=== PATIENT | male | born 1980 | race Caucasian/White ===

== ENCOUNTER 2020-09-25 15:11 | Outpatient (REF) | payer OTHER, SELFPAY | END 2020-09-25 15:12 | disposition home or self-care (01) | LOC: HO.BBR 15:11 | PROVIDERS: Visit Provider Internal Medicine | DX: D75.1 Secondary polycythemia (principal) | CPT/HCPCS: 36415; 85018; 99195 ==

== ENCOUNTER 2020-11-13 13:55 | Outpatient (REF) | payer OTHER, SELFPAY | END 2020-11-13 13:56 | disposition home or self-care (01) | LOC: HO.BBR 13:55 | PROVIDERS: Visit Provider Internal Medicine | DX: D75.1 Secondary polycythemia (principal) | CPT/HCPCS: 85014; 85018; 99195 ==

== ENCOUNTER 2021-01-29 15:04 | Outpatient (REF) | payer OTHER, SELFPAY ==
[2021-01-29 15:13] VITALS: BP 138/88; PULSE 70; RESP 16; TEMP 36.4; O2SAT 96; BMI 35.4
--- NOTE | 2021-01-29 15:23 | PM.HEMONCPN ---
Medical Summary - Medical Summary Date of Service: 01/29/21 Chief complaint: Follow-up Medical Summary: Diagnosis: Erythrocytosis/secondary polycythemia Routine blood work since 2016 demonstrating polycythemia with hemoglobin ranging from 16-19.6 gram/dL. Mild leukocytosis with WBC ranging from 9-10 K a normal platelets ranging from 170-[address] abdomen/pelvis in 2017 demonstrated hepatic steatosis. Diagnosed with sleep apnea several years ago, not very compliant with using CPAP machine. Never smoker. Interval History Interval history: Patient is here in follow-up. He is doing quite well, he continues to go for therapeutic phlebotomy every 6 weeks. He says he feels better after phlebotomy. He gets headaches and fatigue without the phlebotomies. He denies any chest pain or shortness of breath. He did get COVID-19 infection in the fall and has recovered completely from it. COUNTS INCLUDE 234 BEDS AT THE [facility] Medical History: Medical History (Last Updated 01/29/21 @ 16:45 by Kath Young MD) Chronic headache COVID-19 Erythrocytosis Hypertension Mild chronic gastritis Polycythemia Sleep apnea Family History: Family History (Last Updated 01/29/21 @ 15:28 by Lesia Carty, RN) Mother Hypertension Father Elevated hemoglobin Surgical History: Surgical History (Last Updated 01/29/21 @ 15:26 by Lesia Carty, RN) H/O medial meniscus repair of right knee Social History: Social History (Last Updated 01/29/21 @ 16:03 by Lesia Carty, RN) Alcohol History: Alcohol intake: never Tobacco History: Smoking Status: Never smoker Occupation Assessmet: service: Yes service comment: retired Oncology Screenings - ECOG Performance Status ECOG Performance Status: 0 Home Medications and Allergies Allergies Allergy/AdvReac Type Severity Reaction Status Date / Time No Known Allergies Allergy Unverified 07/25/20 19:03 [No Known Allergies*] Exam Vital signs: Vital Signs Temp 97.6 F 01/29/21 15:13 Pulse 70 01/29/21 15:13 Resp 16 01/29/21 15:13 BP 138/88 01/29/21 15:13 Pulse Ox 96 01/29/21 15:13 Intake & Output 01/28/21 01/29/21 01/29/21 18:59 06:59 18:59 Other: Weight 122 kg Weight in Grams [id number] Weight 122 kg Body Mass Index 35.4 - Constitutional Present: no acute distress - Routine HEENT Exam Head: Present: normal inspection Eye: Present: EOMI - Routine Neck Exam Present: normal inspection - Routine Respiratory Exam Absent: respiratory distress - Routine Cardiovascular Exam Cardiovascular: Present: S1 Data - Labs CBC & Chem 7: 01/29/21 15:50 Progress Note: A/P (1) Polycythemia Status: Acute Assessment and plan: 1. This is a pleasant 40-year-old male with polycythemia noted since 2016. He does have a diagnosis of sleep apnea which can be associated with secondary polycythemia. Hematological workup demonstrated serum erythropoietin level upper range of normal, JAK2 mutation including Exon 12 mutation and CALR mutations were negative. He started using CPAP machine. He is receiving therapeutic phlebotomy every 6 weeks. This helps his headaches and he feels better after it. Continue with therapeutic phlebotomy every 6-8 weeks. Follow-up in 6 months. - Time Spent With Patient Total time spent is greater than 50% in coordination of care (as documented) at patient's floor/unit and/or counseling patient: 15 - 24 minutes
[2021-01-29 15:52] LABS: MANUAL DIFF FLAG NO
[2021-01-29 16:00] LABS: Basophils Absolute Auto 0.1 X10*3/uL (0.0-0.2); Eosinophils Absolute Auto 0.2 X10*3/uL (0.0-0.4); Eosinophils Percent Auto 2.6 % (0-4); Hematocrit 49.6 % (42-52); Imm Gran Abs Auto 0.02 X10*3/uL (0.00-0.03); Imm Gran Pct Auto 0.3 % (0.0-0.4); Lymphocytes Absolute Auto 1.7 X10*3/uL (1.2-4.9); Lymphocytes Percent Auto 23.1 % (20-40); Mean Corpuscular HGB Conc 34.3 g/dl (31.0-36.0); Mean Corpuscular Volume 87.5 fL (80-98); Mean Platelet Volume 11.5 fL (9.4-12.4); Monocytes Absolute Auto 0.5 X10*3/uL (0.1-1.2); Monocytes Percent Auto 7.5 % (2-11); Neutrophils Absolute Auto 4.7 X10*3/uL (2.0-8.3); Neutrophils Percent Auto 65.5 % (45-73); Platelet Count 188 X10*3/uL (160-400); Red Blood Count 5.67 X10*6/uL (4.60-5.80); Red Cell Distribution Width 12.4 % (11.0-16.0); White Blood Count 7.2 X10*3/uL (4.8-10.8)
--- NOTE | 2021-01-29 16:07 | MHC.HEMONC ---
f/u with dr helms. pt will get therapeutic phlebotomy done tomorrow for hgb of 17. new order for q2m sent. pt will bring in updated home med list,PCP name and insurance card to next visit
== END 2021-01-29 15:05 | disposition home or self-care (01) ==
LOC: HO.ONC 15:04
PROVIDERS: Visit Provider Internal Medicine
DX: D75.1 Secondary polycythemia (principal); G47.30 Sleep apnea, unspecified
CPT/HCPCS: 36415; 85025; 99213

== ENCOUNTER 2021-02-05 14:58 | Outpatient (REF) | payer OTHER, SELFPAY | END 2021-02-05 14:59 | disposition home or self-care (01) | LOC: HO.BBR 14:58 | PROVIDERS: Visit Provider Internal Medicine | DX: D75.1 Secondary polycythemia (principal) | CPT/HCPCS: 85014; 85018; 99195 ==

== ENCOUNTER 2021-09-05 12:57 | Outpatient (REF) | payer OTHER, SELFPAY | END 2021-09-05 12:58 | disposition home or self-care (01) | LOC: HO.BBR 12:57 | PROVIDERS: Visit Provider Internal Medicine | DX: D75.1 Secondary polycythemia (principal) | CPT/HCPCS: 85014; 85018; 99195 ==

== ENCOUNTER 2021-11-05 02:51 | Emergency (ER) | payer OTHER, SELFPAY ==
--- NOTE | ~2021-11-05 | XR_ITS ---
EXAMINATION: XR CHEST CLINICAL INFORMATION: Chest pain COMPARISON: None TECHNIQUE: 2 views of the chest were obtained. FINDINGS: Lung volumes are symmetric. There is streaky opacity at the left lung base. No additional consolidation is seen. No evidence of pneumothorax, pleural effusion, or pulmonary edema. The cardiomediastinal contour is unremarkable. No acute osseous findings are seen. XR/XR chest 2V IMPRESSION: Streaky left basilar opacity more suggestive of atelectasis.
[2021-11-05 02:59] VITALS: BP 176/106; PULSE 71; RESP 18; TEMP 36.6; O2SAT 97; BMI 35.6
--- NOTE | 2021-11-05 03:03 | ECG_ITS ---
Test Reason : cp Blood Pressure : / mmHG Vent. Rate : 070 BPM Atrial Rate : 070 BPM P-R Int : 142 ms QRS Dur : 088 ms QT Int : 392 ms P-R-T Axes : 040 -11 -05 degrees QTc Int : 423 ms Normal sinus rhythm Nonspecific T wave abnormality Abnormal ECG When compared with ECG of 11-JUL-2020 17:30, Nonspecific T wave changes present Referred By: Generic ED Physician Electronically Signed By:Jem Tran
[2021-11-05 03:28] LABS: Basophils Absolute Auto 0.1 X10*3/uL (0.0-0.2); Basophils Percent Auto 0.7 % (0-2); Eosinophils Absolute Auto 0.3 X10*3/uL (0.0-0.4); Hematocrit 45.2 % (42.0-52.0); Hemoglobin 15.7 g/dl (14.0-18.0); Imm Gran Abs Auto 0.02 X10*3/uL (0.00-0.03); Imm Gran Pct Auto 0.2 % (0.0-0.4); Lymphocytes Absolute Auto 2.7 X10*3/uL (1.2-4.9); Lymphocytes Percent Auto 27.9 % (20-40); MANUAL DIFF FLAG NO; Mean Corpuscular HGB Conc 34.7 g/dl (31.0-36.0); Mean Corpuscular Hemoglobin 30.7 pg (27.0-33.0); Mean Corpuscular Volume 88.5 fL (80.0-98.0); Mean Platelet Volume 11.1 fL (9.4-12.4); Monocytes Absolute Auto 0.8 X10*3/uL (0.1-1.2); Neutrophils Absolute Auto 5.8 x10*3/uL (2.0-8.3); Neutrophils Percent Auto 60.2 % (45-73); Platelet Count 185 X10*3/uL (160-400); Red Blood Count 5.11 X10*6/uL (4.60-5.80); White Blood Count 9.7 X10*3/uL (4.8-10.8)
[2021-11-05 03:45] LABS: Alanine Aminotransferase 80 U/L (0-40); Albumin Level 4.1 g/dL (3.5-5.0); Alkaline Phosphatase 69 U/L (39-117); Anion Gap 13 (12-20); Aspartate Amino Transferase 30 U/L (5-37); Bilirubin Total 0.6 mg/dL (0.0-1.0); Blood Urea Nitrogen 14 mg/dL (9-16); Calcium 9.1 mg/dL (8.4-10.2); Carbon Dioxide 23 mmol/L (22-29); Chloride 108 mmol/L (96-108); Creatinine Clr Calc Pharmacy 138.7; Estimated Glomerular Filt Rate > 60; Glucose Random 104 mg/dL (60-115); Potassium 3.8 mmol/L (3.3-5.1); Sodium 140 mmol/L (135-145); Total Protein 6.7 g/dL (6.5-8.0)
[2021-11-05 03:48] LABS: Troponin-I High Sensitivity 6.3 ng/L (<3.5-35.0)
--- NOTE | 2021-11-05 05:15 | ED.GENADULT ---
HPI - General Adult General Chief complaint: General Medical Stated complaint: high BP, chest pain Time Seen by Provider: 11/05/21 03:51 Source: patient Mode of arrival: ambulatory History of Present Illness HPI narrative: 41-year-old male with presentation for elevated blood pressure and chest pain with reports of fatigue since being started on propanolol for his blood pressure. Patient states that he has had headache as well and describes the chest pain as squeezing in nature, constant and has had associated dizziness without visual/B/auditory changes and denies any extremity weakness/numbness/tingling. Otherwise, he has negative GI complaints. Related Data Previous Rx's Medication Instructions Recorded hydrochlorothiazide 25 mg tablet 25 mg PO DAILY 30 Days #30 tab 11/05/21 Allergies Allergy/AdvReac Type Severity Reaction Status Date / Time No Known Allergies Allergy Unverified 07/25/20 19:03 [No Known Allergies*] Review of Systems Review of Systems: Pertinent positives and negatives as stated in HPI 10 point review of systems is otherwise negative. PMFSH Past Medical History Source: nursing notes reviewed Medical History Chronic headache COVID-19 Erythrocytosis Hypertension Mild chronic gastritis Polycythemia Sleep apnea Surgical History H/O medial meniscus repair of right knee Family History Family History Mother Hypertension Father Elevated hemoglobin Social History Social History Alcohol intake: never Advance Directives: No Advance Directives Information Provided: Yes service: Yes (retired) Physical Exam Vital Signs: Vital Signs: Last Vital Signs Temp 97.9 F 11/05/21 06:10 Pulse 66 11/05/21 06:10 Resp 16 11/05/21 06:10 BP 143/94 H 11/05/21 06:10 Pulse Ox 96 11/05/21 06:10 BMI result Body Mass Index 35.6 VITAL SIGNS: Reviewed. GENERAL: Well developed, well nourished, in no acute distress. HEAD: Normocephalic/atraumatic EYES: PERRLA, EOMI OROPHARYNX: no oral lesions noted, posterior pharynx clear LUNGS: Normal breath sounds. No adventitious sounds or accessory muscle use. SpO2<96> CARDIOVASCULAR: Regular rate and rhythm without noted murmurs, no JVD or lower extremity edema. ABDOMEN: Soft, non-tender, non-distended with bowel sounds. MUSCULOSKELETAL: No tenderness, deformities, or effusions noted on gross inspection. EXTREMITIES: No cyanosis, clubbing or edema. SKIN: Inspection of the skin reveals no rashes NEUROLOGIC: Alert and oriented x 4. Strength and sensation to light touch were grossly intact x 4. Course Course Course Narrative: This is a 41-year-old male with history and clinical presentation consistent with symptoms that correlate with elevated blood pressure and on review of all investigations there are no acute findings other than detectable troponin levels. In regards to chest x-ray findings this is most consistent clinically with atelectasis as patient has no new cough, has been afebrile and is oxygenating well. HEART Score: 2 Serial troponins are flat, and patient was discharged home in stable condition with instructions to follow-up with his primary care provider. Medical Decision Making Lab Data Result diagrams: 11/05/21 03:21 11/05/21 03:21 Labs: Lab Results 11/05/21 11/05/21 11/05/21 Range/Units 03:21 03:21 03:21 WBC 9.7 (4.8-10.8) X10*3/uL RBC 5.11 (4.60-5.80) X10*6/uL Hgb 15.7 (14.0-18.0) g/dl Hct 45.2 (42.0-52.0) % MCV 88.5 (80.0-98.0) fL MCH 30.7 (27.0-33.0) pg MCHC 34.7 (31.0-36.0) g/dl RDW 12.0 (11.0-16.0) % Plt Count 185 (160-400) X10*3/uL MPV 11.1 (9.4-12.4) fL Immature Gran % (Auto) 0.2 (0.0-0.4) % Neut % (Auto) 60.2 (45-73) % Lymph % (Auto) 27.9 (20-40) % [place] % (Auto) 8.0 (2-11) % Eos % (Auto) 3.0 (0-4) % Baso % (Auto) 0.7 (0-2) % Lymph # (Auto) 2.7 (1.2-4.9) X10*3/uL [place] # (Auto) 0.8 (0.1-1.2) X10*3/uL Eos # (Auto) 0.3 (0.0-0.4) X10*3/uL Baso # (Auto) 0.1 (0.0-0.2) X10*3/uL Abs Immat Gran (auto) 0.02 (0.00-0.03) X10*3/uL Absolute Neuts (auto) 5.8 (2.0-8.3) x10*3/uL Absolute Nucleated RBC 0.000 (0.0-0.012) X10*3/uL Nucleated RBC % (auto) 0.0 (0.0-0.2) /100WBC Sodium 140 (135-145) mmol/L Potassium 3.8 (3.3-5.1) mmol/L Chloride 108 (96-108) mmol/L Carbon Dioxide 23 (22-29) mmol/L Anion Gap 13 (12-20) BUN 14 (9-16) mg/dL Creatinine 0.97 (0.5-1.4) mg/dL Estim Creat Clear Calc 138.7 Estimated GFR > 60 Random Glucose 104 (60-115) mg/dL Calcium 9.1 (8.4-10.2) mg/dL Total Bilirubin 0.6 (0.0-1.0) mg/dL AST 30 (5-37) U/L ALT 80 H (0-40) U/L Alkaline Phosphatase 69 (39-117) U/L Troponin I High Sens 6.3 (<3.5-35.0) ng/L Total Protein 6.7 (6.5-8.0) g/dL Albumin 4.1 (3.5-5.0) g/dL 11/05/21 Range/Units 06:08 WBC (4.8-10.8) X10*3/uL RBC (4.60-5.80) X10*6/uL Hgb (14.0-18.0) g/dl Hct (42.0-52.0) % MCV (80.0-98.0) fL MCH (27.0-33.0) pg MCHC (31.0-36.0) g/dl RDW (11.0-16.0) % Plt Count (160-400) X10*3/uL MPV (9.4-12.4) fL Immature Gran % (Auto) (0.0-0.4) % Neut % (Auto) (45-73) % Lymph % (Auto) (20-40) % [place] % (Auto) (2-11) % Eos % (Auto) (0-4) % Baso % (Auto) (0-2) % Lymph # (Auto) (1.2-4.9) X10*3/uL [place] # (Auto) (0.1-1.2) X10*3/uL Eos # (Auto) (0.0-0.4) X10*3/uL Baso # (Auto) (0.0-0.2) X10*3/uL Abs Immat Gran (auto) (0.00-0.03) X10*3/uL Absolute Neuts (auto) (2.0-8.3) x10*3/uL Absolute Nucleated RBC (0.0-0.012) X10*3/uL Nucleated RBC % (auto) (0.0-0.2) /100WBC Sodium (135-145) mmol/L Potassium (3.3-5.1) mmol/L Chloride (96-108) mmol/L Carbon Dioxide (22-29) mmol/L Anion Gap (12-20) BUN (9-16) mg/dL Creatinine (0.5-1.4) mg/dL Estim Creat Clear Calc Estimated GFR Random Glucose (60-115) mg/dL Calcium (8.4-10.2) mg/dL Total Bilirubin (0.0-1.0) mg/dL AST (5-37) U/L ALT (0-40) U/L Alkaline Phosphatase (39-117) U/L Troponin I High Sens 5.4 (<3.5-35.0) ng/L Total Protein (6.5-8.0) g/dL Albumin (3.5-5.0) g/dL ECG Data Attestation: I personally reviewed and interpreted this ECG as follows: Prior ECG tracings: not available for review Interpretation: Normal sinus rhythm, HR-70, no STEMI, VA/QRS/QTC is within normal limits. Discharge Plan Discharge Clinical Impression: Chest pain Patient Disposition: Home, Self-Care Instructions: Chest Pain (ED) Additional Instructions: 1. You have been started on a new blood pressure medication, but should still follow-up with Dr. Mcmahon by calling the office today. At that time you should discuss the symptoms that you have been experiencing since being started on the propanolol. Return to the ER for worsening symptoms. Prescriptions: New hydrochlorothiazide 25 mg tablet 25 mg PO DAILY 30 Days Qty: 30 RF: 0 Referrals: Alexander Mcmahon DO [Primary Care Provider] - 2 days (Patient hypertensive and currently on propanolol, started hydrochlorothiazide.)
[2021-11-05 06:10] VITALS: BP 143/94; PULSE 66; RESP 16; TEMP 36.6; O2SAT 96
[2021-11-05] MEDS: hydroCHLOROthiazide 25 MG TABLET PO (06:11)
[2021-11-05 06:32] LABS: Troponin-I High Sensitivity 5.4 ng/L (<3.5-35.0)
[2021-11-05] MEDS: Lidocaine HCl Viscous 2 % 15 ML SOLUTION 10 ML MUCOUS MEM (06:33)
[2021-11-05] MEDS: Magnesium Hydrox/Alum Hydrox 30 ML ORAL.SUSP PO (06:33)
== END 2021-11-05 06:45 | disposition home or self-care (01) ==
PROVIDERS: Emergency Provider Student in an Organized Health Care Education/Training Program; PCP Family Medicine
DX: R07.9 Chest pain, unspecified (principal); I10 Essential (primary) hypertension
CPT/HCPCS: 36415; 71046; 80053; 84484; 85025; 93005; 99283; 99284

== ENCOUNTER 2021-11-05 15:19 | Outpatient (REF) | payer OTHER, SELFPAY | END 2021-11-05 15:20 | disposition home or self-care (01) | LOC: HO.BBR 15:19 | PROVIDERS: Visit Provider Internal Medicine | DX: D75.1 Secondary polycythemia (principal) | CPT/HCPCS: 85014; 85018; 99195 ==

== ENCOUNTER 2022-01-19 15:15 | Outpatient (REF) | payer OTHER, SELFPAY | END 2022-01-19 15:16 | disposition home or self-care (01) | LOC: HO.BBR 15:15 | PROVIDERS: Visit Provider Internal Medicine | DX: D75.1 Secondary polycythemia (principal) | CPT/HCPCS: 85014; 85018; 99195 ==

== ENCOUNTER → 2022-02-04 15:17 | Outpatient (BNV) | payer OTHER, SELFPAY | PROVIDERS: PCP Internal Medicine Endocrinology, Diabetes & Metabolism; Visit Provider Internal Medicine | DX: D75.1 Secondary polycythemia (principal) | CPT/HCPCS: 99213; 99214; G2211 ==

== ENCOUNTER 2022-04-22 15:27 | Outpatient (REF) | payer OTHER, SELFPAY | END 2022-04-22 15:28 | disposition home or self-care (01) | LOC: HO.BBR 15:27 | PROVIDERS: PCP Nurse Practitioner Family; Visit Provider Internal Medicine | DX: D75.1 Secondary polycythemia (principal) | CPT/HCPCS: 85014; 85018; 99195 ==

== ENCOUNTER 2022-05-18 17:00 | Emergency (ER) | payer OTHER, SELFPAY ==
--- NOTE | 2022-05-18 17:07 | ECG_ITS ---
Test Reason : cp Blood Pressure : / mmHG Vent. Rate : 082 BPM Atrial Rate : 082 BPM P-R Int : 134 ms QRS Dur : 088 ms QT Int : 324 ms P-R-T Axes : 049 -11 086 degrees QTc Int : 378 ms Normal sinus rhythm Nonspecific T wave abnormality Abnormal ECG When compared with ECG of 05-NOV-2021 03:06, No significant change was found Referred By: Generic ED Physician Electronically Signed By:RK OLIVERA MD
[2022-05-18 20:19] VITALS: BP 165/95; PULSE 81; RESP 20; TEMP 36.6; O2SAT 96; BMI 35.6
--- NOTE | 2022-05-18 21:21 | ED_ITS ---
HPI - Chest Pain General Chief Complaint: Chest Pain Stated Complaint: chest pain, headache Time Seen by Provider: 05/18/22 21:21 Source: patient Mode of arrival: ambulatory Limitations: no limitations History of Present Illness HPI narrative: Patient with history of hypertension supposed to be on losartan 100 mg but taking only 50 mg as it gives him lethargic under lot of stress at work and drink caffeinated drinks workup after some sleep at 14:00 checked his blood pressure was 175/106 also noticed slight headache and slight chest pain, no chest pain now no shortness of breath patient usual blood pressure is 150s/95 patient advised to take losartan 100 mg but taking only 50 does not want to take hydrochlorothiazide as it makes him sleepy patient denies any shortness of breath Related Data Home Medications Medication Instructions Recorded Confirmed ciprofloxacin HCl 500 mg tablet 1 tab PO BID 02/04/22 02/04/22 losartan 100 mg tablet 1 tab PO DAILY 02/04/22 02/04/22 omeprazole 20 mg tablet,delayed 20 mg PO DAILY 02/04/22 02/04/22 release propranolol 10 mg tablet 1 tab PO TID 02/04/22 02/04/22 Previous Rx's Medication Instructions Recorded amlodipine 5 mg tablet (Norvasc) 5 mg PO DAILY #30 tabs 05/19/22 Allergies Allergy/AdvReac Type Severity Reaction Status Date / Time No Known Allergies Allergy Verified 05/18/22 20:19 [No Known Allergies*] Review of Systems Review of Systems: Yes all other systems are reviewed and are negative PMFSH Past Medical History Medical History Chronic headache COVID-19 Erythrocytosis Hypertension Mild chronic gastritis Polycythemia Sleep apnea Surgical History H/O medial meniscus repair of right knee Family History Family History Mother Hypertension Father Elevated hemoglobin Social History Social History Household Members: Spouse and Children Housing: Apartment Are you a primary day care aide to a significant other at home: No Do you presently have visiting nurse or other home services: No Alcohol intake: never Patient Tobacco Use Status: Never used Tobacco Use of substances other than those prescribed or required for medical reasons: No Advance Directives: No Advance Directives Information Provided: No service: Yes (retired) Current occupational status: employed Physical Exam Vital Signs: Vital Signs: Last Vital Signs Temp 98.0 F 05/19/22 00:30 Pulse 80 05/19/22 00:30 Resp 16 05/19/22 00:30 BP 156/98 H 05/19/22 00:30 Pulse Ox 98 05/19/22 00:30 O2 Del Method 05/19/22 00:30 BMI result Body Mass Index 35.6 Appearance: Alert. Oriented X3. No acute distress. Eyes: PERRLA, No Nystagmus ENT: Pharynx normal. Oral Mucosa moist Neck: Normal inspection. Neck supple. CVS: Normal heart rate and rhythm. Pulses normal. Respiratory: No respiratory distress. Equal air entry bilateral, no wheezing/rales/rhonchi Abdomen: Soft and nontender. Bowel sounds are present, no mass palpable, no CVA tenderness Skin: Skin warm and dry. Normal skin color. Normal skin turgor. Extremities: No lower extremity edema. No calf tenderness Neuro: Oriented X 3. No motor deficit. No sensory deficit.No cerebellar signs , cranial nerves II-XII intact MDM - Chest Pain MDM Narrative Medical decision making narrative: Patient with hypertension with atypical chest pain for more than 6 hours EKG negative for hypertension will add amlodipine 5 mg daily along with losartan advised to follow-up with full stack php developer as scheduled next week Lab Data Attestation: I reviewed the patient's lab results. Result diagrams: 05/18/22 21:51 05/18/22 21:51 Labs: Lab Results 05/18/22 05/18/22 05/18/22 Range/Units 21:51 21:51 21:51 WBC 9.5 (4.8-10.8) X10*3/uL RBC 5.48 (4.60-5.80) X10*6/uL Hgb 16.3 (14.0-18.0) g/dl Hct 47.8 (42.0-52.0) % MCV 87.2 (80.0-98.0) fL MCH 29.7 (27.0-33.0) pg MCHC 34.1 (31.0-36.0) g/dl RDW 12.9 (11.0-16.0) % Plt Count 170 (160-400) X10*3/uL MPV 10.9 (9.4-12.4) fL Immature Gran % (Auto) 0.3 (0.0-0.4) % Neut % (Auto) 60.1 (45-73) % Lymph % (Auto) 27.2 (20-40) % [place] % (Auto) 9.1 (2-11) % Eos % (Auto) 2.7 (0-4) % Baso % (Auto) 0.6 (0-2) % Lymph # (Auto) 2.6 (1.2-4.9) X10*3/uL [place] # (Auto) 0.9 (0.1-1.2) X10*3/uL Eos # (Auto) 0.3 (0.0-0.4) X10*3/uL Baso # (Auto) 0.1 (0.0-0.2) X10*3/uL Abs Immat Gran (auto) 0.03 (0.00-0.03) X10*3/uL Absolute Neuts (auto) 5.7 (2.0-8.3) x10*3/uL Absolute Nucleated RBC 0.000 (0.0-0.012) X10*3/uL Nucleated RBC % (auto) 0.0 (0.0-0.2) /100WBC Sodium 141 (135-145) mmol/L Potassium 4.1 (3.3-5.1) mmol/L Chloride 108 (96-108) mmol/L Carbon Dioxide 26 (22-29) mmol/L Anion Gap 11 L (12-20) BUN 14 (9-16) mg/dL Creatinine 1.06 (0.5-1.4) mg/dL Estim Creat Clear Calc 125.7 Estimated GFR > 60 Random Glucose 90 (60-115) mg/dL Calcium 9.4 (8.4-10.2) mg/dL Total Bilirubin 0.6 (0.0-1.0) mg/dL AST 37 (5-37) U/L ALT 85 H (0-40) U/L Alkaline Phosphatase 71 (39-117) U/L Troponin I High Sens 6.0 (<3.5-35.0) ng/L Total Protein 7.3 (6.5-8.0) g/dL Albumin 4.4 (3.5-5.0) g/dL ECG Data ECG #1: Attestation: I personally reviewed and interpreted this ECG as follows: Interpretation: Normal sinus rhythm heart rate 82 beats per minute normal axis normal intervals nonspecific ST T wave changes no acute ischemic no significant change from the previous EKG Discharge Plan Discharge Clinical Impression: Hypertension Patient Disposition: Home, Self-Care Instructions: Chronic Hypertension (ED) Additional Instructions: Continue losartan 50 mg daily as you are taking Add amlodipine 5 mg daily for blood pressure control Your blood pressure should be less than 130/85 Follow with your PCP Prescriptions: New amlodipine [Norvasc] 5 mg tablet 5 mg PO DAILY Qty: 30 0RF No Action ciprofloxacin HCl 500 mg tablet 1 tab PO BID propranolol 10 mg tablet 1 tab PO TID losartan 100 mg tablet 1 tab PO DAILY omeprazole 20 mg Tablet,Delayed Release (Dr/Ec) 20 mg PO DAILY Interventions: ED Discharge Assessment Last Done: 05/19/22 00:42 Discharge Date/Time: 05/19/22 00:43
[2022-05-18 21:55] LABS: MANUAL DIFF FLAG NO
[2022-05-18 21:57] LABS: Basophils Absolute Auto 0.1 X10*3/uL (0.0-0.2); Basophils Percent Auto 0.6 % (0-2); Eosinophils Absolute Auto 0.3 X10*3/uL (0.0-0.4); Eosinophils Percent Auto 2.7 % (0-4); Hematocrit 47.8 % (42.0-52.0); Hemoglobin 16.3 g/dl (14.0-18.0); Imm Gran Abs Auto 0.03 X10*3/uL (0.00-0.03); Imm Gran Pct Auto 0.3 % (0.0-0.4); Lymphocytes Absolute Auto 2.6 X10*3/uL (1.2-4.9); Lymphocytes Percent Auto 27.2 % (20-40); Mean Corpuscular HGB Conc 34.1 g/dl (31.0-36.0); Mean Corpuscular Hemoglobin 29.7 pg (27.0-33.0); Mean Corpuscular Volume 87.2 fL (80.0-98.0); Mean Platelet Volume 10.9 fL (9.4-12.4); Monocytes Absolute Auto 0.9 X10*3/uL (0.1-1.2); Monocytes Percent Auto 9.1 % (2-11); Neutrophils Absolute Auto 5.7 x10*3/uL (2.0-8.3); Neutrophils Percent Auto 60.1 % (45-73); Platelet Count 170 X10*3/uL (160-400); Red Blood Count 5.48 X10*6/uL (4.60-5.80); Red Cell Distribution Width 12.9 % (11.0-16.0); White Blood Count 9.5 X10*3/uL (4.8-10.8)
[2022-05-18 22:00] VITALS: BP 153/94; PULSE 72; RESP 16; O2SAT 97
[2022-05-18 22:13] LABS: Alanine Aminotransferase 85 U/L (0-40); Albumin Level 4.4 g/dL (3.5-5.0); Alkaline Phosphatase 71 U/L (39-117); Anion Gap 11 (12-20); Aspartate Amino Transferase 37 U/L (5-37); Bilirubin Total 0.6 mg/dL (0.0-1.0); Blood Urea Nitrogen 14 mg/dL (9-16); Calcium 9.4 mg/dL (8.4-10.2); Carbon Dioxide 26 mmol/L (22-29); Chloride 108 mmol/L (96-108); Creatinine Clr Calc Pharmacy 125.7; Estimated Glomerular Filt Rate > 60; Glucose Random 90 mg/dL (60-115); Potassium 4.1 mmol/L (3.3-5.1); Sodium 141 mmol/L (135-145); Total Protein 7.3 g/dL (6.5-8.0)
[2022-05-18] MEDS: amLODIPine Besylate 5 MG TABLET PO (23:31)
[2022-05-18 23:36] VITALS: PULSE 80
[2022-05-19 00:30] VITALS: BP 156/98; PULSE 80; RESP 16; TEMP 36.7; O2SAT 98
== END 2022-05-19 00:43 | disposition home or self-care (01) ==
PROVIDERS: Emergency Provider Internal Medicine
DX: R07.89 Other chest pain (principal); R51.9 Headache, unspecified; I10 Essential (primary) hypertension; Z79.899 Other long term (current) drug therapy
CPT/HCPCS: 36415; 80053; 84484; 85025; 93005; 99283; 99284

== ENCOUNTER 2022-07-23 15:30 | Outpatient (REF) | payer OTHER, SELFPAY | END 2022-07-23 15:31 | disposition home or self-care (01) | LOC: HO.BBR 15:30 | PROVIDERS: Visit Provider Internal Medicine | DX: D75.1 Secondary polycythemia (principal) | CPT/HCPCS: 85018; 99195 ==

== ENCOUNTER 2022-11-04 14:43 | Outpatient (REF) | payer OTHER, SELFPAY | END 2022-11-04 14:44 | disposition home or self-care (01) | LOC: HO.BBR 14:43 | PROVIDERS: Visit Provider Internal Medicine | DX: D75.1 Secondary polycythemia (principal) | CPT/HCPCS: 85014; 85018; 99195 ==

== ENCOUNTER 2023-02-12 15:05 | Outpatient (REF) | payer OTHER, SELFPAY | END 2023-02-12 15:06 | disposition home or self-care (01) | LOC: HO.BBR 15:05 | PROVIDERS: Visit Provider Internal Medicine | DX: D75.1 Secondary polycythemia (principal) | CPT/HCPCS: 85014; 85018; 99195 ==

== ENCOUNTER 2023-04-30 15:16 | Outpatient (REF) | payer OTHER, SELFPAY | END 2023-04-30 15:17 | disposition home or self-care (01) | LOC: HO.BBR 15:16 | PROVIDERS: Visit Provider Internal Medicine | DX: D75.1 Secondary polycythemia (principal) | CPT/HCPCS: 85018; 99195 ==

== ENCOUNTER 2023-07-09 15:26 | Outpatient (REF) | payer MEDICAID, SELFPAY | END 2023-07-09 15:27 | disposition home or self-care (01) | LOC: HO.BBR 15:26 | PROVIDERS: Visit Provider Internal Medicine | DX: D75.1 Secondary polycythemia (principal) | CPT/HCPCS: 85014; 85018; 99195 ==

== ENCOUNTER 2023-09-16 15:29 | Outpatient (REF) | payer OTHER, SELFPAY | END 2023-09-16 15:30 | disposition home or self-care (01) | LOC: HO.BBR 15:29 | PROVIDERS: Visit Provider Internal Medicine | DX: D75.1 Secondary polycythemia (principal) | CPT/HCPCS: 85014; 85018; 99195 ==

== ENCOUNTER 2023-11-25 15:15 | Outpatient (REF) | payer OTHER, SELFPAY | END 2023-11-25 15:16 | disposition home or self-care (01) | LOC: HO.BBR 15:15 | PROVIDERS: Visit Provider Internal Medicine | DX: D75.1 Secondary polycythemia (principal) | CPT/HCPCS: 85018; 99195 ==

== ENCOUNTER 2024-02-18 12:57 | Outpatient (REF) | payer OTHER, SELFPAY | END 2024-02-18 12:58 | disposition home or self-care (01) | LOC: HO.BBR 12:57 | PROVIDERS: Visit Provider Internal Medicine | DX: D75.1 Secondary polycythemia (principal) | CPT/HCPCS: 85018; 99195 ==

== ENCOUNTER 2024-04-27 15:02 | Outpatient (REF) | payer OTHER, SELFPAY | END 2024-04-27 15:03 | disposition home or self-care (01) | LOC: HO.BBR 15:02 | PROVIDERS: Visit Provider Internal Medicine | DX: D75.1 Secondary polycythemia (principal) | CPT/HCPCS: 85014; 85018; 99195 ==

== ENCOUNTER 2024-07-06 15:19 | Outpatient (REF) | payer OTHER, SELFPAY | END 2024-07-06 15:20 | disposition home or self-care (01) | LOC: HO.BBR 15:19 | PROVIDERS: Visit Provider Internal Medicine | DX: D75.1 Secondary polycythemia (principal) | CPT/HCPCS: 85018; 99195 ==

== ENCOUNTER 2024-08-31 15:17 | Outpatient (REF) | payer OTHER, SELFPAY | END 2024-08-31 15:18 | disposition home or self-care (01) | LOC: HO.BBR 15:17 | PROVIDERS: Visit Provider Internal Medicine | DX: D75.1 Secondary polycythemia (principal) | CPT/HCPCS: 85018; 99195 ==

== ENCOUNTER 2024-11-09 15:19 | Outpatient (REF) | payer OTHER, SELFPAY ==
--- OUTSIDE RECORDS SUMMARY | 2024-11-09 16:49 | XMS_ITS | Encounter Summary ---
Author Name [facility] [place] [facility] [place] Address [address] [place] [address] Care Team Providers Care Investor Relations Manager Name Role Phone [employer] [facility] Insurance Providers: All historical and current Section Date Range: From patient's date of to the date document was created. This section includes the names of all active insurance providers for the patient. Insurance Provider Type of Coverage Plan Name Start of Policy Coverage End of Policy Coverage Group Number Member ID Insurance Provider's Telephone Number Policy Agustin's Name Patient's Relationship to Policy Agustin [place] [employer] D[employer] [employer] PLAN [employer] [facility] Jul 09, 2023 [id number] SAULO LIU PATIENT [employer] [facility] Nov 08, 2020 [id number] [phone] SAULO LIU PATIENT [facility] ([id number]) PRESCRIPT ION [facility] Jul 09, 2023 [id number] [phone] SAULO LIU PATIENT [facility] ([id number]) PRESCRIPT ION [facility] Jul 09, 2023 [id number] SAULO LIU PATIENT [facility] HIGH DEDUCTIBL E HEALTH PLAN W/HEALTH [employer] ACCOUNT [facility] Dec 01, 2014 [id number] [phone] SAULO LIU PATIENT Selected Encounter This section includes the information on record at [place] for the Encounter. Date/Time Encounter Type Encounter Description Reason Pro vider Source Dec 07, 2023 11:45 AM Outpatient Encounter PRIMARY CARE/MEDICINE IHE Encounter Template Text not used by [place] Plan of Treatment: Future Appointments (+ 6 months) and Future Tests (+/- 45 days) The Plan of Treatment section includes future care activities for the patient [facility] [place] [facility] This section includes future appointments and future orders which are active, pending or scheduled. Future Appointments This section includes appointments that were scheduled to occur 6 months from the date of the Encounter, up to a maximum of 20 appointments. The data comes from all [place] treatment facilities. Appointment Date/Time Appointment Type Appointme nt Facility Name March 14, 2024 02:30 PM AMB[place] - NONE [place] [facility] [place] [facility] Apr 11, 2024 08:30 AM [place]IC[place] [facility] [place] [facility] Apr 11, 2024 09:00 AM [place] [facility] [place] [facility] Apr 18, 2024 08:30 AM [place]UL[place] [facility] [place] [facility] May 15, 2024 02:30 PM AMBULATORY - NONE [facility] [place] [facility] May 23, 2024 10:00 AM AMBULATORY - NONE [facility] [place] [facility] May 23, 2024 03:00 PM [place] [facility] [place] [facility] May 23, 2024 04:15 PM [place] - [place] [facility] [place] [facility] Social History: Smoking Status (Most current) and Tobacco Use (All prior to encounter date) This section includes the most current, and the historical, smoking and tobacco- related health factors from the [place] facility where the Encounter took place. Current Smoking Status This section includes the most current smoking, or tobacco-related health factor, from the [place] facility where the Encounter took place. Date/Time Current Smoking Status [facility] Oct 06, 2023 10:00 AM [place]-TO[place] NEVER USED [place] [facility] Tobacco Use History This section includes a history of the smoking, or tobacco-related health factors, that were collected on or before the date of the Encounter. The data comes from the [place] facility where the Encounter took place. Date/Time Smoking Status/Tobac co Use Comment Facility Jul 31, 2022 09:00 AM [place]-TOBACCO NEVER USED [place] [facility] [place] [facility] Apr 24, 2021 03:00 PM VA-TOBACCO NEVER USED [facility] [place] [facility] March 26, 2020 02:34 PM VA-TOBACCO NEVER USED [facility] [place] [facility] Feb 27, 2019 09:44 AM VA-TOBACCO NEVER USED [place] [facility] [place] [facility] Dec 14, 2017 03:24 PM LIFETIME NON-TOBACCO USER [facility] [place] [facility] Dec 14, 2016 10:28 AM LIFETIME NON-TOBACCO USER Life time nonsmoker [place] [facility] [place] [facility] Jan 06, 2016 09:32 AM LIFETIME NON-TOBACCO USER [facility] [place] [facility] Jan 21, 2015 12:48 PM LIFETIME NON-TOBACCO USER never [place] [facility] Encounter Notes: All associated encounter notes This section contains the clinical notes associated to the Encounter. Date/Time Encounter Note(s) Provider Source Dec 07, 2023 11:45 AM ADMINISTRATIVE NOTE: LOCAL TITLE: FAX/MAIL RECEIVED STANDARD TITLE: ADMINISTRATIVE NOTE DATE OF NOTE: DEC 07, 2023@11:45 ENTRY DATE: DEC 07, 2023@11:45:27 AUTHOR: CAMILO BROOKS EXP COSIGNER: URGENCY: STATUS: COMPLETED Document Received On: Nov Document Type: Other: MEDICATION APPROVAL OMEPRAZOLE Date of Service: Nov Facility and or Provider: [facility] Contact Information: PCP of Record: DEX SEO Next visit with PCP: 02/28/2024 15:00 CWM/NO/PACT 7 03/14/2024 14:30 CWM/NO/SLEEP DME / WITH E Primary Care May keep copies of this document for up to 14 days and send the original for scanning. /mandi/ CAMILO BROOKS AMSA Signed: 12/07/2023 11:46 CAMILO BROOKS [facility]
--- OUTSIDE RECORDS SUMMARY | 2024-11-09 16:49 | XMS_ITS | Encounter Summary ---
Author Name [facility] [place] Organization [place] Address [address] [place] [address] Care Team Providers Care Licensed Occupational Therapy Assistant Name Role Phone DEX SEO Primary Care Provider [facility] Insurance Providers: All historical and current [...] Name Patient's Relationship to Policy Agustin [place] DEDU[place]IBL E HEALTH PLAN [place] [employer] [facility] Jul 09, 2023 [id number] [phone] SAULO LIU PATIENT [facility] PRES[facility] Nov 08, 2020 [id number] [phone] SAULO LIU PATIENT [facility] ([id number]) PRESCRIPT ION AGRIM ARK [facility] Jul 09, 2023 AGRIMRK [id number] SAULO LIU PATIENT [facility] ([id number]) PRESCRIPT ION [facility] Jul 09, 2023 AGRIMRK [id number] [phone] SAULO LIU PATIENT [facility] HIGH DEDUCTIBL E HEALTH PLAN W/HEALTH SAVINGS ACCOUNT [facility] Dec 01, 2014 [id number] [phone] SAULO LIU PATIENT Selected Encounter This section includes the information on record at [place] for the Encounter. Date/Time Encounter Type Encounter Description Reason Pro vider Source Nov 25, 2023 09:10 AM Outpatient Encounter SLEEP MEDICINE IHE Encounter Template Text not used by ND Plan of Treatment: Future Appointments (+ 6 months) and Future Tests (+/- 45 days) The Plan of Treatment section includes future care activities for the patient from all [place] treatmentfaregency hospital company. This section includes future appointments and future orders which are active, pending or scheduled. Future Appointments This section includes appointments that were scheduled to occur 6 months from the date of the Encounter, up to a maximum of 20 appointments. The data comes from all [place] treatment facilities. Appointment Date/Time Appointment Type Appointme nt Facility Name March 14, 2024 02:30 PM AMBULATORY - NONE [place] [facility] [place] [facility] Apr 11, 2024 08:30 AM AMBULATORY - MEDICINE [place] [facility] [place] [facility] Apr 11, 2024 09:00 AM AMBULATORY - MEDICINE [place] C [facility] [facility] Apr 18, 2024 08:30 AM AMBULATORY - MEDICINE ND C [facility] [place] [facility] May 15, 2024 02:30 PM AMBULATORY - NONE [place] [facility] [facility] May 23, 2024 10:00 AM AMBULATORY - NONE [place] [facility] [place] [facility] May 23, 2024 03:00 PM AMBULATORY - MEDICINE [place] [facility] [place] [facility] May 23, 2024 04:15 PM AMBULATORY - MEDICINE ND [facility] [place] [facility] Lab Results: +/- 30 days of the encounter This section includes the Chemistry and Hematology Lab Results on record with ND for the patient. Radiology Reports and Pathology Reports are provided separately, in subsequent sections. Lab Results This section contains the Chemistry/Hematology Results that were resulted 30 days before or 30 daysafter the date of the Encounter. Date/Time Source Result Type Result - Unit Interpretation Reference Range Comment Oct 28, 2023 02:33 PM [place] [facility] [place] [facility] STREP A (CEPHEID) Specimen Type: PHARYNX No comment entered. Ordering Provider: JIAN SEO AM Report Released Date/Time: Oct 28, 2023 02:16 PM Reporting Lab: [place] [facility] [place] [facility] [address] [facility] [address] Performing Lab: [facility] [place] [facility] [address] [address] STREP A (CEPHEID) [place] Not Detected Social History: Smoking Status (Most current) and Tobacco Use (All prior to encounter date) This section includes the most current, and the historical, smoking and tobacco- related health factors from the [place] facility where the Encounter took place. Current Smoking Status This section includes the most current smoking, or tobacco-related health factor, from the [place] facility where the Encounter took place. Date/Time Current Smoking Status Comment [facility] Oct 06, 2023 10:00 AM VA-TOBACCO NEVER USED [place] [facility] [place] [facility] Tobacco Use History This section includes a history of the smoking, or tobacco-related health factors, that were collected on or before the date of the Encounter. The data comes from the [place] facility where the Encounter took place. Date/Time Smoking Status/Tobac co Use Comment Facility Jul 31, 2022 09:00 AM VA-TOBACCO NEVER USED [facility] [facility] Apr 24, 2021 03:00 PM VA-TOBACCO NEVER USED [place] [facility] [facility] March 26, 2020 02:34 PM VA-TOBACCO NEVER USED [facility] [facility] Feb 27, 2019 09:44 AM VA-TOBACCO NEVER USED [facility] [facility] Dec 14, 2017 03:24 PM LIFETIME NON-TOBACCO USER [facility] [place] [facility] Dec 14, 2016 10:28 AM LIFETIME NON-TOBACCO USER Life time nonsmoker [facility] [place] [facility] Jan 06, 2016 09:32 AM LIFETIME NON-TOBACCO USER [facility] [place] [facility] Jan 21, 2015 12:48 PM LIFETIME NON-TOBACCO USER never [facility] [place] [facility] Encounter Notes: All associated encounter notes This section contains the clinical notes associated to the Encounter. Date/Time Encounter Note(s) Provider Source Nov 25, 2023 09:10 AM TELEPHONE ENCOUNTE R NOTE: LOCAL TITLE: TELEPHONE NOTE/SPECIALTY CLINIC STANDARD TITLE: TELEPHONE ENCOUNTER NOTE DATE OF NOTE: NOV 25, 2023@09:10 ENTRY DATE: NOV 25, 2023@09:10:46 AUTHOR: GENE PEÑA SA COSIGNER: URGENCY: STATUS: COMPLETED states that CPAP machine is not working. He states the air is not coming through the mask correctly. [place] would like to have it fixed or replaced. Confirmed phone number. /mandi/ GENE PEÑA Signed: 11/25/2023 09:20 Receipt Acknowledged By: 11/29/2023 07:08 /es/ JOHN HOLLAND,ADAN RESPIRATORY THERAPIST 11/30/2023 07:27 /es/ DESHAUN FLORES RESPIRATORY THERAPIST 11/26/2023 11:28 /es/ BO REZA CRT RESPIRATORY THERAPIST GENE PEÑA [facility]
--- OUTSIDE RECORDS SUMMARY | 2024-11-09 16:49 | XMS_ITS | Encounter Summary ---
Author Name [facility] [place] Address [address] [place] [address] Care Team Providers Care Collections Professional Name Role Phone DEX SEO Primary [facility] Insurance Providers: All historical and current Section [...] Name Patient's Relationship to Policy Agustin [place] HIGH DEDUCTIBL E HEALTH PLAN [facility] [employer] [facility] Jul 09, 2023 [id number] [phone] SAULO LIU PATIENT [facility] PRESCRIPT ION [facility] Nov 08, 2020 [id number] [phone] SAULO LIU PATIENT [facility] ([id number]) PRESCRIPT ION AGRIM [facility] Jul 09, 2023 AGRIMRK [id number] [phone] SAULO LIU PATIENT [facility] ([id number]) PRESCRIPT ION AGRIM [facility] Jul 09, 2023 AGRIMRK [id number] SAULO LIU PATIENT [facility] HIGH DEDUCTIBL E HEALTH PLAN W/HEALTH SAVINGS ACCOUNT [facility] Dec 01, 2014 [id number] [phone] SAULO LIU PATIENT Selected Encounter This section includes the information on record at [place] for the Encounter. Date/Time Encounter Type Encounter Description Reason Pro vider Source Nov 11, 2023 02:16 PM Outpatient Encounter COMMUNITY CARE CONSULT IHE Encounter Template Text not used by [place] Plan of Treatment: Future Appointments (+ 6 months) and Future Tests (+/- 45 days) The Plan of Treatment section includes future care activities for the patient from all [place] treatmentfacilities. This section includes future appointments and future orders which are active, pending or scheduled. Future Appointments This section includes appointments that were scheduled to occur 6 months from the date of the Encounter, up to a maximum of 20 appointments. The data comes from all [place] treatment facilities. Appointment Date/Time Appointment Type Appointme nt Facility Name March 14, 2024 02:30 PM AMBULATORY - NONE [place] [facility] [place] [facility] Apr 11, 2024 08:30 AM AMBULATORY - MEDICINE [facility] [place] [facility] Apr 11, 2024 09:00 AM AMBULATORY - MEDICINE [facility] [place] [facility] Apr 18, 2024 08:30 AM AMBULATORY - MEDICINE [facility] Lab Results: +/- 30 days of the encounter This section includes the Chemistry and Hematology Lab Results on record with [place] for the patient. Radiology Reports and Pathology Reports are provided separately, in subsequent sections. Lab Results This section contains the Chemistry/Hematology Results that were resulted 30 days before or 30 daysafter the date of the Encounter. Date/Time Source Result Type Result - Unit Interpretation Reference Range Comment Oct 28, 2023 02:33 PM [facility] STREP A (CEPHEID) Specimen Type: PHARYNX No comment entered. Ordering Provider: JIAN SEO AM Report Released Date/Time: Oct 28, 2023 02:16 PM Reporting Lab: [facility] [address] [address] Performing Lab: [facility] [address] [address] STREP A (CEPHEID) [place] Not Detected Oct 25, 2023 12:07 PM [facility] THYROID T4 FREE(FT4) Specimen Type: SERUM No comment entered. Ordering Provider: JIAN SEO AM Report Released Date/Time: Sep 29, 2023 03:47 PM Reporting Lab: [facility] [address] [address] Performing Lab: [facility] [address] [facility] [address] THYROID T4 FREE(FT4) 0.89 ng/dL 0.6-1.6 Oct 25, 2023 12:07 PM [facility] TSH Specimen Type: SERUM No comment entered. Ordering Provider: JIAN SEO AM Report Released Date/Time: Sep 29, 2023 03:47 PM Reporting Lab: [facility] [address] [address] Performing Lab: [facility] [address] [address] TSH 2.35 u[IU]/mL 0.35-5.00 Oct 25, 2023 12:07 PM [facility] HEMOGLOBIN A1C PANEL Specimen Type: BLOOD Comment: Values obtained from A1C measurements can vary. For atypical A1C assays, a reported value of 7.0 could actually be between 6.72 and 7.28 if measured by a reference method. A reported value of 9.0 could actually be between 8.73 and 9.27. Ref: http://www.ngs p.org/CAPdata. asp Ordering Provider: JIAN SEO AM Report Released Date/Time: Sep 29, 2023 03:47 PM Reporting Lab: [facility] [address] [address] Performing Lab: [facility] [address] [address] [address] HEMOGLOBIN A1C 5.4 4.0-5.6 Oct 25, 2023 12:07 PM [facility] CBC Specimen Type: BLOOD No comment entered. Ordering Provider: JIAN SEO AM Report Released Date/Time: Sep 29, 2023 03:47 PM Reporting Lab: [facility] [address] [address] Performing Lab: [facility] [address] [facility] [address] WBC 8.17 10*3/uL 4.50-11.00 RBC 5.40 10*6/uL 4.23-5.66 HGB 15.6 g/dL 12.8-17 HCT 47.2 39.2-50.4 MCV 87.4 fL 82-99 MCHC 33.1 g/dL 30.8-35.1 PLT 218 10*3/uL 140-360 RDW-CV 13.2 12.0-16.0 MCH 28.9 pg 26.2-32.6 Oct 25, 2023 12:07 PM [facility] LIPID PANEL FASTING Specimen Type: SERUM No comment entered. Ordering Provider: JIAN SEO AM Report Released Date/Time: Sep 29, 2023 03:47 PM Reporting Lab: [facility] [address] [address] Performing Lab: [address] [address] CHOLESTEROL 162 mg/dL TRIGLYCERIDE 177 mg/dL H 0-150 LDL calculated 94 mg/dL 0-129 CHOL/HDL 4.9 HDL CHOLESTEROL 33 mg/dL L 40-60 Oct 25, 2023 12:07 PM [facility] BASIC METABOLIC PANEL (fasting) Specimen Type: SERUM No comment entered. Ordering Provider: JIAN SEO AM Report Released Date/Time: Sep 29, 2023 03:47 PM Reporting Lab: [facility] [address] [address] Performing Lab: [address] [address] UREA NITROGEN 12 mg/dL 7-25 GLUCOSE 94 mg/dL 65-100 SODIUM 143 mmol/L 135-145 POTASSIUM 4.0 mmol/L 3.5-5.0 CHLORIDE 109 mmol/L 100-110 CO2 23 meq/L 20-30 CREATININE, Serum 0.99 mg/dL 0.50-1.40 eGFR(CKD-EPI 2020) >90 mL/min >60 Oct 25, 2023 12:07 PM [place] [facility] [place] [facility] LIVER FUNCTION Specimen Type: SERUM No comment entered. Ordering Provider: JIAN SEO AM Report Released Date/Time: Sep 29, 2023 03:47 PM Reporting Lab: [facility] [address] [address] Performing Lab: [place] [facility] [address] [address] PROTEIN,TOTAL 6.7 g/dL 6.0-8.3 ALBUMIN 3.7 g/dL 3.5-5.0 ALKALINE PHOSPHATASE 66 U/L 40-150 AST 39 U/L H 5-34 ALT 98 U/L H BILIRUBIN, TOTAL 0.8 mg/dL 0.2-1.2 Social History: Smoking Status (Most current) and Tobacco Use (All prior to encounter date) This section includes the most current, and the historical, smoking and tobacco- related health factors from the [place] facility where the Encounter took place. Current Smoking Status This section includes the most current smoking, or tobacco-related health factor, from the [place] facility where the Encounter took place. Date/Time Current Smoking Status Comment [facility] Oct 06, 2023 10:00 AM VA-TOBACCO NEVER USED [facility] Tobacco Use History This section includes a history of the smoking, or tobacco-related health factors, that were collected on or before the date of the Encounter. The data comes from the [place] facility where the Encounter took place. Date/Time Smoking Status/Tobac co Use Comment Facility Jul 31, 2022 09:00 AM VA-TOBACCO NEVER USED [place] [facility] [place] [facility] Apr 24, 2021 03:00 PM VA-TOBACCO NEVER USED [place] [facility] [place] [facility] March 26, 2020 02:34 PM VA-TOBACCO NEVER USED [facility] [place] [facility] Feb 27, 2019 09:44 AM VA-TOBACCO NEVER USED [place] [facility] [place] [facility] Dec 14, 2017 03:24 PM LIFETIME NON-TOBACCO USER [place] [facility] [place] [facility] Dec 14, 2016 10:28 AM LIFETIME NON-TOBACCO USER Life time nonsmoker [facility] [place] [facility] Jan 06, 2016 09:32 AM LIFETIME NON-TOBACCO USER [facility] [place] [facility] Jan 21, 2015 12:48 PM LIFETIME NON-TOBACCO USER never [facility] [place] [facility] Encounter Notes: All associated encounter notes This section contains the clinical notes associated to the Encounter. Date/Time Encounter Note(s) Provider Source Nov 11, 2023 02:16 PM NONVA NOTE: [facility] TITLE: [facility] PRESENTING CARE COORD PLAN STANDARD TITLE: NONVA NOTE DATE OF NOTE: NOV 11, 2023@14:16 ENTRY DATE: NOV 11, 2023@14:16:17 AUTHOR: DORIS CAVANAUGH EXP COSIGNER: URGENCY: STATUS: COMPLETED Emergency Notification Intake Date Presenting to the Facility: Oct Method of Contact: Notified from [facility] worklist Notification ID: [id number] [facility] Referral #: [facility] Name: Hospital: [facility] Address: City: [place] State: [place] Zip Code: Phone : [facility] Point of Contact: Name: Jeanne Phone: Chief complaint: [id number] - Strain of muscle and tendon of unspecified wall of thorax, initial encounter Primary Diagnosis: Disposition Discharged Date of discharge: Oct Discharge to Comment: ER Only /mandi/ DORIS CHAPIN Signed: 11/11/2023 14:17 Receipt Acknowledged By: 11/11/2023 14:35 /mandi/ MELVA GARZA,RN,CNL Farmworker [employer] DORIS CAVANAUGH [facility]
--- OUTSIDE RECORDS SUMMARY | 2024-11-09 16:49 | XMS_ITS | Encounter Summary ---
Author Name [facility] [facility] [place] [facility] [place] Address [address] [place] [address] Care Team Providers Care Rejoiner Name Role Phone DEX SEO Primary Care Provider [facility] Insurance Providers: All historical and current Section [...] Name Patient's Relationship to Policy Agustin BCBS [place] HIGH DEDUCTIBL E HEALTH PLAN WebymasterI Hipui [facility] Jul 09, 2023 [id number] SAULO LIU PATIENT [facility] PRESCRIPT ION [facility] Nov 08, 2020 [id number] [phone] SAULO LIU PATIENT [employer] ([id number]) PRESCRIPT ION AGRIM ARK [facility] Jul 09, 2023 [id number] SAULO LIU PATIENT [employer] ([id number]) PRESCRIPT ION AGRIM ARK [facility] Jul 09, 2023 AGRIMRK [id number] [phone] SAULO LIU PATIENT [facility] HIGH DEDUCTIBL E HEALTH PLAN W/HEALTH SAVINGS ACCOUNT [facility] Dec 01, 2014 [id number] [phone] SAULO LIU PATIENT Selected Encounter This section includes the information on record at [place] for the Encounter. Date/Time Encounter Type Encounter Description Reason Pro vider Source May 30, 2024 03:00 PM Outpatient Encounter HEPATOLOGY CLINIC IHE Encounter Template Text not used by [place] Plan of Treatment: Future Appointments (+ 6 months) and Future Tests (+/- 45 days) The Plan of Treatment section includes future care activities for the patient from all [place] treatmentfacilities. This section includes future appointments and future orders which are active, pending or scheduled. Future Appointments This section includes appointments that were scheduled to occur 6 months from the date of the Encounter, up to a maximum of 20 appointments. The data comes from all [place] treatment facilities. Appointment Date/Time Appointment Type Appointme nt Facility Name Aug 16, 2024 03:20 PM AMBULATORY - MEDICINE [facility] Lab Results: +/- 30 days of the encounter This section includes the Chemistry and Hematology Lab Results on record with [place] for the patient. Radiology Reports and Pathology Reports are provided separately, in subsequent sections. Lab Results This section contains the Chemistry/Hematology Results that were resulted 30 days before or 30 daysafter the date of the Encounter. Date/Time Source Result Type Result - Unit Interpretation Reference Range Comment May 22, 2024 08:42 AM [facility] PT & INR (PROTIME) Specimen Type: PLASMA No comment entered. Ordering Provider: JADE SEO Report Released Date/Time: Apr 18, 2024 08:56 AM Reporting Lab: [facility] [address] [facility] [address] Performing Lab: [facility] [address] [facility] [address] INR 1.1 PROTIME 12.5 s 10.0-13.1 May 22, 2024 08:41 AM [facility] HEPATITIS B SURFACE ANTIGEN (HBsAg)-WH Specimen Type: SERUM Comment: This test detects both IgG and IgM antibodies. A Reactive result ( Positive prior to 08/21/13) may indicate either current or previous hepatitis B infection. Antibodies to Hepatitis B Core may be the only marker of recent hepatitis B infection during the window period when Hepatitis B surface antigen has disappeared and Hepatitis B surface antibodies are not yet detectable. A Reactive result ( Positive prior to 08/21/13) is diagnostic of acute or chronic hepatitis B infection. The presence of Hepatitis B surface antigen is frequently associated with infectivity. Ordering Provider: JADE SEO Report Released Date/Time: Apr 18, 2024 08:56 AM Reporting Lab: [facility] [address] [facility] [address] Performing Lab: [facility] [address] [facility] [address] HBsAg Non Reactive Non Reactive May 22, 2024 08:41 AM [facility] HEPATITIS B CORE (Total) Ab Specimen Type: SERUM Comment: This test detects both IgG and IgM antibodies. A Reactive result ( Positive prior to 08/21/13) may indicate either current or previous hepatitis B infection. Antibodies to Hepatitis B Core may be the only marker of recent hepatitis B infection during the window period when Hepatitis B surface antigen has disappeared and Hepatitis B surface antibodies are not yet detectable. A Reactive result ( Positive prior to 08/21/13) is diagnostic of acute or chronic hepatitis B infection. The presence of Hepatitis B surface antigen is frequently associated with infectivity. Ordering Provider: JADE SEO Report Released Date/Time: Apr 18, 2024 08:56 AM Reporting Lab: [facility] [address] [facility] [address] Performing Lab: [facility] [address] [facility] [address] HEPATITIS B CORE (Total) Ab Non Reactive Non Reactive May 22, 2024 08:41 AM [facility] JOSE SCREEN/TITER Specimen Type: SERUM No comment entered. Ordering Provider: JADE SEO Report Released Date/Time: Apr 18, 2024 08:56 AM Reporting Lab: [facility] [address] [facility] [address] Performing Lab: [facility] [address] [facility] [address] JOSE SCREEN NEG May 22, 2024 08:41 AM [facility] HEPATITIS C ANTIBODY (HCV)-ARC Specimen Type: SERUM Comment: Hep C Ab: No HCV antibody detected. If recent infection is suspected or other evidence suggests HCV infection, consider HCV nucleic acid testing Ordering Provider: JADE SEO Report Released Date/Time: Apr 18, 2024 08:56 AM Reporting Lab: [facility] [address] [address] Performing Lab: [facility] [address] [address] HEPATITIS C ANTIBODY NON-REACTIVE NON-REACTIV E May 22, 2024 08:41 AM [facility] FERRITIN Specimen Type: SERUM No comment entered. Ordering Provider: JADE SEO Report Released Date/Time: Apr 18, 2024 08:56 AM Reporting Lab: [facility] [address] Performing Lab: [facility] [address] FERRITIN 27 ng/mL 20-300 May 22, 2024 08:41 AM [facility] GAMMA-GTP Specimen Type: SERUM No comment entered. Ordering Provider: JADE SEO Report Released Date/Time: Apr 18, 2024 08:56 AM Reporting Lab: [facility] [address] Performing Lab: [facility] [address] [address] GAMMA-GTP 32 U/L 10-65 May 22, 2024 08:41 AM [facility] IRON & TIBC PANEL Specimen Type: SERUM No comment entered. Ordering Provider: JADE SEO Report Released Date/Time: Apr 18, 2024 08:56 AM Reporting Lab: [facility] [address] Performing Lab: [facility] [address] TIBC 422 ug/dL 204-475 IRON 76 ug/dL 40-160 Transferrin Saturation 18.0 L 20.0-50.0 May 22, 2024 08:41 AM [facility] [place] [facility] ALBUMIN Specimen Type: SERUM No comment entered. Ordering Provider: JADE SEO Report Released Date/Time: Apr 18, 2024 08:56 AM Reporting Lab: [facility] [place] [facility] [address] [facility] [address] Performing Lab: [facility] [place] [facility] [address] [facility] [address] ALBUMIN 3.9 g/dL 3.5-5.0 May 22, 2024 08:41 AM [facility] [place] [facility] PROTEIN,TOTAL Specimen Type: SERUM No comment entered. Ordering Provider: JADE SEO Report Released Date/Time: Apr 18, 2024 08:56 AM Reporting Lab: [facility] [place] [facility] [address] [facility] [address] Performing Lab: [facility] [place] [facility] [address] [facility] [address] PROTEIN,TOTAL 7.0 g/dL 6.0-8.3 May 22, 2024 08:41 AM [facility] ALKALINE PHOSPHATASE Specimen Type: SERUM No comment entered. Ordering Provider: JADE SEO Report Released Date/Time: Apr 18, 2024 08:56 AM Reporting Lab: [facility] [place] [facility] [address] [facility] [address] Performing Lab: [facility] [place] [facility] [address] [facility] [address] ALKALINE PHOSPHATASE 72 U/L 40-150 May 22, 2024 08:41 AM [facility] [place] [facility] BILIRUBIN, TOTAL Specimen Type: SERUM No comment entered. Ordering Provider: JADE SEO Report Released Date/Time: Apr 18, 2024 08:56 AM Reporting Lab: [facility] [place] [address] [address] Performing Lab: [facility] [place] [facility] [address] [facility] [address] BILIRUBIN, TOTAL 0.9 mg/dL 0.2-1.2 May 22, 2024 08:41 AM [facility] AST Specimen Type: SERUM No comment entered. Ordering Provider: JADE SEO Report Released Date/Time: Apr 18, 2024 08:56 AM Reporting Lab: [facility] [address] [facility] [address] Performing Lab: [facility] [address] [address] AST 33 U/L 5-34 May 22, 2024 08:41 AM [facility] ALT Specimen Type: SERUM No comment entered. Ordering Provider: JADE SEO Report Released Date/Time: Apr 18, 2024 08:56 AM Reporting Lab: [facility] [address] [address] Performing Lab: [facility] [address] [address] ALT 73 U/L H May 22, 2024 08:41 AM [facility] CBC AND DIFF (AUTO) Specimen Type: BLOOD No comment entered. Ordering Provider: JADE SEO Report Released Date/Time: Apr 18, 2024 08:56 AM Reporting Lab: [facility] [address] [address] Performing Lab: [facility] [address] [address] WBC 7.81 10*3/uL 4.50-11.00 RBC 5.40 10*6/uL 4.23-5.66 HGB 15.6 g/dL 12.8-17 HCT 46.2 39.2-50.4 MCV 85.6 fL 82-99 MCHC 33.8 g/dL 30.8-35.1 PLT 180 10*3/uL 140-360 RDW-CV 12.9 12.0-16.0 MONO, ABS 0.52 10*3/uL 0.30-1.10 MCH 28.9 pg 26.2-32.6 NEUT % 67.8 43.7-75.8 LYMPH % 22.0 14.0-42.3 MONO % 6.7 5.1-13.7 EOS % 2.2 0.4-6.8 BASO % 0.9 0.1-2.0 NEUT, ABS 5.30 10*3/uL 2.20-7.60 LYMPH, ABS 1.72 10*3/uL 1.00-3.20 EOS, ABS 0.17 10*3/uL 0.03-0.44 BASO, ABS 0.07 10*3/uL 0.01-0.13 IMMATURE GRAN % 0.4 0.0-0.7 IMMATURE GRAN, ABS 0.03 10*3/uL 0.00-0.06 NRBC % 0.0 0.0-0.0 NRBC, ABS 0.00 10*3/uL 0.00-0.00 Radiology Reports: +/- 30 days of the encounter Radiology Reports For cases when an order for radiology services may have been completed prior to the date of the Encounter, the report list includes the Radiology Reports that were completed up to 30 days before dateof the Encounter. For cases when an order for radiology services may have been completed after the date of the Encounter, the report list also includes the Radiology Reports that were completed up to30 days after date of the Encounter. The data comes from all [place] treatment facilities. Date/Time Radiology Report Provider Source May 23, 2024 09:53 AM ULTRASOUND ABD WITH LIVER ELASTOGRAPHY: BACILIO LIU [id number] [phone] [facility] Date: MAY 23, 2024@09:53 Req Phys: DEX SEO Loc: CWM/NO/PACT 7 (Req'g Loc) Img Loc: ULTRASOUND Service: Unknown [place] [facility] [place] [facility] , (Case 92 COMPLETE) ULTRASOUND ABDOMEN LIMITED (US Detailed) CPT:18484 Reason for Study: FOLLOW UP (Case 93 COMPLETE) ULTRASOUND ELASTOGRAPHY PARENCHYM(US Detailed) CPT:02037 Clinical History: HEPATIC STEATOSIS Some ultrasound tests require a prep. Report Status: Verified Date Reported: MAY 23, 2024 Date Verified: MAY 23, 2024 Manufacturing Sales Representative E-Sig:/ES/EDWARD A MALAVE JR Report: Study: Abdomen ultrasound. Comparison: Abdominal ultrasound from February 26, 2023. Findings: Hepatomegaly is present measuring at least 17.7 cm in long length. (Normal is less than 15.0 cm.) The liver is again diffusely increased in echogenicity consistent with hepatic steatosis/fibrosis with focal fatty sparing within the gallbladder fossa. No intrahepatic bile duct dilatation is seen. No hepatic mass is seen. The portal vein is patent with normal hepatopedal flow. The common hepatic duct measures 0.39 cm, which is normal. Liver Elastography: EQI IQR/Med Toro 6%, less than 30% indicative of good quality data set. Stiffness median 1.52 m/s. Previously, this measured 1.32 m/s U Recommendations for interpretations of Liver Stiffness Values Obtained Using ARFI Techniques in Patients with Viral Hepatitis and NAFLD Liver Stiffness Value.....Recommendation <=5kPa (1.3 m/s).........High probability of being normal < 9kPa (1.7 m/s)..........In the absence of other known clinical signs, rules out compensated advanced chronic liver disease. If there are known clinical signs, may need further testing for confirmation. 9 kPa-13 kPa (1.7 to 2.1 m/s) ...Suggestive of compensated advanced chronic liver disease but may need further testing for confirmation. > 13 kPa (2.1 m/s) Likely confirming compensated advanced chronic liver disease. > 17 kPa (2.4 m/s) Suggestive of clinically significant portal hypertension. ARFI = acoustic radiation force impulse cACLD = (compensated) advanced chronic liver disease, CSPH = clinically significant portal hypertension NAFLD = non-alcoholic fatty liver disease A) Factors that may increase liver stiffness include elevated liver function tests, non-fasting state, vascular congestion, acute hepatitis, infiltrative liver diseases, and intense physical exercise. In this setting, the stage of liver fibrosis may be overestimated. However, in all these conditions, stiffness values within the normal range exclude significant liver fibrosis. B) In some patients with NAFLD, the cutoff values for cACLD may be lower (7-9 kPa). C) In etiologies other than viral hepatitis and NAFLD, inclusive of but not limited to alcoholic hepatitis, primary biliary cirrhosis, autoimmune hepatitis, sclerosing cholangitis and drug-induced liver diseases, the cutoff values are not well established. D) In patients with chronic viral hepatitis B or hepatitis C that are successfully treated, the baseline liver stiffness should be that obtained after viral eradication or suppression. E) The percentage change in liver stiffness over time, and not absolute values, should be used. On follow-up studies to evaluate for efficacy of treatment or progression of disease, a 10% difference in liver stiffness should be considered clinically significant. * Update to the Society of Radiologists in Ultrasound Liver Elastography Consensus Statement. Radiology 2020; 296:263-274. The gallbladder is normal. No gallstones are identified. There is a negative sonographic Osborn sign present. The visualized pancreas is normal. The spleen is normal and measures 12.0 cm in length. No ascites is identified. Impression: Stable liver findings with elastography values which, in the absence of other known clinical signs, rules out compensated advanced chronic liver disease. If there are known clinical signs, may need further testing for confirmation. Primary Diagnostic Code: No immediate attention required Primary Interpreting Staff: ED MALAVE JR, Radiologist (Manufacturing Sales Representative) /ED SINGH JR [facility]
--- OUTSIDE RECORDS SUMMARY | 2024-11-09 16:49 | XMS_ITS | Encounter Summary ---
Author Name [facility] [place] Organization [facility] [place] [place] Address [address] [place] [address] Care Team Providers Care Nursing Unit Coordinator Name Role Phone DEX SEO Primary Care Provider [facility] Insurance Providers: All historical and current [...] Name Patient's Relationship to Policy Agustin BCBS IN HIGH DEDUCTIBL E HEALTH PLAN [employer] [facility] [facility] Jul 09, 2023 [id number] [phone] SAULO LIU PATIENT [employer] PRESCRIPT ION [facility] Nov 08, 2020 [id number] SAULO LIU PATIENT [employer] ([id number]) PRESCRIPT ION [facility] Jul 09, 2023 AGRIMRK [id number] SAULO LIU PATIENT [employer] ([id number]) PRESCRIPT ION [facility] Jul 09, 2023 [id number] [phone] SAULO LIU PATIENT [facility] HIGH DEDUCTIBL E HEALTH PLAN W/HEALTH SAVINGS ACCOUNT [facility] Dec 01, 2014 [id number] [phone] SAULO LIU PATIENT Selected Encounter This section includes the information on record at [place] for the Encounter. Date/Time Encounter Type Encounter Description Reason Pro vider Source Nov 26, 2023 01:30 PM Outpatient Encounter SLEEP MEDICINE IHE Encounter Template Text not used by [place] Plan of Treatment: Future Appointments (+ 6 months) and Future Tests (+/- 45 days) The Plan of Treatment section includes future care activities for the patient [facility] This section includes future appointments and future orders which are active, pending or scheduled. Future Appointments This section includes appointments that were scheduled to occur 6 months from the date of the Encounter, up to a maximum of 20 appointments. The data comes from all [place] treatment facilities. Appointment Date/Time Appointment Type Appointme nt Facility Name March 14, 2024 02:30 PM AMBULATORY - NONE [facility] [place] [facility] Apr 11, 2024 08:30 AM AMBULATORY - MEDICINE [facility] [place] [facility] Apr 11, 2024 09:00 AM AMBULATORY - MEDICINE [facility] [place] [facility] Apr 18, 2024 08:30 AM AMBULATORY - MEDICINE [facility] [place] [facility] May 15, 2024 02:30 PM AMBULATORY - NONE [facility] [place] [facility] May 23, 2024 10:00 AM AMBULATORY - NONE [facility] [place] [facility] May 23, 2024 03:00 PM AMBULATORY - MEDICINE [facility] [place] [facility] May 23, 2024 04:15 PM AMBULATORY - MEDICINE [facility] [place] [facility] Lab Results: +/- 30 days of the encounter This section includes the Chemistry and Hematology Lab Results on record with [place] for the patient. Radiology Reports and Pathology Reports are provided separately, in subsequent sections. Lab Results This section contains the Chemistry/Hematology Results that were resulted 30 days before or 30 daysafter the date of the Encounter. Date/Time Source Result Type Result - Unit Interpretation Reference Range Comment Oct 28, 2023 02:33 PM [facility] [place] [facility] STREP A (CEPHEID) Specimen Type: PHARYNX No comment entered. Ordering Provider: JIAN SEO AM Report Released Date/Time: Oct 28, 2023 02:16 PM Reporting Lab: [facility] [place] [facility] [address] [facility] [address] Performing Lab: [facility] [place] [facility] [address] [facility] [address] STREP A (CEPHEID) ND Not Detected Social History: Smoking Status (Most current) and Tobacco Use (All prior to encounter date) This section includes the most current, and the historical, smoking and tobacco- related health factors from the [place] facility where the Encounter took place. Current Smoking Status This section includes the most current smoking, or tobacco-related health factor, from the [place] facility where the Encounter took place. Date/Time Current Smoking Status Comment [facility] Oct 06, 2023 10:00 AM VA-TOBACCO NEVER USED [place] [facility] [place] [facility] Tobacco Use History This section includes a history of the smoking, or tobacco-related health factors, that were collected on or before the date of the Encounter. The data comes from the [place] facility where the Encounter took place. Date/Time Smoking Status/Tobac co Use Comment Facility Jul 31, 2022 09:00 AM VA-TOBACCO NEVER USED [facility] [place] [facility] Apr 24, 2021 03:00 PM VA-TOBACCO NEVER USED [facility] [place] [facility] March 26, 2020 02:34 PM VA-TOBACCO NEVER USED [facility] [place] [facility] Feb 27, 2019 09:44 AM VA-TOBACCO NEVER USED [facility] [place] [facility] Dec 14, 2017 03:24 PM LIFETIME NON-TOBACCO USER [facility] [place] [facility] Dec 14, 2016 10:28 AM LIFETIME NON-TOBACCO USER Life time nonsmoker [facility] [place] [facility] Jan 06, 2016 09:32 AM LIFETIME NON-TOBACCO USER [facility] [place] [facility] Jan 21, 2015 12:48 PM LIFETIME NON-TOBACCO USER never [facility] [place] [facility] Encounter Notes: All associated encounter notes This section contains the clinical notes associated to the Encounter. Date/Time Encounter Note(s) Provider Source Nov 26, 2023 01:30 PM LETTERS: LOCAL TITLE: PATIENT LETTER (B) STANDARD TITLE: LETTERS DATE OF NOTE: NOV 26, 2023@13:30 ENTRY DATE: NOV 26, 2023@13:30:09 AUTHOR: SUGEY BELL COSIGNER: URGENCY: STATUS: COMPLETED NOV 26, 2023 BACILIO LIU [address] [place] [id number] Dear BACILIO LIU We would like to assist you in scheduling a RESPIRATORY THERAPY appointment at the [place]. We have been unable to reach you by phone. To schedule this appointment please call toll free Ext [phone]. Our booking appointment hours are Wednesday through Wednesday from 8:00 am to 4:00 pm. Please leave a message if you receive voicemail and let us know a good time and telephone number where we can reach you. If we dont hear back from you within 14 days from the date of this letter we will discontinue the request. If you have already scheduled this appointment, please disregard this letter. Your health is important to us. Sincerely, [facility] [address] [facility] [address] [place] [address] [place] [address] ext. [phone] [facility] [address] [facility] [address] [place] [address] [place] [address] [phone] [facility] [address] [facility] [address] [place] [address] [place] [address] ext. [phone] [facility] [address] [place] [address] ext. [phone] SUGEY BELL [facility]
--- OUTSIDE RECORDS SUMMARY | 2024-11-09 16:50 | XMS_ITS | Encounter Summary ---
Author Name [facility] [place] Organization [facility] [facility] [place] Address [address] [place] [address] Care Team Providers Care Sand Operator Name Role Phone DEX SEO Primary Care Provider Unavaillaci [facility] Insurance Providers: All historical and current [...] Name Patient's Relationship to Policy Agustin [place] DEDU[place]IB[place] HEALTH PLAN [employer] [facility] Jul 09, 2023 [id number] SAULO LIU PATIENT [facility] Nov 08, 2020 [id number] SAULO ILU PATIENT [employer] ([id number]) PRESCRIPT ION [facility] Jul 09, 2023 [employer] [id number] [phone] SAULO LIU PATIENT [employer] ([id number]) PRESCRIPT ION [employer] [facility] Jul 09, 2023 [employer] [id number] [phone] SAULO LIU PATIENT [facility] HIGH DEDUCTIBL E HEALTH PLAN W/HEALTH SAVINGS ACCOUNT [facility] Dec 01, 2014 [id number] [phone] SAULO LIU PATIENT Selected Encounter This section includes the information on record at [place] for the Encounter. Date/Time Encounter Type Encounter Description Reason Provider Source Dec 01, 2023 12:54 PM Outpatient Encounter PROSTHETICS/ORTHOTI CS DEX SEO Encounter Template Text not used by ME Plan of Treatment: Future Appointments (+ 6 months) and Future Tests (+/- 45 days) The Plan of Treatment section includes future care activities for the patient from [facility] This section includes future appointments and future orders which are active, pending or scheduled. Future Appointments This section includes appointments that were scheduled to occur 6 months from the date of the Encounter, up to a maximum of 20 appointments. The data comes from all [place] treatment facilities. Appointment Date/Time Appointment Type Appointme nt Facility Name March 14, 2024 02:30 PM AMBULATORY - NONE [facility] [place] [facility] Apr 11, 2024 08:30 AM AMBULATORY - MEDICINE [facility] [place] [facility] Apr 11, 2024 09:00 AM AMBULATORY - MEDICINE [facility] [place] [facility] Apr 18, 2024 08:30 AM AMBULATORY - MEDICINE [facility] [place] [facility] May 15, 2024 02:30 PM AMBULATORY - NONE [facility] [place] [facility] May 23, 2024 10:00 AM AMBULATORY - NONE [facility] [place] [facility] May 23, 2024 03:00 PM AMBULATORY - MEDICINE [facility] [place] [facility] May 23, 2024 04:15 PM AMBULATORY - MEDICINE [facility] [place] [facility] Social History: Smoking Status (Most current) and Tobacco Use (All prior to encounter date) This section includes the most current, and the historical, smoking and tobacco- related health factors from the [place] facility where the Encounter took place. Current Smoking Status This section includes the most current smoking, or tobacco-related health factor, from the [place] facility where the Encounter took place. Date/Time Current Smoking Status [facility] Oct 06, 2023 10:00 AM VA-TOBACCO NEVER USED [facility] [place] [facility] Tobacco Use History This section includes a history of the smoking, or tobacco-related health factors, that were collected on or before the date of the Encounter. The data comes from the [place] facility where the Encounter took place. Date/Time Smoking Status/Tobac co Use Comment Facility Jul 31, 2022 09:00 AM VA-TOBACCO NEVER USED [facility] [place] [facility] Apr 24, 2021 03:00 PM VA-TOBACCO NEVER USED [facility] [place] [facility] March 26, 2020 02:34 PM VA-TOBACCO NEVER USED [facility] [place] [facility] Feb 27, 2019 09:44 AM VA-TOBACCO NEVER USED [facility] [place] [facility] Dec 14, 2017 03:24 PM LIFETIME NON-TOBACCO USER [facility] [place] [facility] Dec 14, 2016 10:28 AM LIFETIME NON-TOBACCO USER Life time nonsmoker [facility] [place] [facility] Jan 06, 2016 09:32 AM LIFETIME NON-TOBACCO USER [facility] [place] [facility] Jan 21, 2015 12:48 PM LIFETIME NON-TOBACCO USER never [facility] [place] [facility]
--- OUTSIDE RECORDS SUMMARY | 2024-11-09 16:50 | XMS_ITS | Encounter Summary ---
Author Name [facility] [place] [facility] [place] [facility] [place] [facility] [place] Address [address] [place] [address] Care Team Providers Care Road Crew Member Name Role Phone DEX SEO Primary Care Provider Unavaila [facility] Insurance Providers: All historical and [...] Name Patient's Relationship to Policy Agustin [place]ALTH PLAN [employer] [facility] Jul 09, 2023 [id number] [phone] SAULO LIU PATIENT [employer] PRESCRIPT I[facility] Nov 08, 2020 [id number] SAULO LIU PATIENT [employer] ([id number]) PRESCRIPT ION [facility] Jul 09, 2023 [employer]GRIM[facility] [id number] [phone] SAULO LIU PATIENT [employer] ([id number]) PRESCRIPT ION [facility] Jul 09, 2023 AGRIM[facility] [id number] SAULO LIU PATIENT [facility] HIGH DEDUCTIBL E HEALTH PLAN W/HEALTH SAVINGS ACCOUNT [facility] Dec 01, 2014 [id number] [phone] SAULO LIU PATIENT Selected Encounter This section includes the information on record at [place] for the Encounter. Date/Time Encounter Type Encounter Description Reason Pro vider Source March 14, 2024 04:03 PM Outpatient Encounter SLEEP MEDICINE IHE Encounter Template Text not used by PA Plan of Treatment: Future Appointments (+ 6 months) and Future Tests (+/- 45 days) The Plan of Treatment section includes future care activities for the patient from all [place] [facility] This section includes future appointments and future orders which are active, pending or scheduled. Future Appointments This section includes appointments that were scheduled to occur 6 months from the date of the Encounter, up to a maximum of 20 appointments. The data comes from all [place] treatment facilities. Appointment Date/Time Appointment Type Appointme nt Facility Name Apr 11, 2024 08:30 AM AMBULATORY - MEDICINE [facility] [place] [facility] Apr 11, 2024 09:00 AM AMBULATORY - MEDICINE [facility] [place] [facility] Apr 18, 2024 08:30 AM AMBULATORY - MEDICINE [facility] [place] [facility] May 15, 2024 02:30 PM AMBULATORY - NONE [facility] [place] [facility] May 23, 2024 10:00 AM AMBULATORY - NONE [facility] [place] [facility] May 23, 2024 03:00 PM AMBULATORY - MEDICINE [facility] [place] [facility] May 23, 2024 04:15 PM AMBULATORY - MEDICINE [facility] [place] [facility] Aug 16, 2024 03:20 PM AMBULATORY - MEDICINE [facility] [place] [facility] Lab Results: +/- 30 days of the encounter This section includes the Chemistry and Hematology Lab Results on record with PA for the patient. Radiology Reports and Pathology Reports are provided separately, in subsequent sections. Lab Results This section contains the Chemistry/Hematology Results that were resulted 30 days before or 30 daysafter the date of the Encounter. Date/Time Source Result Type Result - Unit Interpretation Reference Range Comment Apr 11, 2024 10:11 AM [facility] [place] [facility] CBC Specimen Type: BLOOD No comment entered. Ordering Provider: JADE SEO Report Released Date/Time: Feb 16, 2024 11:38 AM Reporting Lab: [facility] [address] [facility] [facility] [address] Performing Lab: [address] [address] WBC 7.46 10*3/uL 4.50-11.00 RBC 5.62 10*6/uL 4.23-5.66 HGB 16.5 g/dL 12.8-17 HCT 49.0 39.2-50.4 MCV 87.2 fL 82-99 MCHC 33.7 g/dL 30.8-35.1 PLT 219 10*3/uL 140-360 RDW-CV 13.0 12.0-16.0 MCH 29.4 pg 26.2-32.6 Apr 11, 2024 10:11 AM [facility] LIPID PANEL, NON FASTING Specimen Type: SERUM No comment entered. Ordering Provider: JADE SEO Report Released Date/Time: Feb 16, 2024 11:38 AM Reporting Lab: [address] [address] Performing Lab: [address] [address] CHOLESTEROL 181 mg/dL TRIGLYCERIDE 109 mg/dL 0-150 LDL calculated 125 mg/dL 0-129 CHOL/HDL 5.3 HDL CHOLESTEROL 34 mg/dL L 40-60 Apr 11, 2024 10:11 AM [facility] BASIC METABOLIC PANEL (non-fasting) Specimen Type: SERUM No comment entered. Ordering Provider: JADE SEO Report Released Date/Time: Feb 16, 2024 11:38 AM Reporting Lab: [address] [address] Performing Lab: [address] [address] UREA NITROGEN 13 mg/dL 7-25 GLUCOSE 106 mg/dL H 65-100 SODIUM 142 mmol/L 135-145 POTASSIUM 4.4 mmol/L 3.5-5.0 CHLORIDE 109 mmol/L 100-110 CO2 24 meq/L 20-30 CREATININE, Serum 1.02 mg/dL 0.50-1.40 eGFR(CKD-EPI 2020) >90 mL/min >60 Apr 11, 2024 10:11 AM [facility] [place] [facility] LIVER FUNCTION Specimen Type: SERUM No comment entered. Ordering Provider: JADE SEO Report Released Date/Time: Feb 16, 2024 11:38 AM Reporting [facility] [address] [facility] [address] Performing [facility] [address] [address] PROTEIN,TOTAL 7.2 g/dL 6.0-8.3 ALBUMIN 4.1 g/dL 3.5-5.0 ALKALINE PHOSPHATASE 75 U/L 40-150 AST 41 U/L H 5-34 ALT 87 U/L H BILIRUBIN, TOTAL 0.9 mg/dL 0.2-1.2 Social History: Smoking Status (Most current) and Tobacco Use (All prior to encounter date) This section includes the most current, and the historical, smoking and tobacco- related health factors from the [place] facility where the Encounter took place. Current Smoking Status This section includes the most current smoking, or tobacco-related health factor, from the [place] facility where the Encounter took place. Date/Time Current Smoking Status Comment [facility] Oct 06, 2023 10:00 AM VA-TOBACCO NEVER USED [facility] Tobacco Use History This section includes a history of the smoking, or tobacco-related health factors, that were collected on or before the date of the Encounter. The data comes from the [place] facility where the Encounter took place. Date/Time Smoking Status/Tobac co Use Comment Facility Jul 31, 2022 09:00 AM VA-TOBACCO NEVER USED [facility] [place] [facility] Apr 24, 2021 03:00 PM VA-TOBACCO NEVER USED [facility] [place] [facility] March 26, 2020 02:34 PM VA-TOBACCO NEVER USED [facility] [place] [facility] Feb 27, 2019 09:44 AM VA-TOBACCO NEVER USED [facility] [place] [facility] Dec 14, 2017 03:24 PM LIFETIME NON-TOBACCO USER [facility] [place] [facility] Dec 14, 2016 10:28 AM LIFETIME NON-TOBACCO USER Life time nonsmoker [facility] [place] [facility] Jan 06, 2016 09:32 AM LIFETIME NON-TOBACCO USER [facility] [place] [facility] Jan 21, 2015 12:48 PM LIFETIME NON-TOBACCO USER never [facility] [place] [facility] Encounter Notes: All associated encounter notes This section contains the clinical notes associated to the Encounter. Date/Time Encounter Note(s) Provider Source March 14, 2024 04:03 PM CLERICAL NOTE: LOCAL TITLE: APPOINTMENT NO SHOW STANDARD TITLE: CLERICAL NOTE DATE OF NOTE: MARCH 14, 2024@16:03 ENTRY DATE: MARCH 14, 2024@16:04:03 AUTHOR: SARA ARANGO COSIGNER: URGENCY: STATUS: COMPLETED Patient Name: BACILIO LIU Patient SSN: [id number] Date and time of Appointment No show : 03/14/24 16:03 PATIENT PHONE - PHONE NUMBER [CELLULAR] - Patient's medical record was reviewed. Follow-up actions were determined and initiated: Please check/complete as applies: [X]Telephoned Directly [ ]Re-scheduled for next available appt [X]Sent a N0-show letter ( must call for appointment) [ ]Other (Emergent/Overbook, etc.): Additional Comments: number not in service Future Clinic Visits No data available /mandi/ SARA ARANGO AMSA Signed: 03/14/2024 16:04 SARA ARANGO [facility] [place] [facility]
--- OUTSIDE RECORDS SUMMARY | 2024-11-09 16:50 | XMS_ITS ---
Author Name [facility] [place] Address [address] [place] [address] Care Team Providers Care Assignment Officer Name Role Phone DEX SEO Primary Care Provider Unavaila ble Insurance Providers: All historical and current Section Date Range: From patient's date of to the date document was created. This section includes the names of all active insurance providers for the patient. Insurance Provider Type of Coverage Plan Name Start of Policy Coverage End of Policy Coverage Group Number Member ID Insurance Provider's Telephone Number Policy Agustin's Name Patient's Relationship to Policy Agustin [facility] HIGH DEDUCTIBL E HEALTH PLAN [employer] [facility] Jul 09, 2023 [id number] [phone] SAULO LIU PATIENT [facility] PRESCRIPT I[facility] Nov 08, 2020 [id number] SAULO LIU PATIENT [employer] ([id number]) PRESCRIPT ION AGRIM ARK [facility] Jul 09, 2023 AGRIMRK [id number] SAULO LIU PATIENT [employer] ([id number]) PRESCRIPT ION AGRIM ARK [facility] Jul 09, 2023 AGRIMRK [id number] [phone] SAULO LIU PATIENT [facility] HIGH DEDUCTIBL E HEALTH PLAN W/HEALTH SAVINGS ACCOUNT [facility] Dec 01, 2014 [id number] [phone] SAULO LIU PATIENT Selected Encounter This section includes the information on record at [place] for the Encounter. Date/Time Encounter Type Encounter Description Reason Provider Source Apr 11, 2024 09:00 AM OFFICE O/P EST MOD 30 MIN PRIMARY CARE/MEDICINE ICD-10-CM H92.03 Otalgia, bilateral GUNNER BLACKWELL Eve Encounter Template Text not used by [place] Assessments - Encounter Diagnoses This section includes the primary and secondary diagnoses documented for the Encounter. Date/Time Primary/Secondary Diagnosis Diagnosis Name Provider Source May 04, 2024 12:50 PM PRIMARY Otalgia, bilateral GUNNER BLACKWELL [facility] Plan of Treatment: Future Appointments (+ 6 months) and Future Tests (+/- 45 days) The Plan of Treatment section includes future care activities for the patient from all [place] treatmentfacilities. This section includes future appointments and future orders which are active, pending or scheduled. Future Appointments This section includes appointments that were scheduled to occur 6 months from the date of the Encounter, up to a maximum of 20 appointments. The data comes from all [place] treatment facilities. Appointment Date/Time Appointment Type Appointme nt Facility Name Apr 18, 2024 08:30 AM AMBULATORY - MEDICINE [facility] [facility] May 15, 2024 02:30 PM AMBULATORY - NONE [place] [facility] [place] [facility] May 23, 2024 10:00 AM AMBULATORY NONE [place] [facility] May 23, 2024 03:00 PM AMBULATORY - MEDICINE [place] [facility] May 23, 2024 04:15 PM AMBULATORY - MEDICINE [place] [facility] Aug 16, 2024 03:20 PM AMBULATORY - MEDICINE [facility] [facility] Lab Results: +/- 30 days of the encounter This section includes the Chemistry and Hematology Lab Results on record with [place] for the patient. Radiology Reports and Pathology Reports are provided separately, in subsequent sections. Lab Results This section contains the Chemistry/Hematology Results that were resulted 30 days before or 30 daysafter the date of the Encounter. Date/Time Source Result Type Result - Unit Interpretation Reference Range Comment Apr 11, 2024 10:11 AM [facility] LIPID PANEL, NON FASTING Specimen Type: SERUM No comment entered. Ordering Provider: JADE SEO Report Released Date/Time: Feb 16, 2024 11:38 AM Reporting Lab: [address] [address] Performing Lab: [facility] [address] [facility] [address] CHOLESTEROL 181 mg/dL TRIGLYCERIDE 109 mg/dL 0-150 LDL calculated 125 mg/dL 0-129 CHOL/HDL 5.3 HDL CHOLESTEROL 34 mg/dL L 40-60 Apr 11, 2024 10:11 AM [facility] CBC Specimen Type: BLOOD No comment entered. Ordering Provider: JADE SEO Report Released Date/Time: Feb 16, 2024 11:38 AM Reporting Lab: [facility] [address] [facility] [address] Performing Lab: [facility] [address] WBC 7.46 10*3/uL 4.50-11.00 RBC 5.62 10*6/uL 4.23-5.66 HGB 16.5 g/dL 12.8-17 HCT 49.0 39.2-50.4 MCV 87.2 fL 82-99 MCHC 33.7 g/dL 30.8-35.1 PLT 219 10*3/uL 140-360 RDW-CV 13.0 12.0-16.0 MCH 29.4 pg 26.2-32.6 Apr 11, 2024 10:11 AM [facility] BASIC METABOLIC PANEL (non-fasting) Specimen Type: SERUM No comment entered. Ordering Provider: JADE SEO Report Released Date/Time: Feb 16, 2024 11:38 AM Reporting Lab: [address] [address] Performing Lab: [facility] [place] [address] UREA NITROGEN 13 mg/dL 7-25 GLUCOSE 106 mg/dL H 65-100 SODIUM 142 mmol/L 135-145 POTASSIUM 4.4 mmol/L 3.5-5.0 CHLORIDE 109 mmol/L 100-110 CO2 24 meq/L 20-30 CREATININE, Serum 1.02 mg/dL 0.50-1.40 eGFR(CKD-EPI 2020) >90 mL/min >60 Apr 11, 2024 10:11 AM [facility] LIVER FUNCTION Specimen Type: SERUM No comment entered. Ordering Provider: JADE SEO Report Released Date/Time: Feb 16, 2024 11:38 AM Reporting Lab: [address] [address] Performing Lab: [address] [address] PROTEIN,TOTAL 7.2 g/dL 6.0-8.3 ALBUMIN 4.1 g/dL 3.5-5.0 ALKALINE PHOSPHATASE 75 U/L 40-150 AST 41 U/L H 5-34 ALT 87 U/L H BILIRUBIN, TOTAL 0.9 mg/dL 0.2-1.2 Vital Signs: All taken on the encounter date This section contains inpatient and outpatient Vital Signs collected on the date of the Encounter. Date/Time Temperature Pulse Blood Pressure Respiratory Rate SP02 Pain Height Weight Body Mass Index Source Apr 11, 2024 08:43 AM 98 75 136/98 16 97 8 [facility] Social History: Smoking Status (Most current) and Tobacco Use (All prior to encounter date) This section includes the most current, and the historical, smoking and tobacco- related health factors from the [place] facility where the Encounter took place. Current Smoking Status This section includes the most current smoking, or tobacco-related health factor, from the [place] facility where the Encounter took place. Date/Time Current Smoking Status Comment Facil ity Oct 06, 2023 10:00 AM VA-TOBACCO NEVER USED [facility] Tobacco Use History This section includes a history of the smoking, or tobacco-related health factors, that were collected on or before the date of the Encounter. The data comes from the [place] facility where the Encounter took place. Date/Time Smoking Status/Tobac co Use Comment Facility Jul 31, 2022 09:00 AM VA-TOBACCO NEVER USED [place] [facility] [place] [facility] Apr 24, 2021 03:00 PM VA-TOBACCO NEVER USED [place] [facility] [place] [facility] March 26, 2020 02:34 PM VA-TOBACCO NEVER USED [place] [facility] [place] [facility] Feb 27, 2019 09:44 AM VA-TOBACCO NEVER USED [place] [facility] [place] [facility] Dec 14, 2017 03:24 PM LIFETIME NON-TOBACCO USER [place] [facility] [place] [facility] Dec 14, 2016 10:28 AM LIFETIME NON-TOBACCO USER Life time nonsmoker [facility] [place] [facility] Jan 06, 2016 09:32 AM LIFETIME NON-TOBACCO USER [place] [facility] [place] [facility] Jan 21, 2015 12:48 PM LIFETIME NON-TOBACCO USER never [place] [facility] [place] [facility] Encounter Notes: All associated encounter notes This section contains the clinical notes associated to the Encounter. Date/Time Encounter Note(s) Provider Source Apr 11, 2024 09:15 AM PRIMARY CARE NURSE PRACTITIONER OUTPATIENT NOTE: LOCAL TITLE: NURSE PRACTITIONER OUTPATIENT NOTE STANDARD TITLE: PRIMARY CARE NURSE PRACTITIONER OUTPATIENT NOTE DATE OF NOTE: APR 11, 2024@09:15 ENTRY DATE: APR 11, 2024@09:15:23 AUTHOR: SEB BLACKWELL COSIGNER: URGENCY: STATUS: COMPLETED CC Presents today for bilateral ear pain R>L x 1 week HPI This is a 43 y/o male with history of Active problems - Computerized Problem List is the source for the followin. Onychomycosis 2. Sleep Apnea (SCT [id number]) uses CPAP 3. RBC count abnormal 4. Benign essential hypertension 5. Relationship problems 6. Gastroesophageal reflux disease UGE ?2010 mild gastritis [facility] GI 2017 - ranitidine and omeprazole 7. Chronic mixed headache syndrome rebound analgesia component 8. Steatosis of liver sono VMG 11/22, SGPT 78 12/31/14 9. Panic disorder Denies any recent fever, chills, cough, chest pain, sob, dizziness. No recent UC visits or hospitalizations Vet reports biatleral ear pain R>L for the past week. Vet states whenever he gets ear pain he takes OTC amox from [place]. He has already taken amox 500mg x 4 days, every 8 hours. He gets ear infections a few times per year. No drainage from ear. No fever, no chills. Tolerating PO without difficulty. Vet with + enlarged posterior auricular lymph node On Right. He is taking advil 800mg TID. NO sick contacts, no trouble hearing, no sore throat. ALLERGIES Data on this list may not be complete. Please check JLV. FACILITY ALLERGY/ADR -------- [facility] NO KNOWN ALLERGIES [place] [facility] [place] [facility] No Known Allergies [facility] NO KNOWN ALLERGIES MEDICATIONS: Active and Recently Outpatient Medications (excluding Supplies): Active Outpatient Medications Status 1) AMLODIPINE BESYLATE 5MG TAB TAKE ONE TABLET BY MOUTH ACTIVE ONCE DAILY FOR BLOOD PRESSURE/HEART, DO NOT TAKE WITH GRAPEFRUIT JUICE 2) CARBOXYMETHYLCELLULOSE NA 0.5% OPH SOLN INSTILL 1 ACTIVE DROP INTO EACH EYE FOUR TIMES DAILY NEEDED 3) DEXTRAN 70/GLYCER 0.2%/HYPROMEL 0.3% OPH INSTILL 1 ACTIVE DROP INTO EACH EYE AT BEDTIME 4) LOSARTAN 25MG TAB TAKE THREE TABLETS BY MOUTH ONCE ACTIVE DAILY FOR BLOOD PRESSURE/HEART 5) OMEPRAZOLE 20MG EC CAP TAKE ONE CAPSULE BY MOUTH ACTIVE TWICE DAILY BEFORE A MEAL ROS See HPI PE General: NAD, pleasant, conversant Left ear TM with mild erythema, R ear TM + erythema, TM Bulging, + posterior auricular node on Right, no erythema to node, + tenderness; no erythema or tenderness of mastoid bialterally throat clear--no erythema or exudate HearT: RRR Lungs: CTA bilaterally no LE edema VITALS 98 F [36.7 C] (04/11/2024 08:43) 75 (04/11/2024 08:43) 16 (04/11/2024 08:43) 136/98 (04/11/2024 08:43) 8 (04/11/2024 08:43) 73 in [185.4 cm] (10/28/2023 13:53) 301 lb [136.53 kg] (10/28/2023 13:53) BMI: 39.8 A/P Bilateral ear pain x 4 days, has been treating with amox 500mg TID over the counter from [place]; was not seen for his ears, self-treating -afebrile with stable vitals -stop amox, start augmentin 875mg BID -rest & maintain good hydration -adv alternate tylenol and motrin as per sintering press operator's instructions; adv no more than 3000mg per day of APAP, vet verbalized understanding -if any worsening or new sx, go to nearest ED; if no improvement by Wednesday, return to clinic; vet verbalizes understanding and agrees -adv if any redness or pain to mastoid area (demonstrated location) go to ED; vet is in agreement -will place ENT consult for frequent ear infections -discussed importance of not self-treating with antbiotics Medication Reconciliation: Outpatient: Has the patient been taking medications as documented in the EMLR? YES: The patient has been taking medications as documented in the EMLR. Essential Medication List for Review used to complete this medication reconciliation. INCLUDED IN THIS LIST: Alphabetical list of active outpatient prescriptions dispensed from this [place] (local) and dispensed from another [place] or [facility] facility (remote) as well as inpatient orders (local, pending and active), local clinic medications, locally documented non-VA medications, and local prescriptions that have or been discontinued in the past 90 days. - All changes in medications, including all non-VA/Herbal/OTC medications were entered into CPRS. - If there were any medications the patient should no longer take, they were discontinued. - The patient/caregiver was instructed to update this list, discard old lists, and take this list to the next appointment, whether with a VA or non-VA provider. /mandi/ SEB BLACKWELL NP NURSE PRACTITIONER Signed: 04/12/2024 10:00 SEB BLACKWELL [place] [facility]
--- OUTSIDE RECORDS SUMMARY | 2024-11-09 16:50 | XMS_ITS | Encounter Summary ---
Author Name [facility] [place] Address [address] [place] [address] Care Team Providers Care Setter [employer] Name Role Phone DEX SEO Primary Care [...] Agustin's Name Patient's Relationship to Policy [id number] DEDU[facility]IB[facility] E HEALTH PLAN ITS Compliance [facility] Jul 09, 2023 [id number] SAULO LIU PATIENT [employer] PRESCRIPT ION [facility] Nov 08, 2020 [id number] SAULO LIU PATIENT [employer] ([id number]) PRESCRIPT ION AGRIM ARK [facility] Jul 09, 2023 AGRIMRK [id number] SAULO LIU PATIENT [employer] ([id number]) PRESCRIPT ION AGRIM ARK [facility] Jul 09, 2023 AGRIMRK [id number] SAULO LIU PATIENT [facility] HIGH DEDUCTIBL E HEALTH PLAN W/HEALTH SAVINGS ACCOUNT [facility] Dec 01, 2014 [id number] SAULO LIU PATIENT Selected Encounter This section includes the information on record at [place] for the Encounter. Date/Time Encounter Type Encounter Description Reason Pro vider Source Apr 14, 2024 10:20 AM Outpatient Encounter OTOLARYNGOLOGY/ENT IHE Encounter Template Text not used by [place] Plan of Treatment: Future Appointments (+ 6 months) and Future Tests (+/- 45 days) The Plan of Treatment section includes future care activities for the patient from all [place] treatmentfacilities. This section includes future appointments and future orders which are active, pending or scheduled. Future Appointments This section includes appointments that were scheduled to occur 6 months from the date of the Encounter, up to a maximum of 20 appointments. The data comes from all [place] treatment facilities. Appointment Date/Time Appointment Type Appointme nt Facility Name Apr 18, 2024 08:30 AM AMBULATORY - MEDICINE [place] [facility] May 15, 2024 02:30 PM AMBULATORY - NONE [place] [facility] May 23, 2024 10:00 AM AMBULATORY - NONE [place] [facility] May 23, 2024 03:00 PM AMBULATORY - MEDICINE [place] [facility] May 23, 2024 04:15 PM AMBULATORY - MEDICINE [place] C [place] [facility] Aug 16, 2024 03:20 PM AMBULATORY - MEDICINE [facility] Lab Results: +/- 30 days of the encounter This section includes the Chemistry and Hematology Lab Results on record with [place] for the patient. Radiology Reports and Pathology Reports are provided separately, in subsequent sections. Lab Results This section contains the Chemistry/Hematology Results that were resulted 30 days before or 30 daysafter the date of the Encounter. Date/Time Source Result Type Result - Unit Interpretation Reference Range Comment Apr 11, 2024 10:11 AM [place] [facility] CBC Specimen Type: BLOOD No comment entered. Ordering Provider: JADE SEO Report Released Date/Time: Feb 16, 2024 11:38 AM Reporting Lab: [place] [facility] [address] [facility] [address] Performing Lab: [facility] [address] [facility] [address] WBC 7.46 10*3/uL 4.50-11.00 RBC 5.62 10*6/uL 4.23-5.66 HGB 16.5 g/dL 12.8-17 HCT 49.0 39.2-50.4 MCV 87.2 fL 82-99 MCHC 33.7 g/dL 30.8-35.1 PLT 219 10*3/uL 140-360 RDW-CV 13.0 12.0-16.0 MCH 29.4 pg 26.2-32.6 Apr 11, 2024 10:11 AM [facility] LIPID PANEL, NON FASTING Specimen Type: SERUM No comment entered. Ordering Provider: JADE SEO Report Released Date/Time: Feb 16, 2024 11:38 AM Reporting Lab: [facility] [address] [facility] [address] Performing Lab: [facility] [address] [facility] [address] CHOLESTEROL 181 mg/dL TRIGLYCERIDE 109 mg/dL 0-150 LDL calculated 125 mg/dL 0-129 CHOL/HDL 5.3 HDL CHOLESTEROL 34 mg/dL L 40-60 Apr 11, 2024 10:11 AM [facility] BASIC METABOLIC PANEL (non-fasting) Specimen Type: SERUM No comment entered. Ordering Provider: JADE SEO Report Released Date/Time: Feb 16, 2024 11:38 AM Reporting Lab: [facility] [address] [facility] [address] Performing Lab: [address] [address] UREA NITROGEN 13 mg/dL 7-25 GLUCOSE 106 mg/dL H 65-100 SODIUM 142 mmol/L 135-145 POTASSIUM 4.4 mmol/L 3.5-5.0 CHLORIDE 109 mmol/L 100-110 CO2 24 meq/L 20-30 CREATININE, Serum 1.02 mg/dL 0.50-1.40 eGFR(CKD-EPI 2020) >90 mL/min >60 Apr 11, 2024 10:11 [facility] LIVER FUNCTION Specimen Type: SERUM No comment entered. Ordering Provider: JADE SEO Report Released Date/Time: Feb 16, 2024 11:38 AM Reporting Lab: [facility] [address] [facility] [address] Performing Lab: [facility] [address] [facility] [address] PROTEIN,TOTAL 7.2 g/dL 6.0-8.3 ALBUMIN 4.1 g/dL 3.5-5.0 ALKALINE PHOSPHATASE 75 U/L 40-150 AST 41 U/L H 5-34 ALT 87 U/L H BILIRUBIN, TOTAL 0.9 mg/dL 0.2-1.2 Social History: Smoking Status (Most current) and Tobacco Use (All prior to encounter date) This section includes the most current, and the historical, smoking and tobacco- related health factors from the [place] facility where the Encounter took place. Current Smoking Status This section includes the most current smoking, or tobacco-related health factor, from the [place] facility where the Encounter took place. Date/Time Current Smoking Status Comment [facility] Oct 06, 2023 10:00 AM VA-TOBACCO [facility]ED [facility] Tobacco Use History This section includes a history of the smoking, or tobacco-related health factors, that were collected on or before the date of the Encounter. The data comes from the [place] facility where the Encounter took place. Date/Time Smoking Status/Tobac co Use Comment Facility Jul 31, 2022 09:00 AM VA-TOBACCO NEVER USED [place] [facility] Apr 24, 2021 03:00 PM VA-TOBACCO NEVER USED [place] [facility] March 26, 2020 02:34 PM VA-TOBACCO NEVER USED [place] [facility] Feb 27, 2019 09:44 AM VA-TOBACCO NEVER USED [place] [facility] Dec 14, 2017 03:24 PM LIFETIME NON-TOBACCO USER [place] [facility] Dec 14, 2016 10:28 AM LIFETIME NON-TOBACCO USER Life time nonsmoker [place] [facility] [place] [facility] Jan 06, 2016 09:32 AM LIFETIME NON-TOBACCO USER [place] [facility] [place] [facility] Jan 21, 2015 12:48 PM LIFETIME NON-TOBACCO USER never [place] [facility] [place] [facility] Encounter Notes: All associated encounter notes This section contains the clinical notes associated to the Encounter. Date/Time Encounter Note(s) Provider Source Apr 14, 2024 10:20 AM LETTERS: LOCAL TITLE: PATIENT LETTER (B) STANDARD TITLE: LETTERS DATE OF NOTE: APR 14, 2024@10:20 ENTRY DATE: APR 14, 2024@10:20:17 AUTHOR: SUGEY BELL EXP COSIGNER: URGENCY: STATUS: COMPLETED APR 14, 2024 BACILIO LIU [address] [place] [id number] Dear BACILIO LIU We would like to assist you in scheduling a OTOLARYNGOLOGY appointment at the [place]. We have been unable to reach you by phone. To schedule this appointment please call toll free Ext [phone]. Our booking appointment hours are Wednesday through [...] Your health is important to us. Sincerely, [facility] [address] [facility] [address] [place] [address] [place] [address] ext. [phone] [facility] [address] [place] [address] [place] [address] [phone] [facility] [address] [facility] [address] [place] [address] [place] [address] ext. [phone] [facility] [address] [place] [address] ext. [phone] SUGEY BELL [facility] [place] [facility]
--- OUTSIDE RECORDS SUMMARY | 2024-11-09 16:50 | XMS_ITS ---
Author Name [facility] [place] Address [address] [place] [address] Care Team Providers Care Chief Pilot Name Role Phone DEX SEO Primary Care Provider Unavaillaci [facility] Insurance Providers: All historical and current Section [...] Name Patient's Relationship to Policy Agustin [place] DEDU[place]IB[place] HEALTH PLAN [employer] [facility] Jul 09, 2023 [id number] SAULO LIU PATIENT [facility] PRESCRIPT ION [facility] Nov 08, 2020 [id number] SAULO LIU PATIENT [employer] ([id number]) PRESCRIPT ION [facility] [employer] Jul 09, 2023 [id number] SAULO LIU PATIENT [employer] ([id number]) PRESCRIPT ION [facility] [facility] Jul 09, 2023 AGRIMRK [id number] SAULO LIU PATIENT [facility] HIGH DEDUCTIBL E HEALTH PLAN W/HEALTH SAVINGS ACCOUNT [facility] Dec 01, 2014 [id number] [phone] ALEXAGRABIELS ESHA PATIENT Selected Encounter This section includes the information on record at [place] for the Encounter. Date/Time Encounter Type Encounter Description Reason Provider Source Apr 11, 2024 08:30 AM OFF/OP EST MARCH X REQ PHY/QHP PRIMARY CARE/MEDICINE ICD-10-CM Z04.9 Encounter for examination and observation for unsp reason KATARINA MCCONNELL IHE Encounter Template Text not used by [place] Assessments - Encounter Diagnoses This section includes the primary and secondary diagnoses documented for the Encounter. Date/Time Primary/Secondary Diagnosis Diagnosis Name Provider Source May 04, 2024 12:37 PM PRIMARY Encounter for examination and observation for unsp reason KATARINA MCCONNELL [facility] [place] [facility] Plan of Treatment: Future Appointments (+ 6 months) and Future Tests (+/- 45 days) The Plan of Treatment section includes future care activities for the patient from all [place] treatmentfacilities. This section includes future appointments and future orders which are active, pending or scheduled. Future Appointments This section includes appointments that were scheduled to occur 6 months from the date of the Encounter, up to a maximum of 20 appointments. The data comes from all [place] treatment facilities. Appointment Date/Time Appointment Type Appointme nt Facility Name Apr 18, 2024 08:30 AM AMBULATORY - [place]ICINE [place] [facility] [place] [facility] May 15, 2024 02:30 PM AMBULATORY - NONE [place] [facility] [place] [facility] May 23, 2024 10:00 AM AMBULATORY - NONE [place] [facility] [facility] May 23, 2024 03:00 PM AMBULATORY - [place]ICINE [place] [place] [facility] May 23, 2024 04:15 PM AMBULATORY - [place]ICINE [place] [place] [facility] Aug 16, 2024 03:20 PM AMBULATORY - [place]ICINE [place] [facility] Lab Results: +/- 30 days of the encounter This section includes the Chemistry and Hematology Lab Results on record with [place] for the patient. Radiology Reports and Pathology Reports are provided separately, in subsequent sections. Lab Results This section contains the Chemistry/Hematology Results that were resulted 30 days before or 30 daysafter the date of the Encounter. Date/Time Source Result Type Result - Unit Interpretation Reference Range Comment Apr 11, 2024 10:11 AM [facility] LIPID PANEL, NON FASTING Specimen Type: SERUM No comment entered. Ordering Provider: JADE SEO Report Released Date/Time: Feb 16, 2024 11:38 AM Reporting Lab: [address] [address] Performing Lab: [address] [address] CHOLESTEROL 181 mg/dL TRIGLYCERIDE 109 mg/dL 0-150 LDL calculated 125 mg/dL 0-129 CHOL/HDL 5.3 HDL CHOLESTEROL 34 mg/dL L 40-60 Apr 11, 2024 10:11 AM [facility] CBC Specimen Type: BLOOD No comment entered. Ordering Provider: JADE SEO Report Released Date/Time: Feb 16, 2024 11:38 AM Reporting Lab: [address] [address] Performing Lab: [address] [address] WBC 7.46 10*3/uL 4.50-11.00 RBC 5.62 10*6/uL 4.23-5.66 HGB 16.5 g/dL 12.8-17 HCT 49.0 39.2-50.4 MCV 87.2 fL 82-99 MCHC 33.7 g/dL 30.8-35.1 PLT 219 10*3/uL 140-360 RDW-CV 13.0 12.0-16.0 MCH 29.4 pg 26.2-32.6 Apr 11, 2024 10:11 AM [facility] LIVER FUNCTION Specimen Type: SERUM No comment entered. Ordering Provider: JADE SEO Report Released Date/Time: Feb 16, 2024 11:38 AM Reporting Lab: [address] [address] Performing Lab: [facility] [address] [facility] [address] PROTEIN,TOTAL 7.2 g/dL 6.0-8.3 ALBUMIN 4.1 g/dL 3.5-5.0 ALKALINE PHOSPHATASE 75 U/L 40-150 AST 41 U/L H 5-34 ALT 87 U/L H BILIRUBIN, TOTAL 0.9 mg/dL 0.2-1.2 Apr 11, 2024 10:11 AM [facility] BASIC METABOLIC PANEL (non-fasting) Specimen Type: SERUM No comment entered. Ordering Provider: JADE SEO Report Released Date/Time: Feb 16, 2024 11:38 AM Reporting Lab: [facility] [address] [facility] [address] Performing Lab: [facility] [address] [address] UREA NITROGEN 13 mg/dL 7-25 GLUCOSE 106 mg/dL H 65-100 SODIUM 142 mmol/L 135-145 POTASSIUM 4.4 mmol/L 3.5-5.0 CHLORIDE 109 mmol/L 100-110 CO2 24 meq/L 20-30 CREATININE, Serum 1.02 mg/dL 0.50-1.40 eGFR(CKD-EPI 2020) >90 mL/min >60 Vital Signs: All taken on the encounter date This section contains inpatient and outpatient Vital Signs collected on the date of the Encounter. Date/Time Temperature Pulse Blood Pressure Respiratory Rate SP02 Pain Height Weight Body Mass Index Source Apr 11, 2024 08:43 AM 98 75 136/98 16 97 8 [facility] Social History: Smoking Status (Most current) and Tobacco Use (All prior to encounter date) This section includes the most current, and the historical, smoking and tobacco- related health factors from the [place] facility where the Encounter took place. Current Smoking Status This section includes the most current smoking, or tobacco-related health factor, from the [place] facility where the Encounter took place. Date/Time Current Smoking Status Comment Carloz whitehead Oct 06, 2023 10:00 AM VA-TOBACCO NEVER USED [facility] Tobacco Use History This section includes a history of the smoking, or tobacco-related health factors, that were collected on or before the date of the Encounter. The data comes from the [place] facility where the Encounter took place. Date/Time Smoking Status/Tobac co Use Comment Facility Jul 31, 2022 09:00 AM VA-TOBACCO NEVER USED [place] [facility] [place] [facility] Apr 24, 2021 03:00 PM VA-TOBACCO NEVER USED [place] [facility] [place] [facility] March 26, 2020 02:34 PM VA-TOBACCO NEVER USED [facility] [place] [facility] Feb 27, 2019 09:44 AM VA-TOBACCO NEVER USED [facility] [place] [facility] Dec 14, 2017 03:24 PM LIFETIME NON-TOBACCO USER [facility] [place] [facility] Dec 14, 2016 10:28 AM LIFETIME NON-TOBACCO USER Life time nonsmoker [place] [facility] [place] [facility] Jan 06, 2016 09:32 AM LIFETIME NON-TOBACCO USER [place] [facility] [place] [facility] Jan 21, 2015 12:48 PM LIFETIME NON-TOBACCO USER never [place] [facility] [place] [facility] Encounter Notes: All associated encounter notes This section contains the clinical notes associated to the Encounter. Date/Time Encounter Note(s) Provider Source Apr 11, 2024 08:43 AM PRIMARY CARE OUTPA [facility] NOTE: LOCAL TITLE: AMBULATORY/OUTPATIENT CARE NOTE STANDARD TITLE: PRIMARY CARE OUTPATIENT NOTE DATE OF NOTE: APR 11, 2024@08:43 ENTRY DATE: APR 11, 2024@08:43:39 AUTHOR: NIYA MCCONNELL EXP COSIGNER: URGENCY: STATUS: COMPLETED F: Walk In D/A: Viviana presents to primary care with complaint of ear pain for 1 week. Viviana states he has ear pain, pressure and headache in bilateral ears, right more than left for 1 week. Pain today is 8/10. Denies any congestion or cough, no fever or chills. Denies any change in hearing. Denies difficulty eating/drinking. Reports pain in ears is exacerbated by bending over. Viviana also has lump behind right ear which has appeared over the last few days. Viviana has been taking amoxicillin 500mg every 8hrs for the past 4 days, he obtained this medication in [place] and reports using it when he has illness. He states it usually works however has not seemed to help this time. Vet is also using Advil with minimal effect. On exam Vet with 2cm in diameter lump behind right ear, which is raised about 1cm. This lump is closed, not warm to touch but very tender. Skin tone of lump is as surrounding skin. Right canal is reddened with bulging TM, slight red lines within TM visible, examination of canal via otoscope produces pain for patient. Left canal is clear with bulging TM, no pain with exam in this ear. Vet is afebrile today. BP is elevated as is his baseline, currently taking amlodipine 5mg and Losartan 25mg daily. Vet has been consistent with taking these medications. He is overdue for PCP F/U visit, last seen in with rtc for 4M. We will schedule him today for that F/U. R: Vet to see [place] provider today COVID-19 Immunization: Refused Moderna Monovalent COVID-19 vaccine Immunization: COVID-19 (MODERNA), MRNA, LNP-S, PF, 50 MCG/0.5 ML (AGES 1+ EARS)Refusal Reason: PATIENT DECISION patient refuses all immunization(s) in the COVID-19 group ate Documented: 04/11/24 08:44 Herpes Zoster (Shingles) Vaccine: The patient declines to receive the recommended dose of zoster (shingles) vaccine. immunization: ZOSTER RECOMBINANT refusal Reason: PATIENT DECISION patient refuses all immunization(s) in the ZOSTER group ate Documented: 04/11/24 08:44 RHS Screen: RHS Screen Session Format: gopi to Face Environmental Check Upon inquiry, the individual reports that the environment is safe to proceed. Informed Consent to Screen and Document he individual consents to proceed with screening. he individual consents to documentation of responses. PRIMARY SCREEN: In the past 12 months, how often did a current or former intimate partner (e.g., boyfriend, girlfriend, , , sexual partner): 1. Scream or curse at you Never 2. Insult or talk down to you Never 3. Threaten you with harm Never 4. Physically hurt you Never 5. Force or pressure you to have sexual contact against our will, or when you were unable to say no Never The HITS tool (items 1-4 above) is [place] copyright protected by Aníbal Calhoun MD, and the user has full rights to use it throughout the [place] system. PRIMARY SCREEN RESULT: The Primary Screen is NEGATIVE. The individual answered never to all forms of IPV above (i.e., answered never o all 5 items) The individual accepts education and/or resources: o EDUCATION: Other: Not interested at this time /mandi/ Niya Mcconnell MSN RN CNL Primary Care RN Signed: 04/11/2024 08:57 Receipt Acknowledged By: 04/12/2024 14:37 /mandi/ SEB BLACKWELL, MULTIFOCAL LENS INSPECTOR NURSE PRACTITIONER NIYA MCCONNELL CNTRL [facility]
--- OUTSIDE RECORDS SUMMARY | 2024-11-09 16:50 | XMS_ITS | Encounter Summary ---
Author Name [facility] [place] [facility] [place] Address [address] [place] [address] Care Team Providers Care Senior Occupational Therapist Name Role Phone DEX SEO Primary Care Provider [facility] Insurance Providers: All historical and [...] Name Patient's Relationship to Policy Agustin [place] HIGH DEDUCTIBL E HEALTH PLAN [employer] [facility] Jul 09, 2023 [id number] SAULO LIU PATIENT [facility] PRESCRIPT ION [facility] Nov 08, 2020 [id number] SAULO LIU PATIENT [employer] ([id number]) PRESCRIPT ION [facility]IM [facility] Jul 09, 2023 AGRIMRK [id number] [phone] SAULO LIU PATIENT [employer] ([id number]) PRESCRIPT ION [facility] [facility] Jul 09, 2023 AGRIMRK [id number] [phone] SAULO LIU PATIENT [facility] HIGH DEDUCTIBL E HEALTH PLAN W/HEALTH SAVINGS ACCOUNT [facility] Dec 01, 2014 [id number] [phone] SAULO LIU PATIENT Selected Encounter This section includes the information on record at [place] for the Encounter. Date/Time Encounter Type Encounter Description Reason Pro vider Source Feb 10, 2024 12:19 PM Outpatient Encounter PRIMARY CARE/MEDICINE IHE Encounter Template Text not used by [place] Plan of Treatment: Future Appointments (+ 6 months) and Future Tests (+/- 45 days) The Plan of Treatment section includes future care activities for the patient from all [place] [facility]. This section includes future appointments and future orders which are active, pending or scheduled. Future Appointments This section includes appointments that were scheduled to occur 6 months from the date of the Encounter, up to a maximum of 20 appointments. The data comes from all [place] treatment facilities. Appointment Date/Time Appointment Type Appointme nt Facility Name March 14, 2024 02:30 PM AMBULATORY - NONE [place] [facility] [place] [facility] Apr 11, 2024 08:30 AM AMBULATORY - MEDICINE [place] [place] [facility] Apr 11, 2024 09:00 AM AMBULATORY - MEDICINE [place] [facility] [place] [facility] Apr 18, 2024 08:30 AM AMBULATORY - MEDICINE [place] [facility] [place] [facility] May 15, 2024 02:30 PM AMBULATORY - NONE [place] [facility] [place] [facility] May 23, 2024 10:00 AM AMBULATORY - NONE [place] [facility] [place] [facility] May 23, 2024 03:00 PM AMBULATORY - MEDICINE [place] [facility] [place] [facility] May 23, 2024 04:15 PM AMBULATORY - MEDICINE [place] [facility] [place] [facility] Social History: Smoking Status (Most current) and Tobacco Use (All prior to encounter date) This section includes the most current, and the historical, smoking and tobacco- related health factors from the [place] facility where the Encounter took place. Current Smoking Status This section includes the most current smoking, or tobacco-related health factor, from the [place] facility where the Encounter took place. Date/Time Current Smoking Status Ray whitehead Oct 06, 2023 10:00 AM [place]-TO[place]ACCO NEVER USED [place] CNTR [facility] Tobacco Use History This section includes a history of the smoking, or tobacco-related health factors, that were collected on or before the date of the Encounter. The data comes from the [place] facility where the Encounter took place. Date/Time Smoking Status/Tobac co Use Comment Facility Jul 31, 2022 09:00 AM VA-TOBACCO NEVER USED [place] [facility] [place] [facility] Apr 24, 2021 03:00 PM VA-TOBACCO NEVER USED [place] [facility] [place] [facility] March 26, 2020 02:34 PM VA-TOBACCO NEVER USED [facility] [place] [facility] Feb 27, 2019 09:44 AM VA-TOBACCO NEVER USED [facility] [place] [facility] Dec 14, 2017 03:24 PM LIFETIME NON-TOBACCO USER [facility] [facility] Dec 14, 2016 10:28 AM LIFETIME NON-TOBACCO USER Life time nonsmoker [place] [facility] [place] [facility] Jan 06, 2016 09:32 AM LIFETIME NON-TOBACCO USER [place] [facility] [facility] Jan 21, 2015 12:48 PM LIFETIME NON-TOBACCO USER never [place] [facility] [place] [facility] Encounter Notes: All associated encounter notes This section contains the clinical notes associated to the Encounter. Date/Time Encounter Note(s) Provider Source Feb 10, 2024 12:19 PM PREVENTIVE MEDICIN E NURSING NOTE: LOCAL TITLE: CLINICAL REMINDERS/NURSING STANDARD TITLE: PREVENTIVE MEDICINE NURSING NOTE DATE OF NOTE: FEB 10, 2024@12:19 ENTRY DATE: FEB 10, 2024@12:19:34 AUTHOR: BRIANNA CARLTON COSIGNER: URGENCY: STATUS: COMPLETED Influenza Immunization: The patient declines to receive the recommended dose of seasonal influenza vaccine. Immunization: INFLUENZA, UNSPECIFIED FORMULATION Refusal Reason: PATIENT DECISION Patient refuses all immunization(s) in the [place]U group Date Documented: 02/10/24 12:20 /mandi/ BRIANNA CARLTON LPN Signed: 02/10/2024 12:20 BRIANNA CARLTON [place] [facility]
--- OUTSIDE RECORDS SUMMARY | 2024-11-09 16:50 | XMS_ITS | Encounter Summary ---
Author Name [facility] [place] [facility] [place] [facility] [place] Address [address] [place] [address] Care Team Providers Care Regional Geodetic Advisor Name Role Phone DEX SEO Primary Care Provider [facility] Insurance Providers: All historical and [...] Name Patient's Relationship to Policy Agust[place] HIGH DEDU[place]IBL [place] HEALTH PLAN [employer] [facility] Jul 09, 2023 [id number] [phone] SAULO LIU PATIENT [employer] PRESCRIPT ION [facility] Nov 08, 2020 [id number] SAULO LIU PATIENT [employer] ([id number]) PRESCRIPT ION [facility] [facility] Jul 09, 2023 AGRIMRK [id number] SAULO LIU PATIENT [employer] ([id number]) PRESCRIPT ION [facility] [facility] Jul 09, 2023 AGRIMRK [id number] [facility] HIGH DEDUCTIBL E HEALTH PLAN W/HEALTH SAVINGS ACCOUNT [facility] Dec 01, 2014 [id number] [phone] SAULO LIU PATIENT Selected Encounter This section includes the information on record at [place] for the Encounter. Date/Time Encounter Type Encounter Description Reason Pro vider Source Feb 28, 2024 08:33 AM Outpatient Encounter PRIMARY CARE/MEDICINE IHE Encounter Template Text not used by [place] Plan of Treatment: Future Appointments (+ 6 months) and Future Tests (+/- 45 days) The Plan of Treatment section includes future care activities for the patient [facility] [place] [facility] This section includes future appointments [...] AMBULATORY - NONE [place] [facility] [place] [facility] Apr 11, 2024 08:30 AM AMBULATORY - MEDICINE [place] [facility] [place] [facility] Apr 11, 2024 09:00 AM AMBULATORY - MEDICINE [place] [facility] [place] [facility] Apr 18, 2024 08:30 AM AMBULATORY - MEDICINE [place] [facility] [place] [facility] May 15, 2024 02:30 PM AMBULATORY - NONE [place] [facility] [place] [facility] May 23, 2024 10:00 AM AMBULATORY - NONE [place] [facility] [place] [facility] May 23, 2024 03:00 PM AMBULATORY - MEDICINE [place] [facility] [place] [facility] May 23, 2024 04:15 PM AMBULATORY - MEDICINE [place] [facility] [place] [facility] Aug 16, 2024 03:20 PM AMBULATORY - MEDICINE [place] [facility] [place] [facility] Social History: Smoking Status (Most current) and [...] VA-TOBACCO NEVER USED [place] [facility] [place] [facility] Tobacco Use History This section includes a history of the smoking, or tobacco-related health factors, that were collected on or before the date of the Encounter. The data comes from the [place] facility where the Encounter took place. Date/Time Smoking Status/Tobac co Use Comment Facility Jul 31, 2022 09:00 AM VA-TOBACCO NEVER USED [place] [facility] [place] [facility] Apr 24, 2021 03:00 PM VA-TOBACCO NEVER USED [place] [facility] [place] [facility] March 26, 2020 02:34 PM VA-TOBACCO NEVER USED [place] [facility] [place] [facility] Feb 27, 2019 09:44 AM VA-TOBACCO NEVER USED [facility] [place] [facility] Dec 14, 2017 03:24 PM LIFETIME NON-TOBACCO USER [facility] [facility] Dec 14, 2016 10:28 AM LIFETIME NON-TOBACCO USER Life time nonsmoker [place] [facility] [place] [facility] Jan 06, 2016 09:32 AM LIFETIME NON-TOBACCO USER [place] [facility] [place] [facility] Jan 21, 2015 12:48 PM LIFETIME NON-TOBACCO USER never [place] [facility] [place] [facility] Encounter Notes: All associated encounter notes This section contains the clinical notes associated to the Encounter. Date/Time Encounter Note(s) Provider Source Feb 28, 2024 08:33 AM ADMINISTRATIVE NOT E: LOCAL TITLE: ADMINISTRATIVE NOTE STANDARD TITLE: ADMINISTRATIVE NOTE DATE OF NOTE: FEB 28, 2024@08:33 ENTRY DATE: FEB 28, 2024@08:33:52 AUTHOR: CATALINO HINKLE EXP COSIGNER: URGENCY: STATUS: COMPLETED left voicemail, explained appointment on 02/28/2024 is cancelled. please call [phone] to reschedule. /mandi/ JOLIE MCCALL [facility] Signed: 02/28/2024 08:34 CATALINO HINKLE [place] [facility] [place] [facility]
--- OUTSIDE RECORDS SUMMARY | 2024-11-09 16:51 | XMS_ITS | Encounter Summary ---
Author Name [facility] Organization [facility] Address [address] [place] [address] Care Team Providers Care Rotary Soil Stabilizer Operator Name Role Phone DEX SEO Primary Care Provider Unavaila [facility] Insurance Providers: All historical and current [...] Agustin's Name Patient's Relationship to Policy Agustin [facility] HIGH DEDUCTIBL E HEALTH PLAN [employer] [facility] Jul 09, 2023 [id number] [phone] SAULO LIU PATIENT [employer] PRES[facility] Nov 08, 2020 [id number] SAULO LIU PATIENT [employer] ([id number]) PRESCRIPT ION [facility] Jul 09, 2023 [id number] [phone] SAULO LIU PATIENT [employer] ([id number]) PRESCRIPT ION [employer] [facility] Jul 09, 2023 [id number] SAULO LIU PATIENT [facility] HIGH DEDUCTIBL E HEALTH PLAN W/HEALTH SAVINGS ACCOUNT [facility] Dec 01, 2014 [id number] [phone] SAULO LIU PATIENT Selected Encounter This section includes the information on record at MD for the Encounter. Date/Time Encounter Type Encounter Description Reason Pro vider Source May 14, 2024 12:22 PM Outpatient Encounter ADMIN PAT ACTIVTIES (MASNONCT) IHE Encounter Template Text not used by MD Plan of Treatment: Future Appointments (+ 6 months) and Future Tests (+/- 45 days) The Plan of Treatment section includes future care activities for the patient from all MD treatmentfacilities. This section includes future appointments and future orders which are active, pending or scheduled. Future Appointments This section includes appointments that were scheduled to occur 6 months from the date of the Encounter, up to a maximum of 20 appointments. The data comes from all MD treatment facilities. Appointment Date/Time Appointment Type Appointme nt Facility Name May 15, 2024 02:30 PM AMBULATORY - NONE [facility] [place] [facility] May 23, 2024 10:00 AM AMBULATORY - NONE [facility] [place] [facility] May 23, 2024 03:00 PM AMBULATORY - MEDICINE [facility] [place] [facility] May 23, 2024 04:15 PM AMBULATORY - MEDICINE [facility] [place] [facility] Aug 16, 2024 03:20 PM AMBULATORY - [facility]ICINE [facility] Lab Results: +/- 30 days of the encounter This section includes the Chemistry and Hematology Lab Results on record with MD for the patient. Radiology Reports and Pathology Reports are provided separately, in subsequent sections. Lab Results This section contains the Chemistry/Hematology Results that were resulted 30 days before or 30 daysafter the date of the Encounter. Date/Time Source Result Type Result - Unit Interpretation Reference Range Comment May 22, 2024 08:42 AM [facility] PT & INR (PROTIME) Specimen Type: PLASMA No comment entered. Ordering Provider: JADE SEO Report Released Date/Time: Apr 18, 2024 08:56 AM Reporting Lab: [facility] [address] Performing Lab: [facility] [address] [facility] [address] INR 1.1 PROTIME 12.5 s 10.0-13.1 May 22, 2024 08:41 AM [facility] HEPATITIS B SURFACE ANTIGEN (HBsAg)-WH Specimen [...] Apr 18, 2024 08:56 AM Reporting Lab: [address] [address] Performing Lab: [facility] [address] [facility] [address] HBsAg Non Reactive Non Reactive May 22, 2024 08:41 AM [facility] HEPATITIS B CORE (Total) Ab Specimen [...] Apr 18, 2024 08:56 AM Reporting Lab: [address] [address] Performing Lab: [facility] [address] [facility] [address] HEPATITIS B CORE (Total) Ab Non Reactive Non Reactive May 22, 2024 08:41 AM [facility] JOSE SCREEN/TITER Specimen Type: SERUM No comment entered. Ordering Provider: JADE SEO Report Released Date/Time: Apr 18, 2024 08:56 AM Reporting Lab: [facility] [place] [facility] [address] [facility] [address] Performing Lab: [facility] [address] [facility] [address] JOSE SCREEN NEG May 22, 2024 08:41 AM [facility] HEPATITIS C ANTIBODY (HCV)-ARC Specimen Type: SERUM Comment: Hep C Ab: No HCV antibody detected. If recent infection is suspected or other evidence suggests HCV infection, consider HCV nucleic acid testing Ordering Provider: JADE SEO Report Released Date/Time: Apr 18, 2024 08:56 AM Reporting Lab: [facility]N [facility] [address] [address] Performing Lab: [facility] [address] [address] HEPATITIS C ANTIBODY NON-REACTIVE NON-REACTIV E May 22, 2024 08:41 AM [facility] FERRITIN Specimen Type: SERUM No comment entered. Ordering Provider: JADE SEO Report Released Date/Time: Apr 18, 2024 08:56 AM Reporting Lab: [facility] [address] [address] Performing Lab: [facility]N [facility] [address] [address] FERRITIN 27 ng/mL 20-300 May 22, 2024 08:41 AM [facility] GAMMA-GTP Specimen Type: SERUM No comment entered. Ordering Provider: JADE SEO Report Released Date/Time: Apr 18, 2024 08:56 AM Reporting Lab: [facility] [place] [address] [address] Performing Lab: [facility] [address] [address] GAMMA-GTP 32 U/L 10-65 May 22, 2024 08:41 AM [facility] IRON & TIBC PANEL Specimen Type: SERUM No comment entered. Ordering Provider: JADE SEO Report Released Date/Time: Apr 18, 2024 08:56 AM Reporting Lab: [facility]ENTERTRN [facility] [address] [facility] [address] Performing Lab: [facility]RL [facility] [address] [facility] [address] TIBC 422 ug/dL 204-475 IRON 76 ug/dL 40-160 Transferrin Saturation 18.0 L 20.0-50.0 May 22, 2024 08:41 AM [facility]USE[facility] ALBUMIN Specimen Type: SERUM No comment entered. Ordering Provider: JADE SEO Report Released Date/Time: Apr 18, 2024 08:56 AM Reporting Lab: [facility]N [facility] [address] [address] Performing Lab: [facility] [address] [address] ALBUMIN 3.9 g/dL 3.5-5.0 May 22, 2024 08:41 AM [facility]USE[facility] PROTEIN,TOTAL Specimen Type: SERUM No comment entered. Ordering Provider: JADE SEO Report Released Date/Time: Apr 18, 2024 08:56 AM Reporting Lab: [facility]ITALN [facility] [address] [address] Performing Lab: [facility]ITALRL [facility] [address] [address] PROTEIN,TOTAL 7.0 g/dL 6.0-8.3 May 22, 2024 08:41 AM [facility]USE[facility] ALKALINE PHOSPHATASE Specimen Type: SERUM No comment entered. Ordering Provider: JADE SEO Report Released Date/Time: Apr 18, 2024 08:56 AM Reporting Lab: [facility]ITALN [facility] [address] [address] Performing Lab: [facility]ITALRCOMMUNITY HOSPITALN [place] [address] [place] [address] ALKALINE PHOSPHATASE 72 U/L 40-150 May 22, 2024 08:41 AM [facility] [place] [facility] AST Specimen Type: SERUM No comment entered. Ordering Provider: JADE SEO Report Released Date/Time: Apr 18, 2024 08:56 AM Reporting Lab: [facility] [place] [facility] [address] [facility] [address] Performing Lab: [facility] [place] [facility] [address] [facility] [address] AST 33 U/L 5-34 May 22, 2024 08:41 AM [facility]R WSN [facility] BILIRUBIN, TOTAL Specimen Type: SERUM No comment entered. Ordering Provider: JADE SEO Report Released Date/Time: Apr 18, 2024 08:56 AM Reporting Lab: [facility] [place] [place] [address] [address] Performing Lab: [facility] [place] [place] [address] [address] BILIRUBIN, TOTAL 0.9 mg/dL 0.2-1.2 May 22, 2024 08:41 AM [facility]ITALRCOMM[facility]OSPITALN [facility]USE[facility] ALT Specimen Type: SERUM No comment entered. Ordering Provider: JADE SEO Report Released Date/Time: Apr 18, 2024 08:56 AM Reporting Lab: [facility] [place] [facility] [address] [facility] [address] Performing Lab: [place] [facility] [place] [address] [address] ALT 73 U/L H May 22, 2024 08:41 AM [facility]RL [facility] CBC AND DIFF (AUTO) Specimen Type: BLOOD No comment entered. Ordering Provider: JADE SEO Report Released Date/Time: Apr 18, 2024 08:56 AM Reporting Lab: [facility] [place] [address] [address] Performing Lab: [facility]RL [facility]N [facility] [address] [address] WBC 7.81 10*3/uL 4.50-11.00 RBC 5.40 10*6/uL [...] 0.0 0.0-0.0 NRBC, ABS 0.00 10*3/uL 0.00-0.00 Social History: Smoking Status (Most current) and Tobacco Use (All prior to encounter date) This section includes the most current, and the historical, smoking and tobacco- related health factors from the MD facility where the Encounter took place. Current Smoking Status This section includes the most current smoking, or tobacco-related health factor, from the MD facility where the Encounter took place. Date/Time Current Smoking Status Comment [facility] it Oct 06, 2023 10:00 AM VA-TOBACCO NEVER USED [facility] [place] [facility] Tobacco Use History This section includes a history of the smoking, or tobacco-related health factors, that were collected on or before the date of the Encounter. The data comes from the MD facility where the Encounter took place. Date/Time Smoking Status/Tobac co Use Comment Facility Jul 31, 2022 09:00 AM VA-TOBACCO NEVER USED [facility] [place] [facility] Apr 24, 2021 03:00 PM VA-TOBACCO NEVER USED [facility] [place] [facility] March 26, 2020 02:34 PM VA-TOBACCO NEVER USED [facility] [place] [facility] Feb 27, 2019 09:44 AM VA-TOBACCO NEVER USED [facility] [place] [facility] Dec 14, 2017 03:24 PM LIFETIME NON-TOBACCO USER [facility] [place] [facility] Dec 14, 2016 10:28 AM LIFETIME NON-TOBACCO USER Life time nonsmoker [facility] [place] [facility] Jan 06, 2016 09:32 AM LIFETIME NON-TOBACCO USER [facility] [place] [facility] Jan 21, 2015 12:48 PM LIFETIME NON-TOBACCO USER never [facility] [place] [facility] Radiology Reports: +/- 30 days of the [...] the Encounter. The data comes from all MD treatment facilities. Date/Time Radiology Report Provider Source May 23, 2024 09:53 AM ULTRASOUND ABD WITH LIVER ELASTOGRAPHY: BACILIO LIU [id number] -1980 M Ex Date: MAY 23, 2024@09:53 Req Phys: DEX SEO Loc: CWM/NO/PACT 7 (Req'g Loc) Img Loc: ULTRASOUND Service: Unknown [facility] [place] [facility] , (Case 92 COMPLETE) ULTRASOUND ABDOMEN LIMITED (US Detailed) CPT:46893 Reason for Study: FOLLOW UP (Case 93 COMPLETE) ULTRASOUND ELASTOGRAPHY PARENCHYM(US Detailed) CPT:81732 Clinical History: HEPATIC STEATOSIS Some ultrasound tests require a prep. Report Status: Verified Date Reported: MAY 23, 2024 Date Verified: MAY 23, 2024 Regional Geodetic Advisor E-Sig:/ES/ED MALAVE JR Report: Study: Abdomen ultrasound. Comparison: [...] Primary Interpreting Staff: ED MALAVE JR, Radiologist (Regional Geodetic Advisor) /ED SINGH JR [facility] Encounter Notes: All associated encounter notes This section contains the clinical notes associated to the Encounter. Date/Time Encounter Note(s) Provider Source May 14, 2024 12:22 PM ADMINISTRATIVE NOTE: LOCAL TITLE: CCC: SCHEDULING ADMINISTRATION STANDARD TITLE: ADMINISTRATIVE NOTE DATE OF NOTE: MAY 14, 2024@12:22 ENTRY DATE: MAY 14, 2024@12:22:34 AUTHOR: [facility]IL[facility] EXP COSIGNER: URGENCY: STATUS: COMPLETED called to verify upcoming appts /es/ XO[facility]IL[facility] VISJadon 2 [facility] AMSA Signed: 05/14/2024 12:22 [facility]
--- OUTSIDE RECORDS SUMMARY | 2024-11-09 16:51 | XMS_ITS ---
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 Name Role Phone DEX SEO Primary Care Provider [facility] Insurance Providers: All historical and current [...] Name Patient's Relationship to Policy Agustin BCBS ID HIGH DEDUCTIBL E HEALTH PLAN [employer] [facility] Jul 09, 2023 [id number] [phone] SAULO LIU PATIENT [employer] PRESCRIPT ION [facility] Nov 08, 2020 [id number] SAULO LIU PATIENT [employer] ([id number]) PRESCRIPT ION [facility] Jul 09, 2023 [id number] SAULO LIU PATIENT [employer] ([id number]) PRESCRIPT ION [facility]IM [facility]K [facility] Jul 09, 2023 [id number] [phone] SAULO LIU PATIENT [facility] HIGH DEDUCTIBL E HEALTH PLAN W/HEALTH SAVINGS ACCOUNT [facility] Dec 01, 2014 [id number] [phone] SAULO LIU PATIENT Selected Encounter This section includes the information on record at [place] for the Encounter. Date/Time Encounter Type Encounter Description Reason Provider Source May 23, 2024 03:00 PM INTRM OPH EXAM EST PATIENT OPTOMETRY ICD-10-CM 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tism, bilateral ELLIOT,BEATRIZ E IHE Encounter Template Text not used by [place] Assessments - Encounter Diagnoses This section includes the primary and secondary diagnoses documented for the Encounter. Date/Time Primary/Secondary Diagnosis Diagnosis Name Provider Source Jun 21, 2024 08:43 AM PRIMARY Regular astigmatism, bilateral BEATRIZ ZARATE [facility] Jun 21, 2024 08:43 AM SECONDARY Presbyopia [facility] Jun 21, 2024 08:43 AM SECONDARY Round hole, left eye BEATRIZ ZARATE [facility] Plan of Treatment: Future Appointments (+ 6 months) and Future Tests (+/- 45 days) The Plan of Treatment section includes future care activities for the patient from all [place] treatmentfacilities. This section includes future appointments and future orders which are active, pending or scheduled. Future Appointments This section includes appointments that were scheduled to occur 6 months from the date of the Encounter, up to a maximum of 20 appointments. The data comes from all [place] treatment facilities. Appointment Date/Time Appointment Type Appointme nt Facility Name Aug 16, 2024 03:20 PM AMBULATORY - MEDICINE [facility] Lab Results: +/- 30 days of the encounter This section includes the Chemistry and Hematology Lab Results on record with [place] for the patient. Radiology Reports and Pathology Reports are provided separately, in subsequent sections. Lab Results This section contains the Chemistry/Hematology Results that were resulted 30 days before or 30 daysafter the date of the Encounter. Date/Time Source Result Type Result - Unit Interpretation Reference Range Comment May 22, 2024 08:42 AM [facility] PT & INR (PROTIME) Specimen Type: PLASMA No comment entered. Ordering Provider: JADE SEO Report Released Date/Time: Apr 18, 2024 08:56 AM Reporting Lab: [address] [address] Performing Lab: [address] [address] INR 1.1 PROTIME 12.5 s 10.0-13.1 May 22, 2024 08:41 AM [facility] HEPATITIS B SURFACE ANTIGEN (HBsAg)-WH Specimen [...] 18, 2024 08:56 AM Reporting Lab: [address] [address] Performing Lab: [address] [address] HBsAg Non Reactive Non Reactive May 22, 2024 08:41 AM [facility] HEPATITIS B CORE (Total) Ab Specimen [...] 18, 2024 08:56 AM Reporting Lab: [address] [address] Performing Lab: [facility] [address] [address] HEPATITIS B CORE (Total) Ab Non Reactive Non Reactive May 22, 2024 08:41 AM [facility] JOSE SCREEN/TITER Specimen Type: SERUM No comment entered. Ordering Provider: JADE SEO Report Released Date/Time: Apr 18, 2024 08:56 AM Reporting Lab: [facility] [address] [address] Performing Lab: [facility] [address] [facility] [address] JOSE SCREEN NEG May 22, 2024 08:41 AM [facility] HEPATITIS C ANTIBODY (HCV)-ARC Specimen Type: SERUM Comment: Hep C Ab: No HCV antibody detected. If recent infection is suspected or other evidence suggests HCV infection, consider HCV nucleic acid testing Ordering Provider: JADE SEO Report Released Date/Time: Apr 18, 2024 08:56 AM Reporting Lab: [facility] [address] [facility] [address] Performing Lab: [facility] [address] HEPATITIS C ANTIBODY NON-REACTIVE NON-REACTIV E May 22, 2024 08:41 AM [facility] FERRITIN Specimen Type: SERUM No comment entered. Ordering Provider: JADE SEO Report Released Date/Time: Apr 18, 2024 08:56 AM Reporting Lab: [facility] [address] [address] Performing Lab: [facility] [address] FERRITIN 27 ng/mL 20-300 May 22, 2024 08:41 AM [facility] GAMMA-GTP Specimen Type: SERUM No comment entered. Ordering Provider: JADE SEO Report Released Date/Time: Apr 18, 2024 08:56 AM Reporting Lab: [facility] [address] [address] Performing Lab: [facility] [place] [facility] [address] [facility] [address] GAMMA-GTP 32 U/L 10-65 May 22, 2024 08:41 AM [facility] IRON & TIBC PANEL Specimen Type: SERUM No comment entered. Ordering Provider: JADE SEO Report Released Date/Time: Apr 18, 2024 08:56 AM Reporting Lab: [facility] [place] [facility] [address] [facility] [address] Performing Lab: [facility] [place] [facility] [address] [facility] [address] TIBC 422 ug/dL 204-475 IRON 76 ug/dL 40-160 Transferrin Saturation 18.0 L 20.0-50.0 May 22, 2024 08:41 AM [facility] ALBUMIN Specimen Type: SERUM No comment entered. Ordering Provider: JADE SEO Report Released Date/Time: Apr 18, 2024 08:56 AM Reporting Lab: [facility] [place] [facility] [address] [facility] [address] Performing Lab: [facility] [place] [address] [address] ALBUMIN 3.9 g/dL 3.5-5.0 May 22, 2024 08:41 AM [facility] PROTEIN,TOTAL Specimen Type: SERUM No comment entered. Ordering Provider: JADE SEO Report Released Date/Time: Apr 18, 2024 08:56 AM Reporting Lab: [facility] [place] [facility] [address] [facility] [address] Performing Lab: [facility] [place] [address] [address] PROTEIN,TOTAL 7.0 g/dL 6.0-8.3 May 22, 2024 08:41 AM [facility]ITALRHELEN [facility]OSPITALTRN [facility] ALKALINE PHOSPHATASE Specimen Type: SERUM No comment entered. Ordering Provider: JADE SEO Report Released Date/Time: Apr 18, 2024 08:56 AM Reporting Lab: [facility] [place] [facility] [address] [facility] [address] Performing Lab: [facility] [place] [facility] [address] [facility] [address] ALKALINE PHOSPHATASE 72 U/L 40-150 May 22, 2024 08:41 AM [facility] [place] [facility] BILIRUBIN, TOTAL Specimen Type: SERUM No comment entered. Ordering Provider: JADE SEO Report Released Date/Time: Apr 18, 2024 08:56 AM Reporting Lab: [facility] [place] [facility] [address] [facility] [address] Performing Lab: [place] [facility] [facility] [address] [facility] [address] BILIRUBIN, TOTAL 0.9 mg/dL 0.2-1.2 May 22, 2024 08:41 AM [facility] [place] [facility] AST Specimen Type: SERUM No comment entered. Ordering Provider: JADE SEO Report Released Date/Time: Apr 18, 2024 08:56 AM Reporting Lab: [place] [facility] [place] [facility] [address] [facility] [address] Performing Lab: [place] [facility] [place] [facility] [address] [facility] [address] AST 33 U/L 5-34 May 22, 2024 08:41 AM [facility] [place] [facility] ALT Specimen Type: SERUM No comment entered. Ordering Provider: JADE SEO Report Released Date/Time: Apr 18, 2024 08:56 AM Reporting Lab: [facility] [place] [facility] [address] [facility] [address] Performing Lab: [place] [facility] [place] [facility] [address] [facility] [address] ALT 73 U/L H May 22, 2024 08:41 AM [place] [facility] [place] [facility] CBC AND DIFF (AUTO) Specimen Type: BLOOD No comment entered. Ordering Provider: JADE SEO Report Released Date/Time: Apr 18, 2024 08:56 AM Reporting Lab: [place] [facility] [place] [facility] [address] [facility] [address] Performing Lab: [facility] [address] [facility] [address] WBC 7.81 10*3/uL 4.50-11.00 RBC 5.40 10*6/uL [...] and tobacco- related health factors from the [place] facility where the Encounter took place. Current Smoking Status This section includes the most current smoking, or tobacco-related health factor, from the [place] facility where the Encounter took place. Date/Time Current Smoking Status Comment Carloz whitehead Oct 06, 2023 10:00 AM VA-TOBACCO NEVER USED [facility] Tobacco Use History This section includes a history of the smoking, or tobacco-related health factors, that were collected on or before the date of the Encounter. The data comes from the [place] facility where the Encounter took place. Date/Time Smoking Status/Tobac co Use Comment Facility Jul 31, 2022 09:00 AM VA-TOBACCO NEVER USED [facility] [place] [facility] Apr 24, 2021 03:00 PM VA-TOBACCO NEVER USED [facility] [place] [facility] March 26, 2020 02:34 PM VA-TOBACCO NEVER USED [facility] [place] [facility] Feb 27, 2019 09:44 AM VA-TOBACCO NEVER USED [facility] [place] [facility] Dec 14, 2017 03:24 PM LIFETIME NON-TOBACCO USER [facility] [place] [facility] Dec 14, 2016 10:28 AM LIFETIME NON-TOBACCO USER Life time nonsmoker [place] [facility] [place] [facility] Jan 06, 2016 09:32 AM LIFETIME NON-TOBACCO USER [facility] [place] [facility] Jan 21, 2015 12:48 PM LIFETIME NON-TOBACCO USER never [place] [facility] [place] [facility] Radiology Reports: +/- 30 days of [...] the Encounter. The data comes from all [place] treatment facilities. Date/Time Radiology Report Provider Source May 23, 2024 09:53 AM ULTRASOUND ABD WITH LIVER ELASTOGRAPHY: BACILIO LIU [id number] -[phone] M Exm Date: MAY 23, 2024@09:53 Req Phys: DEX SEO Loc: CWM/NO/PACT 7 (Req'g Loc) Img Loc: ULTRASOUND Service: Unknown [place] [facility] [place] [facility] , (Case 92 COMPLETE) ULTRASOUND ABDOMEN LIMITED (US Detailed) CPT:42592 Reason for Study: FOLLOW UP (Case 93 COMPLETE) ULTRASOUND ELASTOGRAPHY PARENCHYM(US Detailed) CPT:44617 Clinical History: HEPATIC STEATOSIS Some ultrasound tests require a prep. Report Status: Verified Date Reported: MAY 23, 2024 Date Verified: MAY 23, 2024 Template Maker E-Sig:/ES/ED MALAVE JR Report: Study: Abdomen ultrasound. [...] 1.52 m/s. Previously, this measured 1.32 m/s SRU Recommendations for interpretations of Liver Stiffness Values [...] Primary Interpreting Staff: ED MALAVE JR, Radiologist (Template Maker) /ED SINGH JR [facility] Encounter Notes: All associated encounter notes This section contains the clinical notes associated to the Encounter. Date/Time Encounter Note(s) Provider Source May 23, 2024 03:43 PM OPTOMETRY NOTE: LOCAL TITLE: OPTOMETRY NOTE STANDARD TITLE: OPTOMETRY NOTE DATE OF NOTE: MAY 23, 2024@15:43 ENTRY DATE: MAY 23, 2024@15:43:42 AUTHOR: DAVIE ZARATE COSIGNER: URGENCY: STATUS: COMPLETED I saw this patient in conjunction with the student and agree with stated findings and plan as noted below after reviewing both the history and repeating ashley elements of the physical exam. Patient returns for problem focused visit related to blurred vision with current glasses. He has a history of retinal hole temporally left eye for which he was previously referred to [facility]. He was seen by [facility] August 2023 with recommendation for observation only of retinal hole. Impression: Bilateral regular astigmatic refractive error with age expected presbyopia update glasses today. Retinal hole left eye, declines repeat dilation today photos taken now. Plan: Patient education as noted above reviewed exam findings now. Reviewed signs and symptoms of retinal hole, tear, detachment specifically if he were experience new floaters with or without flashes with or without decreased or missing vision these are all the potential signs and symptoms of a more serious problem such as a retinal hole, tear, detachment in which case he should call or seek immediate care. Medication Reconciliation: Outpatient: Has the patient been taking medications as documented in the EMLR? YES: The patient has been taking medications as documented in the EMLR. Essential Medication List for Review used to complete this medication reconciliation. INCLUDED IN THIS LIST: Alphabetical list of active outpatient prescriptions dispensed from this VA (local) and dispensed from another VA or DoD facility (remote) as well as inpatient orders [...] whether with a VA or non-VA provider. JLV Link Data on this list may not be complete. Please check [employer]. Allergies/ADRs (Tool #5) FACILITY ALLERGY/ADR -------- [facility] NO KNOWN ALLERGIES [facility] No Known Allergies [facility] NO KNOWN ALLERGIES Med [facility] Alicia (Tool #1) INCLUDED IN THIS LIST: Alphabetical list of active outpatient prescriptions dispensed from this VA (local) and dispensed from another VA or DoD facility (remote) as well as inpatient orders (local pending and active), local clinic medications, locally documented non-VA medications, and local prescriptions that have or been discontinued in the past 90 days. Non-VA Meds Last Documented On: Aug 07, 2022 NOTE The display of VA prescriptions dispensed from another [place] or [facility] facility (remote) is limited to active outpatient prescription entries matched to National Drug File at the originating site and may not include some items such as investigational drugs, compounds, etc. NOT INCLUDED IN THIS LIST: Medications self-entered by the patient into personal health records (i.e. [employer]) are NOT included in this list. Non-VA medications documented outside this [place], remote inpatient orders (regardless of status) and remote clinic medications are NOT included in this list. The patient and provider must always discuss medications the patient is taking, regardless of where the medication was dispensed or obtained. OUTPT AMLODIPINE BESYLATE 5MG TAB (Status = Discontinued) TAKE ONE TABLET BY MOUTH ONCE DAILY FOR BLOOD PRESSURE/HEART, DO NOT TAKE WITH [employer] Rx# [id number] Last Released: 03/15/24 Qty/Days Supply: Rx Expiration Date: 08/17/24 Refills Remainin OUTPT AMLODIPINE BESYLATE 5MG TAB (Status = Active/Suspended) TAKE ONE TABLET BY MOUTH ONCE DAILY FOR BLOOD PRESSURE/HEART, DO NOT TAKE WITH [employer]ICE Rx# [id number] Last Released: Qty/Days Supply: Rx Expiration Date: 04/19/25 Refills Remainin OUTPT AMOXICILLIN 875/CLAV K 125MG TAB (Status = ) TAKE 1 TABLET BY MOUTH TWICE DAILY FOR INFECTION Rx# [id number] Last Released: 04/11/24 Qty/Days Supply: 27/08 Rx Expiration Date: 05/11/24 Refills Remainin Indication: FOR INFECTION CAUSED BY BACTERIA OUTPT CARBOXYMETHYLCELLULOSE NA 0.5% OPH SOLN (Status = Active) INSTILL 1 DROP INTO EACH EYE FOUR TIMES DAILY NEEDED Rx# [id number] Last Released: 08/04/23 Qty/Days Supply: 45 Rx Expiration Date: 08/03/24 Refills Remainin Indication: FOR DRY EYE OUTPT DEXTRAN 70/GLYCER 0.2%/HYPROMEL 0.3% OPH (Status = Active) INSTILL 1 DROP INTO EACH EYE AT BEDTIME Rx# [id number] Last Released: 08/04/23 Qty/Days Supply: Rx Expiration Date: 08/03/24 Refills Remainin Indication: FOR DRY EYE OUTPT LOSARTAN 25MG TAB (Status = Discontinued) TAKE THREE TABLETS BY MOUTH ONCE DAILY FOR BLOOD PRESSURE/HEART Rx# [id number] Last Released: 03/15/24 Qty/Days Supply: 270 Rx Expiration Date: 08/17/24 Refills Remainin OUTPT LOSARTAN 50MG TAB (Status = Active) TAKE ONE TABLET BY MOUTH ONCE DAILY FOR BLOOD PRESSURE/HEART Rx# [id number] Last Released: 04/20/24 Qty/Days Supply: 90 Rx Expiration Date: 04/19/25 Refills Remainin Indication: FOR HIGH BLOOD PRESSURE OUTPT OMEPRAZOLE 20MG EC CAP (Status = Discontinued) TAKE ONE CAPSULE BY MOUTH TWICE DAILY BEFORE A MEAL Rx# [id number] Last Released: 03/15/24 Qty/Days Supply: Rx Expiration Date: 08/17/24 Refills Remainin OUTPT OMEPRAZOLE 20MG EC CAP (Status = Active/Suspended) TAKE ONE CAPSULE BY MOUTH TWICE DAILY BEFORE A MEAL Rx# [id number] Last Released: Supply: Rx Expiration Date: 04/19/25 Refills Remainin SUPPLIES Declines printed copy of medication list now. /mandi/ Davie Zarate OD CHIEF OF OPTOMETRY Signed: 05/23/2024 15:47 DAVIE ZARATE [place] [facility] May 23, 2024 12:54 PM OPTOMETRY NOTE: LOCAL TITLE: OPTOMETRY NOTE STANDARD TITLE: OPTOMETRY NOTE DATE OF NOTE: MAY 23, 2024@12:54 ENTRY DATE: MAY 23, 2024@12:54:30 AUTHOR: BRO CANALES COSIGNER: DAVIE ZARATE URGENCY: STATUS: COMPLETED Active problems - Computerized Problem List is the source for the followin. Onychomycosis 2. Sleep Apnea (SCT [id number]) 3. RBC count abnormal 4. Benign essential hypertension 5. Relationship problems 6. Gastroesophageal reflux disease 7. Chronic mixed headache syndrome 8. Steatosis of liver 9. Panic disorder Active Outpatient Medications (including Supplies): Active Outpatient Medications Status 1) AMLODIPINE BESYLATE 5MG TAB TAKE ONE TABLET BY MOUTH ACTIVE (S) ONCE DAILY FOR BLOOD PRESSURE/HEART, DO NOT TAKE WITH [employer]ICE 2) CARBOXYMETHYLCELLULOSE NA 0.5% OPH SOLN INSTILL 1 ACTIVE DROP INTO EACH EYE FOUR TIMES DAILY NEEDED 3) DEXTRAN 70/GLYCER 0.2%/HYPROMEL 0.3% OPH INSTILL 1 ACTIVE DROP INTO EACH EYE AT BEDTIME 4) LOSARTAN 50MG TAB TAKE ONE TABLET BY MOUTH ONCE DAILY ACTIVE FOR BLOOD PRESSURE/HEART 5) OMEPRAZOLE 20MG EC CAP TAKE ONE CAPSULE BY MOUTH ACTIVE (S) TWICE DAILY BEFORE A MEAL Allergies: Patient has answered NKA All medications including those prescribed by outside VA's, community providers, and all OTC meds were reviewed and reconciled with patient to the best of their abilities. This 44 year old MALE is seen today for problem focused visit - [place] with DFE 07/2023 -Pt was referred to [facility] at last visit for retinoplexy d/t retinal hole @ 4:00 OS. No notes in [facility]. Pt states that he went to appointment and he was told to have VA observe for changes. He does not have another appt scheduled with [facility]. Chief Complaint: -Pt reports that he broke his new glasses. Before he broke them, he was getting HAs above the brow after using them. Distance and near both seemed blurry OU. No other ocular complaints. -Pt uses ATs prn OU and feels they're helping for dryness. OHx: -Retinal hole OS -CASSIA OU -RE OU (-) Pain: (-) AMARAL: (-) Diplopia: (-) Flashes: (-) Floaters: (-) Amaurosis Fugax/Tia's: (-) Eye Injury: (-) Eye Surgery: (-) TBI FOHx: (-) Glaucoma/ARMD/Blindness (-) Smoker/Length of Time/PPD: VITALS (most recent, as listed in the electronic record): B/P: 136/88 (04/18/2024 09:03) Pulse: 68 (04/18/2024 08:22) Temperature: 98.5 F [36.9 C] (04/18/2024 08:22) Weight: 296.1 lb [134.31 kg] (05/15/2024 15:32) Height: 73 in [185.4 cm] (04/18/2024 08:22) BMI: BMI: 39.1 PERTINENT LABS: HEMOGLOBIN A1C TREND Collection DT Spec HGBA1c 10/25/2023 12:07 BLOOD 5.4 02/02/2023 08:45 BLOOD 5.4 07/31/2022 09:13 BLOOD 5.3 11/06/2021 10:15 BLOOD 5.3 04/24/2021 15:36 BLOOD 5.1 Current Rx with last BCVA: OD -0.50 -1.00 x 165 20/20 OS -0.50 -1.00 x 010 20/20 Add: +1.25 DVA ( )sc ( x )cc OD: 20/40 PH 20/20 OS: 20/25 Pupils: PERRL (-)APD EOMs: SAFE OU, (-)Pain/Diplopia CVF (facial, peripheral): FTFC OU Subjective Refraction: OD pl -1.00 x 165 20/[address] -1.00 x 010 20/20 Add: +1.25 20/20 OU All the above performed by student, reviewed by attending Anterior segment: Performed by student, repeated by attending Lids: mild MGD OU Conj: white and quiet OU Cornea: clear OU AC: deep and quiet OU Iris: flat and clear OU Lens: clear OU Tonometry: Performed by student, reviewed by attending OD 12 mmHg OS 12 mmHg Time: 3:30pm Fundus exam: Non dilated: pt refused d/t work Performed by student, repeated by attending Vit: clear OU C/D: 0.35 OD, 0.35 OS Macula: flat and clear OU to extent seen undilated PPole: clear OU to extent seen undilated A/V: 2/3 Vessels: normal caliber OU to extent seen undilated Periph: pt refused d/t work -OS: limited view of retinal hole 4:00 Assessment/Plan: 1. Atrophic hole OS - previously referred to [facility], [facility] to [facility] for [facility] - Pt ed on today's findings. Pt encouraged to be dilated to ensure proper visualization of the hole, pt refused d/t work. Ed extensively on s/sx of retinal detachment and advised pt to call [facility] immediately with any sudden changes in vision. Pt stated they understood. - Fundus photos taken today for documentation. Continue to monitor with DFE at E in 1 yr. 2. Dry eye OU - Pt ed on today's findings. Advised to continue use of AT's up to 4x per day. - Monitor annually. 3. Myopia and Presbyopia OU - New spec rx written for FTW. Ordered 1 DVO, 1 NVO per pt request - Monitor annually. Return to Clinic 1 yr or sooner prn. /mandi/ BRO CANALES OPTOMETRY STUDENT Signed: 05/23/2024 16:34 /mandi/ Davie Zarate OD CHIEF OF OPTOMETRY Cosigned: 05/24/2024 06:40 BRO CANALES CN[facility]L TRN [facility]
--- OUTSIDE RECORDS SUMMARY | 2024-11-09 16:51 | XMS_ITS ---
Author Name [facility] [facility] [place] Address [address] [place] [address] Care Team Providers Care Salon Sales Consultant Name Role Phone DEX SEO Primary Care [...] Agustin's Name Patient's Relationship to Policy [facility] DEDUCTIB[facility] E [facility]ALTH PLAN [employer] [facility] Jul 09, 2023 [id number] SAULO LIU PATIENT [employer] PRESCRIPT ION [facility] Nov 08, 2020 [id number] SAULO LIU PATIENT [employer] ([id number]) PRESCRIPT ION [facility] Jul 09, 2023 [id number] SAULO LIU PATIENT [employer] ([id number]) PRESCRIPT ION [facility] [facility] Jul 09, 2023 [id number] [phone] SAULO LIU PATIENT [facility] HIGH DEDUCTIBL E HEALTH PLAN W/HEALTH SAVINGS ACCOUNT [facility] Dec 01, 2014 [id number] [phone] SAULO LIU PATIENT Selected Encounter This section includes the information [place] at [place] for the Encounter. Date/Time Encounter Type Encounter Description Reason Provider Source May 23, 2024 04:15 PM FUNDUS PHOTOGRAPHY W/I&R OPTOMETRY ICD-10-CM H33.322 Round hole, left eye BEATRIZ ZARATE IHEve Encounter Template Text not used by [facility] Assessments - Encounter Diagnoses This section includes the primary and secondary diagnoses documented for the Encounter. Date/Time Primary/Secondary Diagnosis Diagnosis Name Provider Source Jun 21, 2024 08:06 AM PRIMARY Round hole, left eye BEATRIZ ZARATE [facility] Plan of Treatment: Future Appointments (+ [...] 16, 2024 03:20 PM AMBULATORY - MEDICINE [facility] Lab Results: +/- 30 days [...] Range Comment May 22, 2024 08:42 AM [facility] PT & INR (PROTIME) Specimen Type: PLASMA No comment entered. Ordering Provider: JADE SEO Report Released Date/Time: Apr 18, 2024 08:56 AM Reporting Lab: [facility] [address] [facility] [address] Performing Lab: [address] [address] INR 1.1 PROTIME 12.5 s 10.0-13.1 May 22, 2024 08:41 AM [facility] HEPATITIS B SURFACE ANTIGEN (HBsAg)-WH Specimen [...] Apr 18, 2024 08:56 AM Reporting Lab: [address] [address] Performing Lab: [facility] [address] [address] HBsAg Non Reactive Non Reactive May 22, 2024 08:41 AM [facility] HEPATITIS B CORE (Total) Ab Specimen [...] Apr 18, 2024 08:56 AM Reporting Lab: [facility] [address] [facility] [address] Performing Lab: [facility] [address] [address] HEPATITIS B CORE (Total) Ab Non Reactive Non Reactive May 22, 2024 08:41 AM [facility] JOSE SCREEN/TITER Specimen Type: SERUM No comment entered. Ordering Provider: JADE SEO Report Released Date/Time: Apr 18, 2024 08:56 AM Reporting Lab: [facility] [place] [place] [facility] [address] [facility] [address] Performing Lab: [facility] [place] [facility] [address] [facility] [address] JOSE SCREEN NEG May 22, 2024 08:41 AM [facility] HEPATITIS C ANTIBODY (HCV)-ARC Specimen Type: SERUM Comment: Hep C Ab: No HCV antibody detected. If recent infection is suspected or other evidence suggests HCV infection, consider HCV nucleic acid testing Ordering Provider: JADE SEO Report Released Date/Time: Apr 18, 2024 08:56 AM Reporting Lab: [facility] [address] [facility] [address] Performing Lab: [facility]ITALRGRE[facility]ITALN [facility]ENTERUSETS [address] [address] HEPATITIS C ANTIBODY NON-REACTIVE NON-REACTIV E May 22, 2024 08:41 AM [facility] FERRITIN Specimen Type: SERUM No comment entered. Ordering Provider: JADE SEO Report Released Date/Time: Apr 18, 2024 08:56 AM Reporting Lab: [facility] [address] [facility] [address] Performing Lab: [facility]ETS [address] [address] FERRITIN 27 ng/mL 20-300 May 22, 2024 08:41 AM [facility]ITALN [facility] GAMMA-GTP Specimen Type: SERUM No comment entered. Ordering Provider: JADE SEO Report Released Date/Time: Apr 18, 2024 08:56 AM Reporting Lab: [facility]ENTERUSETS [address] [address] Performing Lab: [facility]ITALRW[facility] HOSPITALTRN [facility]ENTERUSETS [address] [address] GAMMA-GTP 32 U/L 10-65 May 22, 2024 08:41 AM [facility] IRON & TIBC PANEL Specimen Type: SERUM No comment entered. Ordering Provider: JADE SEO Report Released Date/Time: Apr 18, 2024 08:56 AM Reporting Lab: [facility]ITALRG[facility]ITALN [facility] [address] [facility] [address] Performing Lab: [facility] [address] [facility] [address] TIBC 422 ug/dL 204-475 IRON 76 ug/dL 40-160 Transferrin Saturation 18.0 L 20.0-50.0 May 22, 2024 08:41 AM [facility] ALBUMIN Specimen Type: SERUM No comment entered. Ordering Provider: JADE SEO Report Released Date/Time: Apr 18, 2024 08:56 AM Reporting Lab: [facility] [address] [facility] [address] Performing Lab: [facility]ENTERUSE[address] [address] ALBUMIN 3.9 g/dL 3.5-5.0 May 22, 2024 08:41 AM [facility] ALKALINE PHOSPHATASE Specimen Type: SERUM No comment entered. Ordering Provider: JADE SEO Report Released Date/Time: Apr 18, 2024 08:56 AM Reporting Lab: [facility] [address] [facility] [address] Performing Lab: [facility]ENTERUSE[address] [address] ALKALINE PHOSPHATASE 72 U/L 40-150 May 22, 2024 08:41 AM [facility] PROTEIN,TOTAL Specimen Type: SERUM No comment entered. Ordering Provider: JADE SEO Report Released Date/Time: Apr 18, 2024 08:56 AM Reporting Lab: [facility]ITALRGREIL [facility]OS[facility]ITALN [facility]ENTERUSETS [facility] [address] [facility] [address] Performing Lab: [facility]ENTERUSE[address] [address] PROTEIN,TOTAL 7.0 g/dL 6.0-8.3 May 22, 2024 08:41 AM [facility] [place] [facility] BILIRUBIN, TOTAL Specimen Type: SERUM No comment entered. Ordering Provider: JADE SEO Report Released Date/Time: Apr 18, 2024 08:56 AM Reporting Lab: [facility] [place] [facility] [address] [facility] [address] Performing Lab: [facility] [place] [facility] [address] [facility] [address] BILIRUBIN, TOTAL 0.9 mg/dL 0.2-1.2 May 22, 2024 08:41 AM [facility] AST Specimen Type: SERUM No comment entered. Ordering Provider: JADE SEO Report Released Date/Time: Apr 18, 2024 08:56 AM Reporting Lab: [facility] [place] [facility] [address] [facility] [address] Performing Lab: [facility]ITALRWASHINGTON COUNTY HOSPITALTRN [facility] CENTERUSETS [address] [address] AST 33 U/L 5-34 May 22, 2024 08:41 AM [facility]ITALRGREIL [facility] PS[facility]CHIATR[facility] HOSPITALN [facility]ENTERUSETS [facility] ALT Specimen Type: SERUM No comment entered. Ordering Provider: JADE SEO Report Released Date/Time: Apr 18, 2024 08:56 AM Reporting Lab: [facility] [place] [facility] [address] [facility] [address] Performing Lab: [facility] [place] [address] [address] ALT 73 U/L H May 22, 2024 08:41 AM [facility]ENTER[facility] CBC AND DIFF (AUTO) Specimen Type: BLOOD No comment entered. Ordering Provider: JADE SEO Report Released Date/Time: Apr 18, 2024 08:56 AM Reporting Lab: [facility] [place] [facility] [address] [facility] [address] Performing Lab: [facility]RL TRN [facility]ENTERUSETS [address] [address] WBC 7.81 10*3/uL 4.50-11.00 RBC 5.40 10*6/uL [...] took place. Date/Time Current Smoking Status Comment [facility] Oct 06, 2023 10:00 AM VA-TOBACCO NEVER USED [facility] Tobacco Use History This section includes a history of the smoking, or tobacco-related health factors, that were collected on or before the date of the Encounter. The data comes from the [place] facility where the Encounter took place. Date/Time Smoking Status/Tobac co Use Comment Facility Jul 31, 2022 09:00 AM VA-TOBACCO NEVER USED [facility] Apr 24, 2021 03:00 PM VA-TOBACCO NEVER USED [facility] [place] [facility] March 26, 2020 02:34 PM VA-TOBACCO NEVER USED [facility] [place] [place] [facility] Feb 27, 2019 09:44 AM VA-TOBACCO NEVER USED [facility] [place] [facility] Dec 14, 2017 03:24 PM LIFETIME NON-TOBACCO USER [facility] [place] [place] [facility] Dec 14, 2016 10:28 AM LIFETIME NON-TOBACCO USER Life time nonsmoker [facility] [place] [facility] Jan 06, 2016 09:32 AM LIFETIME NON-TOBACCO USER [facility] [place] [facility] Jan 21, 2015 12:48 PM LIFETIME NON-TOBACCO USER never [place] [facility] [place] [facility] Radiology Reports: +/- 30 days of the [...] the Encounter. The data comes from all [place] treatment facilities. Date/Time Radiology Report Provider Source May 23, 2024 09:53 AM ULTRASOUND ABD WITH LIVER ELASTOGRAPHY: BACILIO LIU [id number] -[id number] M Exm Date: MAY 23, 2024@09:53 Req Phys: DEX SEO Loc: CWM/NO/PACT 7 (Req'g Loc) Img Loc: ULTRASOUND Service: Unknown [facility] [place] [facility] , (Case 92 COMPLETE) ULTRASOUND ABDOMEN LIMITED (US Detailed) CPT:95806 Reason for Study: FOLLOW UP (Case 93 COMPLETE) ULTRASOUND ELASTOGRAPHY PARENCHYM(US Detailed) CPT:09195 Clinical History: HEPATIC STEATOSIS Some ultrasound tests require a prep. Report Status: Verified Date Reported: MAY 23, 2024 Date Verified: MAY 23, 2024 Mathematical Engineering Technician E-Sig:/ES/ED MALAVE JR Report: Study: Abdomen ultrasound. [...] Primary Interpreting Staff: ED MALAVE JR, Radiologist (Mathematical Engineering Technician) /ED SINGH JR [facility] Encounter Notes: All associated encounter notes This section contains the clinical notes associated to the Encounter. Date/Time Encounter Note(s) Provider Source May 23, 2024 04:13 PM OPTOMETRY CONSULT: LOCAL TITLE: CONSULT REPORT/OPTOMETRY FUNDUS PHOTO STANDARD TITLE: OPTOMETRY CONSULT DATE OF NOTE: MAY 23, 2024@16:13 ENTRY DATE: MAY 23, 2024@16:13:58 AUTHOR: BRO CANALES COSIGNER: DAVIE ZARATE URGENCY: STATUS: COMPLETED CONSULT REPORT/OPTOMETRY FUNDUS PHOTO Has ADDENDA Fundus photo report: Fundus photos reviewed for patient with atrophic hole OS - pt undilated OD: optic disc shows normal cupping with distinct margins and healthy rim tissue. The vasculature is of normal caliber. Macula is clear. OS: optic disc shows normal cupping with distinct margins and healthy rim tissue. The vasculature is of normal caliber. Macula is clear. Small atrophic hole in periphery @ 4:00 with adjacent area of WWOP. A/P: Atrophic hole OS - previously referred to [facility] - Pt ed on today's findings. Pt encouraged to be dilated to ensure proper visualization of the hole, pt refused d/t work. Ed extensively on s/sx of retinal detachment and advised pt to call [facility] immediately with any sudden changes in vision. Pt stated they understood. - Fundus photos taken today for documentation. Continue to monitor with [facility] at [facility] in 1 yr. 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 He was previously seen by [facility] for evaluation of retinal hole and questionable benefit or need of prophylactic focal or barricade laser with recommendation for continued observation. Keep scheduled follow-up for comprehensive exam with dilation in 12 months or sooner if need be. /mandi/ Davie Zarate OD CHIEF OF OPTOMETRY Signed: 05/24/2024 06:42 BRO CANALES [facility]
--- OUTSIDE RECORDS SUMMARY | 2024-11-09 16:51 | XMS_ITS ---
Author Name [facility] [place] [facility] [place] [facility] [place] [facility] [place] Address [address] [place] [address] Care Team Providers Care Tourism Radio Presenter Name Role Phone PAUL PINK Primary Care Provider Unavaila ble Insurance Providers: [...] Agustin's Name Patient's Relationship to Policy Agustin [facility] HIGH DEDUCTIBL E HEALTH PLAN [facility] Jul 09, 2023 [id number] SAULO LIU PATIENT [place] PRESCRIPT I[facility] Nov 08, 2020 [id number] SAULO LIU PATIENT [employer] ([id number]) PRESCRIPT ION [facility] Jul 09, 2023 [id number] SAULO LIU PATIENT [employer] ([id number]) PRESCRIPT ION [facility] Jul 09, 2023 [id number] [phone] SAULO LIU PATIENT [facility] HIGH DEDUCTIBL E HEALTH PLAN W/HEALTH SAVINGS ACCOUNT [facility] Dec 01, 2014 [id number] [phone] SAULO LIU PATIENT Selected Encounter This section includes the information on record at [place] for the Encounter. Date/Time Encounter Type Encounter Description Reason Provider Source Apr 18, 2024 08:30 AM OFFICE O/P EST MOD 30 MIN PRIMARY CARE/MEDICINE ICD-10-CM G47.30 Sleep apnea, unspecified PINK,JIAN MAGALLANES Encounter Template Text not used by [place] Assessments - Encounter Diagnoses This section includes the primary and secondary diagnoses documented for the Encounter. Date/Time Primary/Secondary Diagnosis Diagnosis Name Provider Source May 09, 2024 12:30 PM PRIMARY Sleep apnea, unspecified [facility] May 09, 2024 12:30 PM SECONDARY Abnormal results of liver function studies PINK,WILL [facility] May 09, 2024 12:30 PM SECONDARY Essential (primary) hypertension [facility] May 09, 2024 12:30 PM SECONDARY Nonalcoholic steatohepatitis (SU) [facility] May 09, 2024 12:30 PM SECONDARY Other abnormality of red blood cells [facility] May 09, 2024 12:30 PM SECONDARY Overweight PINK,WILL [facility] Plan of Treatment: Future Appointments (+ 6 months) and Future Tests (+/- 45 days) The Plan of Treatment section includes future care activities for the patient from all [place] [facility] This section includes future appointments and future orders which are active, pending or scheduled. Future Appointments This section includes appointments that were scheduled to occur 6 months from the date of the Encounter, up to a maximum of 20 appointments. The data comes from all [place] treatment facilities. Appointment Date/Time Appointment Type Appointme nt Facility Name May 15, 2024 02:30 PM AMBULATORY - NONE [facility] May 23, 2024 10:00 AM AMBULATORY - NONE [facility] [place] [facility] May 23, 2024 03:00 PM AMBULATORY - MEDICINE [place] [facility] [place] [facility] May 23, 2024 04:15 PM AMBULATORY - MEDICINE [place] [facility] [place] [facility] Aug 16, 2024 03:20 PM [facility] Lab Results: +/- 30 days of the encounter This section includes the Chemistry and Hematology Lab Results on record with [place] for the patient. Radiology Reports and Pathology Reports are provided separately, in subsequent sections. Lab Results This section contains the Chemistry/Hematology Results that were resulted 30 days before or 30 daysafter the date of the Encounter. Date/Time Source Result Type Result - Unit Interpretation Reference Range Comment Apr 11, 2024 10:11 AM [facility] CBC Specimen Type: BLOOD No comment entered. Ordering Provider: JADE PINK Report Released Date/Time: Feb 16, 2024 11:38 AM Reporting Lab: [facility] [address] [address] Performing [facility]: [facility] [address] [address] WBC 7.46 10*3/uL 4.50-11.00 RBC 5.62 10*6/uL 4.23-5.66 HGB 16.5 g/dL 12.8-17 HCT 49.0 39.2-50.4 MCV 87.2 fL 82-99 MCHC 33.7 g/dL 30.8-35.1 PLT 219 10*3/uL 140-360 RDW-CV 13.0 12.0-16.0 MCH 29.4 pg 26.2-32.6 Apr 11, 2024 10:11 AM [facility] LIPID PANEL, NON FASTING Specimen Type: SERUM No comment entered. Ordering Provider: JADE PINK Report Released Date/Time: Feb 16, 2024 11:38 AM Reporting Lab: [facility] [address] [address] Performing Lab: [facility] [address] [address] CHOLESTEROL 181 mg/dL TRIGLYCERIDE 109 mg/dL 0-150 LDL calculated 125 mg/dL 0-129 CHOL/HDL 5.3 HDL CHOLESTEROL 34 mg/dL L 40-60 Apr 11, 2024 10:11 AM [facility] BASIC METABOLIC PANEL (non-fasting) Specimen Type: SERUM No comment entered. Ordering Provider: JADE PINK Report Released Date/Time: Feb 16, 2024 11:38 AM Reporting Lab: [facility] [address] [address] Performing Lab: [address] [address] UREA NITROGEN 13 mg/dL 7-25 GLUCOSE 106 mg/dL H 65-100 SODIUM 142 mmol/L 135-145 POTASSIUM 4.4 mmol/L 3.5-5.0 CHLORIDE 109 mmol/L 100-110 CO2 24 meq/L 20-30 CREATININE, Serum 1.02 mg/dL 0.50-1.40 eGFR(CKD-EPI 2020) >90 mL/min >60 Apr 11, 2024 10:11 AM [facility] LIVER FUNCTION Specimen Type: SERUM No comment entered. Ordering Provider: JADE PINK Report Released Date/Time: Feb 16, 2024 11:38 AM Reporting Lab: [facility] [address] [address] Performing Lab: [address] [address] PROTEIN,TOTAL 7.2 g/dL 6.0-8.3 ALBUMIN 4.1 g/dL [...] Height Weight Body Mass Index Source Apr 18, 2024 09:03 AM 136/88 [facility] Apr 18, 2024 08:22 AM 98.5 68 158/96 20 97 0 73 297 39 [place] [facility] [place] [facility] Social History: Smoking Status (Most current) and Tobacco Use (All prior to encounter date) This section includes the most current, and the historical, smoking and tobacco- related health factors from the [place] facility where the Encounter took place. Current Smoking Status This section includes the most current smoking, or tobacco-related health factor, from the [place] facility where the Encounter took place. Date/Time Current Smoking Status Comment [facility] Oct 06, 2023 10:00 AM VA-TOBACCO NEVER USED [place] [facility] [place] [facility] Tobacco Use History This section includes a history of the smoking, or tobacco-related health factors, that were collected on or before the date of the Encounter. The data comes from the [place] facility where the Encounter took place. Date/Time Smoking Status/Tobac co Use Comment Facility Jul 31, 2022 09:00 AM VA-TOBACCO NEVER USED [facility] [place] [facility] Apr 24, 2021 03:00 PM VA-TOBACCO NEVER USED [facility] [place] [facility] March 26, 2020 02:34 PM VA-TOBACCO NEVER USED [facility] [place] [facility] Feb 27, 2019 09:44 AM VA-TOBACCO NEVER USED [facility] [place] [facility] Dec 14, 2017 03:24 PM LIFETIME NON-TOBACCO USER [facility] [place] [facility] Dec 14, 2016 10:28 AM LIFETIME NON-TOBACCO USER Life time nonsmoker [facility] [place] [facility] Jan 06, 2016 09:32 AM LIFETIME NON-TOBACCO USER [facility] [place] [facility] Jan 21, 2015 12:48 PM LIFETIME NON-TOBACCO USER never [facility] [place] [facility] Encounter Notes: All associated encounter notes This section contains the clinical notes associated to the Encounter. Date/Time Encounter Note(s) Provider Source Apr 18, 2024 08:57 AM PRIMARY CARE NURSE PRACTITIONER OUTPATIENT NOTE: LOCAL TITLE: NURSE PRACTITIONER OUTPATIENT NOTE STANDARD TITLE: PRIMARY CARE NURSE PRACTITIONER OUTPATIENT NOTE DATE OF NOTE: APR 18, 2024@08:57 ENTRY DATE: APR 18, 2024@08:57:48 AUTHOR: PAUL PINK COSIGNER: URGENCY: STATUS: COMPLETED Chief complaint: Patient is a 43 year old [place]. HPI: Pleasant male here to follow up. Feeling well. He was treated with right ear infection, improved. Because of frequency, he was referred to ENT. Allergies: Patient has answered NKA The following VA and Non-VA meds were reconciled with patient. The patient was educated on the use of the medications including indication and side effects. Active and Recently Outpatient Medications (excluding Supplies): Active Outpatient Medications Status 1) AMLODIPINE BESYLATE 5MG TAB TAKE ONE TABLET BY MOUTH ACTIVE ONCE DAILY FOR BLOOD PRESSURE/HEART, DO NOT TAKE WITH GRAPEFRUIT JUICE 2) AMOXICILLIN 875/CLAV K 125MG TAB TAKE 1 TABLET BY ACTIVE MOUTH TWICE DAILY FOR INFECTION 3) CARBOXYMETHYLCELLULOSE NA 0.5% OPH SOLN INSTILL 1 ACTIVE DROP INTO EACH EYE FOUR TIMES DAILY NEEDED 4) DEXTRAN 70/GLYCER 0.2%/HYPROMEL 0.3% OPH INSTILL 1 ACTIVE DROP INTO EACH EYE AT BEDTIME 5) OMEPRAZOLE 20MG EC CAP TAKE ONE CAPSULE BY MOUTH ACTIVE TWICE DAILY BEFORE A MEAL Pending Outpatient Medications Status 1) LOSARTAN 50MG TAB TAKE ONE TABLET BY MOUTH ONCE DAILY PENDING FOR BLOOD PRESSURE/HEART 6 Total Medications Review of Systems: Constitutional: (-)for Fevers, chills, weakness, nights sweats On examination: 98.5 F [36.9 C] (04/18/2024 08:22)158/96 (04/18/2024 08:22)68 (04/18/2024 08:22) 20 (04/18/2024 08:22)0 (04/18/2024 08:22)BMI: 39.3297 lb [134.72 kg] (04/18/2024 08:22) is alert and oriented X3 HEENT: External without scars, lesions or masses, TM's without erythema or perforations, Oropharynx without erythema or exudates or worrisome lesions Neck: supple without masses, trachea midline, ln not palpable, no thyromegaly Cardiovasc: 2plus carotids without bruits, no JVD Heart Reguler rate and rhythm NL S1S2 no S3 or murmur Respiration: Normal respiratory effort, lungs clear ABD: Benign normal active bowel sounds no HSM no rebound or referred pain EXT: no clubbing, edema, or cyanosis All diagnostics from past month were reviewed with patient. Assessment/plan: Active problems - Computerized Problem List is the source for the followin. Sleep Apnea (SCT [id number]) - He tells me his cpap machine is making funny sounds, will place consult to resp 2. RBC count abnormal - stable, follows [facility] [place] phle[facility] 3. Benign essential hypertension - repeat 136/88 4. Steatosis of liver - elevated LFTs, denies alcohol, no tylenol. Wt gain noted. I will get updated abd u/s with liver elasticity, refer to hepatology 5. overweight - he endorses continued high soda consumption though he is making efforts to eat more veggies, suggested nutrition consult Review of medial record = 5mins Time spent with Patient including shared decision making = 25 mins Post visit documentation = 5mins Total time = 35 mins Follow up visit in 6 mos. Alert to PACT RN - Labs as necessary to address clinical status. Toxic Exposure Screening: The [place]/caregiver was asked if they believe the [place] experienced any toxic exposure(s), such as Airborne Hazards and Open Burn Pit, [place] War related exposures, Agent [place], Radiation, contaminated water at [place] or other such exposures, while serving in the Armed [employer]. [place] has no concerns about toxic exposure(s) while serving in the Armed Forces. The [place]/caregiver was informed that we will continue to ask this screening question every 5 years. They can contact their provider/healthcare team if they have concerns about exposures and would like to be screened sooner. Printed information was offered and provided if desired. Sexual Orientation: The patient thinks of their sexual orientation as: Straight or Heterosexual HTN Assess for Elevated BP>=140/90: Repeat blood pressure: 136/88 The patient's blood pressure is usually adequately controlled. No medication changes are indicated at this time. Medication Reconciliation: Outpatient: Has the patient been taking medications as documented in the EMLR? YES: The patient has been taking medications as documented in the EMLR. Essential Medication List for Review used to complete this medication reconciliation. INCLUDED IN THIS LIST: Alphabetical list of active outpatient prescriptions dispensed from this [place] (local) and dispensed from another [place] or [facility] facility (remote) as well as inpatient [...] with a VA or non-VA provider. /mandi/ Paul Pink DNP, [employer]OTE [employer] DEVELOPER-BC, CNL Primary Care Nurse Practitioner Signed: 04/18/2024 09:04 PAUL PINK [place] [facility]
--- OUTSIDE RECORDS SUMMARY | 2024-11-09 16:51 | XMS_ITS | Encounter Summary ---
Author Name [facility] [place] Organization [facility] [place] [place] [facility] [place] Address [address] [place] [address] Care Team Providers Care Scrap Drop Engineer Name Role Phone DEX SEO Primary Care Provider Unavaila [facility] Insurance Providers: All [...] Name Patient's Relationship to Policy Agustin BCBS AR HIGH DEDUCTIBL E HEALTH PLAN [employer] [facility] Jul 09, 2023 [id number] [phone] SAULO LIU PATIENT [facility] PRESCRIPT ION [facility] Nov 08, 2020 [id number] [phone] SAULO LIU PATIENT [facility] ([id number]) PRESCRIPT ION [facility]GRIM [facility]K [facility] Jul 09, 2023 AGRIMRK [id number] SAULO LIU PATIENT [employer] ([id number]) PRESCRIPT ION AGRIM ARK [facility] Jul 09, 2023 AGRIMRK [id number] SAULO LIU PATIENT [facility] HIGH DEDUCTIBL E HEALTH PLAN W/HEALTH SAVINGS ACCOUNT [facility] Dec 01, 2014 [id number] [phone] SAULO LIU PATIENT Selected Encounter This section includes the information on record at [place] for the Encounter. Date/Time Encounter Type Encounter Description Reason Pro vider Source 2024 01:26 PM Outpatient Encounter SLEEP MEDICINE IHE Encounter Template Text not used by MS Plan of Treatment: Future Appointments (+ 6 months) and Future Tests (+/- 45 days) The Plan of Treatment section includes future care activities for the patient from all [place] treatmentfacilities. This section includes future appointments and [...] AMBULATORY - NONE [place] [facility] [place] [facility] May 23, 2024 10:00 AM AMBULATORY - NONE [place] [facility] [place] [facility] May 23, 2024 03:00 PM AMBULATORY - MEDICINE [place] [facility] [place] [facility] May 23, 2024 04:15 PM AMBULATORY - MEDICINE [place] [facility] [place] [facility] Aug 16, 2024 03:20 PM AMBULATORY - MEDICINE [place] [facility] [place] [facility] Lab Results: +/- 30 days of [...] Range Comment May 22, 2024 08:42 AM [facility] PT & INR (PROTIME) Specimen Type: PLASMA No comment entered. Ordering Provider: JADE SEO Report Released Date/Time: Apr 18, 2024 08:56 AM Reporting Lab: [address] [address] Performing Lab: [address] [address] INR 1.1 PROTIME 12.5 s 10.0-13.1 May 22, 2024 08:41 AM [facility] HEPATITIS B SURFACE ANTIGEN (HBsAg)-WH Specimen Type: [...] Apr 18, 2024 08:56 AM Reporting Lab: [address] [address] Performing Lab: [address] [address] HBsAg Non Reactive Non Reactive May 22, 2024 08:41 AM [facility] HEPATITIS B CORE (Total) Ab Specimen Type: [...] Apr 18, 2024 08:56 AM Reporting Lab: [address] [address] Performing Lab: [facility] [address] [facility] [address] HEPATITIS B CORE (Total) Ab Non Reactive Non Reactive May 22, 2024 08:41 AM [facility] JOSE SCREEN/TITER Specimen Type: SERUM No comment entered. Ordering Provider: JADE SEO Report Released Date/Time: Apr 18, 2024 08:56 AM Reporting [facility]: [facility] [place] [address] [facility] [address] Performing Lab: [facility] [address] [facility] [address] JOSE SCREEN NEG May 22, 2024 08:41 AM [facility] [place] [facility] HEPATITIS C ANTIBODY (HCV)-ARC Specimen Type: SERUM Comment: Hep C Ab: No HCV antibody detected. If recent infection is suspected or other evidence suggests HCV infection, consider HCV nucleic acid testing Ordering Provider: JADE SEO Report Released Date/Time: Apr 18, 2024 08:56 AM Reporting Lab: [facility] [place] [facility] [address] [facility] [address] Performing Lab: [facility] SSD[facility]ETS [address] [address] HEPATITIS C ANTIBODY NON-REACTIVE NON-REACTIV E May 22, 2024 08:41 AM [facility] FERRITIN Specimen Type: SERUM No comment entered. Ordering Provider: JADE SEO Report Released Date/Time: Apr 18, 2024 08:56 AM Reporting Lab: [facility] [place] [facility] [address] [facility] [address] Performing Lab: [facility] [address] [address] FERRITIN 27 ng/mL 20-300 May 22, 2024 08:41 AM [facility] GAMMA-GTP Specimen Type: SERUM No comment entered. Ordering Provider: JADE SEO Report Released Date/Time: Apr 18, 2024 08:56 AM Reporting Lab: [facility] [place] [facility] [address] [facility] [address] Performing Lab: [facility] [facility] SSD[facility] [address] [address] GAMMA-GTP 32 U/L 10-65 May 22, 2024 08:41 AM [facility] IRON & TIBC PANEL Specimen Type: SERUM No comment entered. Ordering Provider: JADE SEO Report Released Date/Time: Apr 18, 2024 08:56 AM Reporting Lab: [facility] [place] [facility] [address] [facility] [address] Performing Lab: [facility] [place] [facility] [address] [facility] [address] TIBC 422 ug/dL 204-475 IRON 76 ug/dL 40-160 Transferrin Saturation 18.0 L 20.0-50.0 May 22, 2024 08:41 AM [facility] ALBUMIN Specimen Type: SERUM No comment entered. Ordering Provider: JADE SEO Report Released Date/Time: Apr 18, 2024 08:56 AM Reporting Lab: [facility] [address] [facility] [address] Performing Lab: [facility] SSD[facility] [address] [address] ALBUMIN 3.9 g/dL 3.5-5.0 May 22, 2024 08:41 AM [facility] PROTEIN,TOTAL Specimen Type: SERUM No comment entered. Ordering Provider: JADE SEO Report Released Date/Time: Apr 18, 2024 08:56 AM Reporting Lab: [facility] [place] [facility] [address] [facility] [address] Performing Lab: [facility]N [place] [facility] SSD[facility] [address] [address] PROTEIN,TOTAL 7.0 g/dL 6.0-8.3 May 22, 2024 08:41 AM [facility] ALKALINE PHOSPHATASE Specimen Type: SERUM No comment entered. Ordering Provider: JADE SEO Report Released Date/Time: Apr 18, 2024 08:56 AM Reporting Lab: [facility]N [place] [facility] [address] [facility] [address] Performing Lab: [facility]N [place] [facility] SSD[facility] [address] [address] ALKALINE PHOSPHATASE 72 U/L 40-150 May 22, 2024 08:41 AM [facility] [place] [facility] BILIRUBIN, TOTAL Specimen Type: SERUM No comment entered. Ordering Provider: JADE SEO Report Released Date/Time: Apr 18, 2024 08:56 AM Reporting Lab: [facility] [place] [facility] [address] [facility] [address] Performing Lab: [place] [facility] [facility] [address] [facility] [address] BILIRUBIN, TOTAL 0.9 mg/dL 0.2-1.2 May 22, 2024 08:41 AM [facility] [place] [facility] AST Specimen Type: SERUM No comment entered. Ordering Provider: JADE SEO Report Released Date/Time: Apr 18, 2024 08:56 AM Reporting Lab: [facility] [place] [facility] [address] [facility] [address] Performing Lab: [facility] [place] [address] [address] AST 33 U/L 5-34 May 22, 2024 08:41 AM [facility] ALT Specimen Type: SERUM No comment entered. Ordering Provider: JADE SEO Report Released Date/Time: Apr 18, 2024 08:56 AM Reporting Lab: [facility] [place] [facility] [address] [facility] [address] Performing Lab: [place] [address] [address] ALT 73 U/L H May 22, 2024 08:41 AM [facility] CBC AND DIFF (AUTO) Specimen Type: BLOOD No comment entered. Ordering Provider: JADE SEO Report Released Date/Time: Apr 18, 2024 08:56 AM Reporting Lab: [facility] [place] [facility] [address] [facility] [address] Performing Lab: [facility] [place] [place] [address] [address] WBC 7.81 10*3/uL 4.50-11.00 RBC 5.40 10*6/uL [...] 0.0 0.0-0.0 NRBC, ABS 0.00 10*3/uL 0.00-0.00 Apr 11, 2024 10:11 AM [facility] LIPID PANEL, NON FASTING Specimen Type: SERUM No comment entered. Ordering Provider: JADE SEO Report Released Date/Time: Feb 16, 2024 11:38 AM Reporting Lab: [facility] [address] [facility] [address] Performing Lab: [facility] [address] [facility] [address] CHOLESTEROL 181 mg/dL TRIGLYCERIDE 109 mg/dL 0-150 LDL calculated 125 mg/dL 0-129 CHOL/HDL 5.3 HDL CHOLESTEROL 34 mg/dL L 40-60 Apr 11, 2024 10:11 AM [facility] CBC Specimen Type: BLOOD No comment entered. Ordering Provider: JADE SEO Report Released Date/Time: Feb 16, 2024 11:38 AM Reporting Lab: [facility] [address] [facility] [address] Performing Lab: [facility] [address] [facility] [address] WBC 7.46 10*3/uL 4.50-11.00 RBC 5.62 10*6/uL 4.23-5.66 HGB 16.5 g/dL 12.8-17 HCT 49.0 39.2-50.4 MCV 87.2 fL 82-99 MCHC 33.7 g/dL 30.8-35.1 PLT 219 10*3/uL 140-360 RDW-CV 13.0 12.0-16.0 MCH 29.4 pg 26.2-32.6 Apr 11, 2024 10:11 AM [facility] LIVER FUNCTION Specimen Type: SERUM No comment entered. Ordering Provider: JADE SEO Report Released Date/Time: Feb 16, 2024 11:38 AM Reporting Lab: [address] [address] Performing Lab: [address] [address] PROTEIN,TOTAL 7.2 g/dL 6.0-8.3 ALBUMIN 4.1 g/dL 3.5-5.0 ALKALINE PHOSPHATASE 75 U/L 40-150 AST 41 U/L H 5-34 ALT 87 U/L H BILIRUBIN, TOTAL 0.9 mg/dL 0.2-1.2 Apr 11, 2024 10:11 AM [facility] BASIC METABOLIC PANEL (non-fasting) Specimen Type: SERUM No comment entered. Ordering Provider: JADE SEO Report Released Date/Time: Feb 16, 2024 11:38 AM Reporting Lab: [facility] [address] [facility] [address] Performing Lab: [address] [address] UREA NITROGEN 13 mg/dL 7-25 GLUCOSE 106 mg/dL H 65-100 SODIUM 142 mmol/L 135-145 POTASSIUM 4.4 mmol/L 3.5-5.0 CHLORIDE 109 mmol/L 100-110 CO2 24 meq/L 20-30 CREATININE, Serum 1.02 mg/dL 0.50-1.40 eGFR(CKD-EPI 2020) >90 mL/min >60 Social History: Smoking Status (Most current) and [...] took place. Date/Time Current Smoking Status Comment [facility] Oct 06, 2023 10:00 AM VA-TOBACCO NEVER USED [place] [facility] [place] [facility] Tobacco Use History This section includes a history of the smoking, or tobacco-related health factors, that were collected on or before the date of the Encounter. The data comes from the [place] facility where the Encounter took place. Date/Time Smoking Status/Tobac co Use Comment Facility Jul 31, 2022 09:00 AM VA-TOBACCO NEVER USED [place] [facility] [place] [facility] Apr 24, 2021 03:00 PM VA-TOBACCO NEVER USED [facility] [place] [facility] March 26, 2020 02:34 PM VA-TOBACCO NEVER USED [facility] [place] [facility] Feb 27, 2019 09:44 AM VA-TOBACCO NEVER USED [place] [facility] [place] [facility] Dec 14, 2017 03:24 PM LIFETIME NON-TOBACCO USER [facility] [place] [facility] Dec 14, 2016 10:28 AM LIFETIME NON-TOBACCO USER Life time nonsmoker [facility] [place] [facility] Jan 06, 2016 09:32 AM LIFETIME NON-TOBACCO USER [facility] [place] [facility] Jan 21, 2015 12:48 PM LIFETIME NON-TOBACCO USER never [place] [facility] [facility] Radiology Reports: +/- 30 days of [...] the Encounter. The data comes from all [place] treatment facilities. Date/Time Radiology Report Provider Source May 23, 2024 09:53 AM ULTRASOUND ABD WITH LIVER ELASTOGRAPHY: BACILIO LIU [id number] M Exm Date: MAY 23, 2024@09:53 Req Phys: DEX SEO Loc: CWM/NO/PACT 7 (Req'g Loc) Img Loc: ULTRASOUND Service: Unknown [facility] , (Case [id number] COMPLETE) ULTRASOUND ABDOMEN LIMITED (US Detailed) CPT:04090 Reason for Study: FOLLOW UP (Case 93 COMPLETE) ULTRASOUND ELASTOGRAPHY PARENCHYM(US Detailed) CPT:36725 Clinical History: HEPATIC STEATOSIS Some ultrasound tests require a prep. Report Status: Verified Date Reported: MAY 23, 2024 Date Verified: MAY 23, 2024 Data Collection Interviewer E-Sig:/ES/ED MALAVE JR Report: Study: Abdomen ultrasound. [...] Primary Interpreting Staff: ED MALAVE JR, Radiologist (Data Collection Interviewer) /ED SINGH JR [place] [facility] [place] [facility] Encounter Notes: All associated encounter notes This section contains the clinical notes associated to the Encounter. Date/Time Encounter Note(s) Provider Source 2024 01:26 PM PRIMARY CARE RODRIGUEZ RS: LOCAL TITLE: PATIENT LETTER - [facility] STANDARD TITLE: PRIMARY CARE LETTERS DATE OF NOTE: 2024@13:26 ENTRY DATE: 2024@13:26:03 AUTHOR: SARA ARANGO COSIGNER: URGENCY: STATUS: COMPLETED [facility] Special[facility] Outpatient [facility] Telephone number: [phone] BACILIO LIU [address] [place] [address], [phone] Dear , We would like to assist you in scheduling a Respiratory Therapy appointment at the [place]. We have been unable to reach you by phone. To schedule this appointment please call us at ext. [phone]. Our booking appointment hours are Wednesday through Wednesday from 8:00 am to 4:00 pm. Please leave a message if you receive voicemail and let us know a good time and telephone number where we can reach you. If we don't hear back from you within 14 days from the date of this letter we will discontinue the request. If you have already scheduled this appointment, please disregard this letter. Your health is important to us. Sincerely, [facility] [address] [address] [place] [address] [facility] 25 [facility] [address] [place] [address] [place] [address] ext. [phone] [facility] [address] [facility] [address] [place] [address] [place] [address] ext. [phone] [facility] [address] [place] [address] ext. [phone] [facility] [address] [place] [phone] SARA ARANGO MS CNT [facility]
--- OUTSIDE RECORDS SUMMARY | 2024-11-09 16:52 | XMS_ITS ---
Author Name [facility] [place] Organization [facility] [facility] [place] Address [address] [place] [address] Care Team Providers Care Email Marketing Coordinator Name Role Phone DEX SEO [facility] Insurance Providers: All historical and current [...] Name Patient's Relationship to Policy Agustin BCBS PR HIGH DEDUCTIBL E HEALTH PLAN [employer] [facility] Jul 09, 2023 [id number] SAULO LIU PATIENT [facility] PRESCRIPT ION [facility] Nov 08, 2020 [id number] SAULO LIU PATIENT [employer] ([id number]) PRESCRIPT ION AGRIM ARK [facility] Jul 09, 2023 AGRIMRK [id number] SAULO LIU PATIENT [employer] ([id number]) PRESCRIPT ION AGRIM ARK [facility] Jul 09, 2023 AGRIMRK [id number] SAULO LIU PATIENT [facility] HIGH DEDUCTIBL E HEALTH PLAN W/HEALTH SAVINGS ACCOUNT [facility] Dec 01, 2014 [id number] SAULO LIU PATIENT Selected Encounter This section includes the information on record at [place] for the Encounter. Date/Time Encounter Type Encounter Description Reason Provider Source Jul 03, 2024 10:18 AM COLLJ & INTERPJ DATA EA 30 D ADMIN PAT ACTIVTIES (MASNONCT) ICD-10-CM G47.30 Sleep apnea, unspecified DESHAUN FLORES IHE Encounter Template Text not used by [place] Assessments - Encounter Diagnoses This section includes the primary and secondary diagnoses documented for the Encounter. Date/Time Primary/Secondary Diagnosis Diagnosis Name Provider Source Jul 20, 2024 07:38 AM PRIMARY Sleep apnea, unspecified DESHAUN FLORES [facility] Plan of Treatment: Future Appointments (+ 6 months) and Future Tests (+/- 45 days) The Plan of Treatment section includes future care activities for the patient from all [place] treatmentfacilities. This section includes future appointments and future orders which are active, pending or scheduled. Future Appointments This section includes appointments that were scheduled to occur 6 months from the date of the Encounter, up to a maximum of 20 appointments. The data comes from all [place] treatment facilities. Appointment Date/Time Appointment Type Appointme nt Facility Name Aug 16, 2024 03:20 PM AMBULATORY - MEDICINE [facility] Social History: Smoking Status (Most current) and Tobacco Use (All prior to encounter date) This section includes the most current, and the historical, smoking and tobacco- related health factors from the [place] facility where the Encounter took place. Current Smoking Status This section includes the most current smoking, or tobacco-related health factor, from the [place] facility where the Encounter took place. Date/Time Current Smoking Status Comment [facility] it Oct 06, 2023 10:00 AM HI-TOBACCO NEVER USED [facility] Tobacco Use History This section includes a history of the smoking, or tobacco-related health factors, that were collected on or before the date of the Encounter. The data comes from the [place] facility where the Encounter took place. Date/Time Smoking Status/Tobac co Use Comment Facility Jul 31, 2022 09:00 AM VA-TOBACCO NEVER USED [facility] [place] [facility] Apr 24, 2021 03:00 PM VA-TOBACCO NEVER USED [facility] [place] [facility] March 26, 2020 02:34 PM VA-TOBACCO NEVER USED [facility] [place] [facility] Feb 27, 2019 09:44 AM VA-TOBACCO NEVER USED [facility] [place] [facility] Dec 14, 2017 03:24 PM LIFETIME NON-TOBACCO USER [facility] [place] [facility] Dec 14, 2016 10:28 AM LIFETIME NON-TOBACCO USER Life time nonsmoker [facility] [place] [facility] Jan 06, 2016 09:32 AM LIFETIME NON-TOBACCO USER [facility] [place] [facility] Jan 21, 2015 12:48 PM LIFETIME NON-TOBACCO USER never [facility] [place] [facility] Encounter Notes: All associated encounter notes This section contains the clinical notes associated to the Encounter. Date/Time Encounter Note(s) Provider Source Jul 03, 2024 10:19 AM RESPIRATORY THERAP Y NOTE: LOCAL TITLE: RESPIRATORY THERAPY NOTE(BLANK) STANDARD TITLE: RESPIRATORY THERAPY NOTE DATE OF NOTE: JUL 03, 2024@10:19 ENTRY DATE: JUL 03, 2024@10:19:31 AUTHOR: DESHAUN FLORES COSIGNER: URGENCY: STATUS: COMPLETED diagnosed with sleep apnea will have Auto-CPAP prescription renewed for 1 year using AirView. is using [employer]Med Airsense 10 set to APAP @ 5- 20 cmH2O. AirView data follows note. [place] will be resupplied. Written cleaning, resupply schedule and contact information will be sent. [place] will be scheduled for a follow-up via self-alert system to renew APAP prescription in one year. [place] will be followed in clinic as needed as well as via the Airview program. AirView Compliance Report Usage 07/04/2023 - 07/02/2024 Usage days 328/365 days (90%) >= 4 hours 237 days (65%) < 4 hours 91 days (25%) Usage hours 1,587 hours 13 minutes Average usage (total days) 4 hours 21 minutes Average usage (days used) 4 hours 50 minutes Median usage (days used) 5 hours 3 minutes Total used hours (value since last reset - 07/02/2024) 5,412 hours AirSense 10 AutoSet Serial number [id number] Mode AutoSet Min Pressure 5 cmH2O Max Pressure 20 cmH2O EPR Fulltime EPR level 3 Response Soft Therapy Pressure - cmH2O Median: 8.2 95th percentile: 10.8 Maximum: 12.1 Leaks - L/min Median: 7.8 95th percentile: 19.1 Maximum: 35.7 Events per hour AI: 0.2 HI: 0.7 AHI: 0.9 Apnea Index Central: 0.1 Obstructive: 0.2 Unknown: 0.0 RERA Index 0.5 Andreas-Carreon respiration (average duration per night) 0 minutes (0%) /mandi/ DESHAUN FLORES RESPIRATORY THERAPIST Signed: 07/03/2024 10:23 DESHAUN FLORES [facility]L [facility]
--- OUTSIDE RECORDS SUMMARY | 2024-11-09 16:52 | XMS_ITS ---
Author Name [facility] [place] Address [address] [place] [address] Care Team Providers Care Cell Geneticist Name Role Phone DEX SEO Primary Care [...] Name Patient's Relationship to Policy Agustin BCBS [place] HIGH DEDUCTIBL E HEALTH PLAN [facility] Jul 09, 2023 [id number] [phone] SAULO LIU PATIENT [facility] Nov 08, 2020 [id number] SAULO LIU PATIENT [facility] ([id number]) PRESCRIPT ION [facility] Jul 09, 2023 [id number] SAULO LIU PATIENT [facility] ([id number]) PRESCRIPT ION [facility] Jul 09, 2023 [id number] SAULO LIU PATIENT [facility] HIGH DEDUCTIBL E HEALTH PLAN W/HEALTH SAVINGS ACCOUNT [facility] Dec 01, 2014 [id number] [phone] ASULO LIU PATIENT Selected Encounter This section includes the information on record at [place] for the Encounter. Date/Time Encounter Type Encounter Description Reason Provider Source Jul 06, 2024 02:31 PM Outpatient Encounter PROSTHETICS/ORTHOTI CS DEX SEO Encounter Template Text not used by [place] [...] 16, 2024 03:20 PM AMBULATORY - MEDICINE [facility] NTRL W[facility]N [facility] Social History: Smoking Status (Most current) and Tobacco Use (All prior to encounter date) This section includes the most current, and the historical, smoking and tobacco- related health factors from the [place] facility where the Encounter took place. Current Smoking Status This section includes the most current smoking, or tobacco-related health factor, from the [place] facility where the Encounter took place. Date/Time Current Smoking Status Comment [facility] Oct 06, 2023 10:00 AM VA-TOBACCO NEVER USED [place] CN[place] [facility] Tobacco Use History This section includes a history of the smoking, or tobacco-related health factors, that were collected on or before the date of the Encounter. The data comes from the [place] facility where the Encounter took place. Date/Time Smoking Status/Tobac co Use Comment Facility Jul 31, 2022 09:00 AM VA-TOBACCO NEVER USED [place] [facility] Apr 24, 2021 03:00 PM VA-TOBACCO NEVER USED [place] [facility] March 26, 2020 02:34 PM VA-TOBACCO NEVER USED [place] [facility] Feb 27, 2019 09:44 AM VA-TOBACCO NEVER USED [place] [facility] Dec 14, 2017 03:24 PM LIFETIME NON-TOBACCO USER [place] [facility] [place] [facility] Dec 14, 2016 10:28 AM LIFETIME NON-TOBACCO USER Life time nonsmoker [place] [facility] [place] [facility] Jan 06, 2016 09:32 AM LIFETIME NON-TOBACCO USER [place] [facility] [place] [facility] Jan 21, 2015 12:48 PM LIFETIME NON-TOBACCO USER never [place] [facility] [facility]
--- OUTSIDE RECORDS SUMMARY | 2024-11-09 16:52 | XMS_ITS ---
Author Name [facility] [place] Address [address] [place] [address] Care Team Providers Care Director Supply Chain Name Role Phone DEX SEO [facility] Insurance Providers: All historical and current [...] Name Patient's Relationship to Policy Agustin [place] HIGH DEDUCTIBL E HEALTH PLAN [employer] [facility] Jul 09, 2023 [id number] SAULO LIU PATIENT [facility] Nov 08, 2020 [id number] [phone] SAULO LIU PATIENT [facility] ([id number]) PRESCRIPT ION [facility] Jul 09, 2023 AGRIMRK [id number] SAULO LIU PATIENT [employer] [facility] ([id number]) PRESCRIPT ION [facility] Jul 09, 2023 [id number] SAULO LIU PATIENT [facility] HIGH DEDUCTIBL E HEALTH PLAN W/HEALTH SAVINGS ACCOUNT [facility] Dec 01, 2014 [id number] [phone] SAULO LIU PATIENT Selected Encounter This section [...] activities for the patient from all [place] treatmentfacilities. This section includes future appointments and [...] 16, 2024 03:20 PM AMBULATORY - MEDICINE [facility] Lab Results: +/- 30 days of the encounter This section includes the Chemistry and Hematology Lab Results on record with [place] for the patient. Radiology Reports and Pathology Reports are provided separately, in subsequent sections. Lab Results This section contains the Chemistry/Hematology Results that were resulted 30 days before or 30 daysafter the date of the Encounter. Date/Time Source Result Type Result - Unit Interpretation Reference Range Comment May 22, 2024 08:42 AM [facility] PT & INR (PROTIME) Specimen Type: PLASMA No comment entered. Ordering Provider: JADE SEO Report Released Date/Time: Apr 18, 2024 08:56 AM Reporting Lab: [facility] [address] [address] Performing Lab: [facility] [address] [address] INR 1.1 PROTIME 12.5 s 10.0-13.1 May 22, 2024 08:41 AM [facility] HEPATITIS B SURFACE ANTIGEN (HBsAg)-WH Specimen [...] Apr 18, 2024 08:56 AM Reporting Lab: [facility]TR[facility] [address] [address] Performing Lab: [facility]RGADSD[facility]ENTERTRN [facility] [address] [address] HBsAg Non Reactive Non Reactive May 22, 2024 08:41 AM [facility] HEPATITIS B CORE (Total) Ab Specimen Type: [...] Apr 18, 2024 08:56 AM Reporting Lab: [facility] [address] Performing Lab: [facility] [address] [address] HEPATITIS B CORE (Total) Ab Non Reactive Non Reactive May 22, 2024 08:41 AM [facility] JOSE SCREEN/TITER Specimen Type: SERUM No comment entered. Ordering Provider: JADE SEO Report Released Date/Time: Apr 18, 2024 08:56 AM Reporting Lab: [facility]AD[facility]ENTERTRN [place] [facility] [address] [address] Performing Lab: [facility] [address] [facility] [address] JOSE SCREEN NEG May 22, 2024 08:41 AM [facility] HEPATITIS C ANTIBODY (HCV)-ARC Specimen Type: SERUM Comment: Hep C Ab: No HCV antibody detected. If recent infection is suspected or other evidence suggests HCV infection, consider HCV nucleic acid testing Ordering Provider: JADE SEO Report Released Date/Time: Apr 18, 2024 08:56 AM Reporting Lab: [facility]ITALRST[facility]N [facility] [address] [address] Performing Lab: [facility] [address] [address] HEPATITIS C ANTIBODY NON-REACTIVE NON-REACTIV E May 22, 2024 08:41 AM [facility] FERRITIN Specimen Type: SERUM No comment entered. Ordering Provider: JADE SEO Report Released Date/Time: Apr 18, 2024 08:56 AM Reporting Lab: [facility] [address] Performing Lab: [facility]N [facility]ITALUSETS [address] [address] FERRITIN 27 ng/mL 20-300 May 22, 2024 08:41 AM [facility] GAMMA-GTP Specimen Type: SERUM No comment entered. Ordering Provider: JADE SEO Report Released Date/Time: Apr 18, 2024 08:56 AM Reporting Lab: [facility] [address] Performing Lab: [facility]ITALRST[facility]N [facility]ITAL[facility]ETS [address] [address] GAMMA-GTP 32 U/L 10-65 May 22, 2024 08:41 AM [facility] IRON & TIBC PANEL Specimen Type: SERUM No comment entered. Ordering Provider: JADE SEO Report Released Date/Time: Apr 18, 2024 08:56 AM Reporting Lab: [facility] [address] Performing Lab: [facility]ITALRST[facility] [address] [place] [address] TIBC 422 ug/dL 204-475 IRON 76 ug/dL 40-160 Transferrin Saturation 18.0 L 20.0-50.0 May 22, 2024 08:41 AM [facility]RL W[facility]N [place] [facility] ALBUMIN Specimen Type: SERUM No comment entered. Ordering Provider: JADE SEO Report Released Date/Time: Apr 18, 2024 08:56 AM Reporting Lab: [place] CN[place] [facility] [address] [address] Performing Lab: [place] [address] [address] ALBUMIN 3.9 g/dL 3.5-5.0 May 22, 2024 08:41 AM [facility] [place] [facility] PROTEIN,TOTAL Specimen Type: SERUM No comment entered. Ordering Provider: JADE SEO Report Released Date/Time: Apr 18, 2024 08:56 AM Reporting Lab: [facility]ITALRL W[facility]N [place] [address] [address] Performing Lab: [facility]RL [facility]N [place] [address] [address] PROTEIN,TOTAL 7.0 g/dL 6.0-8.3 May 22, 2024 08:41 AM [facility]ITALRL WSTRN [facility] AST Specimen Type: SERUM No comment entered. Ordering Provider: JADE SEO Report Released Date/Time: Apr 18, 2024 08:56 AM Reporting Lab: [place] [address] [address] Performing Lab: [place] [address] [address] AST 33 U/L 5-34 May 22, 2024 08:41 AM [place] [facility] ALKALINE PHOSPHATASE Specimen Type: SERUM No comment entered. Ordering Provider: JADE SEO Report Released Date/Time: Apr 18, 2024 08:56 AM Reporting Lab: [place] [address] [address] Performing Lab: [facility]N [facility] [address] [address] ALKALINE PHOSPHATASE 72 U/L 40-150 May 22, 2024 08:41 AM [facility]N [facility] BILIRUBIN, TOTAL Specimen Type: SERUM No comment entered. Ordering Provider: JADE SEO Report Released Date/Time: Apr 18, 2024 08:56 AM Reporting Lab: [facility]N [facility] [address] [address] Performing Lab: [facility]N [facility] [address] [address] BILIRUBIN, TOTAL 0.9 mg/dL 0.2-1.2 May 22, 2024 08:41 AM [facility] ALT Specimen Type: SERUM No comment entered. Ordering Provider: JADE SEO Report Released Date/Time: Apr 18, 2024 08:56 AM Reporting Lab: [facility]N [facility]ITALUSEE[facility] [address] [address] Performing Lab: [facility]N [facility]ITAL[facility] [address] [address] ALT 73 U/L H May 22, 2024 08:41 AM [facility] CBC AND DIFF (AUTO) Specimen Type: BLOOD No comment entered. Ordering Provider: JADE SEO Report Released Date/Time: Apr 18, 2024 08:56 AM Reporting Lab: [facility]N [facility] [address] [address] Performing Lab: [facility]N [facility] [address] [address] WBC 7.81 10*3/uL 4.50-11.00 RBC 5.40 10*6/uL [...] took place. Date/Time Current Smoking Status Comment [facility] Oct 06, 2023 10:00 AM VA-TOBACCO NEVER USED [place] [facility] Tobacco Use History This section includes a history of the smoking, or tobacco-related health factors, that were collected on or before the date of the Encounter. The data comes from the [place] facility where the Encounter took place. Date/Time Smoking Status/Tobac co Use Comment Facility Jul 31, 2022 09:00 AM VA-TOBACCO NEVER USED [place] [facility] Apr 24, 2021 03:00 PM VA-TOBACCO NEVER USED [place] [facility] March 26, 2020 02:34 PM VA-TOBACCO NEVER USED [place] [facility] Feb 27, 2019 09:44 AM VA-TOBACCO NEVER USED [place] [facility] Dec 14, 2017 03:24 PM LIFETIME NON-TOBACCO USER [place] CN[facility]RN [place] [facility] Dec 14, 2016 10:28 AM LIFETIME NON-TOBACCO USER Life time nonsmoker [facility] AC[facility]RN [facility] Jan 06, 2016 09:32 AM LIFETIME NON-TOBACCO USER [facility] ACACIATRN [facility] Jan 21, 2015 12:48 PM LIFETIME NON-TOBACCO USER never [facility] Radiology Reports: +/- 30 days of [...] the Encounter. The data comes from all [place] treatment facilities. Date/Time Radiology Report Provider Source May 23, 2024 09:53 AM ULTRASOUND ABD WITH LIVER ELASTOGRAPHY: BACILIO LIU [id number] M Exm Date: MAY 23, 2024@09:53 Req Phys: DEX SEO Loc: CWM/NO/PACT 7 (Req'g Loc) Img Loc: ULTRASOUND Service: Unknown [facility] ACACIAJadon [facility] , (Case 92 COMPLETE) ULTRASOUND ABDOMEN LIMITED (US Detailed) CPT:68303 Reason for Study: FOLLOW UP (Case 93 COMPLETE) ULTRASOUND ELASTOGRAPHY PARENCHYM(US Detailed) CPT:85335 Clinical History: HEPATIC STEATOSIS Some ultrasound tests require a prep. Report Status: Verified Date Reported: MAY 23, 2024 Date Verified: MAY 23, 2024 [employer]ting [employer] Cre[employer] Operator E-Sig:/ES/ED MALAVE JR Report: Study: Abdomen ultrasound. [...] Primary Interpreting Staff: ED MALAVE JR, Radiologist (Cutting And Creasing Press Operator) /ED SINGH JR [place] CN[facility] W[facility]
--- OUTSIDE RECORDS SUMMARY | 2024-11-09 16:52 | XMS_ITS ---
Author Name [facility] Organization [facility] [place] Address [address] [place] [address] Care Team Providers Care Production Supply Equipment Tender Name Role Phone DEX SEO Primary Care [...] Name Patient's Relationship to Policy Agustin BCBS [place] HIGH DEDUCTIBL E HEALTH PLAN [employer] Jul 09, 2023 [id number] SAULO LIU PATIENT [facility]ARK PRESCRIPT [facility] Nov 08, 2020 [id number] [phone] SAULO LIU PATIENT [facility] S[facility]IP[facility] ([id number]) PRESCRIPT ION [facility]IM [facility] Jul 09, 2023 AGRIMRK [id number] SAULO LIU PATIENT [employer] [facility] ([id number]) PRESCRIPT ION AGRIM ARK [facility] Jul 09, 2023 AGRIMRK [id number] SAULO LIU PATIENT [facility] HIGH DEDUCTIBL E HEALTH PLAN W/HEALTH SAVINGS ACCOUNT [facility] Dec 01, 2014 [id number] [phone] SAULO LIU PATIENT Selected Encounter This section includes the information on record at [place] for the Encounter. Date/Time Encounter Type Encounter Description Reason Provider Source May 24, 2024 11:01 AM FIT SPECTACLES MONOFOCAL OPTOMETRY ICD-10-CM Z46.0 Encounter for fit/adjst of spectacles and contact lenses BEATRIZ ZARATE Eve Encounter Template Text not used by ME Assessments - Encounter Diagnoses This section includes the primary and secondary diagnoses documented for the Encounter. Date/Time Primary/Secondary Diagnosis Diagnosis Name Provider Source May 24, 2024 11:01 AM PRIMARY Encounter for fit/adjst of spectacles and contact lenses [facility]AV [facility] LabsUSEST. [facility]PH[facility]ALTH Plan of Treatment: Future Appointments (+ 6 months) and Future Tests (+/- 45 days) The Plan of Treatment section includes future care activities for the patient from all [place] treatmentfacilities. This section includes future appointments and [...] 16, 2024 03:20 PM AMBULATORY - MEDICINE [facility] Lab Results: +/- 30 days of the encounter This section includes the Chemistry and Hematology Lab Results on record with [place] for the patient. Radiology Reports and Pathology Reports are provided separately, in subsequent sections. Lab Results This section contains the Chemistry/Hematology Results that were resulted 30 days before or 30 daysafter the date of the Encounter. Date/Time Source Result Type Result - Unit Interpretation Reference Range Comment May 22, 2024 08:42 AM [place] [employer] [facility] Labs[facility]ETS [facility] PT & INR (PROTIME) Specimen Type: PLASMA No comment entered. Ordering Provider: JADE SEO Report Released Date/Time: Apr 18, 2024 08:56 AM Reporting Lab: [place] [employer]USE[employer] [address] [address] Performing Lab: [place] [facility] [address] [address] INR 1.1 PROTIME 12.5 s 10.0-13.1 May 22, 2024 08:41 AM [facility] HEPATITIS B CORE (Total) Ab Specimen [...] Apr 18, 2024 08:56 AM Reporting Lab: [address] [address] Performing Lab: [address] [address] HEPATITIS B CORE (Total) Ab Non Reactive Non Reactive May 22, 2024 08:41 AM [facility] HEPATITIS B SURFACE ANTIGEN (HBsAg)-WH Specimen [...] Apr 18, 2024 08:56 AM Reporting Lab: [address] [address] Performing Lab: [address] [address] HBsAg Non Reactive Non Reactive May 22, 2024 08:41 AM [facility] JOSE SCREEN/TITER Specimen Type: SERUM No comment entered. Ordering Provider: JADE SEO Report Released Date/Time: Apr 18, 2024 08:56 AM Reporting Lab: [facility]ITAL[facility] [address] [address] Performing Lab: [facility]ERBEAC[facility]OSPITALN [facility]ITALUS[facility] [address] [address] JOSE SCREEN NEG May 22, 2024 08:41 AM [facility] FERRITIN Specimen Type: SERUM No comment entered. Ordering Provider: JADE SEO Report Released Date/Time: Apr 18, 2024 08:56 AM Reporting Lab: [facility]OS[facility]ITALN [facility]ITALUS[facility] [address] [address] Performing Lab: [facility]PITALUSE[address] [address] FERRITIN 27 ng/mL 20-300 May 22, 2024 08:41 AM [facility] HEPATITIS C ANTIBODY (HCV)-ARC Specimen Type: SERUM Comment: Hep C Ab: No HCV antibody detected. If recent infection is suspected or other evidence suggests HCV infection, consider HCV nucleic acid testing Ordering Provider: JADE SOE Report Released Date/Time: Apr 18, 2024 08:56 AM Reporting Lab: [facility]ITALUSEST[facility] [address] [address] Performing Lab: [facility]PITALUSETS [address] [address] HEPATITIS C ANTIBODY NON-REACTIVE NON-REACTIV E May 22, 2024 08:41 AM [facility] GAMMA-GTP Specimen Type: SERUM No comment entered. Ordering Provider: JADE ESO Report Released Date/Time: Apr 18, 2024 08:56 AM Reporting Lab: [facility]ERBE[facility]IORAL HOSPITALN [facility]PITALUSETS [facility] [address] [address] Performing Lab: [facility]ITALUSETS [address] [address] GAMMA-GTP 32 U/L 10-65 May 22, 2024 08:41 AM [facility] CLARERL TRN [facility]ITALUSETS [facility] IRON & TIBC PANEL Specimen Type: SERUM No comment entered. Ordering Provider: JADE SEO Report Released Date/Time: Apr 18, 2024 08:56 AM Reporting Lab: [facility] CLARERL [place] [facility] [address] [address] Performing Lab: [facility] CLARERL TRN [facility]ITALUSETS [facility] [address] [address] TIBC 422 ug/dL 204-475 IRON 76 ug/dL 40-160 Transferrin Saturation 18.0 L 20.0-50.0 May 22, 2024 08:41 AM [facility] CLARERL TRN [facility]ITAL[facility] ALBUMIN Specimen Type: SERUM No comment entered. Ordering Provider: JADE SEO Report Released Date/Time: Apr 18, 2024 08:56 AM Reporting Lab: [facility]ERBULL[facility] HOSPITALTRN [facility]PITALUSETS [address] [address] Performing Lab: [facility]ERBE[facility]IOR[facility] HOSPITALN [facility]ITALUSETS [address] [address] ALBUMIN 3.9 g/dL 3.5-5.0 May 22, 2024 08:41 AM [facility]ITALUS[facility] PROTEIN,TOTAL Specimen Type: SERUM No comment entered. Ordering Provider: JADE SEO Report Released Date/Time: Apr 18, 2024 08:56 AM Reporting Lab: [facility] [place] [address] [address] Performing Lab: [facility] CLARERL TRN [facility] [address] [address] PROTEIN,TOTAL 7.0 g/dL 6.0-8.3 May 22, 2024 08:41 AM [facility] CLARERL [facility]N [facility]ITALUSETS [facility] BILIRUBIN, TOTAL Specimen Type: SERUM No comment entered. Ordering Provider: JADE SEO Report Released Date/Time: Apr 18, 2024 08:56 AM Reporting Lab: [facility] CLARERL TRN [facility]ITAL[facility] [address] [address] Performing Lab: [facility] CLARERL TRN [facility] [address] [address] BILIRUBIN, TOTAL 0.9 mg/dL 0.2-1.2 May 22, 2024 08:41 AM [facility] [place] [facility] AST Specimen Type: SERUM No comment entered. Ordering Provider: JADE SEO Report Released Date/Time: Apr 18, 2024 08:56 AM Reporting Lab: [facility] [place] [facility] [address] [address] Performing Lab: [facility] [place] [address] [address] AST 33 U/L 5-34 May 22, 2024 08:41 AM [facility] [place] [facility] ALKALINE PHOSPHATASE Specimen Type: SERUM No comment entered. Ordering Provider: JADE SEO Report Released Date/Time: Apr 18, 2024 08:56 AM Reporting Lab: [facility] [place] [address] [address] Performing Lab: [place] [facility] [place] [address] [address] ALKALINE PHOSPHATASE 72 U/L 40-150 May 22, 2024 08:41 AM [facility] ALT Specimen Type: SERUM No comment entered. Ordering Provider: JADE SEO Report Released Date/Time: Apr 18, 2024 08:56 AM Reporting Lab: [facility] [place] [address] [address] Performing Lab: [facility] [place] [address] [address] ALT 73 U/L H May 22, 2024 08:41 AM [facility]L TRN [facility] CBC AND DIFF (AUTO) Specimen Type: BLOOD No comment entered. Ordering Provider: JADE SEO Report Released Date/Time: Apr 18, 2024 08:56 AM Reporting Lab: [facility] [place] [address] [address] Performing Lab: [place] [facility] [place] [place] [address] [address] WBC 7.81 10*3/uL 4.50-11.00 RBC 5.40 10*6/uL [...] took place. Date/Time Current Smoking Status Comment [facility] it Oct 06, 2023 10:00 AM ME-TOBACCO NEVER USED [place] [facility] [place] [facility] Tobacco Use History This section includes a history of the smoking, or tobacco-related health factors, that were collected on or before the date of the Encounter. The data comes from the [place] facility where the Encounter took place. Date/Time Smoking Status/Tobac co Use Comment Facility Jul 31, 2022 09:00 AM VA-TOBACCO NEVER USED [facility] [place] [facility] Apr 24, 2021 03:00 PM VA-TOBACCO NEVER USED [facility] [place] [facility] March 26, 2020 02:34 PM VA-TOBACCO NEVER USED [facility] [place] [facility] Feb 27, 2019 09:44 AM VA-TOBACCO NEVER USED [facility] [place] [facility] Dec 14, 2017 03:24 PM LIFETIME NON-TOBACCO USER [facility] [place] [facility] Dec 14, 2016 10:28 AM LIFETIME NON-TOBACCO USER Life time nonsmoker [facility] [place] [facility] Jan 06, 2016 09:32 AM LIFETIME NON-TOBACCO USER [facility] [place] [facility] Jan 21, 2015 12:48 PM LIFETIME NON-TOBACCO USER never [facility] [place] [facility] Radiology Reports: +/- 30 days of [...] the Encounter. The data comes from all [place] treatment facilities. Date/Time Radiology Report Provider Source May 23, 2024 09:53 AM ULTRASOUND ABD WITH LIVER ELASTOGRAPHY: BACILIO LIU [id number] -[id number] M Ex Date: MAY 23, 2024@09:53 Req Phys: DEX SEO Loc: CWM/NO/PACT 7 (Req'g Loc) Img Loc: ULTRASOUND Service: Unknown [facility] [place] [facility] , (Case 92 COMPLETE) ULTRASOUND ABDOMEN LIMITED (US Detailed) CPT:36651 Reason for Study: FOLLOW UP (Case 93 COMPLETE) ULTRASOUND ELASTOGRAPHY PARENCHYM(US Detailed) CPT:22728 Clinical History: HEPATIC STEATOSIS Some ultrasound tests require a prep. Report Status: Verified Date Reported: MAY 23, 2024 Date Verified: MAY 23, 2024 Parts Casting Machine Operator E-Sig:/ES/ED MALAVE JR Report: Study: Abdomen [...] Primary Interpreting Staff: ED MALAVE JR, Radiologist (Parts Casting Machine Operator) /ED SINGH JR [facility] Encounter Notes: All associated encounter notes This section contains the clinical notes associated to the Encounter. Date/Time Encounter Note(s) Provider Source May 24, 2024 11:01 AM OPTOMETRY NOTE: LOCAL TITLE: OPTOMETRY NOTE STANDARD TITLE: OPTOMETRY NOTE DATE OF NOTE: MAY 24, 2024@11:01 ENTRY DATE: MAY 24, 2024@11:01:43 AUTHOR: LISSA ANDERSON EXP COSIGNER: URGENCY: STATUS: COMPLETED OPTOMETRY NOTE Has ADDENDA The quote provided below is for informational purposes only. Please verify prior to the creation of a purchase order. BACILIO LIU 3361 RX INFORMATION OD 0.00 -1.00 X165 Add:0.00 Pzm:0.00 Dir: Prz2:0.00 Dir2: OS 0.00 -1.00 X10 Add:0.00 Pzm:0.00 Dir: Prz2:0.00 Dir2: FITTING INFORMATION FPD:71 NPD:68 [place]:R: L: SEG HT:R: L: Tint:None Shade:None VA Billable Items FRAME: BIG BEAT BLACK/NAVY 58-18-150 Right Lens: POLY SINGLE VISION 1.586 POLY Left Lens: POLY SINGLE VISION 1.586 POLY The quote provided below is for informational purposes only. Please verify prior to the creation of a purchase order. BACILIO LIU 3361 RX INFORMATION OD +1.25 -1.00 X165 Add:0.00 Pzm:0.00 Dir: Prz2:0.00 Dir2: OS +1.25 -1.00 X10 Add:0.00 Pzm:0.00 Dir: Prz2:0.00 Dir2: FITTING INFORMATION FPD:68 NPD:65 [place]:R: L: SEG HT:R: L: Tint:None Shade:None VA Billable Items FRAME: BIG BEAT SANDRA [id number] Right Lens: POLY SINGLE VISION 1.586 POLY Left Lens: POLY SINGLE VISION 1.586 POLY /mandi/ LISSA ANDERSON Signed: 05/24/2024 11:02 Receipt Acknowledged By: 05/24/2024 11:03 /mandi/ Sav Ledezma LPN Licensed Practical Nurse 05/24/2024 ADDENDUM STATUS: COMPLETED PDS computer systems technician fit 2 SV eyeglasses on 05/23/2024. OPT HT entered consult(s) as requested for provider signature. /mandi/ Sav Ledezma LPN Licensed Practical Nurse Signed: 05/24/2024 11:05 05/30/2024 ADDENDUM STATUS: COMPLETED Notified 2 pair arrived today and are ready for p/u at [facility] desk per his request. /mandi/ VENTURA MONTANO CEMENT SACK BREAKER Signed: 05/30/2024 13:09 05/31/2024 ADDENDUM STATUS: COMPLETED PICKED UP BOTH PAIRS OF GLASSES. /mandi/ LLUVIA PIÑA ADVANCED WHEAT BUYER Signed: 05/31/2024 12:35 [facility] AND[facility]
--- OUTSIDE RECORDS SUMMARY | 2024-11-09 16:52 | XMS_ITS | Encounter Summary ---
Author Name [place] Address [address] [place] [address] Care Team Providers Care Petroleum Refinery Laborer Name Role Phone DEX SEO Primary Care Provider [facility] Insurance Providers: All historical and [...] Name Patient's Relationship to Policy Agustin BCBS [place] HIGH DEDUCTIBL E HEALTH PLAN [employer] [facility] Jul 09, 2023 [id number] SAULO LIU PATIENT CAREMARK PRESCRIPT ION [facility] Nov 08, 2020 [id number] [phone] SAULO LIU PATIENT [facility] ([id number]) PRESCRIPT ION [facility] Jul 09, 2023 AGRIMRK [id number] [phone] SAULO LIU PATIENT [facility] ([id number]) PRESCRIPT ION [facility] Jul 09, 2023 AGRIMRK [id number] [phone] SAULO LIU PATIENT [facility] HIGH DEDUCTIBL E HEALTH PLAN W/HEALTH SAVINGS ACCOUNT [facility] Dec 01, 2014 [id number] [phone] SAULO LIU PATIENT Selected Encounter This section includes the information on record at [place] for the Encounter. Date/Time Encounter Type Encounter Description Reason Pro vider Source Aug 16, 2024 12:00 AM Outpatient Encounter COMMUNITY CARE CONSULT IHE Encounter Template Text not used by VA Social History: Smoking Status (Most current) and Tobacco Use (All prior to encounter date) This section includes the most current, and the historical, smoking and tobacco- related health factors from the [place] facility where the Encounter took place. Current Smoking Status This section includes the most current smoking, or tobacco-related health factor, from the [place] facility where the Encounter took place. Date/Time Current Smoking Status Comment Facil [facility] Oct 06, 2023 10:00 AM VA-TOBACCO NEVER USED [place] [facility] [place] [facility] Tobacco Use History This section includes a history of the smoking, or tobacco-related health factors, that were collected on or before the date of the Encounter. The data comes from the [place] facility where the Encounter took place. Date/Time Smoking Status/Tobac co Use Comment Facility Jul 31, 2022 09:00 AM VA-TOBACCO NEVER USED [facility] [place] [facility] Apr 24, 2021 03:00 PM VA-TOBACCO NEVER USED [facility] [place] [facility] March 26, 2020 02:34 PM VA-TOBACCO NEVER USED [facility] [place] [facility] Feb 27, 2019 09:44 AM VA-TOBACCO NEVER USED [facility] [place] [facility] Dec 14, 2017 03:24 PM LIFETIME NON-TOBACCO USER [facility] [place] [facility] Dec 14, 2016 10:28 AM LIFETIME NON-TOBACCO USER Life time nonsmoker [facility] [place] [facility] Jan 06, 2016 09:32 AM LIFETIME NON-TOBACCO USER [facility] [place] [facility] Jan 21, 2015 12:48 PM LIFETIME NON-TOBACCO USER never [facility] [place] [facility] Encounter Notes: All associated encounter notes This section contains the clinical notes associated to the Encounter. Date/Time Encounter Note(s) Provider Source Aug 16, 2024 12:00 AM NONVA CONSULT: LOCAL TITLE: COMMUNITY CARE-CONSULT RESULT NOTE STANDARD TITLE: NONVA CONSULT DATE OF NOTE: AUG 16, 2024 ENTRY DATE: SEP 29, 2024@15:20:10 AUTHOR: DEEP HOANG EXP COSIGNER: URGENCY: STATUS: COMPLETED VistA Imaging - Scanned Document SCANNED DOCUMENT SIGNATURE NOT REQUIRED Electronically Filed: 09/29/2024 by: DEEP HOANG MACHINE OPERATOR CANE CUTTER DEEP HOANG [facility]
--- OUTSIDE RECORDS SUMMARY | 2024-11-09 16:52 | XMS_ITS ---
Author Name [facility] [place] [facility] [facility] [place] Address [address] [place] [address] Care Team Providers Care Taxation Inspector Name Role Phone DEX SEO Primary Care [...] Agustin's Name Patient's Relationship to Policy Agustin [facility] HIGH DEDUCTIBL E HEALTH PLAN [facility]mery [facility] Jul 09, 2023 [id number] SAULO LIU PATIENT [facility] PRESCRIPT [facility] Nov 08, 2020 [id number] SAULO LIU PATIENT [employer] ([id number]) PRESCRIPT ION [facility] Jul 09, 2023 [id number] SAULO LIU PATIENT [employer] ([id number]) PRESCRIPT ION [facility] Jul 09, 2023 [id number] SAULO LIU PATIENT [facility] HIGH DEDUCTIBL E HEALTH PLAN W/HEALTH SAV[place] ACCOUNT [facility] Dec 01, 2014 [id number] [phone] SAULO LIU PATIENT Selected Encounter This section includes the information on record at [place] for the Encounter. Date/Time Encounter Type Encounter Description Reason Pro vider Source May 24, 2024 09:47 AM Outpatient Encounter OTOLARYNGOLOGY/ENT IHE Encounter Template Text not used by [place] Plan of Treatment: Future Appointments (+ 6 months) and Future Tests (+/- 45 days) The Plan of Treatment section includes future care activities for the patient from all [place] treatmentfacilities. This section includes future appointments and future orders which are active, pending or scheduled. Future Appointments This section includes appointments that were scheduled to occur 6 months from the date of the Encounter, up to a maximum of 20 appointments. The data comes from all [place] treatment facilities. Appointment Date/Time Appointment Type Appointme nt Facility Name Aug 16, 2024 03:20 PM [facility] Results: +/- 30 days of the encounter This section includes the Chemistry and Hematology Lab Results on record with [place] for the patient. Radiology Reports and Pathology Reports are provided separately, in subsequent sections. Lab Results This section contains the Chemistry/Hematology Results that were resulted 30 days before or 30 daysafter the date of the Encounter. Date/Time Source Result Type Result - Unit Interpretation Reference Range Comment May 22, 2024 08:42 AM [facility] PT & INR (PROTIME) Specimen Type: PLASMA No comment entered. Ordering Provider: JADE SEO Report Released Date/Time: Apr 18, 2024 08:56 AM Reporting Lab: [facility] [address] [facility] [address] Performing Lab: [facility] [address] [facility] [address] INR 1.1 PROTIME 12.5 s 10.0-13.1 May 22, 2024 08:41 AM [facility] HEPATITIS B SURFACE ANTIGEN (HBsAg)-WH Specimen [...] Apr 18, 2024 08:56 AM Reporting Lab: [facility] [address] [facility] [address] Performing Lab: [facility] [address] [facility] [id number] HBsAg Non Reactive Non Reactive May 22, 2024 08:41 AM [facility] HEPATITIS B CORE (Total) Ab Specimen [...] Apr 18, 2024 08:56 AM Reporting Lab: [facility] [address] [address] Performing Lab: [facility] [address] [facility] [id number] HEPATITIS B CORE (Total) Ab Non Reactive Non Reactive May 22, 2024 08:41 AM [facility] JOSE SCREEN/TITER Specimen Type: SERUM No comment entered. Ordering Provider: JADE SEO Report Released Date/Time: Apr 18, 2024 08:56 AM Reporting Lab: [facility] [address] [facility] [address] Performing Lab: [facility] [address] [facility] [address] JOSE SCREEN NEG May 22, 2024 08:41 AM [facility] HEPATITIS C ANTIBODY (HCV)-ARC Specimen Type: SERUM Comment: Hep C Ab: No HCV antibody detected. If recent infection is suspected or other evidence suggests HCV infection, consider HCV nucleic acid testing Ordering Provider: JADE SEO Report Released Date/Time: Apr 18, 2024 08:56 AM Reporting Lab: [address] [address] Performing Lab: [address] [address] HEPATITIS C ANTIBODY NON-REACTIVE NON-REACTIV E May 22, 2024 08:41 AM [facility] FERRITIN Specimen Type: SERUM No comment entered. Ordering Provider: JADE SEO Report Released Date/Time: Apr 18, 2024 08:56 AM Reporting Lab: [address] [address] Performing Lab: [address] [address] FERRITIN 27 ng/mL 20-300 May 22, 2024 08:41 AM [facility] IRON & TIBC PANEL Specimen Type: SERUM No comment entered. Ordering Provider: JADE SEO Report Released Date/Time: Apr 18, 2024 08:56 AM Reporting Lab: [address] [address] Performing Lab: [address] [address] TIBC 422 ug/dL 204-475 IRON 76 ug/dL 40-160 Transferrin Saturation 18.0 L 20.0-50.0 May 22, 2024 08:41 AM [facility] GAMMA-GTP Specimen Type: SERUM No comment entered. Ordering Provider: JADE SEO Report Released Date/Time: Apr 18, 2024 08:56 AM Reporting Lab: [address] [place] [address] Performing Lab: [facility]ITALRNOL[facility]ERYTRN [facility]ITALUSETS [facility] [address] [facility] [address] GAMMA-GTP 32 U/L 10-65 May 22, 2024 08:41 AM [facility]ITALRS[facility]ITAL[facility] ALBUMIN Specimen Type: SERUM No comment entered. Ordering Provider: JADE SEO Report Released Date/Time: Apr 18, 2024 08:56 AM Reporting Lab: [facility]ITALRSHEL[facility]ERN [facility]ITALUSETS [facility] [address] [facility] [address] Performing Lab: [facility]ITALRSHEL[facility]ERN [facility]ITALUSETS [address] [address] ALBUMIN 3.9 g/dL 3.5-5.0 May 22, 2024 08:[address] [facility]ITAL[facility] PROTEIN,TOTAL Specimen Type: SERUM No comment entered. Ordering Provider: JADE SEO Report Released Date/Time: Apr 18, 2024 08:56 AM Reporting Lab: [facility]ITALRSHEL[facility]ERN [facility]ITALUSETS [facility] [address] [facility] [address] Performing Lab: [facility]ITALUS[facility] [address] [address] PROTEIN,TOTAL 7.0 g/dL 6.0-8.3 May 22, 2024 08:[address] [facility] CBC AND DIFF (AUTO) Specimen Type: BLOOD No comment entered. Ordering Provider: JADE SEO Report Released Date/Time: Apr 18, 2024 08:56 AM Reporting Lab: [facility]ITALRNOL[facility] MON[facility]ERYTRN [facility]ITALUSETS [facility] [address] [facility] [address] Performing Lab: [facility]ITALRSHELBY [facility]ERN [facility]OSPITALUSETS [address] [address] WBC 7.81 10*3/uL 4.50-11.00 RBC 5.40 10*6/uL [...] 0.0 0.0-0.0 NRBC, ABS 0.00 10*3/uL 0.00-0.00 May 22, 2024 08:41 AM [facility] AST Specimen Type: SERUM No comment entered. Ordering Provider: JADE SEO Report Released Date/Time: Apr 18, 2024 08:56 AM Reporting Lab: [address] [address] Performing Lab: [address] [address] AST 33 U/L 5-34 May 22, 2024 08:41 AM [facility] ALKALINE PHOSPHATASE Specimen Type: SERUM No comment entered. Ordering Provider: JADE SEO Report Released Date/Time: Apr 18, 2024 08:56 AM Reporting Lab: [facility] [address] Performing Lab: [address] [address] ALKALINE PHOSPHATASE 72 U/L 40-150 May 22, 2024 08:41 AM [facility] [place] [facility] BILIRUBIN, TOTAL Specimen Type: SERUM No comment entered. Ordering Provider: JADE SEO Report Released Date/Time: Apr 18, 2024 08:56 AM Reporting Lab: [place] [facility] [place] [facility] [address] [facility] [address] Performing Lab: [facility]ITALRSHELBY [facility]ERN [facility]ITALUSE[address] [address] BILIRUBIN, TOTAL 0.9 mg/dL 0.2-1.2 May 22, 2024 08:41 AM [place] [facility]TR [facility]ENTER[facility]ETS [facility] ALT Specimen Type: SERUM No comment entered. Ordering Provider: JADE SEO Report Released Date/Time: Apr 18, 2024 08:56 AM Reporting Lab: [facility]ITALR WSTRN [facility]ITALUSETS [facility] [address] [facility] [address] Performing Lab: [facility]ITALRNOL[facility]ERYTRN [facility]OSPITALUSETS [address] [address] ALT 73 U/L H Social History: Smoking Status (Most current) and Tobacco Use (All prior to encounter date) This section includes the most current, and the historical, smoking and tobacco- related health factors from the [place] facility where the Encounter took place. Current Smoking Status This section includes the most current smoking, or tobacco-related health factor, from the [place] facility where the Encounter took place. Date/Time Current Smoking Status Comment [facility] Oct 06, 2023 10:00 AM VA-TOBACCO NEVER USED [facility] Tobacco Use History This section includes a history of the smoking, or tobacco-related health factors, that were collected on or before the date of the Encounter. The data comes from the [place] facility where the Encounter took place. Date/Time Smoking Status/Tobac co Use Comment Facility Jul 31, 2022 09:00 AM VA-TOBACCO NEVER USED [facility] [place] [facility] Apr 24, 2021 03:00 PM VA-TOBACCO NEVER USED [facility] [place] [facility] March 26, 2020 02:34 PM VA-TOBACCO NEVER USED [facility] [place] [place] [facility] Feb 27, 2019 09:44 AM VA-TOBACCO NEVER USED [facility] [place] [place] [facility] Dec 14, 2017 03:24 PM LIFETIME NON-TOBACCO USER [facility] Dec 14, 2016 10:28 AM LIFETIME NON-TOBACCO USER Life time nonsmoker [facility]RS[facility] Jan 06, 2016 09:32 AM LIFETIME NON-TOBACCO USER [facility]ITALRSHEL[facility] Jan 21, 2015 12:48 PM LIFETIME NON-TOBACCO USER never [facility] Radiology Reports: +/- 30 days of [...] the Encounter. The data comes from all [place] treatment facilities. Date/Time Radiology Report Provider Source May 23, 2024 09:53 AM ULTRASOUND ABD WITH LIVER ELASTOGRAPHY: BACILIO LIU [id number] -[id number] M Exm Date: MAY 23, 2024@09:53 Req Phys: DEX SEO Loc: CWM/NO/PACT 7 (Req'g Loc) Img Loc: ULTRASOUND Service: Unknown [facility] , (Case 92 COMPLETE) ULTRASOUND ABDOMEN LIMITED (US Detailed) CPT:90847 Reason for Study: FOLLOW UP (Case 93 COMPLETE) ULTRASOUND ELASTOGRAPHY PARENCHYM(US Detailed) CPT:93950 Clinical History: HEPATIC STEATOSIS Some ultrasound tests require a prep. Report Status: Verified Date Reported: MAY 23, 2024 Date Verified: MAY 23, 2024 Junior Accountant E-Sig:/ES/ED MALAVE JR Report: Study: Abdomen ultrasound. [...] Primary Interpreting Staff: ED MALAVE JR, Radiologist (Junior Accountant) /ED SINGH JR [facility] Encounter Notes: All associated encounter notes This section contains the clinical notes associated to the Encounter. Date/Time Encounter Note(s) Provider Source May 24, 2024 09:47 AM LETTERS: LOCAL TITLE: PATIENT LETTER (B) STANDARD TITLE: LETTERS DATE OF NOTE: MAY 24, 2024@09:47 ENTRY DATE: MAY 24, 2024@09:47:16 AUTHOR: SUGEY BELL EXP COSIGNER: URGENCY: STATUS: COMPLETED MAY 24, 2024 BACILIO LIU [address] [place] [id number] Dear BACILIO LIU We would like to assist you in scheduling a OTOLARYNGOLOGY appointment at the [place]. We have been unable to reach you by phone. To schedule this appointment please call toll free Ext [phone]. Our booking appointment hours are Wednesday through [...] Your health is important to us. Sincerely, [facility] [address] [facility] [address] [place] [address] [place] [address] ext. [phone] [facility] [place] [facility] [address] [facility] [address] [place] [address] [place] [address] [phone] [facility] Outpatient [facility] [address] [address] [place] [address] ext. [phone] [facility] [address] [place] [address] ext. [phone] SUGEY BELL CN[facility]L [facility]
== END 2024-11-09 15:20 | disposition home or self-care (01) ==
LOC: HO.BBR 15:19
PROVIDERS: Visit Provider Internal Medicine
DX: D45 Polycythemia vera (principal)
CPT/HCPCS: 85018; 99195

== ENCOUNTER 2025-01-18 15:31 | Outpatient (REF) | payer OTHER, SELFPAY ==
--- OUTSIDE RECORDS SUMMARY | 2025-01-18 19:06 | XMS_ITS | Continuity of Care Document ---
Author Name [facility] Organization [facility] Care Team Providers Care Media Developer Name Role Phone DOD-SD Unavailable Unavailable Problems Combined list of problems from Department of Defense and Veterans Affairs facilities. It does not include entries that were removed or entered in error. Problem Status Onset Date Problem Type Date of Resolution Comments Source Chronic mixed headache syndrome Active 015 Condition Dec 31, 2014 Entered By: WINSTON JONES Comment: rebound analgesia component [facility] Gastroesophageal reflux disease Active 015 Condition Dec 31, 2014 Entered By: WINSTON JONES Comment: UGE ?2009 mild gastritisOct 2016 Entered By: EDVIN DAVID Comment: WHAV GI 2016 - ranitidine and omeprazole [facility] Panic disorder Active 015 Condition [facility] Steatosis of liver Active 015 Condition Dec 31, 2014 Entered By: WINSTON JONES Comment: sono VMG 11/22, SGPT 78 12/31/14 [facility] Benign essential hypertension Active Condition [facility] Dermatophytosis of other specified sites (ICD-9-CM 110.8) Active Condition [facility] Headache * (ICD-9-CM 784.0) Active Condition [facility] Hypertensive disorder Active Condition [facility] Knee: arthralgia * (ICD-9-CM 719.46) Active Condition [facility] Low Back Pain * (ICD-9-CM 724.2) Active Condition [facility] Nonspecific abnormal results of function study of liver (ICD-9-CM 794.8) Active Condition [facility] OBESITY, UNSP Active Condition [facility] Onychomycosis Active Condition [facility] Pain in joint involving lower leg (ICD-9-CM 719.46) Active Condition [facility] Panic Disorder Active Condition [facility] Patellar tendinitis (ICD-9-CM 726.64) Active Condition [facility] RBC count abnormal Active Condition [facility] Relationship [facility] Condition [facility] Sleep Apnea ([facility] [id number]) Active Condition April 04, 2020 Entered By: JIAN SEO AM Comment: uses CPAP [facility] Toothache ([facility] [id number]) - Unspecified disorder of the teeth and supporting stru Inactive Condition 11/06/2021 [place] [facility] Diagnosis: ICD-10-CM G47.30 Sleep apnea, unspecified Active Diagnosis [facility] Diagnosis: ICD-10-CM Z46.0 Encounter for fit/adjst of spectacles and contact lenses Active Diagnosis [facility] Diagnosis: ICD-10-CM H33.322 Round hole, left eye Active Diagnosis [facility] Diagnosis: ICD-10-CM 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tism, bilateral Active Diagnosis [facility] Diagnosis: ICD-10-CM H92.03 Otalgia, bilateral Active Diagnosis [facility] Diagnosis: ICD-10-CM Z04.9 Encounter for examination and observation for unsp reason Active Diagnosis [facility] Diagnosis: ICD-10-CM R05.1 Acute cough Active Diagnosis [facility] Diagnosis: ICD-10-CM J01.90 Acute sinusitis, unspecified Active Diagnosis [facility] Medications Combined list of outpatient medications from Department of Defense and Veterans Affairs facilities.Medications provided include 1) outpatient medications from the last 15 months, and 2) patient-reported medications. Medication Details Route Status Patient Instructions Prescription Expires Prescription Number Last Dispense Date Ordering Provider Order Date Order Qty Source AMLODIPINE BESYLATE 5MG TAB TAKE ONE TABLET BY MOUTH ONCE DAILY FOR BLOOD PRESSURE /HEART, DO NOT TAKE WITH GRAPEFRU IT JUICE ORAL ACTIVE 04/19/2025 [id number] 5 DEX SEO 2023 [facility] AMLODIPINE BESYLATE 5MG TAB TAKE ONE TABLET BY MOUTH ONCE DAILY FOR BLOOD PRESSURE /HEART, DO NOT TAKE WITH GRAPEFRU IT JUICE ORAL DISCONT INUED 08/17/2024 [id number] 4 DEX SEO 2022 90 [facility] AMOXICILLIN TRIHYDRATE 500MG CAP TAKE ONE CAPSULE BY MOUTH TWICE DAILY FOR 10 DAYS- FOR AN INFECTIO N ORAL 11/27/2023 [id number] 3 DEX SEO 2022 20 [facility] AMOXICILLIN TRIHYDRATE 875MG/CLAVU LANATE K 125MG TAB TAKE 1 TABLET BY MOUTH TWICE DAILY FOR INFECTIO N ORAL 05/11/2024 [id number] RA RADHA BLACKWELL 2023 20 [facility] DEXTROMETHO RPHAN HBR 10MG/GUAIFE NESIN 100MG/5ML (AF & SF) LIQUID TAKE 10 MLS BY MOUTH EVERY 4 HOURS NEEDED FOR COUGH-DO NOT TAKE MORE THEN 6 DOSES PER 24 HOURS. ORAL 11/27/2023 [id number] 3 DEX SEO 2022 120 [facility] [place] 25MG TAB TAKE THREE TABLETS BY MOUTH ONCE DAILY FOR BLOOD PRESSURE /HEART ORAL DISCONT INUED (EDIT) 08/17/2024 [id number] 4 DEX SEO 2022 270 [facility] [place] 50MG TAB TAKE ONE TABLET BY MOUTH ONCE DAILY FOR BLOOD PRESSURE /HEART ORAL ACTIVE 04/19/2025 [id number] 5 DEX SEO 2023 90 [facility] OMEPRAZOLE 20MG CAP,EC TAKE ONE CAPSULE BY MOUTH TWICE DAILY BEFORE A MEAL ORAL ACTIVE 04/19/2025 [id number] 4 DEX SEO 2023 180 [facility] OMEPRAZOLE 20MG CAP,EC TAKE ONE CAPSULE BY MOUTH TWICE DAILY BEFORE A MEAL ORAL DISCONT INUED 08/17/2024 [id number] 4 DEX SEO 2022 180 [facility] Immunizations Combined list of available immunizations from the Department of Defense and Veterans Affairs facilities. Immunization Series Date Given Administered By Site Reaction Lot Number CVX Code Drug Home Extension Agent Status Comments Source COVID-19 (AppSheet), MRNA, LNP-S, PF, 30 MCG/0.3 ML DOSE 2 2020 208 complet ed [facility] COVID-19 (PFIZER), MRNA, LNP-S, PF, 30 MCG/0.3 ML DOSE 1 2020 208 complet ed [facility] ZOSTER RECOMBINANT 1 2018 187 complet ed [facility] TD(ADULT) UNSPECIFIED FORMULATION 2017 139 complet ed [facility] INFLUENZA, SEASONAL, INJECTABLE 2016 141 complet ed Site: Left Deltoid [facility] DTAP 2015 20 complet ed Site: Left Deltoid [facility] DTAP, UNSPECIFIED FORMULATION 2015 107 complet ed [facility] FLU,3 YRS (HISTORICAL) 2015 88 complet ed Site: Left Deltoid [facility] TD(ADULT) UNSPECIFIED FORMULATION 2013 139 complet ed [facility] INFLUENZA, UNSPECIFIED FORMULATION 2006 NONE 88 complet ed [facility] FLU,3 YRS (HISTORICAL) 2005 88 complet ed [facility] Results Combined list of recent chemistry, hematology and other laboratory results from Department of Defense and Veterans Affairs, ranging from 15 months to all on record, depending upon the facility. Order Name Results Value Reference Range Date Interpretation Specimen Comments Source PT & INR (PROTIME ) INR IN PLATELET POOR PLASMA BY COAGULATIO N ASSAY 1.1 05/22 Specimen Type: PLASMA No comment entered. Ordering Provider: SAVI SEO Report Released Date/Time: Apr 18, 2024 08:56 AM Reporting Lab: [facility] [address] Performing Lab: [facility] [address] [facility] PT & INR (PROTIME ) PROTHROMBI N TIME (PT) 12.5 s 10.0 - 13.1 05/22 Specimen Type: PLASMA No comment entered. Ordering Provider: SAVI SEO Report Released Date/Time: Apr 18, 2024 08:56 AM Reporting Lab: [facility] [address] [address] Performing Lab: [facility] [address] [facility] HEPATITI S B SURFACE ANTIGEN (HBsAg)- WH HEPATITIS B VIRUS SURFACE AG [PRESENCE] IN SERUM OR PLASMA BY IMMUNOASSA Y Non Reactive 05/22 Specimen Type: SERUM Comment: This test detects [...] B surface antigen is frequently associated with infectivity . Ordering Provider: SAVI SEO Report Released Date/Time: Apr 18, 2024 08:56 AM Reporting Lab: [facility] [address] Performing Lab: [facility] [address] [facility] HEPATITI S B CORE (Total) Ab HEPATITIS B VIRUS CORE AB [PRESENCE] IN SERUM OR PLASMA BY IMMUNOASSA Y Non Reactive 05/22 Specimen Type: SERUM Comment: This test detects [...] B surface antigen is frequently associated with infectivity . Ordering Provider: SAVI SEO Report Released Date/Time: Apr 18, 2024 08:56 AM Reporting Lab: [facility] [address] [address] Performing Lab: [facility] [address] [address] [facility] JOSE SCREEN/T ITER NUCLEAR AB [PRESENCE] IN SERUM NEG 05/22 Specimen Type: SERUM No comment entered. Ordering Provider: SAVI SEO Report Released Date/Time: Apr 18, 2024 08:56 AM Reporting Lab: [facility] [address] [address] Performing Lab: [facility] [address] [facility] [address] [facility] [employer] [employer] FERRITIN FERRITIN [MASS/VOLU ME] IN SERUM OR PLASMA 27 ng/mL 20 - 300 05/22 Specimen Type: SERUM No comment entered. Ordering Provider: SAVI SEO Report Released Date/Time: Apr 18, 2024 08:56 AM Reporting Lab: [facility] [address] [address] Performing Lab: [facility] [address] [address] [facility] HEPATITI S C ANTIBODY (HCV)-AR C HEPATITIS C VIRUS AB [PRESENCE] IN SERUM NON-REAC TIVE 05/22 Specimen Type: SERUM Comment: Hep C Ab: No HCV antibody detected. If recent infection is suspected or other evidence suggests HCV infection, consider HCV nucleic acid testing Ordering Provider: SAVI SEO Report Released Date/Time: Apr 18, 2024 08:56 AM Reporting Lab: [facility] [address] [address] Performing Lab: [facility] [place] [facility] [address] [address] [facility] GAMMA-GT P GAMMA GLUTAMYL TRANSFERAS E [ENZYMATIC ACTIVITY/V OLUME] IN SERUM OR PLASMA 32 U/L 10 - 65 05/22 Specimen Type: SERUM No comment entered. Ordering Provider: SAVI SEO Report Released Date/Time: Apr 18, 2024 08:56 AM Reporting Lab: [facility] [place] [facility] [address] [address] Performing Lab: [facility] [address] [address] [facility] ALBUMIN ALBUMIN [MASS/VOLU ME] IN SERUM OR PLASMA 3.9 g/dL 3.5 - 5.0 05/22 Specimen Type: SERUM No comment entered. Ordering Provider: SAVI SEO Report Released Date/Time: Apr 18, 2024 08:56 AM Reporting Lab: [facility] [facility] [address] [address] Performing Lab: [facility] [facility] [address] [address] [facility] IRON & TIBC PANEL IRON BINDING CAPACITY [MASS/VOLU ME] IN SERUM OR PLASMA 422 ug/dL 204 - 475 05/22 Specimen Type: SERUM No comment entered. Ordering Provider: SAVI SEO Report Released Date/Time: Apr 18, 2024 08:56 AM Reporting Lab: [facility] [facility] [address] [address] Performing Lab: [facility] [place] [facility] [address] [address] [facility] IRON & TIBC PANEL IRON [MASS/VOLU ME] IN SERUM OR PLASMA 76 ug/dL 40 - 160 05/22 Specimen Type: SERUM No comment entered. Ordering Provider: SAVI SEO Report Released Date/Time: Apr 18, 2024 08:56 AM Reporting Lab: [facility] [address] [address] Performing Lab: [facility] [facility] [address] [address] [facility] IRON & TIBC PANEL IRON/IRON BINDING CAPACITY.T OTAL [MASS RATIO] IN SERUM OR PLASMA 18.0 20.0 - 50.0 05/22 L Specimen Type: SERUM No comment entered. Ordering Provider: SAVI SEO Report Released Date/Time: Apr 18, 2024 08:56 AM Reporting Lab: [facility] [facility] [address] [address] Performing Lab: [facility] [facility] [address] [address] [facility] PROTEIN, TOTAL PROTEIN [MASS/VOLU ME] IN SERUM OR PLASMA 7.0 g/dL 6.0 - 8.3 05/22 Specimen Type: SERUM No comment entered. Ordering Provider: SAVI SEO Report Released Date/Time: Apr 18, 2024 08:56 AM Reporting Lab: [facility] [place] [facility] [address] [address] Performing Lab: [facility] [place] [facility] [address] [address] [facility] Vital Signs Combined list of inpatient and outpatient Vital Signs from Department of Defense and Veterans Affairs, ranging from 12 months to all on record, depending upon the facility. Vital Sign Value Date Comments Source WEIGHT 296.1 05/15/2024 15:32:23 [facility] BMI 39 kg/m2 05/15/2024 15:32:23 [facility] SYSTOLIC BLOOD PRESSURE 136 04/18/20 24 09:03:00 [facility] DIASTOLIC BLOOD PRESSURE 88 024 09:03:00 [facility] SYSTOLIC BLOOD PRESSURE 136 04/11/20 24 08:43:02 [facility] DIASTOLIC BLOOD PRESSURE 98 024 08:43:02 [facility] PULSE OXIMETRY 97 04/11/2024 08:43:02 [facility] PAIN 8 04/11/2024 08:43:02 [facility] TEMPERATURE 98 04/11/2024 08:43:02 [facility] PULSE 75 04/11/2024 08:43:02 [facility] RESPIRATION 16 04/11/2024 08:43:02 [facility] Encounters Combined list of: 1) Encounters from Department of Veterans Affairs facilities going backup to the last 18 months, not all VA inpatient encounters are included; 2) Encounters from the Department of Defense facilities going backup to 280 months. Location Location Details Encounter Type Encounter Number Reason For Visit Attending Provider ADM Date DC Date Status Disposition Source [facility] Encounter [id number] 07/29 [facility] [place] [id number] Diagnos is: ICD-10- CM H33.322 Round hole, left eye MERHAR,FRANSISCA H B 08/03 [facility] FIT SPECTACLES MONOFOCAL [id number] Diagnos is: ICD-10- CM Z46.0 Encount er for fit/adj st of spectac les and contact lenses ALONSO BLACKWELL 08/04 [facility] Out[facility] Encounter [id number] 08/04 [facility] Out[facility] Encounter [id number] 08/13 [facility] Out[facility] Encounter [id number] 08/13 [facility] Out[facility] Encounter [id number] 08/25 [facility] OFFICE O/P EST LOW 20-29 MIN [id number] Diagnos is: ICD-10- CM J01.90 Acute sinusit is, unspeci fied Mihaela SEO 10/06 [facility] Encounter [id number] 10/09 [facility] En[facility] [id number] 10/11 [facility] Out[facility] Encounter [id number] 10/20 [facility] OFFICE O/P EST LOW 20-29 MIN [id number] Diagnos is: ICD-10- CM R05.1 Acute cough Mihaela SEO 10/28 [facility]counter [id number] 11[facility]11 [facility] Encounter [id number] 11/25 [facility] Out[facility] Encounter [id number] 11/26 [facility] Out[facility] Encounter [id number] Mihaela SEO 12/01 [facility] Out[facility] Encounter [id number] 12/07 [facility] Out[facility] Encounter [id number] 02/09 [facility] Encounter [id number] 02/27 [facility] Encounter [id number] 03/14 [facility] OFF/OP EST MAY X REQ PHY/QHP [id number] Diagnos is: ICD-10- CM Z04.9 Encount er for examina tion and observa tion for unsp reason NIYA MCCONNELL 04/11 [facility] OFFICE O/P EST MOD 30 MIN [id number] Diagnos is: ICD-10- CM H92.03 Otakailyn , bilimani sarina BLACKWELLNATALYA PradoHRYN 04/11 [facility] Out[facility] Encounter [id number] 04/14 [facility] OFFICE O/P EST MOD 30 MIN [id number] Diagnos is: ICD-10- CM G47.30 Sleep apnea, unspeci fied Mihaela SEO 04/18 [facility] Outpatient Encounter [id number] 04/28 [facility] Outpatient Encounter [id number] 05/14 [facility] INTRM OPH EXAM EST PATIENT [id number] Diagnos is: ICD-10- CM 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 tism, bilimani al NEENA ZARATE JEFFREY 05/23 [facility] FUNDUS PHOTOGRAPH Y W/I&R [id number] Diagnos is: ICD-10- CM H33.322 Round hole, left eye NEENA ZARATE JEFFREY 05/23 [facility] Out[facility] Encounter [id number] 05/24 [facility] FIT SPECTACLES MONOFOCAL [id number] Diagnos is: ICD-10- CM Z46.0 Encount er for fit/adj st of spectac les and contact lenses NEENA ZARATE 05/24 [facility] Outpatient Encounter [id number] 05/30 [place] [facility] Outpatient Encounter [id number] 05/30 [facility] COLLJ & INTERPJ DATA EA 30 D [id number] Diagnos is: ICD-10- CM G47.30 Sleep apnea, unspeci fied ST O[facility] MOLINA E P 07/03 [facility] [place] Outpatient Encounter [id number] Mihaela ESO 07/06 [facility] Outpatient Encounter [id number] 08/16 [facility] Social History Combined list of available smoking, tobacco, and other social history from Department of Defense and Veterans Affairs facilities. Social History Type Response Date Comment Source Tobacco smoking status [facility] VA-TOBACCO NEVER USED 10/06/2023 [facility] [place] [facility] History of tobacco use VA-TOBACCO NEVER USED 07/31/2022 [facility] [place] [facility] History of tobacco use VA-TOBACCO NEVER USED 04/24/2021 [facility] [place] [facility] History of tobacco use VA-TOBACCO NEVER USED 03/26/2020 [facility] [place] [facility] History of tobacco use VA-TOBACCO NEVER USED 02/27/2019 [facility] [place] [facility] History of tobacco use LIFETIME NON-TOBACCO USER 12/14/2017 [facility] [place] [facility] History of tobacco use LIFETIME NON-TOBACCO USER 12/14/2016 Life time nonsmoker [facility] [place] [facility] History of tobacco use LIFETIME NON-TOBACCO USER 01/06/2016 [facility] [place] [facility] History of tobacco use LIFETIME NON-TOBACCO USER 01/21/2015 [facility] [place] History of tobacco use LIFETIME NON-TOBACCO USER 04/15/2012[facility] History of tobacco use LIFETIME NON-TOBACCO USER 11/12/2008[facility] History of tobacco use LIFETIME NON-TOBACCO USER 01/30/2008[facility] History of tobacco use LIFETIME NON-TOBACCO USER 04/05/2007[facility] History of tobacco use LIFETIME NON-TOBACCO USER 01/10/2007[facility] History of tobacco use LIFETIME NON-TOBACCO USER 02/08/2006[facility] History of tobacco use LIFETIME NON-TOBACCO USER 12/04/2005[facility] History of tobacco use LIFETIME NON-TOBACCO USER 02/24/2005[facility] History of tobacco use LIFETIME NON-TOBACCO USER 04/04/2004[facility] Plan of Care List of future care activities from Department of Veterans Affairs facilities. Additional future care activities may be listed in the Assessment and Plan section. Date/Time Care Activity Care Activity Detail Facili ty 06/07/2025 AMBULATORY - MEDICINE [facility]
== END 2025-01-18 15:32 | disposition home or self-care (01) ==
LOC: HO.BBR 15:31
PROVIDERS: Visit Provider Internal Medicine
DX: D75.1 Secondary polycythemia (principal)
CPT/HCPCS: 85018; 99195

== ENCOUNTER 2025-03-15 15:28 | Outpatient (REF) | payer OTHER, SELFPAY ==
--- OUTSIDE RECORDS SUMMARY | 2025-03-15 16:01 | XMS_ITS ---
Author Name [facility] Organization [facility] [place] Address [address] [place] [address] Care Team Providers Care Associate Theatre Professor Name Role Phone DEX SEO Primary Care Provider [facility] Insurance Providers: All historical and current Section [...] [place] DEDU[place]IB[place] HEALTH PLAN [employer] [facility] Jul 09, 2023 [id number] SAULO LIU PATIENT [place] PRESCRIPT ION [facility] Nov 08, 2020 [id number] SAULO LIU PATIENT [employer] ([id number]) PRESCRIPT ION [facility] Jul 09, 2023 [id number] SAULO LIU PATIENT [employer] ([id number]) PRESCRIPT ION [facility] Jul 09, 2023 [id number] SAULO LIU PATIENT [facility] HIGH DEDUCTIBL E HEALTH PLAN W/HEALTH [place] ACCOUNT [facility] Dec 01, 2014 [id number] [phone] SAULO LIU PATIENT Selected Encounter This section includes the information on record at [place] for the Encounter. Date/Time Encounter Type Encounter Description Reason Provider Source May 23, 2024 03:00 PM INTRM OPH EXAM EST PATIENT OPTOMETRY ICD-10-CM 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tism, bilateral ELLIOT,BEATRIZ E IHE Encounter Template Text not used by [place] Assessments - Encounter Diagnoses This section includes the primary and secondary diagnoses documented for the Encounter. Date/Time Primary/Secondary Diagnosis Diagnosis Name Provider Source Jun 21, 2024 08:43 AM PRIMARY Regular astigmatism, bilateral BEATRIZ ZARATE [facility] Jun 21, 2024 08:43 AM SECONDARY Presbyopia BEATRIZ ZARATE [facility] Jun 21, 2024 08:43 AM SECONDARY Round hole, left eye BEATRIZ ZARATE [facility] Plan of Treatment: Future Appointments (+ 6 months) and Future Tests (+/- 45 days) The Plan of Treatment section includes future care activities for the patient from all [place] treatmentfacilities. This section includes future appointments and future orders which are active, pending or scheduled. Future Appointments This section includes appointments that were scheduled to occur 6 months from the date of the Encounter, up to a maximum of 20 appointments. The data comes from all [place] treatment facilities. Appointment Date/Time Appointment Type Appointme nt Facility Name Aug 16, 2024 03:20 PM AMBULATORY - MEDICINE [facility] Lab Results: +/- 30 days of the encounter This section includes the Chemistry and Hematology Lab Results on record with [place] for the patient. Radiology Reports and Pathology Reports are provided separately, in subsequent sections. Lab Results This section contains the Chemistry/Hematology Results that were resulted 30 days before or 30 daysafter the date of the Encounter. Date/Time Source Result Type Result - Unit Interpretation Reference Range Specimen Type Comment May 22, 2024 08:42 AM [facility] PT & INR (PROTIME) PLASMA Specimen Type: PLASMA No comment entered. Ordering Provider: DEX SEO Report Released Date/Time: Apr 18, 2024 08:56 AM Reporting Lab: [address] [address] Performing Lab: [address] [address] INR 1.1 PROTIME 12.5 s 10.0-13.1 May 22, 2024 08:41 AM [facility] HEPATITIS B CORE (Total) Ab SERUM Specimen Ty pe: SERUM Comment: This test detects both IgG [...] is frequently associated with infectivity. Ordering Provider: DEX SEO Report Released Date/Time: Apr 18, 2024 08:56 AM Reporting Lab: [address] [address] Performing Lab: [address] [address] HEPATITIS B CORE (Total) Ab Non Reactive Non Reactive May 22, 2024 08:41 AM [facility] HEPATITIS B SURFACE ANTIGEN (HBsAg)-WH SERUM Specimen Type: SERUM Comment: This test detects [...] is frequently associated with infectivity. Ordering Provider: DEX SEO Report Released Date/Time: Apr 18, 2024 08:56 AM Reporting Lab: [address] [address] Performing [facility]: [facility] [address] [facility] [address] HBsAg Non Reactive Non Reactive May 22, 2024 08:41 AM [facility] [place] [facility] JOES SCREEN/TITER SERUM Specimen Type: SERUM No comment entered. Ordering Provider: DEX SEO Report Released Date/Time: Apr 18, 2024 08:56 AM Reporting Lab: [facility] [place] [facility] [address] [facility] [address] Performing Lab: [facility] [place] [facility] [address] [facility] [address] JOSE SCREEN NEG May 22, 2024 08:41 AM [facility] HEPATITIS C ANTIBODY (HCV)-ARC SERUM Specimen Type: SERUM Comment: Hep C Ab: No HCV antibody detected. If recent infection is suspected or other evidence suggests HCV infection, consider HCV nucleic acid testing Ordering Provider: DEX SEO Report Released Date/Time: Apr 18, 2024 08:56 AM Reporting Lab: [facility] [place] [facility] [address] [facility] [address] Performing [facility]: [facility] [address] [address] HEPATITIS C ANTIBODY NON-REACTIVE NON-RE ACTIVE May 22, 2024 08:41 AM [facility] FERRITIN SERUM Specimen Type: SERUM No comment entered. Ordering Provider: DEX SEO Report Released Date/Time: Apr 18, 2024 08:56 AM Reporting Lab: [facility] [place] [facility] [address] [facility] [address] Performing [facility]: [facility] [address] [facility] [address] FERRITIN 27 ng/mL 20-300 May 22, 2024 08:41 AM [facility] GAMMA-GTP SERUM Specimen Type: SERUM No comment entered. Ordering Provider: DEX SEO Report Released Date/Time: Apr 18, 2024 08:56 AM Reporting Lab: [facility] [address] [facility] [address] Performing Lab: [facility] [place] [facility] [address] [facility] [address] GAMMA-GTP 32 U/L 10-65 May 22, 2024 08:41 AM [facility] [place] [facility] ALBUMIN SERUM Specimen Type: SERUM No comment entered. Ordering Provider: DEX SEO Report Released Date/Time: Apr 18, 2024 08:56 AM Reporting Lab: [facility] [place] [facility] [address] [facility] [address] Performing Lab: [facility] [place] [facility] [address] [facility] [address] ALBUMIN 3.9 g/dL 3.5-5.0 May 22, 2024 08:41 AM [facility] IRON & TIBC PANEL SERUM Specimen Type: SERUM No comment entered. Ordering Provider: DEX SEO Report Released Date/Time: Apr 18, 2024 08:56 AM Reporting Lab: [facility] [place] [facility] [address] [facility] [address] Performing Lab: [facility] [place] [facility] [address] [facility] [address] TIBC 422 ug/dL 204-475 IRON 76 ug/dL 40-160 Transferrin Saturation 18.0 L 20.0-50.0 May 22, 2024 08:41 AM [facility] ALKALINE PHOSPHATASE SERUM Specimen Type: SER UM No comment entered. Ordering Provider: DEX SEO Report Released Date/Time: Apr 18, 2024 08:56 AM Reporting Lab: [facility] [place] [facility] [address] [facility] [address] Performing Lab: [facility] [place] [address] [facility] [address] ALKALINE PHOSPHATASE 72 U/L 40-150 May 22, 2024 08:41 AM [facility] [place] [facility] AST SERUM Specimen Type: SERUM No comment entered. Ordering Provider: DEX SEO Report Released Date/Time: Apr 18, 2024 08:56 AM Reporting Lab: [facility] [place] [facility] [address] [facility] [address] Performing Lab: [facility] [place] [facility] [address] [facility] [address] AST 33 U/L 5-34 May 22, 2024 08:41 AM [facility] [place] [facility] BILIRUBIN, TOTAL SERUM Specimen Type: SERUM No comment entered. Ordering Provider: DEX SEO Report Released Date/Time: Apr 18, 2024 08:56 AM Reporting Lab: [facility] [place] [facility] [address] [facility] [address] Performing Lab: [facility] [address] [facility] [address] BILIRUBIN, TOTAL 0.9 mg/dL 0.2-1.2 May 22, 2024 08:41 AM [facility] PROTEIN,TOTAL SERUM Specimen Type: SERUM No comment entered. Ordering Provider: DEX SEO Report Released Date/Time: Apr 18, 2024 08:56 AM Reporting Lab: [facility] [place] [facility] [address] [facility] [address] Performing Lab[facility] [address] [address] PROTEIN,TOTAL 7.0 g/dL 6.0-8.3 May 22, 2024 08:41 AM [facility] CBC AND DIFF (AUTO) BLOOD Specimen Type: BLOO D No comment entered. Ordering Provider: DEX SEO Report Released Date/Time: Apr 18, 2024 08:56 AM Reporting Lab: [facility] [place] [facility] [address] [facility] [address] Performing Lab: [facility] [place] [place] [address] [address] WBC 7.81 10*3/uL 4.50-11.00 RBC 5.40 10*6/uL [...] 0.4 0.0-0.7 IMMATURE GRAN, ABS 0.03 10*3/uL 0.00-0.0 6 NRBC % 0.0 0.0-0.0 NRBC, ABS 0.00 10*3/uL 0.00-0.00 May 22, 2024 08:41 AM [facility] ALT SERUM Specimen Type: SERUM No comment entered. Ordering Provider: DEX SEO Report Released Date/Time: Apr 18, 2024 08:56 AM Reporting Lab: [facility] [address] [facility] [address] Performing Lab: [address] [address] ALT 73 U/L H Social History: Smoking Status (Most current) and Tobacco Use (All prior to encounter date) This section includes the most current, and the historical, smoking and tobacco- related health factors from the [place] facility where the Encounter took place. Current Smoking Status This section includes the most current smoking, or tobacco-related health factor, from the [place] facility where the Encounter took place. Date/Time Current Smoking Status Comment Facil ity Oct 06, 2023 10:00 AM VA-TOBACCO NEVER USED [facility] Tobacco Use History This section includes a history of the smoking, or tobacco-related health factors, that were collected on or before the date of the Encounter. The data comes from the [place] facility where the Encounter took place. Date/Time Smoking Status/Tobac co Use Comment Facility Jul 31, 2022 09:00 AM VA-TOBACCO NEVER USED [facility] [place] [facility] Apr 24, 2021 03:00 PM VA-TOBACCO NEVER USED [facility] [place] [facility] March 26, 2020 02:34 PM VA-TOBACCO NEVER USED [facility] [place] [facility] Feb 27, 2019 09:44 AM VA-TOBACCO NEVER USED [facility] [place] [facility] Dec 14, 2017 03:24 PM LIFETIME NON-TOBACCO USER [facility] [place] [facility] Dec 14, 2016 10:28 AM LIFETIME NON-TOBACCO USER Life time nonsmoker [facility] [place] [facility] Jan 06, 2016 09:32 AM LIFETIME NON-TOBACCO USER [facility] [place] [facility] Jan 21, 2015 12:48 PM LIFETIME NON-TOBACCO USER never [facility] [place] [facility] Radiology Reports: +/- 30 days of [...] the Encounter. The data comes from all [place] treatment facilities. Date/Time Radiology Report Provider Source May 23, 2024 09:53 AM ULTRASOUND ABD WITH LIVER ELASTOGRAPHY: BACILIO LIU [place] [id number] -[id number] M Exm Date: MAY 23, 2024@09:53 Req Phys: DEX SEO Loc: CWM/NO/PACT 7 (Req'g Loc) Img Loc: ULTRASOUND Service: Unknown [facility] [place] [facility] , (Case 92 COMPLETE) ULTRASOUND ABDOMEN LIMITED (US Detailed) CPT:88025 Reason for Study: FOLLOW UP (Case 93 COMPLETE) ULTRASOUND ELASTOGRAPHY PARENCHYM(US Detailed) CPT:57652 Clinical History: HEPATIC STEATOSIS Some ultrasound tests require a prep. Report Status: Verified Date Reported: MAY 23, 2024 Date Verified: MAY 23, 2024 [place] E-Sig:/ES/ED Raygoza MALAVE JR Report: Study: Abdomen ultrasound. Comparison: [...] Primary Interpreting Staff: ED MALAVE JR, Radiologist ([place]) /ED SINGH JR [facility] Encounter Notes: All associated encounter notes [...] for which he was previously referred to [facility]. He was seen by [facility] August 2023 with recommendation for [...] this [facility] (local) and dispensed from another [place] or DoD facility (remote) as well as [...] list may not be complete. Please check [employer]. Allergies/ADRs (Tool #5) FACILITY ALLERGY/ADR -------- [facility] NO KNOWN ALLERGIES [facility] [place] [facility] No Known Allergies [facility] NO KNOWN ALLERGIES [facility] (Tool #1) INCLUDED IN THIS LIST: Alphabetical [...] display of VA prescriptions dispensed from another [place] or [facility] facility (remote) is limited to active outpatient prescription entries matched to National Drug File at the originating site and may not include some items such as investigational drugs, compounds, etc. NOT INCLUDED IN THIS LIST: Medications self-entered by the patient into personal health records (i.e. [employer]) are NOT included in this list. Non-VA medications documented outside this [place], remote inpatient orders (regardless of status) and remote clinic medications are NOT included in this list. The patient and provider must always discuss medications the patient is taking, regardless of where the medication was dispensed or obtained. OUTPT AMLODIPINE BESYLATE 5MG TAB (Status = Discontinued) TAKE ONE TABLET BY MOUTH ONCE DAILY FOR BLOOD PRESSURE/HEART, DO NOT TAKE WITH [employer] Rx# [id number] Last Released: 03/15/24 Qty/Days Supply: Rx Expiration Date: 08/17/24 Refills Remainin OUTPT AMLODIPINE BESYLATE 5MG TAB (Status = Active/Suspended) TAKE ONE TABLET BY MOUTH ONCE DAILY FOR BLOOD PRESSURE/HEART, DO NOT TAKE WITH [employer] Rx# [id number] Last Released: Qty/Days Supply: Rx Expiration Date: 04/19/25 Refills Remainin OUTPT AMOXICILLIN 875/CLAV K 125MG TAB (Status = ) TAKE 1 TABLET BY MOUTH TWICE DAILY FOR INFECTION Rx# [id number] Last Released: 04/11/24 Qty/Days Supply: 27/08 Rx Expiration Date: 05/11/24 Refills Remainin Indication: FOR INFECTION CAUSED BY BACTERIA OUTPT CARBOXYMETHYLCELLULOSE NA 0.5% OPH SOLN (Status = Active) INSTILL 1 DROP INTO EACH EYE FOUR TIMES DAILY NEEDED Rx# [id number] Last Released: 08/04/23 Qty/Days Supply: Rx Expiration Date: 08/03/24 Refills Remainin Indication: FOR DRY EYE OUTPT DEXTRAN 70/GLYCER 0.2%/HYPROMEL 0.3% OPH (Status = Active) INSTILL 1 DROP INTO EACH EYE AT BEDTIME Rx# [id number] Last Released: 08/04/23 Qty/Days Supply: Rx Expiration Date: 08/03/24 Refills Remainin Indication: FOR DRY EYE OUTPT LOSARTAN 25MG TAB (Status = Discontinued) TAKE THREE TABLETS BY MOUTH ONCE DAILY FOR BLOOD PRESSURE/HEART Rx# [id number] Last Released: 03/15/24 Qty/Days Supply: Rx Expiration Date: 08/17/24 Refills Remainin OUTPT LOSARTAN 50MG TAB (Status = Active) TAKE ONE TABLET BY MOUTH ONCE DAILY FOR BLOOD PRESSURE/HEART Rx# [id number] Last Released: 04/20/24 Qty/Days Supply: Rx Expiration Date: 04/19/25 Refills Remainin Indication: FOR HIGH BLOOD PRESSURE OUTPT OMEPRAZOLE 20MG EC CAP (Status = Discontinued) TAKE ONE CAPSULE BY MOUTH TWICE DAILY BEFORE A MEAL Rx# [id number] Last Released: 03/15/24 Qty/Days Supply: Rx Expiration Date: 08/17/24 Refills Remainin OUTPT OMEPRAZOLE 20MG EC CAP (Status = Active/Suspended) TAKE ONE CAPSULE BY MOUTH TWICE DAILY BEFORE A MEAL Rx# [id number] Last Released: Supply: Rx Expiration Date: 04/19/25 Refills Remainin SUPPLIES Declines printed copy of medication list now. /mandi/ Davie Zarate OD CHIEF OF OPTOMETRY Signed: 05/23/2024 15:47 DAVIE ZARATE [facility] [place] [facility] May 23, 2024 12:54 PM OPTOMETRY NOTE: LOCAL TITLE: OPTOMETRY NOTE STANDARD TITLE: OPTOMETRY NOTE DATE OF NOTE: MAY 23, 2024@12:54 ENTRY DATE: MAY 23, 2024@12:54:30 AUTHOR: BRO CANALES COSIGNER: DAVIE ZARATE URGENCY: STATUS: COMPLETED Active problems - Computerized Problem List is the source for the followin. Onychomycosis 2. Sleep Apnea (SCT [id number]) 3. RBC count abnormal 4. Benign essential [...] with DFE 07/2023 -Pt was referred to [facility] at last visit for retinoplexy d/t retinal hole @ 4:00 OS. No notes in [facility]. Pt states that he went to appointment and he was told to have [facility] observe for changes. He does not have another appt scheduled with [facility]. Chief Complaint: -Pt reports that he broke [...] Atrophic hole OS - previously referred to [facility], [facility] - Pt ed on today's findings. Pt encouraged to be dilated to ensure proper visualization of the hole, pt refused d/t work. Ed extensively on s/sx of retinal detachment and advised pt to call [facility] immediately with any sudden changes in vision. Pt stated they understood. - Fundus photos taken today for documentation. Continue to monitor with DFE at [facility] in 1 yr. 2. Dry eye OU [...] OPTOMETRY Cosigned: 05/24/2024 06:40 BRO CANALES [facility]
--- OUTSIDE RECORDS SUMMARY | 2025-03-15 16:01 | XMS_ITS ---
Author Name [facility] [place] [facility] [place] Address [address] [place] [address] Care Team Providers Care Balance Staff Staker Name Role Phone DEX SEO Primary Care [...] Agustin's Name Patient's Relationship to Policy [facility] E [facility]ALTH PLAN [employer] Meetings [facility] Jul 09, 2023 [id number] [phone] SAULO LIU PATIENT [facility] PRESCRIPT ION [facility] Nov 08, 2020 [id number] [phone] SAULO LIU PATIENT [employer] ([id number]) PRESCRIPT ION [facility] Jul 09, 2023 [id number] SAULO LIU PATIENT [employer] ([id number]) PRESCRIPT ION [facility] Jul 09, 2023 [id number] SAULO LIU PATIENT [facility] HIGH DEDUCTIBL E HEALTH PLAN W/HEALTH SAV[place] ACCOUNT [facility] Dec 01, 2014 [id number] [phone] SAULO LIU PATIENT Selected Encounter This section includes the information on record at [place] for the Encounter. Date/Time Encounter Type Encounter Description Reason Provider Source Apr 11, 2024 09:00 AM OFFICE O/P EST MOD 30 MIN PRIMARY CARE/MEDICINE ICD-10-CM H92.03 Otalgia, bilateral GUNNER BLACKWELL Eve Encounter Template Text not used by [place] Assessments - Encounter Diagnoses This section includes the primary and secondary diagnoses documented for the Encounter. Date/Time Primary/Secondary Diagnosis Diagnosis Name Provider Source May 04, 2024 12:50 PM PRIMARY Otalgia, bilateral [facility]UN[facility] Plan of Treatment: Future Appointments (+ 6 months) and Future Tests (+/- 45 days) The Plan of Treatment section includes future care activities for the patient from all [place] treatmentfacilities. This section includes future appointments and future orders which are active, pending or scheduled. Future Appointments This section includes appointments that were scheduled to occur 6 months from the date of the Encounter, up to a maximum of 20 appointments. The data comes from all [place] treatment facilities. Appointment Date/Time Appointment Type Appointme nt Facility Name Apr 18, 2024 08:30 AM [facility] [place] [facility] May 15, 2024 02:30 PM AMBULATORY - NONE [place] [facility] [place] [facility] May 23, 2024 10:00 AM AMBULATORY NONE [place] [facility] [place] [facility] May 23, 2024 03:00 PM AMBULATORY - MEDICINE [place] [facility] [place] [facility] May 23, 2024 04:15 PM AMBULATORY - MEDICINE [place] [facility] [place] [facility] Aug 16, 2024 03:20 PM [facility] [place] [facility] Lab Results: +/- 30 days of the encounter This section includes the Chemistry and Hematology Lab Results on record with [place] for the patient. Radiology Reports and Pathology Reports are provided separately, in subsequent sections. Lab Results This section contains the Chemistry/Hematology Results that were resulted 30 days before or 30 daysafter the date of the Encounter. Date/Time Source Result Type Result - Unit Interpretation Reference Range Specimen Type Comment Apr 11, 2024 10:11 AM [facility] CBC BLOOD Specimen Type: BLOOD No comment entered. Ordering Provider: DEX SEO Report Released Date/Time: Feb 16, 2024 11:38 AM Reporting Lab: [facility] [address] [address] Performing Lab: [facility] [address] [address] WBC 7.46 10*3/uL 4.50-11.00 RBC 5.62 10*6/uL 4.23-5.66 HGB 16.5 g/dL 12.8-17 HCT 49.0 39.2-50.4 MCV 87.2 fL 82-99 MCHC 33.7 g/dL 30.8-35.1 PLT 219 10*3/uL 140-360 RDW-CV 13.0 12.0-16.0 MCH 29.4 pg 26.2-32.6 Apr 11, 2024 10:11 AM [facility] LIPID PANEL, NON FASTING SERUM Specimen Type: SERUM No comment entered. Ordering Provider: DEX SEO Report Released Date/Time: Feb 16, 2024 11:38 AM Reporting Lab: [facility] [address] [address] Performing Lab: [address] [address] CHOLESTEROL 181 mg/dL TRIGLYCERIDE 109 mg/dL 0-150 LDL calculated 125 mg/dL 0-129 CHOL/HDL 5.3 HDL CHOLESTEROL 34 mg/dL L 40-60 Apr 11, 2024 10:11 AM [facility] LIVER FUNCTION SERUM Specimen Type: SERUM No comment entered. Ordering Provider: DEX SEO Report Released Date/Time: Feb 16, 2024 11:38 AM Reporting Lab: [facility] [address] [address] Performing Lab: [facility] [address] PROTEIN,TOTAL 7.2 g/dL 6.0-8.3 ALBUMIN 4.1 g/dL 3.5-5.0 ALKALINE PHOSPHATASE 75 U/L 40-150 AST 41 U/L H 5-34 ALT 87 U/L H BILIRUBIN, TOTAL 0.9 mg/dL 0.2-1.2 Apr 11, 2024 10:11 AM [facility] BASIC METABOLIC PANEL (non-fasting) SERUM Spe cimen Type: SERUM No comment entered. Ordering Provider: DEX SEO Report Released Date/Time: Feb 16, 2024 11:38 AM Reporting Lab: [address] [address] Performing Lab: [address] [address] UREA NITROGEN 13 mg/dL 7-25 GLUCOSE 106 [...] AM 98 75 136/98 16 97 8 [facility] Social History: Smoking Status (Most current) and Tobacco Use (All prior to encounter date) This section includes the most current, and the historical, smoking and tobacco- related health factors from the [place] facility where the Encounter took place. Current Smoking Status This section includes the most current smoking, or tobacco-related health factor, from the [place] facility where the Encounter took place. Date/Time Current Smoking Status Comment Facil ity Oct 06, 2023 10:00 AM VA-TOBACCO NEVER USED [facility] Tobacco Use History This section includes a history of the smoking, or tobacco-related health factors, that were collected on or before the date of the Encounter. The data comes from the [place] facility where the Encounter took place. Date/Time [...] the followin. Onychomycosis 2. Sleep Apnea (SCT [id number]) uses CPAP 3. RBC count abnormal 4. [...] complete. Please check JLV. FACILITY ALLERGY/ADR -------- [facility] NO KNOWN ALLERGIES [place] [facility] [place] [facility] No Known Allergies [facility] NO KNOWN ALLERGIES MEDICATIONS: Active [...] amox 500mg TID over the counter from [place]; was not seen for his ears, self-treating -afebrile with stable vitals -stop amox, start augmentin 875mg BID -rest & maintain good hydration -adv alternate tylenol and motrin as per stenotype operator's instructions; adv no more than 3000mg [...] of active outpatient prescriptions dispensed from this [place] (local) and dispensed from another [place] or [facility] facility (remote) as well as inpatient orders [...] NURSE PRACTITIONER Signed: 04/12/2024 10:00 [facility] [place] [facility]
--- OUTSIDE RECORDS SUMMARY | 2025-03-15 16:02 | XMS_ITS | Continuity of Care Document ---
Author Name [facility] Organization [facility] Care Team Providers Care Single Stroke Preformer Name Role Phone [facility] Unavailable Unavailable Problems Combined list of problems [...] Entered By: EDVIN DAVID Comment: [facility] 2017 - ranitidine and omeprazole [facility] Panic disorder Active 015 Condition [facility] Steatosis of liver Active 015 Condition Dec 31, 2014 Entered By: WINSTON JONES Comment: sono VMG 11/22, SGPT 78 12/31/14 [facility] SINUSITIS ACUTE Active Condition [facility] UPPER RESPIRATORY INFECTION Inactive Condition UPPER RESPIRATORY INFECTION DoD Benign essential hypertension Active Condition [facility] Dermatophytosis of other specified sites (ICD-9-CM 110.8) Active Condition [facility] Headache * (ICD-9-CM 784.0) Active Condition [facility] Hypertensive disorder Active Condition [facility] Knee: arthralgia * (ICD-9-CM 719.46) Active Condition [facility] Low Back Pain * (ICD-9-CM 724.2) Active Condition [facility] Nonspecific abnormal results of function study of liver (ICD-9-CM 794.8) Active Condition [facility] OBESITY, UNSP Active Condition [facility] Onychomycosis Active Condition [facility] Pain in joint involving lower leg (ICD-9-CM 719.46) Active Condition [facility] Panic Disorder Active Condition [facility] Patellar tendinitis (ICD-9-CM 726.64) Active Condition [facility] RBC count [facility] Active Condition [facility] Relationship problems Active Condition [facility] Sleep Apnea (SCT [id number]) Active Condition April 04, 2020 Entered By: JIAN SEO AM Comment: uses CPAP [facility] Toothache (SCT [id number]) - Unspecified disorder of the teeth and supporting stru Inactive Condition 11/06/2021 [facility] Diagnosis: ICD-10-CM G47.30 Sleep apnea, unspecified Active Diagnosis [facility] Diagnosis: ICD-10-CM Z46.0 Encounter for fit/adjst of spectacles and contact lenses Active Diagnosis [facility] Diagnosis: ICD-10-CM H33.322 Round hole, left eye Active Diagnosis [facility] Diagnosis: ICD-10-CM 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tism, bilateral Active Diagnosis [facility] Diagnosis: ICD-10-CM H92.03 Otalgia, bilateral Active Diagnosis [facility] Diagnosis: ICD-10-CM Z04.9 Encounter for examination and observation for unsp reason Active Diagnosis [facility] Diagnosis: ICD-10-CM R05.1 Acute cough Active Diagnosis [facility] Diagnosis: ICD-10-CM J01.90 Acute sinusitis, unspecified Active Diagnosis [facility] Medications Combined list of outpatient [...] WITH GRAPEFRU IT JUICE ORAL ACTIVE 04/19/2025 [id number] DEX SEO 2023 90 [facility] AMLODIPINE BESYLATE 5MG TAB TAKE ONE TABLET BY MOUTH ONCE DAILY FOR BLOOD PRESSURE /HEART, DO NOT TAKE WITH GRAPEFRU IT JUICE ORAL DISCONT INUED 08/17/2024 [id number] DEX SEO 2022 90 [facility] AMOXICILLIN TRIHYDRATE 875MG/CLAVU LANATE K 125MG TAB TAKE 1 TABLET BY MOUTH TWICE DAILY FOR INFECTIO N ORAL 05/11/2024 [id number] RA RADHA BLACKWELL SALLIE 2023 20 [facility] [place] 25MG TAB TAKE THREE TABLETS BY MOUTH ONCE DAILY FOR BLOOD PRESSURE /HEART ORAL DISCONT INUED (EDIT) 08/17/2024 [id number] DEX SEO 2022 270 [facility] [place] 50MG TAB TAKE ONE TABLET BY MOUTH ONCE DAILY FOR BLOOD PRESSURE /HEART ORAL ACTIVE 04/19/2025 [id number] 5 DEX SEO 2023 90 [facility] OMEPRAZOLE 20MG CAP,EC TAKE ONE CAPSULE BY MOUTH TWICE DAILY BEFORE A MEAL ORAL ACTIVE 04/19/2025 [id number] 4 DEX SEO 2023 180 [facility] OMEPRAZOLE 20MG CAP,EC TAKE ONE CAPSULE BY MOUTH TWICE DAILY BEFORE A MEAL ORAL DISCONT INUED 08/17/2024 [id number] DEX SEO 2022 180 [facility] Allergies, Adverse Reactions, Alerts Combined list of allergies from Department of Defense and Veterans Affairs facilities. It does not include entries that were removed or entered in error. Substance Category Reaction Severity Reaction type Status Date Reported Comments Source No Known Allergies Drug allergy (disorder) active 08/14/2009 [facility] Immunizations Combined list of available immunizations from the Department of Defense and Veterans Affairs facilities. Immunization Series Date Given Administered By Site Reaction Lot Number CVX Code Drug Devulcanizer Charger Status Comments Source COVID-19 (PFIZER), MRNA, LNP-S, PF, 30 MCG/0.3 ML DOSE 2 2020 208 complet ed [facility] COVID-19 (PFIZER), MRNA, LNP-S, PF, 30 MCG/0.3 ML DOSE 1 2020 208 complet ed [facility] ZOSTER RECOMBINANT 1 2018 187 complet ed [facility] TD(ADULT) UNSPECIFIED FORMULATION 2017 139 complet ed [facility] ER [facility] [...] CDH [facility] typhoid Vi capsular polysaccharid e vaccine 1 2007 [id number] Sanofi Pasteur (PMC) complet ed typhoid Vi capsular polysacch aride vaccine DoD FLU,3 YRS (HISTORICAL) 2006 88 complet ed [facility] INFLUENZA, UNSPECIFIED FORMULATION 2005 NONE 88 complet ed [place] hepatitis B vaccine, adult dosage 3 2004 [id number] [employer] (SKB) complet ed hepatitis B vaccine, adult dosage DoD anthrax vaccine 4 2003 UNK 24 [employer] ([facility]) complet ed anthrax vaccine DoD influenza virus vaccine, split virus (incl. purified surface antigen)-reti red CODE 1 2002 [id number] [employer] (AVB) complet ed influenza virus vaccine, split virus (incl. purified surface antigen)- retired CODE DoD anthrax vaccine 3 2002 [id number] 24 [facility] ([facility]) complet ed anthrax vaccine DoD hepatitis B vaccine, adult dosage 1 2002 [id number] 43 [employer]ner[employer] Technologiesine (SKB) complet ed hepatitis B vaccine, adult dosage DoD anthrax vaccine 2 2002 [id number] 24 [facility] ([facility]) complet ed anthrax vaccine DoD vaccinia (smallpox) vaccine 0 2002 [id number] 75 [facility] ([facility]) complet ed vaccinia (smallpox ) vaccine DoD anthrax vaccine 1 2002 [id number] 24 [facility] ([facility]) complet ed anthrax vaccine DoD influenza virus vaccine, split virus (incl. purified surface antigen)-reti red CODE 0 2002 [id number] 15 Sanofi Pasteur ([facility]) complet ed influenza virus vaccine, split virus (incl. purified surface antigen)- retired CODE DoD yellow fever vaccine 0 2002 [id number] 37 Sanofi Pasteur ([facility]) complet ed yellow fever vaccine DoD hepatitis B vaccine, adult dosage 1 2002 [id number] 43 [employer] (SKB) complet ed hepatitis B vaccine, adult dosage DoD hepatitis A vaccine, adult dosage 2 2002 [id number] Merck (MSD) complet ed hepatitis A vaccine, adult dosage DoD influenza virus vaccine, whole virus 0 2000 UNK 16 Unknown (UNK) comple t ed influenza virus vaccine, whole virus DoD typhoid vaccine, parenteral, other than acetone-kille d, dried 0 2000 UNK 41 Unknown (UNK) comple t ed typhoid vaccine, parentera l, other than acetone-k illed, dried DoD hepatitis A vaccine, adult dosage 1 2000 UNK 52 Unknown (UNK) comple t ed hepatitis A vaccine, adult dosage DoD trivalent poliovirus vaccine, live, oral 0 2000 UNK 02 Unknown (UNK) comple t ed trivalent polioviru s vaccine, live, oral DoD measles, mumps and rubella virus vaccine 0 2000 UNK 03 Unknown (UNK) comple t ed measles, mumps and rubella virus vaccine DoD tetanus and diphtheria toxoids, adsorbed, preservative free, for adult use (2 Lf of tetanus toxoid and 2 Lf of diphtheria toxoid) 0 2000 UNK 09 Unknown (UNK) comple t ed tetanus and diphtheri a toxoids, adsorbed, preservat leana free, for adult use (2 Lf of tetanus toxoid and 2 Lf of diphtheri a toxoid) DoD meningococcal polysaccharid e vaccine (MPSV4) 1 2000 UNK 32 Sanofi Pasteur (PMC) complet ed meningoco ccal polysacch aride vaccine (MPSV4) DoD Results Combined list of recent chemistry, hematology [...] Apr 18, 2024 08:56 AM Reporting Lab: [address] [address] Performing Lab: [address] [address] [facility] PT & INR (PROTIME ) PROTHROMBI N TIME (PT) 12.5 s 10.0 - 13.1 05/22 Specimen Type: PLASMA No comment entered. Ordering Provider: SAVI SEO Report Released Date/Time: Apr 18, 2024 08:56 AM [facility] [address] Performing Lab: [address] [address] [facility] HEPATITI S B CORE (Total) Ab HEPATITIS [...] Apr 18, 2024 08:56 AM Reporting Lab: [facility] [address] [facility] [address] Performing Lab: [facility] [address] [facility] [address] [facility] HEPATITI S B SURFACE ANTIGEN (HBsAg)- [...] Apr 18, 2024 08:56 AM Reporting Lab: [facility] [address] [facility] [address] Performing Lab: [facility] [address] [facility] [facility] [address] [facility] JOSE SCREEN/T ITER NUCLEAR AB [PRESENCE] IN SERUM NEG 05/22 Specimen Type: SERUM No comment entered. Ordering Provider: SAVI SEO Report Released Date/Time: Apr 18, 2024 08:56 AM Reporting Lab: [facility] [address] [facility] [address] Performing Lab: [facility] [address] [facility] [facility] [address] [facility] HEPATITI S C ANTIBODY (HCV)-AR C HEPATITIS C VIRUS AB [PRESENCE] IN SERUM NON-REAC TIVE 05/22 Specimen Type: SERUM Comment: Hep C Ab: No HCV antibody detected. If recent infection is suspected or other evidence suggests HCV infection, consider HCV nucleic acid testing Ordering Provider: SAVI SEO Report Released Date/Time: Apr 18, 2024 08:56 AM Reporting Lab: [facility] [address] [facility] [address] Performing Lab: [facility] [address] [facility] [address] [facility] FERRITIN FERRITIN [MASS/VOLU ME] IN SERUM OR PLASMA 27 ng/mL 20 - 300 05/22 Specimen Type: SERUM No comment entered. Ordering Provider: SAVI SEO Report Released Date/Time: Apr 18, 2024 08:56 AM Reporting Lab: [facility] [address] [facility] [address] Performing Lab: [facility] [address] [facility] [address] [facility] GAMMA-GT P GAMMA GLUTAMYL TRANSFERAS E [ENZYMATIC ACTIVITY/V OLUME] IN SERUM OR PLASMA 32 U/L 10 - 65 05/22 Specimen Type: SERUM No comment entered. Ordering Provider: SAVI SEO Report Released Date/Time: Apr 18, 2024 08:56 AM Reporting Lab: [facility] [address] [facility] [address] Performing Lab: [facility] [address] [facility] [address] [facility] IRON & TIBC PANEL IRON BINDING CAPACITY [MASS/VOLU ME] IN SERUM OR PLASMA 422 ug/dL 204 - 475 05/22 Specimen Type: SERUM No comment entered. Ordering Provider: SAVI SEO Report Released Date/Time: Apr 18, 2024 08:56 AM Reporting Lab: [facility] [address] [facility] [address] Performing Lab: [facility] [address] [facility] [address] [facility] IRON & TIBC PANEL IRON [MASS/VOLU ME] IN SERUM OR PLASMA 76 ug/dL 40 - 160 05/22 Specimen Type: SERUM No comment entered. Ordering Provider: SAVI SEO Report Released Date/Time: Apr 18, 2024 08:56 AM Reporting Lab: [facility] [address] [address] Performing Lab: [facility] [address] [address] [facility] IRON & TIBC PANEL IRON/IRON BINDING CAPACITY.T OTAL [MASS RATIO] IN SERUM OR PLASMA 18.0 20.0 - 50.0 05/22 L Specimen Type: SERUM No comment entered. Ordering Provider: SAVI SEO Report Released Date/Time: Apr 18, 2024 08:56 AM Reporting Lab: [facility] [address] [address] Performing Lab: [facility] [address] [facility] [address] [facility] ALBUMIN ALBUMIN [MASS/VOLU ME] IN SERUM OR PLASMA 3.9 g/dL 3.5 - 5.0 05/22 Specimen Type: SERUM No comment entered. Ordering Provider: SAVI SEO Report Released Date/Time: Apr 18, 2024 08:56 AM Reporting Lab: [facility] [address] [address] Performing Lab: [facility] [address] [address] [facility] ALKALINE PHOSPHAT ASE ALKALINE PHOSPHATAS E [ENZYMATIC ACTIVITY/V OLUME] IN SERUM OR PLASMA 72 U/L 40 - 150 05/22 Specimen Type: SERUM No comment entered. Ordering Provider: SAVI SEO Report Released Date/Time: Apr 18, 2024 08:56 AM Reporting Lab: [facility] [address] [facility] [address] Performing Lab: [facility] [address] [facility] [address] [facility] Vital Signs Combined list of inpatient and [...] ADM Date DC Date Status Disposition Source [facility] Facility OUTPATIENT [id number] 08/23 Discharged- Home or Self-care [facility] [employer] [facility]) OUTPATIENT [id number] flu symptom s NEHAL HAWTHORNE 08/14 Sick at Home/Quarter s [facility]) [facility] OFFICE O/P EST LOW 20-29 MIN [id number] Diagnos is: ICD-10- CM J01.90 Acute sinusit is, unspeci fied Mihaela SEO 10/06 [facility] Out[facility] En[facility] [id number] 10/09 [facility] Out[facility] En[facility] [id number] 10[facility]11 [facility] En[facility] [id number] 10/20 [facility] OFFICE O/P EST LOW 20-29 MIN [id number] Diagnos is: ICD-10- CM R05.1 Acute cough Mihaela SEO 10/28 [facility] Out[facility] En[facility] [id number] 11/11 [facility] En[facility] [id number] 11/25 [facility] En[facility] [id number] 11/26 [facility] Outpatient Encounter [id number] Mihaela SEO 12/01 [facility] Out[facility] Encounter [id number] 12/07 [facility] Out[facility] Encounter [id number] 02/09 [facility] Out[facility] Encounter [id number] 02/27 [facility] Out[facility] Encounter [id number] 03/14 [facility] OFF/OP EST MAY X REQ PHY/QHP [id number] Diagnos is: ICD-10- CM Z04.9 Encount er for examina tion and observa tion for unsp reason NIYA MCCONNELL 04/11 [facility] OFFICE O/P EST MOD 30 MIN [id number] Diagnos is: ICD-10- CM H92.03 juan r Mccann RAI MONDA KATHRYN 04/11 [facility] Out[facility] Encounter [id number] 04/14 [facility] OFFICE O/P EST MOD 30 MIN [id number] Diagnos is: ICD-10- CM G47.30 Sleep apnea, unspeci fied Mihaela SEO LEANNESTELITAYogesh Kali 04/18 [facility] Outpatient Encounter [id number] 04/28 [facility] Out[facility] Encounter [id number] 05/14 [facility] INTRM OPH EXAM EST PATIENT [id number] Diagnos is: ICD-10- CM 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 tism, bilater al NEENA ZARATE 05/23 [facility] FUNDUS PHOTOGRAPH Y W/I&R [id number] Diagnos is: ICD-10- CM H33.322 Round hole, left eye NEENA ZARATE 05/23 [facility] Outpatient Encounter [id number] 05/24 [facility] FIT SPECTACLES MONOFOCAL [id number] Diagnos is: ICD-10- CM Z46.0 Encount er for fit/adj st of spectac les and contact lenses NEENA ZARATE 05/24 [facility] En[facility] [id number] 05/30 [place] [facility] [facility] Outpatient Encounter [id number] 05/30 [facility] COLLJ & INTERPJ DATA EA 30 D [id number] Diagnos is: ICD-10- CM G47.30 Sleep apnea, unspeci fied ST [facility] MOLINA E P 07/03 [facility] Outpatient Encounter [id number] Mihaela SEO 07/06 [facility] Outpatient Encounter [id number] 08/16 [facility] Procedures Combined list of: 1) Procedures from Department of Veterans Affairs facilities going back up to thelast 18 months, not all VA non-surgical procedures are included; 2) All procedures from the Department of Defense facilities. Procedure Procedure Type Code Date Perfomer Comments Sour e AUDIOMETRIC TESTING OF GROUPS 11/29/2000 [facility] UNLISTED PROCEDURE, DENTOALVEOLAR STRUCTURES 12/06/2002 DoD Social History Combined list of available smoking, tobacco, and other social history from Department of Defense and Veterans Affairs facilities. Social History Type Response Date Comment Source Tobacco smoking status [facility] VA-TOBACCO NEVER USED 10/06/2023 [facility] History of tobacco use VA-TOBACCO NEVER USED 07/31/2022 [facility] [place] History of tobacco use VA-TOBACCO NEVER USED 04/24/2021 [facility] History of tobacco use VA-TOBACCO NEVER USED 03/26/2020 [facility] [place] [facility] History of tobacco use VA-TOBACCO NEVER USED 02/27/2019 [facility] [place] History of tobacco use LIFETIME NON-TOBACCO USER 12/14/2017 [facility] History of tobacco use LIFETIME NON-TOBACCO USER 12/14/2016 Life time nonsmoker [facility] [place] [facility] History of tobacco use LIFETIME NON-TOBACCO USER 01/06/2016 [facility] History of tobacco use LIFETIME NON-TOBACCO USER 01/21/2015 never [facility] History of tobacco use LIFETIME NON-TOBACCO USER [...] of tobacco use LIFETIME NON-TOBACCO USER 04/04/2004[place] This section is an empty social history section. [facility] Plan of Care List of future care activities from Department of Veterans Affairs facilities. Additional future care activities may be listed in the Assessment and Plan section. Date/Time Care Activity Care Activity Detail Facili ty 06/07/2025 AMBULATORY - MEDIC[facility]
--- OUTSIDE RECORDS SUMMARY | 2025-03-15 16:02 | XMS_ITS ---
Author Name [facility] [place] Address [address] [place] [address] Care Team Providers Care Flight Hostess Name Role Phone DEX SEO Primary Care Provider Un[facility]illaci [facility] Insurance Providers: All historical and current Section [...] BCBS [place] HIGH DEDUCTIBL E HEALTH PLAN [employer] [facility] Jul 09, 2023 [id number] SAULO LIU PATIENT [facility] PRESCRIPT ION [facility] Nov 08, 2020 [id number] [phone] SAULO LIU PATIENT [employer] ([id number]) PRESCRIPT ION [facility] Jul 09, 2023 AGRIMRK [id number] SAULO LIU PATIENT [employer] ([id number]) PRESCRIPT ION AGRIM ARK [facility] Jul 09, 2023 AGRIMRK [id number] SAULO LIU PATIENT [facility] HIGH DEDUCTIBL E HEALTH PLAN W/HEALTH SAVINGS ACCOUNT [facility] Dec 01, 2014 [id number] [phone] ALEXAGRABIELS ESHA PATIENT Selected Encounter This section includes the information on record at [place] for the Encounter. Date/Time Encounter Type Encounter Description Reason Provider Source Apr 11, 2024 08:30 AM OFF/OP EST MARCH X REQ PHY/QHP PRIMARY CARE/MEDICINE ICD-10-CM Z04.9 Encounter for examination and observation for unsp reason KATARINA MCCONNELL IHE Encounter Template Text not used by [place] Assessments - Encounter Diagnoses This section includes the primary and secondary diagnoses documented for the Encounter. Date/Time Primary/Secondary Diagnosis Diagnosis Name Provider Source May 04, 2024 12:37 PM PRIMARY Encounter for examination and observation for unsp reason [facility] [place] [facility] Plan of Treatment: Future Appointments (+ 6 months) and Future Tests (+/- 45 days) The Plan of Treatment section includes future care activities for the patient from all [place] treatmentfacilities. This section includes future appointments and future orders which are active, pending or scheduled. Future Appointments This section includes appointments that were scheduled to occur 6 months from the date of the Encounter, up to a maximum of 20 appointments. The data comes from all [place] treatment facilities. Appointment Date/Time Appointment Type Appointme nt Facility Name Apr 18, 2024 08:30 AM AMBULATORY - MEDICINE [place] [facility] [place] [facility] May 15, 2024 02:30 PM AMBULATORY - NONE [place] [facility] [place] [facility] May 23, 2024 10:00 AM AMBULATORY - NONE [place] [facility] [place] [facility] May 23, 2024 03:00 PM AMBULATORY - MEDICINE [place] [facility] [place] [facility] May 23, 2024 04:15 PM AMBULATORY - MEDICINE [place] [facility] [place] [facility] Aug 16, 2024 03:20 PM AMBULATORY - MEDICINE [place] [facility] Lab Results: +/- 30 days of the encounter This section includes the Chemistry and Hematology Lab Results on record with [place] for the patient. Radiology Reports and Pathology Reports are provided separately, in subsequent sections. Lab Results This section contains the Chemistry/Hematology Results that were resulted 30 days before or 30 daysafter the date of the Encounter. Date/Time Source Result Type Result - Unit Interpretation Reference Range Specimen Type Comment Apr 11, 2024 10:11 [facility] CBC BLOOD Specimen Type: BLOOD No comment entered. Ordering Provider: DEX SEO Report Released Date/Time: Feb 16, 2024 11:38 AM Reporting [facility] [address] [address] Performing Lab: [facility] [address] [address] WBC 7.46 10*3/uL 4.50-11.00 RBC 5.62 10*6/uL 4.23-5.66 HGB 16.5 g/dL 12.8-17 HCT 49.0 39.2-50.4 MCV 87.2 fL 82-99 MCHC 33.7 g/dL 30.8-35.1 PLT 219 10*3/uL 140-360 RDW-CV 13.0 12.0-16.0 MCH 29.4 pg 26.2-32.6 Apr 11, 2024 10:11 AM [facility] LIPID PANEL, NON FASTING SERUM Specimen Type: SERUM No comment entered. Ordering Provider: DEX SEO Report Released Date/Time: Feb 16, 2024 11:38 AM Reporting Lab[facility] [address] Performing Lab: [facility] [address] CHOLESTEROL 181 mg/dL TRIGLYCERIDE 109 mg/dL 0-150 LDL calculated 125 mg/dL 0-129 CHOL/HDL 5.3 HDL CHOLESTEROL 34 mg/dL L 40-60 Apr 11, 2024 10:11 AM [facility] LIVER FUNCTION SERUM Specimen Type: SERUM No comment entered. Ordering Provider: DEX SEO Report Released Date/Time: Feb 16, 2024 11:38 AM Reporting Lab: [facility] [address] Performing Lab: [facility] [address] [facility] [address] PROTEIN,TOTAL 7.2 g/dL 6.0-8.3 ALBUMIN 4.1 g/dL 3.5-5.0 ALKALINE PHOSPHATASE 75 U/L 40-150 AST 41 U/L H 5-34 ALT 87 U/L H BILIRUBIN, TOTAL 0.9 mg/dL 0.2-1.2 Apr 11, 2024 10:11 AM [facility] BASIC METABOLIC PANEL (non-fasting) SERUM Spe cimen Type: SERUM No comment entered. Ordering Provider: DEX SEO Report Released Date/Time: Feb 16, 2024 11:38 AM Reporting Lab: [facility] [address] [facility] [address] Performing Lab: [address] [address] UREA NITROGEN 13 mg/dL 7-25 GLUCOSE 106 [...] AM 98 75 136/98 16 97 8 [facility] Social History: Smoking Status (Most current) and Tobacco Use (All prior to encounter date) This section includes the most current, and the historical, smoking and tobacco- related health factors from the [place] facility where the Encounter took place. Current Smoking Status This section includes the most current smoking, or tobacco-related health factor, from the [place] facility where the Encounter took place. Date/Time Current Smoking Status Comment [facility] Oct 06, 2023 10:00 AM VA-TOBACCO NEVER USED [facility] Tobacco Use History This section includes a history of the smoking, or tobacco-related health factors, that were collected on or before the date of the Encounter. The data comes from the [place] facility where the Encounter took place. Date/Time Smoking Status/Tobac co Use Comment Facility Jul 31, 2022 09:00 AM VA-TOBACCO NEVER USED [place] [facility] [place] [facility] Apr 24, 2021 03:00 PM VA-TOBACCO NEVER USED [place] [facility] [place] [facility] March 26, 2020 02:34 PM VA-TOBACCO NEVER USED [facility] [place] [facility] Feb 27, 2019 09:44 AM VA-TOBACCO NEVER USED [facility] [place] [facility] Dec 14, 2017 03:24 PM LIFETIME NON-TOBACCO USER [facility] [place] [facility] Dec 14, 2016 10:28 AM LIFETIME NON-TOBACCO USER Life time nonsmoker [facility] [place] [facility] Jan 06, 2016 09:32 AM LIFETIME NON-TOBACCO USER [facility] [place] [facility] Jan 21, 2015 12:48 PM LIFETIME NON-TOBACCO USER never [facility] [place] [facility] Encounter Notes: All associated encounter notes This section contains the clinical notes associated to the Encounter. Date/Time Encounter Note(s) Provider Source Apr 11, 2024 08:[address] [facility] NOTE: LOCAL TITLE: AMBULATORY/OUTPATIENT CARE NOTE STANDARD [...] full rights to use it throughout the [place] system. PRIMARY SCREEN RESULT: The Primary Screen is NEGATIVE. The individual answered never to all forms of IPV above (i.e., answered never o all 5 items) The individual accepts education and/or resources: o EDUCATION: Other: Not interested at this time /mandi/ Niya Mcocnnell MSN RN CNL Primary Care RN Signed: 04/11/2024 08:57 Receipt Acknowledged By: 04/12/2024 14:37 /mandi/ SEB BLACKWELL, JUDGE CLERK NURSE PRACTITIONER NIYA MCCONNELL CNTRL [facility]
--- OUTSIDE RECORDS SUMMARY | 2025-03-15 16:02 | XMS_ITS | Encounter Summary ---
Author Name Department of [place] Organization [place] Address [address] [place] [address] Care Team Providers Care Fingerprinter Name Role Phone DEX SEO Primary Care Provider [facility] Insurance Providers: All historical and current Section [...] BCBS [place] HIGH DEDUCTIBL E HEALTH PLAN [employer] [facility] Jul 09, 2023 [id number] [phone] SAULO LIU PATIENT [facility] PRESCRIPT ION [facility] Nov 08, 2020 [id number] SAULO LIU PATIENT [employer] ([id number]) PRESCRIPT ION AGRIM ARK [facility] Jul 09, 2023 AGRIMRK [id number] SAULO LIU PATIENT [employer] ([id number]) PRESCRIPT ION A[facility]IM ARK [facility] Jul 09, 2023 [id number] [phone] SAULO LIU PATIENT [facility] HIGH DEDUCTIBL E HEALTH PLAN W/HEALTH SAVINGS ACCOUNT [facility] Dec 01, 2014 [id number] [phone] SAULO LIU PATIENT Selected Encounter This section includes the information on record at [place] for the Encounter. Date/Time Encounter Type Encounter Description Reason Pro vider Source May 30, 2024 03:00 PM Outpatient Encounter [facility]PATOLOGY CLINIC IHE Encounter Template Text not used by [place] Plan of Treatment: Future Appointments (+ 6 months) and Future Tests (+/- 45 days) The Plan of Treatment section includes future care activities for the patient from all [place] treatmentfacilities. This section includes future appointments and future orders which are active, pending or scheduled. Future Appointments This section includes appointments that were scheduled to occur 6 months from the date of the Encounter, up to a maximum of 20 appointments. The data comes from all [place] treatment facilities. Appointment Date/Time Appointment Type Appointme nt Facility Name Aug 16, 2024 03:20 PM AMBULATORY - MEDICINE [facility] Lab Results: +/- 30 days of the encounter This section includes the Chemistry and Hematology Lab Results on record with [place] for the patient. Radiology Reports and Pathology Reports are provided separately, in subsequent sections. Lab Results This section contains the Chemistry/Hematology Results that were resulted 30 days before or 30 daysafter the date of the Encounter. Date/Time Source Result Type Result - Unit Interpretation Reference Range Specimen Type Comment May 22, 2024 08:42 AM [facility] PT & INR (PROTIME) PLASMA Specimen Type: PLASMA No comment entered. Ordering Provider: DEX SEO Report Released Date/Time: Apr 18, 2024 08:56 AM Reporting Lab: [facility] [address] [facility] [address] Performing Lab: [facility] [address] [facility] [address] INR 1.1 PROTIME 12.5 s 10.0-13.1 May 22, 2024 08:41 AM [facility] HEPATITIS B SURFACE ANTIGEN (HBsAg)-WH SERUM Specimen [...] Apr 18, 2024 08:56 AM Reporting Lab: [facility] [address] [facility] [address] Performing Lab: [facility] [address] [facility] [address] HBsAg Non Reactive Non Reactive May 22, 2024 08:41 AM [facility] HEPATITIS B CORE (Total) Ab SERUM Specimen [...] Apr 18, 2024 08:56 AM Reporting Lab: [facility] [address] Performing [facility]: [facility] [address] [facility] [address] HEPATITIS B CORE (Total) Ab Non Reactive Non Reactive May 22, 2024 08:41 AM [facility] JOSE SCREEN/TITER SERUM Specimen Type: SERUM No comment entered. Ordering Provider: DEX SEO Report Released Date/Time: Apr 18, 2024 08:56 AM Reporting Lab: [facility] [address] [facility] [address] Performing Lab: [facility] [address] [facility] [address] JSOE SCREEN NEG May 22, 2024 08:41 AM [facility] HEPATITIS C ANTIBODY (HCV)-ARC SERUM Specimen Type: SERUM Comment: Hep C Ab: No HCV antibody detected. If recent infection is suspected or other evidence suggests HCV infection, consider HCV nucleic acid testing Ordering Provider: DEX SEO Report Released Date/Time: Apr 18, 2024 08:56 AM Reporting Lab: [facility] [address] [facility] [address] Performing Lab: [facility] [address] [address] HEPATITIS C ANTIBODY NON-REACTIVE NON-RE ACTIVE May 22, 2024 08:41 AM [facility] FERRITIN SERUM Specimen Type: SERUM No comment entered. Ordering Provider: DEX SEO Report Released Date/Time: Apr 18, 2024 08:56 AM Reporting Lab: [facility] [address] [address] Performing Lab: [facility] [address] [address] FERRITIN 27 ng/mL 20-300 May 22, 2024 08:41 AM [facility] GAMMA-GTP SERUM Specimen Type: SERUM No comment entered. Ordering Provider: DEX SEO Report Released Date/Time: Apr 18, 2024 08:56 AM Reporting Lab: [facility] [address] [address] Performing Lab: [facility] [address] [address] GAMMA-GTP 32 U/L 10-65 May 22, 2024 08:41 AM [facility] ALBUMIN SERUM Specimen Type: SERUM No comment entered. Ordering Provider: DEX SEO Report Released Date/Time: Apr 18, 2024 08:56 AM Reporting Lab: [facility] [address] [address] Performing Lab: [facility] [address] [address] ALBUMIN 3.9 g/dL 3.5-5.0 May 22, 2024 08:41 AM [facility] IRON & TIBC PANEL SERUM Specimen Type: SERUM No comment entered. Ordering Provider: DEX SEO Report Released Date/Time: Apr 18, 2024 08:56 AM Reporting Lab: [facility] [address] [facility] [address] Performing Lab: [facility] [place] [facility] [address] [facility] [address] TIBC 422 ug/dL 204-475 IRON 76 ug/dL 40-160 Transferrin Saturation 18.0 L 20.0-50.0 May 22, 2024 08:41 AM [facility] PROTEIN,TOTAL SERUM Specimen Type: SERUM No comment entered. Ordering Provider: DEX SEO Report Released Date/Time: Apr 18, 2024 08:56 AM Reporting Lab: [facility] [address] [address] Performing Lab: [facility] [address] [address] PROTEIN,TOTAL 7.0 g/dL 6.0-8.3 May 22, 2024 08:41 AM [facility] ALKALINE PHOSPHATASE SERUM Specimen Type: SER UM No comment entered. Ordering Provider: DEX SEO Report Released Date/Time: Apr 18, 2024 08:56 AM Reporting Lab: [facility] [place] [address] [address] Performing Lab: [facility] [address] [address] ALKALINE PHOSPHATASE 72 U/L 40-150 May 22, 2024 08:41 AM [facility] AST SERUM Specimen Type: SERUM No comment entered. Ordering Provider: DEX SEO Report Released Date/Time: Apr 18, 2024 08:56 AM Reporting Lab: [facility] [address] [address] Performing Lab: [facility] [place] [facility] [address] [facility] [address] AST 33 U/L 5-34 May 22, 2024 08:41 AM [facility] W[facility] ALT SERUM Specimen Type: SERUM No comment entered. Ordering Provider: DEX SEO Report Released Date/Time: Apr 18, 2024 08:56 AM Reporting Lab: [facility]ITALRENCOM[facility] [address] [facility] [address] Performing Lab: [facility]ITALRENCOM[facility]TRN [facility] [address] [address] ALT 73 U/L H May 22, 2024 08:41 AM [facility] BILIRUBIN, TOTAL SERUM Specimen Type: SERUM No comment entered. Ordering Provider: DEX SEO Report Released Date/Time: Apr 18, 2024 08:56 AM Reporting Lab: [facility] [address] Performing Lab: [facility] [address] [address] BILIRUBIN, TOTAL 0.9 mg/dL 0.2-1.2 May 22, 2024 08:41 AM [facility] CBC AND DIFF (AUTO) BLOOD Specimen Type: BLOO D No comment entered. Ordering Provider: DEX SEO Report Released Date/Time: Apr 18, 2024 08:56 AM Reporting Lab: [facility] [address] [address] Performing Lab: [facility]ITALRENCOM[facility]TRN [facility] [address] [address] WBC 7.81 10*3/uL 4.50-11.00 RBC 5.40 10*6/uL [...] and tobacco- related health factors from the [place] facility where the Encounter took place. Current Smoking Status This section includes the most current smoking, or tobacco-related health factor, from the ID facility where the Encounter took place. Date/Time Current Smoking Status Comment [facility] Oct 06, 2023 10:00 AM VA-TOBACCO NEVER USED [place] [facility] Tobacco Use History This section includes a history of the smoking, or tobacco-related health factors, that were collected on or before the date of the Encounter. The data comes from the ID facility where the Encounter took place. Date/Time Smoking Status/Tobac co Use Comment Facility Jul 31, 2022 09:00 AM VA-TOBACCO NEVER USED [place] [facility] [place] [facility] Apr 24, 2021 03:00 PM VA-TOBACCO NEVER USED [place] [facility] [place] [facility] March 26, 2020 02:34 PM VA-TOBACCO NEVER USED [place] [facility] [place] [facility] Feb 27, 2019 09:44 AM VA-TOBACCO NEVER USED [facility] [place] [facility] Dec 14, 2017 03:24 PM LIFETIME NON-TOBACCO USER [facility] [place] [facility] Dec 14, 2016 10:28 AM LIFETIME NON-TOBACCO USER Life time nonsmoker [facility] Jan 06, 2016 09:32 AM LIFETIME NON-TOBACCO USER [facility] Jan 21, 2015 12:48 PM LIFETIME NON-TOBACCO USER never [facility] Radiology Reports: +/- 30 days [...] the Encounter. The data comes from all [place] treatment facilities. Date/Time Radiology Report Provider Source May 23, 2024 09:53 AM ULTRASOUND ABD WITH LIVER ELASTOGRAPHY: BACILIO LIU [id number] -[id number] M Exm Date: MAY 23, 2024@09:53 Req Phys: DEX SEO Loc: CWM/NO/PACT 7 (Req'g Loc) Img Loc: ULTRASOUND Service: Unknown [facility] , (Case 92 COMPLETE) ULTRASOUND ABDOMEN LIMITED (US Detailed) CPT:70870 Reason for Study: FOLLOW UP (Case 93 COMPLETE) ULTRASOUND ELASTOGRAPHY PARENCHYM(US Detailed) CPT:79127 Clinical History: HEPATIC STEATOSIS Some ultrasound tests require a prep. Report Status: Verified Date Reported: MAY 23, 2024 Date Verified: MAY 23, 2024 Director Of Photography E-Sig:/ES/ED MALAVE JR Report: Study: Abdomen ultrasound. [...] Primary Interpreting Staff: ED MALAVE JR, Radiologist (Director Of Photography) /ED SINGH JR ID CN[facility]L [facility]
--- OUTSIDE RECORDS SUMMARY | 2025-03-15 16:02 | XMS_ITS ---
Author Name [facility] [place] Address [address] [place] [address] Care Team Providers Care Strike Planning Applications Name Role Phone DEX SEO Primary Care [...] Agustin's Name Patient's Relationship to Policy Agustin [facility] HIGH DEDUCTIBL E HEALTH PLAN Shoto [facility] Jul 09, 2023 [id number] [phone] SAULO LIU PATIENT [facility] PRESCRIPT I[facility] Nov 08, 2020 [id number] [phone] SAULO LIU PATIENT [employer] ([id number]) PRESCRIPT ION AGRIM ARK [facility] Jul 09, 2023 AGRIMRK [id number] [phone] SAULO LIU PATIENT [employer] ([id number]) PRESCRIPT ION AGRIM ARK [facility] Jul 09, 2023 AGRIMRK [id number] [phone] ASULO LIU PATIENT [facility] HIGH DEDUCTIBL E HEALTH PLAN W/HEALTH SAVINGS ACCOUNT [facility] Dec 01, 2014 [id number] [phone] SAULO LIU PATIENT Selected Encounter This section includes the information on record at [place] for the Encounter. Date/Time Encounter Type Encounter [...] PRIMARY Round hole, left eye BEATRIZ ZARATE [facility] Plan of Treatment: Future Appointments (+ 6 months) and Future Tests (+/- 45 days) The Plan of Treatment section includes future care activities for the patient from all [place] treatmentfacilities. This section includes future appointments and future orders which are active, pending or scheduled. Future Appointments This section includes appointments that were scheduled to occur 6 months from the date of the Encounter, up to a maximum of 20 appointments. The data comes from all [place] treatment facilities. Appointment Date/Time Appointment Type Appointme nt Facility Name Aug 16, 2024 03:20 PM AMBULATORY - MEDICINE [facility] Lab Results: +/- 30 days of the encounter This section includes the Chemistry and Hematology Lab Results on record with [place] for the patient. Radiology Reports and Pathology Reports are provided separately, in subsequent sections. Lab Results This section contains the Chemistry/Hematology Results that were resulted 30 days before or 30 daysafter the date of the Encounter. Date/Time Source Result Type Result - Unit Interpretation Reference Range Specimen Type Comment May 22, 2024 08:42 AM [facility] PT & INR (PROTIME) PLASMA Specimen Type: PLASMA No comment entered. Ordering Provider: DEX SEO Report Released Date/Time: Apr 18, 2024 08:56 AM Reporting Lab: [address] [address] Performing Lab: [address] [address] INR 1.1 PROTIME 12.5 s 10.0-13.1 May 22, 2024 08:41 AM [facility] HEPATITIS B SURFACE ANTIGEN (HBsAg)-WH SERUM Specimen [...] Apr 18, 2024 08:56 AM Reporting Lab: [address] [address] Performing Lab: [facility] [address] [facility] [address] HBsAg Non Reactive Non Reactive May 22, 2024 08:41 AM [facility] HEPATITIS B CORE (Total) Ab SERUM Specimen [...] 2024 08:56 AM Reporting Lab: [facility] [address] [facility] [address] Performing Lab: [facility] [address] [facility] [address] HEPATITIS B CORE (Total) Ab Non Reactive Non Reactive May 22, 2024 08:41 AM [facility] JOSE SCREEN/TITER SERUM Specimen Type: SERUM No comment entered. Ordering Provider: DEX SEO Report Released Date/Time: Apr 18, 2024 08:56 AM Reporting Lab: [facility] [address] [facility] [address] Performing Lab: [facility]ITALN [facility] [address] [facility] [address] JOSE SCREEN NEG May 22, 2024 08:41 AM [facility] HEPATITIS C ANTIBODY (HCV)-ARC SERUM Specimen Type: SERUM Comment: Hep C Ab: No HCV antibody detected. If recent infection is suspected or other evidence suggests HCV infection, consider HCV nucleic acid testing Ordering Provider: DEX SEO Report Released Date/Time: Apr 18, 2024 08:56 AM Reporting Lab: [facility] [address] [address] Performing Lab: [address] [address] HEPATITIS C ANTIBODY NON-REACTIVE NON-RE ACTIVE May 22, 2024 08:41 AM [facility] FERRITIN SERUM Specimen Type: SERUM No comment entered. Ordering Provider: DEX SEO Report Released Date/Time: Apr 18, 2024 08:56 AM Reporting Lab: [facility] [address] [facility] [address] Performing Lab: [facility] [address] [address] FERRITIN 27 ng/mL 20-300 May 22, 2024 08:41 AM [facility] IRON & TIBC PANEL SERUM Specimen Type: SERUM No comment entered. Ordering Provider: DEX SEO Report Released Date/Time: Apr 18, 2024 08:56 AM Reporting Lab: [facility]ENTERUSETS [address] [address] Performing Lab: [facility]ENTERUSE[address] [address] TIBC 422 ug/dL 204-475 IRON 76 ug/dL 40-160 Transferrin Saturation 18.0 L 20.0-50.0 May 22, 2024 08:41 AM [facility] [place] [facility] GAMMA-GTP SERUM Specimen Type: SERUM No comment entered. Ordering Provider: DEX SEO Report Released Date/Time: Apr 18, 2024 08:56 AM Reporting Lab: [facility] [place] [facility] [address] [facility] [address] Performing Lab: [facility] [place] [place] [facility] [address] [facility] [address] GAMMA-GTP 32 U/L 10-65 May 22, 2024 08:41 AM [facility] ALBUMIN SERUM Specimen Type: SERU M No comment entered. Ordering Provider: DEX SEO Report Released Date/Time: Apr 18, 2024 08:56 AM Reporting Lab: [facility] [place]N [place] [facility] [address] [facility] [address] Performing Lab: [facility]L TRN [facility]ENTERUSETS [address] [address] ALBUMIN 3.9 g/dL 3.5-5.0 May 22, 2024 08:41 AM [facility]L TRN [facility] PROTEIN,TOTAL SERUM Specimen Type: SERUM No comment entered. Ordering Provider: DEX SEO Report Released Date/Time: Apr 18, 2024 08:56 AM Reporting Lab: [facility] [place] [facility] [address] [facility] [address] Performing Lab: [facility]L TRN [facility] [address] [facility] [address] PROTEIN,TOTAL 7.0 g/dL 6.0-8.3 May 22, 2024 08:41 AM [facility]L [facility] ALKALINE PHOSPHATASE SERUM Specimen Type: SE RUM No comment entered. Ordering Provider: DEX SEO Report Released Date/Time: Apr 18, 2024 08:56 AM Reporting Lab: [facility] TRN [facility] [address] [facility] [address] Performing Lab: [facility]ERWALK[facility]OSPITALTRN [facility]ENTER[facility] [address] [address] ALKALINE PHOSPHATASE 72 U/L 40-150 May 22, 2024 08:41 AM [facility]ERW[facility]ITALTRN [facility] AST SERUM Specimen Type: SERUM No comment entered. Ordering Provider: DEX SEO Report Released Date/Time: Apr 18, 2024 08:56 AM Reporting Lab: [facility] [place] [facility] [address] [facility] [address] Performing Lab: [facility]ERLA[facility]ITALN [facility]ENTERUS[facility] [address] [facility] [address] AST 33 U/L 5-34 May 22, 2024 08:41 AM [facility]N [facility] BILIRUBIN, TOTAL SERUM Specimen Type: SERUM No comment entered. Ordering Provider: DEX SEO Report Released Date/Time: Apr 18, 2024 08:56 AM Reporting Lab: [facility]ITALN [facility] [address] [facility] [address] Performing Lab: [facility] CENTERUSE[address] [address] BILIRUBIN, TOTAL 0.9 mg/dL 0.2-1.2 May 22, 2024 08:41 AM [facility] ALT SERUM Specimen Type: SERUM No comment entered. Ordering Provider: DEX SEO Report Released Date/Time: Apr 18, 2024 08:56 AM Reporting Lab: [facility]STITUTERWALK[facility]OSPITALTRN [facility] [address] [facility] [address] Performing Lab: [facility]LA[facility]ITALN [facility]ENTER[facility]ETS [address] [address] ALT 73 U/L H May 22, 2024 08:41 AM [facility]ERLA[facility]ITALN [facility] CBC AND DIFF (AUTO) BLOOD Specimen Type: BLOO D No comment entered. Ordering Provider: DEX SEO Report Released Date/Time: Apr 18, 2024 08:56 AM Reporting Lab: [facility]UTERWALK[facility]OSPITALTRN [facility]ENTERUSETS [facility] [address] [facility] [address] Performing Lab: [facility]UTERWALK[facility]OSPITALTRN [facility]ENTERUSETS [facility] [address] [facility] [address] WBC 7.81 10*3/uL 4.50-11.00 RBC 5.40 10*6/uL [...] and tobacco- related health factors from the [place] facility where the Encounter took place. Current Smoking Status This section includes the most current smoking, or tobacco-related health factor, from the [place] facility where the Encounter took place. Date/Time Current Smoking Status Comment [facility] Oct 06, 2023 10:00 AM VA-TOBACCO NEVER USED [facility] Tobacco Use History This section includes a history of the smoking, or tobacco-related health factors, that were collected on or before the date of the Encounter. The data comes from the [place] facility where the Encounter took place. Date/Time Smoking Status/Tobac co Use Comment [facility] Jul 31, 2022 09:00 AM VA-TOBACCO NEVER USED [facility] Apr 24, 2021 03:00 PM VA-TOBACCO NEVER USED [place] [facility] [place] [facility] March 26, 2020 02:34 PM VA-TOBACCO NEVER USED [place] [facility] [place] [facility] Feb 27, 2019 09:44 AM VA-TOBACCO NEVER USED [place] [facility] [place] [facility] Dec 14, 2017 03:24 PM LIFETIME NON-TOBACCO USER [facility] [place] [facility] Dec 14, 2016 10:28 AM LIFETIME NON-TOBACCO USER Life time nonsmoker [facility] [place] [facility] Jan 06, 2016 09:32 AM LIFETIME NON-TOBACCO USER [facility] [place] [facility] Jan 21, 2015 12:48 PM LIFETIME NON-TOBACCO USER never [place] CNTRL [place] [facility] Radiology Reports: +/- 30 days of [...] the Encounter. The data comes from all [place] treatment facilities. Date/Time Radiology Report Provider Source May 23, 2024 09:53 AM ULTRASOUND ABD WITH LIVER ELASTOGRAPHY: BACILIO LIU [id number] -[id number] M Exm Date: MAY 23, 2024@09:53 Req Phys: DEX SEO Loc: CWM/NO/PACT 7 (Req'g Loc) Img Loc: ULTRASOUND Service: Unknown [place] [facility] , (Case 92 COMPLETE) ULTRASOUND ABDOMEN LIMITED (US Detailed) CPT:99200 Reason for Study: FOLLOW UP (Case 93 COMPLETE) ULTRASOUND ELASTOGRAPHY PARENCHYM(US Detailed) CPT:68409 Clinical History: HEPATIC STEATOSIS Some ultrasound tests require a prep. Report Status: Verified Date Reported: MAY 23, 2024 Date Verified: MAY 23, 2024 Product Safety Lead E-Sig:/ES/ED MALAVE JR Report: Study: Abdomen ultrasound. [...] Primary Interpreting Staff: ED MALAVE JR, Radiologist (Product Safety Lead) /ED SINGH JR [facility] WSTRN [facility] Encounter Notes: All associated encounter notes [...] Atrophic hole OS - previously referred to [facility] - Pt ed on today's findings. Pt encouraged to be dilated to ensure proper visualization of the hole, pt refused d/t work. Ed extensively on s/sx of retinal detachment and advised pt to call [facility] immediately with any sudden changes in vision. Pt stated they understood. - Fundus photos taken today for documentation. Continue to monitor with [facility] at [facility] in 1 yr. 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 He was previously seen by [facility] for evaluation of retinal hole and questionable benefit or need of prophylactic focal or barricade laser with recommendation for continued observation. Keep scheduled follow-up for comprehensive exam with dilation in 12 months or sooner if need be. /mandi/ Davie Zarate OD CHIEF OF OPTOMETRY Signed: 05/24/2024 06:42 BRO CANALES [facility] CN[facility]
--- OUTSIDE RECORDS SUMMARY | 2025-03-15 16:02 | XMS_ITS | Encounter Summary ---
Author Name Department [place] Organization [place] Address [address] [place] [address] Care Team Providers Care Test Borer Helper Name Role Phone PAUL PINK Primary Care [...] Agustin's Name Patient's Relationship to Policy Ag[facility] HIGH DEDUCTIBL E HEALTH PLAN [employer] [facility] Jul 09, 2023 [id number] SAULO LIU PATIENT [facility] PRESCRIPT ION [facility] Nov 08, 2020 [id number] SAULO LIU PATIENT [employer] ([id number]) PRESCRIPT ION AGRIM ARK [facility] Jul 09, 2023 AGRIMRK [id number] [phone] SAULO LIU PATIENT [employer] ([id number]) PRESCRIPT ION AGRIM ARK [facility] Jul 09, 2023 AGRIMRK [id number] SAULO LIU PATIENT [facility] HIGH DEDUCTIBL E HEALTH PLAN W/HEALTH SAVINGS ACCOUNT [facility] Dec 01, 2014 [id number] [phone] SAULO LIU PATIENT Selected Encounter This section includes the information on record at [place] for the Encounter. Date/Time Encounter Type Encounter Description Reason Provider Source Apr 18, 2024 08:30 AM OFFICE O/P EST MOD 30 MIN PRIMARY CARE/MEDICINE ICD-10-CM G47.30 Sleep apnea, unspecified PINK,JIAN MAGALLANES Encounter Template Text not used by [place] Assessments - Encounter Diagnoses This section includes the primary and secondary diagnoses documented for the Encounter. Date/Time Primary/Secondary Diagnosis Diagnosis Name Provider Source May 09, 2024 12:30 PM PRIMARY Sleep apnea, unspecified [facility] May 09, 2024 12:30 PM SECONDARY Abnormal results of liver function studies PINK,WILL [facility] May 09, 2024 12:30 PM SECONDARY Essential (primary) hypertension [facility] May 09, 2024 12:30 PM SECONDARY Nonalcoholic steatohepatitis (SU) [facility] May 09, 2024 12:30 PM SECONDARY Other abnormality of red blood cells [facility] May 09, 2024 12:30 PM SECONDARY Overweight PINK,WILL [facility] Plan of Treatment: Future Appointments (+ 6 months) and Future Tests (+/- 45 days) The Plan of Treatment section includes future care activities for the patient [facility] [place] [facility] This section includes future appointments [...] 15, 2024 02:30 PM AMBULATORY - NONE [facility] May 23, 2024 10:00 AM AMBULATORY - NONE [place] [place] [facility] May 23, 2024 03:00 PM AMBULATORY - MEDICINE [place] C [place]L [place] [facility] May 23, 2024 04:15 PM AMBULATORY - MEDICINE [place] C [place]L [place] [facility] Aug 16, 2024 03:20 PM AMBULATORY - MEDICINE [place] C NTRL W[facility]N [facility] Lab Results: +/- 30 days [...] Type Comment Apr 11, 2024 10:11 AM [facility] CBC BLOOD Specimen Type: BLOOD No comment entered. Ordering Provider: PAUL PINK Report Released Date/Time: Feb 16, 2024 11:38 AM Reporting Lab: [facility] [address] [facility] [address] Performing Lab: [facility] [address] [facility] [address] WBC 7.46 10*3/uL 4.50-11.00 RBC 5.62 10*6/uL 4.23-5.66 HGB 16.5 g/dL 12.8-17 HCT 49.0 39.2-50.4 MCV 87.2 fL 82-99 MCHC 33.7 g/dL 30.8-35.1 PLT 219 10*3/uL 140-360 RDW-CV 13.0 12.0-16.0 MCH 29.4 pg 26.2-32.6 Apr 11, 2024 10:11 AM [facility] LIPID PANEL, NON FASTING SERUM Specimen Type: SERUM No comment entered. Ordering Provider: PAUL PINK Report Released Date/Time: Feb 16, 2024 11:38 AM Reporting Lab: [facility] [address] [facility] [address] Performing Lab: [address] [address] CHOLESTEROL 181 mg/dL TRIGLYCERIDE 109 mg/dL 0-150 LDL calculated 125 mg/dL 0-129 CHOL/HDL 5.3 HDL CHOLESTEROL 34 mg/dL L 40-60 Apr 11, 2024 10:11 AM [facility] BASIC METABOLIC PANEL (non-fasting) SERUM Spe cimen Type: SERUM No comment entered. Ordering Provider: PAUL PINK Report Released Date/Time: Feb 16, 2024 11:38 AM Reporting Lab: [facility] [address] [facility] [facility] [address] Performing Lab: [address] [address] UREA NITROGEN 13 mg/dL 7-25 GLUCOSE 106 mg/dL H 65-100 SODIUM 142 mmol/L 135-145 POTASSIUM 4.4 mmol/L 3.5-5.0 CHLORIDE 109 mmol/L 100-110 CO2 24 meq/L 20-30 CREATININE, Serum 1.02 mg/dL 0.50-1.40 eGFR(CKD-EPI 2020) >90 mL/min >60 Apr 11, 2024 10:11 AM [facility] LIVER FUNCTION SERUM Specimen Type: SERUM No comment entered. Ordering Provider: PAUL PINK Report Released Date/Time: Feb 16, 2024 11:38 AM Reporting Lab: [facility] [address] [facility] [address] Performing Lab: [address] [address] PROTEIN,TOTAL 7.2 g/dL 6.0-8.3 ALBUMIN 4.1 g/dL [...] Source Apr 18, 2024 09:03 AM 136/88 [facility] Apr 18, 2024 08:22 AM 98.5 68 158/96 20 97 0 73 [phone] 39 [place] [facility] Social History: Smoking Status (Most [...] took place. Date/Time Current Smoking Status Comment [facility] Oct 06, 2023 10:00 AM VA-TOBACCO NEVER USED [place] CNTR[place] [facility] Tobacco Use History This section includes a history of the smoking, or tobacco-related health factors, that were collected on or before the date of the Encounter. The data comes from the [place] facility where the Encounter took place. Date/Time Smoking Status/Tobac co Use Comment Facility Jul 31, 2022 09:00 AM VA-TOBACCO NEVER USED [place] [place] [facility] Apr 24, 2021 03:00 PM VA-TOBACCO NEVER USED [place] [facility] March 26, 2020 02:34 PM VA-TOBACCO NEVER USED [place] [facility] Feb 27, 2019 09:44 AM VA-TOBACCO NEVER USED [place] [facility] Dec 14, 2017 03:24 PM LIFETIME NON-TOBACCO USER [place] [facility] [place] [facility] Dec 14, 2016 10:28 AM LIFETIME NON-TOBACCO USER Life time nonsmoker [place] [facility] [place] [facility] Jan 06, 2016 09:32 AM LIFETIME NON-TOBACCO USER [place] [facility] [place] [facility] Jan 21, 2015 12:48 PM LIFETIME NON-TOBACCO USER never [place] [facility] [place] [facility] Encounter Notes: All associated encounter [...] complaint: Patient is a 43 year old [place]. HPI: Pleasant male here to follow up. [...] source for the followin. Sleep Apnea (SCT [id number]) - He tells me his cpap machine is making funny sounds, will place consult to resp 2. RBC count abnormal - stable, follows [facility] for phlebotomy 3. Benign essential hypertension - [...] address clinical status. Toxic Exposure Screening: The /caregiver was asked if they believe the experienced any toxic exposure(s), such as Airborne Hazards and Open Burn Pit, [place] War related exposures, Agent [place], Radiation, contaminated water at [place] or other such exposures, while serving in the [employer]. 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 The /caregiver was informed that we will continue to [...] of active outpatient prescriptions dispensed from this [place] (local) and dispensed from another [place] or [facility] facility (remote) as well as inpatient orders [...] or non-VA provider. /mandi/ Paul Pink DNP, INTERLINE CLERK-BC, CNL Primary Care Nurse Practitioner Signed: 04/18/2024 09:04 PAUL PINK [place] [facility]
== END 2025-03-15 15:29 | disposition home or self-care (01) ==
LOC: HO.BBR 15:28
PROVIDERS: Visit Provider Internal Medicine
DX: D75.1 Secondary polycythemia (principal)
CPT/HCPCS: 85018; 99195

== ENCOUNTER 2025-05-10 14:59 | Outpatient (REF) | payer OTHER, SELFPAY | END 2025-05-10 15:00 | disposition home or self-care (01) | LOC: HO.BBR 14:59 | PROVIDERS: Visit Provider Internal Medicine | DX: D75.1 Secondary polycythemia (principal) | CPT/HCPCS: 85014; 85018; 99195 ==

== ENCOUNTER 2025-07-05 15:23 | Outpatient (REF) | payer OTHER, SELFPAY ==
--- OUTSIDE RECORDS SUMMARY | 2025-04-12 05:41 | XMS_ITS ---
Author Name [facility] [place] [facility] [place] Address [address] [place] [address] Care Team Providers Care Extracorporeal Circulation Specialist Name Role Phone DEX SEO Primary Care Provider Unavaillaci [facility] Insurance Providers: All historical [...] Name Patient's Relationship to Policy [place]AN [employer] [facility] Jul 09, 2023 [id number] SAULO LIU PATIENT [employer] PRESCRIPT ION [facility] Nov 08, 2020 [id number] SAULO LIU PATIENT [employer] ([id number]) PRESCRIPT ION [facility] Jul 09, 2023 [id number] [phone] SAULO LIU PATIENT [employer] ([id number]) PRESCRIPT ION [facility] Jul 09, 2023 [id number] SAULO LIU PATIENT [facility] HIGH DEDUCTIBL E HEALTH PLAN W/HEALTH SAVINGS ACCOUNT [facility] Dec 01, 2014 [id number] [phone] SAULO LIU PATIENT Selected Encounter This section includes the information on record at MD for the Encounter. Date/Time Encounter Type Encounter Description Reason Provider Source Apr 12, 2025 09:41 AM OFF/OP EST MARCH X REQ PHY/QHP PRIMARY CARE/MEDICINE ICD-10-CM Z71.89 Other specified counseling KATARINA MCCONNELL [facility] Encounter Template Text not used by MD Assessments - Encounter Diagnoses This section includes the primary and secondary diagnoses documented for the Encounter. Date/Time Primary/Secondary Diagnosis Diagnosis Name Provider Source Jul 03, 2025 06:43 PM PRIMARY Other specified counseling KATARINA MCCONNELL [facility] Plan of Treatment: Future Appointments (+ [...] Appointment Type Appointme nt Facility Name Apr 13, 2025 03:00 PM AMBULATORY - MEDICINE [facility] Aug 13, 2025 03:30 PM AMBULATORY - MEDICINE [facility] Lab Results: +/- 30 days [...] Interpretation Reference Range Specimen Type Comment Apr 12, 2025 10:57 AM [facility] HEPATITIS B SURFACE ANTIBODY (HBsAb)-WH SERUM Specimen Type: SERUM No comment entered. Ordering Provider: JOSHUA SEO Report Released Date/Time: Apr 12, 2025 09:57 AM Reporting Lab: [facility] [address] [address] Performing Lab: [facility] [address] [address] HBsAb Non Reactive Non Reactive Apr 12, 2025 10:57 AM [facility] LIPID PANEL, NON FASTING SERUM Specimen Type: SERUM No comment entered. Ordering Provider: DEX SEO Report Released Date/Time: Apr 12, 2025 09:57 AM Reporting Lab: [facility] [address] [address] Performing Lab: [facility] [address] CHOLESTEROL 154 mg/dL TRIGLYCERIDE 104 mg/dL 0-150 LDL calculated 97 mg/dL 0-129 CHOL/HDL 4.3 HDL CHOLESTEROL 36 mg/dL L >40 Apr 12, 2025 10:57 AM [facility] LIVER FUNCTION SERUM Specimen Type: SERUM No comment entered. Ordering Provider: DEX SEO Report Released Date/Time: Apr 12, 2025 09:57 AM Reporting Lab: [facility] [address] [address] Performing Lab: [address] [address] PROTEIN,TOTAL 7.0 g/dL 6.4-8.3 ALBUMIN 4.4 g/dL 3.5-5.2 ALKALINE PHOSPHATASE 89 U/L 40-150 AST 31 U/L 5-34 ALT 55 U/L 0-55 BILIRUBIN, TOTAL 1.0 mg/dL 0.2-1.2 Apr 12, 2025 10:57 AM [facility] BASIC METABOLIC PANEL (non-fasting) SERUM Spe cimen Type: SERUM No comment entered. Ordering Provider: DEX SEO Report Released Date/Time: Apr 12, 2025 09:57 AM Reporting Lab: [address] [address] Performing Lab: [address] [address] UREA NITROGEN 10 mg/dL 9-21 GLUCOSE 95 mg/dL 65-100 SODIUM 139 mmol/L 136-145 POTASSIUM 4.2 mmol/L 3.5-5.1 CHLORIDE 105 mmol/L 98-107 CO2 25 meq/L 22-29 CALCIUM 9.0 mg/dL 8.4-10.2 CREATININE, Serum 1.10 mg/dL 0.72-1.25 eGFR(CKD-EPI 2020) 85 mL/min >60 Apr 12, 2025 10:57 AM [facility] CBC BLOOD Specimen Type: BLOOD No comment entered. Ordering Provider: DEX SEO Report Released Date/Time: Apr 12, 2025 09:57 AM Reporting Lab: [facility] [address] [address] Performing Lab: [address] [address] WBC 9.12 10*3/uL 4.50-11.00 RBC 5.35 10*6/uL 4.23-5.66 HGB 15.7 g/dL 12.8-17 HCT 46.3 39.2-50.4 MCV 86.5 fL 82-99 MCHC 33.9 g/dL 30.8-35.1 PLT 146 10*3/uL 140-360 MPV 10.9 fL 9.2-12.4 RDW-CV 13.2 12.0-16.0 MCH 29.3 pg 26.2-32.6 Vital Signs: All taken on the encounter date This section contains inpatient and outpatient Vital Signs collected on the date of the Encounter. Date/Time Temperature Pulse Blood Pressure Respiratory Rate SP02 Pain Height Weight Body Mass Index Source Apr 12, 2025 09:45 AM 98.1 F 89 /min 126/88 mm[Hg] 16 /min 97 % 7 [facility] Social History: Smoking Status (Most current) [...] place. Date/Time Current Smoking Status Comment Carloz centeno Oct 06, 2023 10:00 AM VA-TOBACCO NEVER USED [facility] [place] [facility] Tobacco Use History This section includes a history of the smoking, or tobacco-related health factors, that were collected on or before the date of the Encounter. The data comes from the [facility] facility where the Encounter took place. Date/Time Smoking Status/Tobac co Use Comment Facility Jul 31, 2022 09:00 AM VA-TOBACCO NEVER USED [facility] [place] [facility] Apr 24, 2021 03:00 PM VA-TOBACCO NEVER USED [facility] [place] [facility] March 26, 2020 02:34 PM VA-TOBACCO NEVER USED [facility] [place] [facility] Feb 27, 2019 09:44 AM VA-TOBACCO NEVER USED [facility] [place] [facility] Dec 14, 2017 03:24 PM LIFETIME NON-TOBACCO USER [facility] [place] [facility] Dec 14, 2016 10:28 AM LIFETIME NON-TOBACCO USER Life time nonsmoker [facility] [place] [facility] Jan 06, 2016 09:32 AM LIFETIME NON-TOBACCO USER [facility] [place] [facility] Jan 21, 2015 12:48 PM LIFETIME NON-TOBACCO USER never [facility] [place] [facility] Encounter Notes: All associated encounter notes This section contains the clinical notes associated to the Encounter. Date/Time Encounter Note(s) Provider Source Apr 12, 2025 09:46 AM PRIMARY CARE OUTPA [facility] NOTE: LOCAL TITLE: AMBULATORY/OUTPATIENT CARE NOTE STANDARD TITLE: PRIMARY CARE OUTPATIENT NOTE DATE OF NOTE: APR 12, 2025@09:46 ENTRY DATE: APR 12, 2025@09:46:16 AUTHOR: NIYA MCCONNELL COSIGNER: URGENCY: STATUS: COMPLETED F: Walk In D/A: Vet presents to primary care with complaint of URI symptoms starting yesterday. Vet reports sore throat and sinus pain/pressure with intermittent headache. Vet states he has these symptoms with seasonal changes annually. Vet reports throat pain when swallowing only, on exam throat is red and appears swollen. Vet also complaining of frontal sinus pressure with intermittent headache. Tenderness on palpation. Vet denies any ear pain, cough, breathing issues, denies fever or chills. Vet reports taking a home covid test yesterday which was negative. Vet will make PCP visit today as he is overdue. Labs ordered and he will do these today also. R: Vet to see [place] provider today /mandi/ NIYA MCCONNELL MSN, RN, CNL Primary Care RN Signed: 04/12/2025 09:57 NIYA MCCONNELL [facility]
--- OUTSIDE RECORDS SUMMARY | 2025-04-13 11:00 | XMS_ITS ---
Author Name [facility] [place] [facility] [place] Address [address] [place] [address] Care Team Providers Care Doctor Of Dental Surgery Name Role Phone PAUL PINK Primary Care [...] Agustin's Name Patient's Relationship to Policy [facility] [employer] [facility] Jul 09, 2023 [id number] SAULO MANZANARES PATIENT [place] PRESCRIPT [facility] Nov 08, 2020 [id number] SAULO MANZANARES PATIENT [employer] ([id number]) PRESCRIPT ION [facility] Jul 09, 2023 [id number] [phone] SAULO MANZANARES PATIENT [employer] ([id number]) PRESCRIPT ION [facility] Jul 09, 2023 [id number] SAULO MANZANARES PATIENT [facility] HIGH DEDUCTIBL E HEALTH PLAN W/HEALTH SAVINGS ACCOUNT [facility] Dec 01, 2014 [id number] [phone] SAULO MANZANARES PATIENT Selected Encounter This section includes the information on record at CT for the Encounter. Date/Time Encounter Type Encounter Description Reason Provider Source Apr 13, 2025 03:00 PM OFFICE O/P EST MOD 30 MIN PRIMARY CARE/MEDICINE ICD-10-CM J06.9 Acute upper respiratory infection, unspecified JIAN PINK AM [facility] Encounter Template Text not used by CT Assessments - Encounter Diagnoses This section includes the primary and secondary diagnoses documented for the Encounter. Date/Time Primary/Secondary Diagnosis Diagnosis Name Provider Source Apr 15, 2025 01:58 PM PRIMARY Acute upper respiratory infection, unspecified JIAN PINK AM [facility] Plan of Treatment: Future Appointments (+ 6 months) and Future Tests (+/- 45 days) The Plan of Treatment section includes future care activities for the patient from all CT treatmentfacilities. This section includes future appointments and future orders which are active, pending or scheduled. Future Appointments This section includes appointments that were scheduled to occur 6 months from the date of the Encounter, up to a maximum of 20 appointments. The data comes from all CT treatment facilities. Appointment Date/Time Appointment Type Appointme nt Facility Name Aug 13, 2025 03:30 PM AMBULATORY - MEDICINE [facility] Lab Results: +/- 30 days of the encounter This section includes the Chemistry and Hematology Lab Results on record with CT for the patient. Radiology Reports and Pathology Reports are provided separately, in subsequent sections. Lab Results This section contains the Chemistry/Hematology Results that were resulted 30 days before or 30 daysafter the date of the Encounter. Date/Time Source Result Type Result - Unit Interpretation Reference Range Specimen Type Comment Apr 12, 2025 10:57 AM [facility] HEPATITIS B SURFACE ANTIBODY (HBsAb)-WH SERUM Specimen Type: SERUM No comment entered. Ordering Provider: JOSHUA PINK Report Released Date/Time: Apr 12, 2025 09:57 AM Reporting Lab: [address] [address] Performing Lab: [facility] [address] [facility] [address] HBsAb Non Reactive Non Reactive Apr 12, 2025 10:57 AM [facility] LIPID PANEL, NON FASTING SERUM Specimen Type: SERUM No comment entered. Ordering Provider: PAUL PINK Report Released Date/Time: Apr 12, 2025 09:57 AM Reporting Lab: [address] [address] Performing Lab: [address] [address] CHOLESTEROL 154 mg/dL TRIGLYCERIDE 104 mg/dL 0-150 LDL calculated 97 mg/dL 0-129 CHOL/HDL 4.3 HDL CHOLESTEROL 36 mg/dL L >40 Apr 12, 2025 10:57 AM [facility] LIVER FUNCTION SERUM Specimen Type: SERUM No comment entered. Ordering Provider: PAUL PINK Report Released Date/Time: Apr 12, 2025 09:57 AM Reporting Lab: [facility] [address] [address] Performing Lab: [address] [address] PROTEIN,TOTAL 7.0 g/dL 6.4-8.3 ALBUMIN 4.4 g/dL 3.5-5.2 ALKALINE PHOSPHATASE 89 U/L 40-150 AST 31 U/L 5-34 ALT 55 U/L 0-55 BILIRUBIN, TOTAL 1.0 mg/dL 0.2-1.2 Apr 12, 2025 10:57 AM [facility] BASIC METABOLIC PANEL (non-fasting) SERUM Spe cimen Type: SERUM No comment entered. Ordering Provider: PAUL PINK Report Released Date/Time: Apr 12, 2025 09:57 AM Reporting Lab: [address] [address] Performing Lab: [address] [address] UREA NITROGEN 10 mg/dL 9-21 GLUCOSE 95 mg/dL 65-100 SODIUM 139 mmol/L 136-145 POTASSIUM 4.2 mmol/L 3.5-5.1 CHLORIDE 105 mmol/L 98-107 CO2 25 meq/L 22-29 CALCIUM 9.0 mg/dL 8.4-10.2 CREATININE, Serum 1.10 mg/dL 0.72-1.25 eGFR(CKD-EPI 2020) 85 mL/min >60 Apr 12, 2025 10:[address] [facility] [employer] [facility] CBC BLOOD Specimen Type: BLOOD No comment entered. Ordering Provider: PAUL PINK Report Released Date/Time: Apr 12, 2025 09:57 AM Reporting Lab: [facility] [address] [address] Performing Lab: [address] [address] WBC 9.12 10*3/uL 4.50-11.00 RBC 5.35 10*6/uL [...] Height Weight Body Mass Index Source Apr 13, 2025 03:00 PM 99.1 F 90 /min 146/92 mm[Hg] 16 /min 98 % 8 73 in [address] [facility] Social History: Smoking Status (Most current) and Tobacco Use (All prior to encounter date) This section includes the most current, and the historical, smoking and tobacco- related health factors from the CT facility where the Encounter took place. Current Smoking Status This section includes the most current smoking, or tobacco-related health factor, from the CT facility where the Encounter took place. Date/Time Current Smoking Status Comment [facility] Oct 06, 2023 10:[address]-TOBACCO NEVER USED [facility] [place] [facility] Tobacco Use History This section includes a history of the smoking, or tobacco-related health factors, that were collected on or before the date of the Encounter. The data comes from the CT facility where the Encounter took place. Date/Time Smoking Status/Tobac co Use Comment Facility Jul 31, 2022 09:00 AM VA-TOBACCO NEVER USED CT [facility] [place] [facility] Apr 24, 2021 03:00 PM VA-TOBACCO NEVER USED CT [facility] [place] [facility] March 26, 2020 02:34 PM VA-TOBACCO NEVER USED CT [facility] [place] [facility] Feb 27, 2019 09:44 AM VA-TOBACCO NEVER USED CT [facility] [place] [facility] Dec 14, 2017 03:24 PM LIFETIME NON-TOBACCO USER [facility] [place] [facility] Dec 14, 2016 10:28 AM LIFETIME NON-TOBACCO USER Life time nonsmoker CT [facility] [place] [facility] Jan 06, 2016 09:32 AM LIFETIME NON-TOBACCO USER CT [facility] [place] [facility] Jan 21, 2015 12:48 PM LIFETIME NON-TOBACCO USER never CT [facility] [place] [facility] Encounter Notes: All associated encounter notes This section contains the clinical notes associated to the Encounter. Date/Time Encounter Note(s) Provider Source Apr 15, 2025 01:54 PM PRIMARY CARE NURSE PRACTITIONER OUTPATIENT NOTE: LOCAL TITLE: NURSE PRACTITIONER OUTPATIENT NOTE STANDARD TITLE: PRIMARY CARE NURSE PRACTITIONER OUTPATIENT NOTE DATE OF NOTE: APR 15, 2025@13:54 ENTRY DATE: APR 15, 2025@13:54:38 AUTHOR: PAUL PINK COSIGNER: URGENCY: STATUS: COMPLETED NURSE PRACTITIONER OUTPATIENT NOTE Has ADDENDA Chief complaint: Patient is a 44 year old [place]. HPI: Pleasant male [place] here with worsening sore throat, sinus and chest congestion and reports feeling feverish last night. He was seen in sick call yesterday and given amoxicillin. After taking it he experienced diarrhea. Considering sx, will stop amox and change him to doxycycline with a probiotic. He was encouraged to maintain hydration. Allergies: Patient has answered NKA The following VA and Non-VA meds were reconciled with patient. The patient was educated on the use of the medications including indication and side effects. Active and Recently Outpatient Medications (excluding Supplies): Active Outpatient Medications Status 1) AMLODIPINE BESYLATE 5MG TAB TAKE ONE TABLET BY MOUTH ONCE ACTIVE DAILY FOR BLOOD PRESSURE/HEART, DO NOT TAKE WITH GRAPEFRUIT JUICE 2) AZELASTINE 137MCG/SPRAY 200D NASAL INHL SPRAY 1 SPRAY INTO ACTIVE EACH NOSTRIL TWICE DAILY Indication: FOR SEASONAL RUNNY NOSE 3) CETIRIZINE HCL 10MG TAB TAKE ONE TABLET BY MOUTH ONCE DAILY ACTIVE Indication: FOR ALLERGIES 4) DOXYCYCLINE HYCLATE 100MG TAB TAKE ONE TABLET BY MOUTH TWICE ACTIVE DAILY Indication: FOR INFECTION CAUSED BY BACTERIA 5) LACTOBACILLUS ACIDOPHILUS CAP TAKE 1 CAPSULE BY MOUTH TWICE ACTIVE DAILY Indication: FOR PROBIOTIC SUPPLEMENTATION 6) LOSARTAN 50MG TAB TAKE ONE TABLET BY MOUTH ONCE DAILY FOR ACTIVE BLOOD PRESSURE/HEART Indication: FOR HIGH BLOOD PRESSURE 7) OMEPRAZOLE 20MG EC CAP TAKE ONE CAPSULE BY MOUTH TWICE DAILY ACTIVE BEFORE A MEAL 8) THROAT LOZENGE W/BENZOCAINE,MENTHOL (SF) DISSOLVE 1 LOZENGE ACTIVE BY MOUTH EVERY 6 HOURS NEEDED Indication: FOR SORE THROAT Review of Systems: Constitutional: (-)for Fevers, chills, weakness, nights sweats On examination: 99.1 F [37.3 C] (04/13/2025 15:00)146/92 (04/13/2025 15:00)90 (04/13/2025 15:00)16 (04/13/2025 15:00)8 (04/13/2025 15:00)BMI: 38.3290 lb [131.54 kg] (04/13/2025 15:00) is alert and oriented X3 Eyes:No scleral icterus, lids normal, Pupils equal,round and reactive to light HEENT: External without scars, lesions or masses, [...] Problem List is the source for the following: URI - see above Today I spent 30 minutes on some or all of the following: chart review, history, physical examination, treatment planning, education and counseling of the patient/family/patient centered care specialist, placing orders, communicating with other health care providers, completing health and wellness screenings (see below) and documentation in the electronic health record. Follow up visit in 4 mos. Medication Reconciliation: Outpatient: Has the patient been taking medications as documented in the EMLR? YES: The patient has been taking medications as documented in the EMLR. Essential Medication List for Review used to complete this medication reconciliation. INCLUDED IN THIS LIST: Alphabetical list of active outpatient prescriptions dispensed from this CT (local) and dispensed from another CT or DoD facility (remote) as well as [...] whether with a VA or non-VA provider. /NEDA Pena DNP, CNL Primary Care Nurse Practitioner Signed: 04/15/2025 13:57 04/15/2025 ADDENDUM STATUS: COMPLETED this note is an error - visit occurred on 04/13. /NEDA Pena DNP, CNL Primary Care Nurse Practitioner Signed: 04/15/2025 13:[address] [facility] Apr 13, 2025 03:11 PM PRIMARY CARE NURSE PRACTITIONER OUTPATIENT NOTE: LOCAL TITLE: NURSE PRACTITIONER OUTPATIENT NOTE STANDARD TITLE: PRIMARY CARE NURSE PRACTITIONER OUTPATIENT NOTE DATE OF NOTE: APR 13, 2025@15:11 ENTRY DATE: APR 13, 2025@15:11:34 AUTHOR: PAUL PINK EXP COSIGNER: URGENCY: STATUS: COMPLETED [facility] Toll Free Number Primary Care Telephone Assistance can be reached at extension [phone] [facility] scheduling can be reached at extension [phone] [facility] scheduling can be reached at ext [phone] APR 13, 2025 JOHN MANZANARES [address], [place], [address] John Manzanares is a patient in my clinic. I am treating him for an upper respiratory infection that started on 04/11/2025. I have advised to not work until Wednesday04/16/2025. Sincerely, NEDA Jeronimo DNP, MIRIAN Nurse Practitioner Primary Care PACT Seven /es/ NEDA Wisdom DNP, MIRIAN Primary Care Nurse Practitioner Signed: 04/13/2025 15:[address] [facility] Apr 13, 2025 03:01 PM PREVENTIVE MEDICINE NURSING NOTE: LOCAL TITLE: CLINICAL REMINDERS/NURSING STANDARD TITLE: PREVENTIVE MEDICINE NURSING NOTE DATE OF NOTE: APR 13, 2025@15:01 ENTRY DATE: APR 13, 2025@15:01:07 AUTHOR: NIYA MCCONNELL EXP COSIGNER: URGENCY: STATUS: COMPLETED Advance Directive Screen MH AD: Patient does not have a completed advance directive on file at any facility, VA or outside. S/he is not interested in completing one at this time. The patient received education about Advance Directives and written notification of his/her rights. Suicide Screen: C-SSRS Screening [place] Suicide Severity Rating Scale (C-SSRS) screener 1. Over the past month, have you wished you were or wished you could go to sleep and not wake up? No 2. Over the past month, have you had any actual thoughts of killing yourself? No 3. Over the past month, have you been thinking about how you might do this? Response not required due to responses to other questions. 4. Over the past month, have you had these thoughts and had some intention of acting on them? Response not required due to responses to other questions. 5. Over the past month, have you started to work out or worked out the details of how to kill yourself? Response not required due to responses to other questions. 6. If yes, at any time in the past month did you intend to carry out this plan? Response not required due to responses to other questions. 7. In your lifetime, have you ever done anything, started to do anything, or prepared to do anything to end your life (for example, collected pills, obtained a gun, gave away valuables, went to the roof but didn't jump)? No 8. If YES, was this within the past 3 months? Response not required due to responses to other questions. Homelessness/Food Insecurity Screen: In the past 2 months, have you been living in stable housing that you own, rent, or stay in as part of a household? Yes - Living in stable housing. Are you worried or concerned that in the next 2 months you may NOT have stable housing that you own, rent, or stay in as part of a household? No - Not worried about housing near future The [place] reports the following: Within the past 12 months, you worried whether your food would run out before you got money to buy more. Never true Within the past 12 months, the food you bought just didn't last and you didn't have money to get more. Never true Depression Screening: Perform PHQ-2 A PHQ-2 screen was performed. The score was 0 which is a negative screen for depression. Over the past two weeks, how often have you been bothered by the following problems? 1. Little interest or pleasure in doing things Not at all 2. Feeling down, depressed, or hopeless Not at all Influenza Immunization: No influenza vaccination was received during the recent influenza season. Alcohol Use Screen (AUDIT-C): Alcohol Screen: SCREEN FOR ALCOHOL (AUDIT-C) An alcohol screening test (AUDIT-C) was negative (score=0). 1. How often did you have a drink containing alcohol in the past year? Consider a drink to be a 12 ounce can or bottle of regular beer, 8 ounces of malt liquor, a 5 ounce glass of table wine, or a 1.5 ounce shot of liquor (like scotch, gin, or vodka). Never 2. How many drinks containing alcohol did you have on a typical day when you were drinking in the past year? Response not required due to responses to other questions. 3. How often did you have six or more drinks on one occasion in the past year? Response not required due to responses to other questions. RHS Screen: RHS Screen Session Format: Face to Face Environmental Check Upon inquiry, the individual reports that the environment is safe to proceed. Informed Consent to Screen and Document The individual consents to proceed with screening. The individual consents to documentation of responses. PRIMARY [...] pressure you to have sexual contact against your will, or when you were unable to say no Never The HITS tool (items 1-4 above) is US copyright protected by Aníbal Calhoun MD, and the user has full rights to use it throughout the CT system. PRIMARY SCREEN RESULT: The Primary Screen is NEGATIVE. The individual answered never to all forms of IPV above (i.e., answered never to all 5 items) The individual accepts education and/or resources: No EDUCATION: Other: Not interested at this time /mandi/ NIYA MCCONNELL MSN, RN, CNL Primary Care RN Signed: 04/13/2025 15:[address] [facility] [place] [facility] Apr 13, 2025 03:00 PM PRIMARY CARE NURSE PRACTITIONER OUTPATIENT NOTE: LOCAL TITLE: NURSE PRACTITIONER OUTPATIENT NOTE STANDARD TITLE: PRIMARY CARE NURSE PRACTITIONER OUTPATIENT NOTE DATE OF NOTE: APR 13, 2025@15:00 ENTRY DATE: APR 15, 2025@13:58:02 AUTHOR: PAUL PINK COSIGNER: URGENCY: STATUS: COMPLETED Chief complaint: Patient is a 44 year old . HPI: Pleasant male [place] here with worsening sore throat, sinus and chest congestion and reports feeling feverish last night. He was seen in sick call yesterday and given amoxicillin. After taking it he experienced diarrhea. Considering sx, will stop amox and change him to doxycycline with a probiotic. He was encouraged to maintain hydration. Allergies: Patient has answered NKA The following VA and Non-VA meds were reconciled with patient. The patient was educated on the use of the medications including indication and side effects. Active and Recently Outpatient Medications (excluding Supplies): Active Outpatient Medications Status 1) AMLODIPINE BESYLATE 5MG TAB TAKE ONE TABLET BY MOUTH ONCE ACTIVE DAILY FOR BLOOD PRESSURE/HEART, DO NOT TAKE WITH GRAPEFRUIT JUICE 2) AZELASTINE 137MCG/SPRAY 200D NASAL INHL SPRAY 1 SPRAY INTO ACTIVE EACH NOSTRIL TWICE DAILY Indication: FOR SEASONAL RUNNY NOSE 3) CETIRIZINE HCL 10MG TAB TAKE ONE TABLET BY MOUTH ONCE DAILY ACTIVE Indication: FOR ALLERGIES 4) DOXYCYCLINE HYCLATE 100MG TAB TAKE ONE TABLET BY MOUTH TWICE ACTIVE DAILY Indication: FOR INFECTION CAUSED BY BACTERIA 5) LACTOBACILLUS ACIDOPHILUS CAP TAKE 1 CAPSULE BY MOUTH TWICE ACTIVE DAILY Indication: FOR PROBIOTIC SUPPLEMENTATION 6) LOSARTAN 50MG TAB TAKE ONE TABLET BY MOUTH ONCE DAILY FOR ACTIVE BLOOD PRESSURE/HEART Indication: FOR HIGH BLOOD PRESSURE 7) OMEPRAZOLE 20MG EC CAP TAKE ONE CAPSULE BY MOUTH TWICE DAILY ACTIVE BEFORE A MEAL 8) THROAT LOZENGE W/BENZOCAINE,MENTHOL (SF) DISSOLVE 1 LOZENGE ACTIVE BY MOUTH EVERY 6 HOURS NEEDED Indication: FOR SORE THROAT Review of Systems: Constitutional: (-)for Fevers, chills, weakness, nights sweats On examination: 99.1 F [37.3 C] (04/13/2025 15:00)146/92 (04/13/2025 15:00)90 (04/13/2025 15:00)16 (04/13/2025 15:00)8 (04/13/2025 15:00)BMI: 38.3290 lb [131.54 kg] (04/13/2025 15:00) is alert and oriented X3 Eyes:No scleral icterus, lids normal, Pupils equal,round and reactive to light HEENT: External without scars, lesions or masses, [...] Problem List is the source for the following: URI - see above Today I spent 30 minutes on some or all of the following: chart review, history, physical examination, treatment planning, education and counseling of the patient/family/patient centered care specialist, placing orders, communicating with other health care providers, completing health and wellness screenings (see below) and documentation in the electronic health record. Follow up visit in 4 mos. Medication Reconciliation: Outpatient: Has the patient been [...] or non-VA provider. /mandi/ Paul Pink DNP, CONTROL INSPECTOR-BC, CNL Primary Care Nurse Practitioner Signed: 04/15/2025 13:[address] [facility]
--- OUTSIDE RECORDS SUMMARY | 2025-07-05 15:52 | XMS_ITS | Continuity of Care Document ---
Author Name [facility] Organization [facility] Care Team Providers Care Marketing Operations Assistant Name Role Phone [facility] Unavailable Unavailable Problems Combined list of problems [...] Knee: arthralgia * (ICD-9-CM 719.46) Active Condition [facility] Low Back Pain * (ICD-9-CM 724.2) Active Condition [facility] Nonspecific abnormal results of function study of liver (ICD-9-CM 794.8) Active Condition [facility] OBESITY, UNSP Active Condition [facility] Onychomycosis Active Condition [facility] Pain in joint involving lower leg (ICD-9-CM 719.46) Active Condition [facility] Panic Disorder Active Condition [place] Patellar tendinitis (ICD-9-CM 726.64) Active Condition [facility] RBC count abnormal Active Condition [facility] Relationship problems Active Condition [facility] Sleep Apnea (SCT [id number]) Active Condition April 04, 2020 Entered By: JIAN SEO AM Comment: uses CPAP [facility] Toothache (SCT [id number]) - Unspecified disorder of the teeth and supporting stru Inactive Condition 11/06/2021 [facility] Diagnosis: ICD-10-CM J06.9 Acute upper respiratory infection, unspecified Active Diagnosis [facility] Diagnosis: ICD-10-CM Z71.89 Other specified counseling Active Diagnosis [facility] Diagnosis: ICD-10-CM J02.9 Acute pharyngitis, unspecified Active Diagnosis [facility] Diagnosis: ICD-10-CM G47.30 Sleep apnea, unspecified Active Diagnosis [facility] Diagnosis: ICD-10-CM Z46.0 Encounter for fit/adjst of spectacles and contact lenses Active Diagnosis [facility] Diagnosis: ICD-10-CM H33.322 Round hole, left eye Active Diagnosis [facility] Diagnosis: ICD-10-CM 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tism, bilateral Active Diagnosis [facility] Diagnosis: ICD-10-CM H92.03 Otalgia, bilateral Active Diagnosis [facility] Diagnosis: ICD-10-CM Z04.9 Encounter for examination and observation for unsp reason Active Diagnosis [facility] Medications Combined list of outpatient medications from [...] NOT TAKE WITH GRAPEFRU IT JUICE ORAL 04/19/2025 [id number] 5 DEX SEO 2023 90 [facility] AMOXICILLIN TRIHYDRATE 500MG CAP TAKE ONE CAPSULE BY MOUTH THREE TIMES A DAY ORAL DISCONT INUED BY PROVIDE R 05/12/2025 [id number] 5 DOMI GAO 2024 30 [facility] AMOXICILLIN TRIHYDRATE 875MG/CLAVU LANATE K 125MG TAB TAKE 1 TABLET BY MOUTH TWICE DAILY FOR INFECTIO N ORAL 05/11/2024 [id number] 4 RA RADHA BLACKWELL 2023 20 [facility] AZELASTINE HCL 137MCG/SPRA Y INHL,NASAL, 30ML SPRAY 1 SPRAY INTO EACH NOSTRIL TWICE DAILY FOR SEASONAL RUNNY NOSE NASAL ACTIVE 07/11/2025 [id number] 5 DOMI GAO 2024 1 [facility] CETIRIZINE HCL 10MG TAB TAKE ONE TABLET BY MOUTH ONCE DAILY FOR ALLERGIE S ORAL ACTIVE 07/11/2025 [id number] 5 DOMI GAO 2024 90 [facility] DOXYCYCLINE HYCLATE 100MG TAB TAKE ONE TABLET BY MOUTH TWICE DAILY ORAL 05/13/2025 [id number] 5 DEX SEO 2024 14 [facility] LACTOBACILL US ACIDOPHILUS CAP TAKE 1 CAPSULE BY MOUTH TWICE DAILY ORAL 05/13/2025 [id number] 5 DEX SEO 2024 100 [facility] [place]AN 50MG TAB TAKE ONE TABLET BY MOUTH ONCE DAILY FOR BLOOD PRESSURE /HEART ORAL 04/19/2025 [id number] DEX SEO 2023 90 [facility] OMEPRAZOLE 20MG CAP,EC TAKE ONE CAPSULE BY MOUTH TWICE DAILY BEFORE A MEAL ORAL 04/19/2025 [id number] 5 DEX SOE 2023 180 [facility] THROAT LOZENGE W/BENZOCAIN E,MENTHOL (SF) DISSOLVE 1 LOZENGE BY MOUTH EVERY 6 HOURS NEEDED FOR SORE THROAT ORAL 05/12/2025 [id number] 5 DOMI GAO 2024 16 [facility] Allergies, Adverse Reactions, Alerts Combined list of allergies from Department of Defense and Veterans Affairs facilities. It does not include entries that were removed or entered in error. Substance Category Reaction Severity Reaction type Status Date Reported Comments Source No Known Allergies Drug allergy (disorder) active 08/14/2009 [facility] Immunizations Combined list of available immunizations from the Department of Defense and Veterans Affairs facilities. Immunization Series Date Given Administered By Site Reaction Lot Number CVX Code Drug Quality Assurance Group Leader Status Comments Source COVID-19 (PFIZER), MRNA, LNP-S, PF, 30 MCG/0.3 ML DOSE 2 2020 208 complet ed [facility] COVID-19 (PFIZER), MRNA, LNP-S, PF, 30 MCG/0.3 ML DOSE 1 2020 208 complet ed [facility] ZOSTER RECOMBINANT 1 2018 187 complet ed [facility] TD(ADULT) UNSPECIFIED FORMULATION 2017 139 complet ed [facility] [...] vaccine 1 2007 [id number] Sanofi Pasteur ([facility]) complet ed typhoid Vi capsular polysacch aride vaccine DoD FLU,3 YRS (HISTORICAL) 2006 88 complet ed [facility] INFLUENZA, UNSPECIFIED FORMULATION 2005 NONE 88 complet ed [facility] hepatitis B vaccine, adult dosage 3 2004 [id number] 43 [employer]line ([facility]) complet ed hepatitis B vaccine, adult dosage DoD anthrax vaccine 4 2003 UNK 24 [employer] ([facility]) complet ed anthrax vaccine DoD influenza virus vaccine, split virus (incl. purified surface antigen)-reti red CODE 1 2002 [id number] [employer] (AVB) complet ed influenza virus vaccine, split virus (incl. purified surface antigen)- retired CODE DoD anthrax vaccine 3 2002 [id number] [employer] ([facility]) complet ed anthrax vaccine DoD hepatitis B vaccine, adult dosage 1 2002 [id number] 43 [employer]Kline (SK[facility]) complet ed hepatitis B vaccine, adult dosage DoD anthrax vaccine 2 2002 [id number] [employer] ([facility]) complet ed anthrax vaccine DoD vaccinia (smallpox) vaccine 0 2002 [id number] [employer] (WAL) complet ed vaccinia (smallpox ) vaccine DoD anthrax vaccine 1 2002 [id number] [employer] ([facility]) complet ed anthrax vaccine DoD influenza virus vaccine, split virus (incl. purified surface antigen)-reti red CODE 0 2002 [id number] Sanofi Pasteur ([facility]) complet ed influenza virus vaccine, split virus (incl. purified surface antigen)- retired CODE DoD yellow fever vaccine 0 2002 [id number] Sanofi Pasteur ([facility]) complet ed yellow fever vaccine DoD hepatitis B vaccine, adult dosage 1 2002 [id number] 43 [employer] (SKB) complet ed hepatitis B vaccine, adult [...] Reference Range Date Interpretation Specimen Comments Source HEPATITI S B SURFACE ANTIBODY (HBsAb)- WH HEPATITIS B VIRUS SURFACE AB [PRESENCE] IN SERUM BY IMMUNOASSA Y Non Reactive 04/12 Specimen Type: SERUM No comment entered. Ordering Provider: SAVI SEO Report Released Date/Time: Apr 12, 2025 09:57 AM Reporting Lab: [facility] [place] [address] [facility] [address] Performing Lab: [facility] [address] [address] [facility] LIPID PANEL, NON FASTING CHOLESTERO L [MASS/VOLU ME] IN SERUM OR PLASMA 154 mg/dL 04/12 Specimen Type: SERUM No comment entered. Ordering Provider: SAVI SEO Report Released Date/Time: Apr 12, 2025 09:57 AM Reporting Lab: [facility] [place] [address] [facility] [address] Performing Lab: [facility] [facility] [place] [address] [facility] [address] [facility] LIPID PANEL, NON FASTING TRIGLYCERI DE [MASS/VOLU ME] IN SERUM OR PLASMA 104 mg/dL 0 - 150 04/12 Specimen Type: SERUM No comment entered. Ordering Provider: SAVI SEO Report Released Date/Time: Apr 12, 2025 09:57 AM Reporting Lab: [facility] [place] [facility] [place] [address] [facility] [address] Performing Lab: [facility] [facility] [place] [address] [facility] [address] [facility] LIPID PANEL, NON FASTING CHOLESTERO L IN LDL [MASS/VOLU ME] IN SERUM OR PLASMA BY CHRISTOFER Diop 97 mg/dL 0 - 129 04/12 Specimen Type: SERUM No comment entered. Ordering Provider: SAVI SEO Report Released Date/Time: Apr 12, 2025 09:57 AM Reporting Lab: [facility] [place] [address] [facility] [address] Performing Lab: [facility] [facility] [place] [address] [facility] [address] [facility] [place] [facility] LIPID PANEL, NON FASTING CHOLESTERO L.TOTAL/CH OLESTEROL IN HDL [MASS RATIO] IN SERUM OR PLASMA 4.3 04/12 Specimen Type: SERUM No comment entered. Ordering Provider: SAVI SEO Report Released Date/Time: Apr 12, 2025 09:57 AM Reporting Lab: [facility] [facility] [place] [address] [facility] [address] Performing Lab: [facility] [place] [address] [facility] [address] [facility] [place] [facility] LIPID PANEL, NON FASTING CHOLESTERO L IN HDL [MASS/VOLU ME] IN SERUM OR PLASMA 36 mg/dL 40 04/12 L Specimen Type: SERUM No comment entered. Ordering Provider: SAVI SEO Report Released Date/Time: Apr 12, 2025 09:57 AM Reporting Lab: [facility] [place] [address] [address] Performing Lab: [facility] [address] [address] [facility] LIVER FUNCTION PROTEIN [MASS/VOLU ME] IN SERUM OR PLASMA 7.0 g/dL 6.4 - 8.3 04/12 Specimen Type: SERUM No comment entered. Ordering Provider: SAVI SEO Report Released Date/Time: Apr 12, 2025 09:57 AM Reporting Lab: [facility] [address] [address] Performing Lab: [facility] [place] [address] [facility] [address] [facility] LIVER FUNCTION ALBUMIN [MASS/VOLU ME] IN SERUM OR PLASMA BY BROMOCRESO L PURPLE (BCP) DYE BINDING METHOD 4.4 g/dL 3.5 - 5.2 04/12 Specimen Type: SERUM No comment entered. Ordering Provider: SAVI ESO Report Released Date/Time: Apr 12, 2025 09:57 AM Reporting Lab: [facility] [address] [address] Performing Lab: [facility] [address] [address] [facility] LIVER FUNCTION ALKALINE PHOSPHATAS E [ENZYMATIC ACTIVITY/V OLUME] IN SERUM OR PLASMA 89 U/L 40 - 150 04/12 Specimen Type: SERUM No comment entered. Ordering Provider: SAVI SEO Report Released Date/Time: Apr 12, 2025 09:57 AM Reporting Lab: [facility] [facility] [place] [address] [facility] [address] Performing Lab: [facility] [facility] [place] [address] [facility] [address] [facility] LIVER FUNCTION ASPARTATE AMINOTRANS FERASE [ENZYMATIC ACTIVITY/V OLUME] IN SERUM OR PLASMA BY WITH P-5'-P 31 U/L 5 - 34 04/12 Specimen Type: SERUM No comment entered. Ordering Provider: SAVI SEO Report Released Date/Time: Apr 12, 2025 09:57 AM Reporting Lab: [facility] [facility] [place] [address] [facility] [address] Performing Lab: [facility] [place] [facility] [place] [address] [facility] [address] [facility] LIVER FUNCTION ALANINE AMINOTRANS FERASE [ENZYMATIC ACTIVITY/V OLUME] IN SERUM OR PLASMA BY WITH P-5'-P 55 U/L 0 - 55 04/12 Specimen Type: SERUM No comment entered. Ordering Provider: SAVI SEO Report Released Date/Time: Apr 12, 2025 09:57 AM Reporting Lab: [facility] [facility] [place] [address] [facility] [address] Performing Lab: [facility] [place] [address] [address] [facility] [place] [facility] LIVER FUNCTION BILIRUBIN. TOTAL [MASS/VOLU ME] IN SERUM OR PLASMA 1.0 mg/dL 0.2 - 1.2 04/12 Specimen Type: SERUM No comment entered. Ordering Provider: SAVI SEO Report Released Date/Time: Apr 12, 2025 09:57 AM Reporting Lab: [facility] [facility] [place] [address] [facility] [address] Performing Lab: [facility] [facility] [place] [address] [facility] [address] [facility] [place] BASIC METABOLI C PANEL (non-fas ting) UREA NITROGEN [MASS/VOLU ME] IN SERUM OR PLASMA 10 mg/dL 9 - 21 04/12 Specimen Type: SERUM No comment entered. Ordering Provider: SAVI SEO Report Released Date/Time: Apr 12, 2025 09:57 AM Reporting Lab: [facility] [facility] [place] [address] [facility] [address] Performing Lab: [facility] [place] [address] [address] [facility] BASIC METABOLI C PANEL (non-fas ting) GLUCOSE [MASS/VOLU ME] IN SERUM OR PLASMA 95 mg/dL 65 - 100 04/12 Specimen Type: SERUM No comment entered. Ordering Provider: SAVI SEO Report Released Date/Time: Apr 12, 2025 09:57 AM Reporting Lab: [facility] [place] [facility] [place] [address] [facility] [address] Performing Lab: [facility] [place] [address] [address] [facility] [place] [facility] [place] [facility]IC METABOLI C PANEL (non-fas ting) SODIUM [MOLES/VOL UME] IN SERUM OR PLASMA 139 mmol/L 136 - 145 04/12 Specimen Type: SERUM No comment entered. Ordering Provider: SAVI SEO Report Released Date/Time: Apr 12, 2025 09:57 AM Reporting Lab: [facility] [place] [facility] [place] [address] [facility] [address] Performing Lab: [facility] [place] [address] [address] [facility] [place] [facility]IC METABOLI C PANEL (non-fas ting) POTASSIUM [MOLES/VOL UME] IN SERUM OR PLASMA 4.2 mmol/L 3.5 - 5.1 04/12 Specimen Type: SERUM No comment entered. Ordering Provider: SAVI SEO Report Released Date/Time: Apr 12, 2025 09:57 AM Reporting Lab: [facility]ITALTR[facility] [address] [address] Performing Lab: [facility] TRN [facility] [address] [address] [facility] BASIC METABOLI C PANEL (non-fas ting) CHLORIDE [MOLES/VOL UME] IN SERUM OR PLASMA 105 mmol/L 98 - 107 04/12 Specimen Type: SERUM No comment entered. Ordering Provider: SAVI SEO Report Released Date/Time: Apr 12, 2025 09:57 AM Reporting Lab: [facility]ITALRINF[facility] HOSPITALTRN [facility]ITALUSE[address] [address] Performing Lab: [facility]ITALRL W[facility]N [facility] [address] [address] [facility]ITALRSPR[facility]ERN [facility]ITALUSE [facility] BASIC METABOLI C PANEL (non-fas ting) CARBON DIOXIDE, TOTAL [MOLES/VOL UME] IN SERUM OR PLASMA 25 meq/L 22 - 29 04/12 Specimen Type: SERUM No comment entered. Ordering Provider: SAVI SEO Report Released Date/Time: Apr 12, 2025 09:57 AM Reporting Lab: [facility] [place] [address] [address] Performing Lab: [facility]N [facility] [address] [address] [facility]ITALRINFIR[facility] HOSPITALTRN [facility] BASIC METABOLI C PANEL (non-fas ting) CALCIUM [MASS/VOLU ME] IN SERUM OR PLASMA 9.0 mg/dL 8.4 - 10.2 04/12 Specimen Type: SERUM No comment entered. Ordering Provider: SAVI SEO Report Released Date/Time: Apr 12, 2025 09:57 AM Reporting Lab: [facility] [place] [facility] [place] [address] [facility] [address] Performing Lab: [facility] [place] [facility] [place] [address] [facility] [address] [facility] [place] [facility]IC METABOLI C PANEL (non-fas ting) CREATININE [MASS/VOLU ME] IN SERUM OR PLASMA 1.10 mg/dL 0.72 - 1.25 04/12 Specimen Type: SERUM No comment entered. Ordering Provider: SAVI SEO Report Released Date/Time: Apr 12, 2025 09:57 AM Reporting Lab: [facility] [place] [facility] [place] [address] [facility] [address] Performing Lab: [facility] [place] [address] [address] [facility] [facility] [place] [facility] METABOLI C PANEL (non-fas ting) GLOMERULAR FILTRATION RATE/1.73 SQ M.PREDICTE D [VOLUME RATE/AREA] IN SERUM, PLASMA OR BLOOD BY CREATININE -BASED FORMULA (CKD-EPI 2020) 85 mL/min 60 04/12 Specimen Type: SERUM No comment entered. Ordering Provider: SAVI SEO Report Released Date/Time: Apr 12, 2025 09:57 AM Reporting Lab: [facility] [place] [facility] [place] [address] [facility] [address] Performing Lab: [facility] [address] [address] [facility]ITALRL TRN [facility]ITALUSE [facility] CBC LEUKOCYTES [#/VOLUME] IN BLOOD BY AUTOMATED COUNT 9.12 10*3/uL 4.50 - 11.00 04/12 Specimen Type: BLOOD No comment entered. Ordering Provider: SAVI SEO Report Released Date/Time: Apr 12, 2025 09:57 AM Reporting Lab: [facility] [place] [facility] [place] [address] [facility] [address] Performing Lab: [facility] [place] [address] [address] [facility] [facility] CBC ERYTHROCYT ES [#/VOLUME] IN BLOOD BY AUTOMATED COUNT 5.35 10*6/uL 4.23 - 5.66 04/12 Specimen Type: BLOOD No comment entered. Ordering Provider: SAVI SEO Report Released Date/Time: Apr 12, 2025 09:57 AM Reporting Lab: [facility] [place] [facility] [place] [address] [facility] [address] Performing Lab: [facility] [place] [facility] [place] [address] [facility] [address] [facility] [facility] [place] [facility] HEMOGLOBIN [MASS/VOLU ME] IN BLOOD 15.7 g/dL 12.8 - 17 04/12 Specimen Type: BLOOD No comment entered. Ordering Provider: SAVI SEO Report Released Date/Time: Apr 12, 2025 09:57 AM Reporting Lab: [facility] [place] [address] [address] Performing Lab: [facility] [place] [facility] [place] [address] [facility] [address] [facility] [place] [place] CBC HEMATOCRIT [VOLUME FRACTION] OF BLOOD BY AUTOMATED COUNT 46.3 39.2 - 50.4 04/12 Specimen Type: BLOOD No comment entered. Ordering Provider: SAVI SEO Report Released Date/Time: Apr 12, 2025 09:57 AM Reporting Lab: [facility]ITALRL [facility] [place] [facility] [place] [address] [facility] [address] Performing Lab: [facility] [place] [facility] [place] [address] [facility] [address] [facility] [place] [facility] [place] CBC MCV [ENTITIC VOLUME] BY AUTOMATED COUNT 86.5 fL 82 - 99 04/12 Specimen Type: BLOOD No comment entered. Ordering Provider: SAVI SEO Report Released Date/Time: Apr 12, 2025 09:57 AM Reporting Lab: [facility] [place] [address] [address] Performing Lab: [facility] [place] [facility] [place] [address] [facility] [address] [facility] [place] [facility] [place] CBC MCHC [MASS/VOLU ME] BY AUTOMATED COUNT 33.9 g/dL 30.8 - 35.1 04/12 Specimen Type: BLOOD No comment entered. Ordering Provider: SAVI SEO Report Released Date/Time: Apr 12, 2025 09:57 AM Reporting Lab: [facility] [place] [address] [address] Performing Lab: [facility] [place] [facility] [place] [address] [facility] [address] [facility] [place] [facility] [place] CBC PLATELETS [#/VOLUME] IN BLOOD BY AUTOMATED COUNT 146 10*3/uL 140 - 360 04/12 Specimen Type: BLOOD No comment entered. Ordering Provider: SAVI SEO Report Released Date/Time: Apr 12, 2025 09:57 AM Reporting Lab: [facility] [place] [address] [address] Performing Lab: [facility] [place] [address] [address] [facility] [place] [facility] PLATELET MEAN VOLUME [ENTITIC VOLUME] IN BLOOD BY AUTOMATED COUNT 10.9 fL 9.2 - 12.4 04/12 Specimen Type: BLOOD No comment entered. Ordering Provider: SAVI SEO Report Released Date/Time: Apr 12, 2025 09:57 AM Reporting Lab: [facility] [place] [address] [address] Performing Lab: [facility] [place] [address] [address] [facility] [place] [facility] [place] CBC ERYTHROCYT E DISTRIBUTI ON WIDTH [RATIO] BY AUTOMATED COUNT 13.2 12.0 - 16.0 04/12 Specimen Type: BLOOD No comment entered. Ordering Provider: SAVI SEO Report Released Date/Time: Apr 12, 2025 09:57 AM Reporting Lab: [facility] [place] [address] [address] Performing Lab: [facility] [place] [facility] [place] [address] [facility] [address] [facility] [place] [facility] CBC MCH [ENTITIC MASS] BY AUTOMATED COUNT 29.3 pg 26.2 - 32.6 04/12 Specimen Type: BLOOD No comment entered. Ordering Provider: SAVI SEO Report Released Date/Time: Apr 12, 2025 09:57 AM Reporting Lab: [facility] [place] [facility] [place] [address] [facility] [phone] Performing Lab: [facility]N [facility] [place] [address] [facility] [address] [facility] PT & INR (PROTIME ) INR IN PLATELET POOR PLASMA BY COAGULATIO N ASSAY 1.1 05/22 Specimen Type: PLASMA No comment entered. Ordering Provider: SAVI SEO Report Released Date/Time: Apr 18, 2024 08:56 AM Reporting Lab: [facility]ITALRINF[facility]TR[facility] [place] [facility] [place] [address] [facility] [address] Performing Lab: [facility] TRN [facility]USE[facility] [address] [facility] [address] [facility] [place] [facility] PT & INR (PROTIME ) PROTHROMBI N TIME (PT) 12.5 s 10.0 - 13.1 05/22 Specimen Type: PLASMA No comment entered. Ordering Provider: SAVI SEO Report Released Date/Time: Apr 18, 2024 08:56 AM Reporting Lab: [facility] [place] [facility] [address] [facility] [address] Performing Lab: [facility] [place] [place] [address] [address] [facility] HEPATITI S B SURFACE ANTIGEN (HBsAg)- [...] 2024 08:56 AM Reporting Lab: [facility] [address] [facility] [address] Performing Lab: [facility] [address] [facility] [address] [facility] HEPATITI S B CORE (Total) [...] Apr 18, 2024 08:56 AM Reporting Lab: [facility] [address] [facility] [address] Performing Lab: [facility] [address] [facility] [address] [facility] JOSE SCREEN/T ITER NUCLEAR AB [PRESENCE] IN SERUM NEG 05/22 Specimen Type: SERUM No comment entered. Ordering Provider: SAVI SEO Report Released Date/Time: Apr 18, 2024 08:56 AM Reporting Lab: [facility] [address] [facility] [address] Performing Lab: [facility] [address] [facility] [address] [facility] FERRITIN FERRITIN [MASS/VOLU ME] IN SERUM OR PLASMA 27 ng/mL 20 - 300 05/22 Specimen Type: SERUM No comment entered. Ordering Provider: SAVI SEO Report Released Date/Time: Apr 18, 2024 08:56 AM Reporting Lab: [facility] [place] [facility] [address] [facility] [address] Performing Lab: [facility] [place] [facility] [address] [facility] [address] [facility] [place] [facility] [place] Vital Signs Combined list of inpatient and outpatient Vital Signs from Department of Defense and Veterans Affairs, ranging from 12 months to all on record, depending upon the facility. Vital Sign Value Date Comments Source SYSTOLIC BLOOD PRESSURE 146 04/13/20 25 15:00:05 [facility] DIASTOLIC BLOOD PRESSURE 92 025 15:00:05 [facility] [place] [facility] PULSE OXIMETRY 98 % 04/13/2025 15:00:05 [facility] [place] WEIGHT 290 04/13/2025 15:00:05 [facility] [place] [facility] BMI 38 kg/m2 04/13/2025 15:00:05 [facility] [place] PAIN 8 04/13/2025 15:00:05 [facility] HEIGHT 73 04/13/2025 15:00:05 [facility] TEMPERATURE 99.1 04/13/2025 15:00:05 [facility] [place] [facility] PULSE 90 04/13/2025 15:00:05 [facility] [place] [facility] RESPIRATION 16 04/13/2025 15:00:05 [facility] [place] [facility] SYSTOLIC BLOOD PRESSURE 126 04/12/20 25 09:45:25 [facility] [place] [facility] DIASTOLIC BLOOD PRESSURE 88 025 09:45:25 [facility] [place] [facility] PULSE OXIMETRY 97 % 04/12/2025 09:45:25 [facility] [place] PAIN 7 04/12/2025 09:45:25 [facility] [place] TEMPERATURE 98.1 04/12/2025 09:45:25 [facility] [place] [facility] PULSE 89 04/12/2025 09:45:25 [facility] [place] [facility] RESPIRATION 16 04/12/2025 09:45:25 [facility] [place] [facility] Encounters Combined list of: 1) Encounters from Department of Veterans Affairs facilities going backup to the last 18 months, not all VA inpatient encounters are included; 2) Encounters from the Department of [facility] facilities going backup to 280 months. Location Location Details Encounter Type Encounter Number Reason For Visit Attending Provider ADM Date DC Date Status Disposition Source Theater Facility OUTPATIENT [id number] 08/23 Discharged- Home or Self-care Theater Facilit y [facility]) OUTPATIENT [id number] flu symptom s DANIELA HAWTHORNET 08/14 Sick at Home/Quarter s [facility](F D [facility]) [facility] Outpatient Encounter [id number] 02/09 [facility] Encounter [id number] 02/27 [facility] Out[facility] Encounter [id number] 03/14 [facility] [place] [facility] OFF/OP EST MARCH X REQ PHY/QHP [id number] Diagnos is: ICD-10- CM Z04.9 Encount er for examina tion and observa tion for unsp reason NIYA MCCONNELL 04/11 [facility] OFFICE O/P EST MOD 30 MIN [id number] Diagnos is: ICD-10- CM H92.03 juan r Mccann RAI ROSANAJHONNY RIZO 04/11 [facility] Out[facility] Encounter [id number] 04/14 [facility] [place] OFFICE O/P EST MOD 30 MIN [id number] Diagnos is: ICD-10- CM G47.30 Sleep apnea, unspeci Mihaela Kim 04/18 [facility] Out[facility] Encounter [id number] 04/28 [facility] [place] [facility] Outpatient Encounter [id number] 05/14 [facility] [place] INTRM OPH EXAM EST PATIENT [id number] Diagnos is: ICD-10- CM 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 juan r ardon MI CHELE 05/23 [facility] [place] FUNDUS PHOTOGRAPH Y W/I&R [id number] Diagnos is: ICD-10- CM H33.322 Round hole, left eye NEENA ZARATE 05/23 [facility] Out[facility] Encounter [id number] 05/24 [facility] [place] [facility] FIT SPECTACLES MONOFOCAL [id number] Diagnos is: ICD-10- CM Z46.0 Encount er for fit/adj st of spectac les and contact lenses NEENA ZARATE 05/24 [facility] [place] [facility] [place] [facility] Outpatient Encounter [id number] 05/30 [place] [facility] [facility] [place] [facility] Outpatient Encounter [id number] 05/30 [facility] [place] [facility] [place] [facility] COLLJ & INTERPJ DATA EA 30 D [id number] Diagnos is: ICD-10- CM G47.30 Sleep apnea, unspeci fied OG FLORES 07/03 [facility] [place] [facility] [place] [facility] Outpatient Encounter [id number] Mihaela SEO 07/06 [facility] [place] [facility] [place] [facility] Outpatient [facility]counter [id number] 08/16 [facility] [place] [facility] [place] [facility] OFFICE O/P EST MOD 30 MIN [id number] Diagnos is: ICD-10- CM J02.9 Acute pharyng itis, unspeci fied ELIZABETH GAO 04/12 [facility] [place] [facility] [place] [facility] OFF/OP EST MAY X REQ PHY/QHP [id number] Diagnos is: ICD-10- CM 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 Social History Type Response Date Comment Source Tobacco smoking status [facility]-TOBACCO NEVER USED 10/06/2023 [facility] [place] [facility] History of tobacco use [facility]-TOBACCO NEVER USED 07/31/2022 [facility] [place] [facility] History of tobacco use [place]-TOBACCO NEVER USED 04/24/2021 [facility] History of tobacco use [place]-TOBACCO NEVER USED 03/26/2020 [facility] [place] [facility] History of tobacco use [place]-TOBACCO NEVER USED 02/27/2019 [facility] [place] [facility] History of tobacco use LIFETIME NON-TOBACCO USER 12/14/2017 [facility] [place] [facility] History of tobacco use LIFETIME NON-TOBACCO USER 12/14/2016 Life time nonsmoker [facility] [place] [facility] History of tobacco use LIFETIME NON-TOBACCO USER 01/06/2016 [facility] [place] [facility] History of tobacco use LIFETIME NON-TOBACCO USER 01/21/2015 never [facility] [place] [facility] History of tobacco use LIFETIME NON-TOBACCO USER [facility] of tobacco use LIFETIME NON-TOBACCO USER 11/[facility] History of tobacco use LIFETIME NON-TOBACCO USER 01/30/[facility] History of tobacco use LIFETIME NON-TOBACCO USER 04/05/2007[facility] History of tobacco use LIFETIME NON-TOBACCO USER 01/10/2007[facility] History of tobacco use LIFETIME NON-TOBACCO USER [facility] of tobacco use LIFETIME NON-TOBACCO USER 12/04/[facility] History of tobacco use LIFETIME NON-TOBACCO USER 02/24/2005[facility] History of tobacco use LIFETIME NON-TOBACCO USER 04/04/2004[facility] This section is an empty social history section. [facility] Plan of Care List of future care activities from Department of Veterans Affairs facilities. Additional future care activities may be listed in the Assessment and Plan section. Date/Time Care Activity Care Activity Detail Facili ty 08/13/2025 AMBULATORY - MEDICINE AMBULATORY - MEDICI [facility]
--- OUTSIDE RECORDS SUMMARY | 2025-07-05 15:53 | XMS_ITS | Encounter Summary ---
Author Organization [facility] Address [address] [facility] [address] [place] [address] Phone Care Team Providers Care Block Operator Name Role Phone Gabby Cervantes DO Primary Care Provider Paul Pink LOCAL OWNER OPERATOR TRUCK DRIVER Primary Care Provide r Encounter Details Date Type Department Care Team (Late st Contact Info) Description 01/20/2018 Procedure Pass [facility], [address] [address] Social History Tobacco Use Types Packs/Day Years Used Date Smoking Tobacco: Never Assessed Sex and Gender Information Value Date Recorded Sex Assigned at Male 09/21/2020 8:11 PM EST Legal Sex Male 9:21 PM EDT Gender Identity Male 09/21/2020 8:11 PM EST Sexual Orientation Straight 10/13/2020 12 :23 PM EST documented as of this encounter Plan of Treatment Not on file documented as of this encounter Visit Diagnoses Not on filedocumented in this encounter Additional Health Concerns Infection Onset Date Last Indicated Resolved Time COVID-19 10/22/2022 10/22/2022 11/12/2022 1:21 AM EST MRSA 10/22/2022 10/22/2022 10/21/2024 1:21 AM EST documented as of this encounter Care Teams Block Operator Relationship Specialty Start Date End Date Gabby Cervantes DO [address] [place] [address] PCP - General Internal Medicine 01/21/18 06/16/21 Paul Pink, LOCAL OWNER OPERATOR TRUCK DRIVER [address] [place] [address] PCP - General Family Medicine 06/17/21 documented as of this encounter Additional Source Comments The information contained in this document represents components of the legal health record. It is not the complete legal health record.[facility]
--- OUTSIDE RECORDS SUMMARY | 2025-07-05 15:53 | XMS_ITS | Encounter Summary ---
Author Organization [facility] Address [address] [facility] [address] [place] [address] Phone Care Team Providers Care Advice Clerk Name Role Phone Gabby Cervantes DO Primary Care Provider [phone] Paul Pink NP Primary Care Provide r Reason for Referral * MRI/CAT Scan - Closed Specialty Diagnoses / Procedures Referred By Keo hughes Referred To Contact Radiology Diagnoses Lumbar radiculopathy Procedures MRI Lumbar Spine Gabby Cervantes DO Phone: tel: fax: Referral ID Status Reason Start Date Expiration Date Visits Re quested Visits Authorized [id number] Closed 01/20/2018 03/22/2018 1 1 Encounter Details Date Type Department Care Team (Latest Contact Info) Description 01/20/2018 Ancillary Orders Virtual Department [address] [place] [address] Gabby Cervantes DO [address] [place] [address] Lumbar radiculopathy Social History Tobacco Use Types Packs/Day Years [...] on file documented as of this encounter Results * MRI LUMBAR SPINE (NEURO) WITH AND WITHOUT CONTRAST (02/01/2018 4:35 PM EDT) Anatomical Region Laterality Modality L-spine Magnetic Resonan ce 02/01/2018 5:05 PM EDT Impressions 02/01/2018 5:58 PM EDT 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 This would be unlikely to be an acute source of the pain but may cause some compression of the exiting L1 nerve root. Small disc protrusion with annular tear at denoted L5-S1 level without regional mass effect on nerve roots. POS - [id number] Edited by: Tracie White on 02/01/2018 5:25 PM Narrative 02/01/2018 5:58 PM EDT HISTORY: Low back pain with left radiculopathy. Left L1 foraminal mass. COMPARISON: None. TECHNIQUE: Exam performed on a 1.5 Elizabeth high-field MRI scanner. Sagittal T1, T2 and STIR, axial T1 and T2 sequences were obtained, followed by post-gadolinium sagittal T1 and axial T1 sequences. FINDINGS: Numbering is based on the presumption of a rudimentary S1-2 disc. There may be a transitional element here. T11-12 and T12-L1: No findings of concern. L1-2: There is a fluid intensity mass beginning at the region of the L1 nerve root exit and extending through the foramen and taking up the entire space of the L1 foramen. There appears to be mild expansion of the foramen and some remodeling at the posterior margin of L1. There is no enhancement. This is consistent with a large dural cyst rather than a nerve sheath tumor. It measures 4 cm in craniocaudal extent x 2.3 cm in maximal transverse extent and 2.2 cm in AP extent. No other similar lesions at other levels. No disc abnormality of concern. L2-3 through L4-5: No findings of concern. L5-S1: Mild disc desiccation. Annular tear with small right paracentral disc protrusion but no significant regional mass effect. No abnormal enhancement elsewhere. No worrisome marrow signal change. Study not tailored for evaluation of regional soft tissues but no soft tissue findings of concern are appreciated in the [id number]. Procedure Note Duane Becerra MD - 02/01/2018 HISTORY: Low back pain with left radiculopathy. Left L1 foraminal mass. COMPARISON: None. TECHNIQUE: Exam performed on a 1.5 Elizabeth high-field MRI scanner. SagittalT1, T2 and STIR, axial T1 and T2 sequences were obtained, followed bypost-gadolinium sagittal T1 and axial T1 sequences. FINDINGS: Numbering is based on the presumption of a rudimentary S1-2 disc. Theremay be a transitional element here. T11-12 and T12-L1: No findings of concern. L1-2: There is a fluid intensity mass beginning at the region of the V2coqnz root exit and extending through the foramen and taking up the entirespace of the L1 foramen. There appears to be mild expansion of theforamen and some remodeling at the posterior margin of L1. There is noenhancement. This is consistent with a large dural cyst rather than anerve sheath tumor. It measures 4 cm in craniocaudal extent x 2.3 cm inmaximal transverse extent and 2.2 cm in AP extent. No other similarlesions at other levels. No disc abnormality of concern. L2-3 through L4-5: No findings of concern. L5-S1: Mild disc desiccation. Annular tear with small right paracentraldisc protrusion but no significant regional mass effect. No abnormal enhancement elsewhere. No worrisome marrow signal change.Study not tailored for evaluation of regional soft tissues but no softtissue findings of concern are appreciated in the kamyn-sj-umet. 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 Small disc protrusion withannular tear at denoted L5-S1 level without regional mass effect on nerveroots. POS - [id number] Edited by: Tracie White on 02/01/2018 5:25 PM Gabby ZUÑIGA MR XSPECIALTY Final Result documented in this encounter Visit Diagnoses Diagnosis Lumbar radiculopathy Thoracic or lumbosacral neuritis or radiculitis, unspecified Lumbar radiculopathy Thoracic or lumbosacral neuritis or radiculitis, unspecified documented in this encounter Additional Health Concerns Infection Onset Date Last Indicated Resolved Time COVID-19 10/22/2022 10/22/2022 11/12/2022 1:21 AM EST MRSA 10/22/2022 10/22/2022 10/21/2024 1:21 AM EST documented as of this encounter Care Teams Advice Clerk Relationship Specialty Start Date End Date Gabby Cervantes DO [address] [place] [address] PCP - General Internal Medicine 01/21/18 06/16/21 Paul Pink NP [address] [place] [address] PCP - General Family Medicine 06/17/21 documented as of this encounter Additional Source Comments The information contained in this document represents components of the legal health record. It is not the complete legal health record.[facility]
--- OUTSIDE RECORDS SUMMARY | 2025-07-05 15:53 | XMS_ITS | Encounter Summary ---
Author Organization [facility] Address [address] [facility] [address] [place] [address] Phone Care Team Providers Care Metrologist Name Role Phone Paul Pink NP Primary Care Provide r Encounter Details Date Type Department Care Team (Late st Contact Info) Description 01/16/2022 Transcribe Orders Virtual Department [address] [place] [address] Mary Lr PA [address] [place], [place] [phone] [email or web address] Dizziness and giddiness (Primary Dx) Social History Tobacco Use Types Packs/Day Years Used Date Smoking Tobacco: Never Smokeless Tobacco: Never Alcohol Use Standard Drinks/Week Comments Not Currently 0 (1 standard drink = 0.6 oz pur e alcohol) Sex and Gender Information Value Date Recorded Sex Assigned at Male 09/21/2020 8:11 PM EST Legal Sex Male 9:21 PM EDT Gender Identity Male 09/21/2020 8:11 PM EST Sexual Orientation Straight 10/13/2020 12 :23 PM EST documented as of this encounter Plan of Treatment Not on file documented as of this encounter Visit Diagnoses Diagnosis Dizziness and giddiness- Primary documented in this encounter Additional Health Concerns Infection Onset Date Last Indicated Resolved Time COVID-19 10/22/2022 10/22/2022 11/12/2022 1:21 AM EST MRSA 10/22/2022 10/22/2022 10/21/2024 1:21 AM EST documented as of this encounter Care Teams Metrologist Relationship Specialty Start Date End Date Paul Pink NP [address] [place] [address] PCP - General Family Medicine 06/17/21 documented as of this encounter Additional Source Comments The information contained in this document represents components of the legal health record. It is not the complete legal health record.[facility]
--- OUTSIDE RECORDS SUMMARY | 2025-07-05 15:53 | XMS_ITS | Encounter Summary ---
Author Organization [facility] Address [address] [facility] [address] [place] [address] Phone Care Team Providers Care Customs Opener Verifier Packer Name Role Phone Paul Pink NP Primary Care Provide r Encounter Details Date Type Department Care Team (Late st Contact Info) Description 12/25/2021 Procedure Pass [facility], Ct Scan - [facility] [address] [place] [address] Social History Tobacco Use Types Packs/Day Years [...] PM EST documented as of this encounter Functional Status * Calculated C-SSRS Risk Score (Lifetime/Recent) Answer Date of Assessment Author No Risk Indicated 12/25/2021 12:26 PM EST Camille Short RN * [place] Suicide Severity Rating Scale (Screener/Recent Self-Report) Question Answer Date of Assessment Author 1. Wish to be (Past 1 Month) No 022 12:26 PM Camille Toribio, RN 2. Non-Specific Active Suici lesa Thoughts (Past 1 Month) No 12/25/2021 12:26 PM EST Allison Canales RN 6. Suicidal Behavior (Lifetime) No 12:26 PM Camille Toribio, RN documented as of this encounter Plan of Treatment Not on file documented as of this encounter Visit Diagnoses Not on filedocumented in this encounter Additional Health Concerns Infection Onset Date Last Indicated Resolved Time COVID-19 10/22/2022 10/22/2022 11/12/2022 1:21 AM EST MRSA 10/22/2022 10/22/2022 10/21/2024 1:21 AM EST documented as of this encounter Care Teams Customs Opener Verifier Packer Relationship Specialty Start Date End Date Paul Pink NP [address] [place] [address] PCP - General Family Medicine 06/17/21 documented as of this encounter Additional Source Comments The information contained in this document represents components of the legal health record. It is not the complete legal health record.[facility]
--- OUTSIDE RECORDS SUMMARY | 2025-07-05 15:54 | XMS_ITS | Clinical Summary ---
Author Organization [facility] Address [address] [address] Phone Care Team Providers Care Natural Remedy Consultant Name Role Phone Paul Pink NP Primary Care Provide r Allergies No known active allergies Medications chlorthalidone (HYGROTON) 25 MG tablet Take 25 mg by mouth daily. 05/05/2022 Active omeprazole (PRILOSEC) 20 mg TbEC Take 20 mg by mouth daily before breakfast. Active amLODIPine (NORVASC) 5 MG tablet Take 1 tablet (5 mg total) by mouth daily. 60 tablet 5 05/22/2022 Active losartan (COZAAR) 50 MG tablet Take 1.5 tablets (75 mg total) by mouth daily. 120 tablet 4 06/23/2022 Active ibuprofen (ADVIL,MOTRIN) 800 MG tablet Take 1 tablet (800 mg total) by mouth every 8 (eight) hours as needed for pain (specific location in comments). 30 tablet 10/09/2023 Active meclizine (ANTIVERT) 25 mg tablet Take 1 tablet (25 mg total) by mouth 3 (three) times a day as needed. 21 tablet 10/07/2024 Active Active Problems Problem Noted Date Diagnosed Date Abnormal results of liver function studies 10/07 Benign essential hypertension 10/07/2024 Obesity 10/07/2024 Onychomycosis 10/07/2024 Round hole, left eye 10/07/2024 Sleep apnea, unspecified 10/07/2024 Chronic mixed headache syndrome 12/31/2014 Overview (10/07/2024): Dec 31, 2014 Entered By: TSERING JONES Comment: rebound analgesia component Gastroesophageal reflux disease 12/31/2014 Overview (10/07/2024): Dec 31, 2014 Entered By: TSERING JONES Comment: UGE ?2009 mild gastritis Aug 20, 2017 Entered By: EDVIN DAVID Comment: [facility] GI 2017 - ranitidine and omeprazole Panic disorder 12/31/2014 Steatosis of liver 12/31/2014 Overview (10/07/2024): Dec 31, 2014 Entered By: TSERING JONES Comment: [facility] 11/22, SGPT 78 12/31/14 Immunizations No known immunizations Social History Tobacco Use Types Packs/Day Years Used Date Smoking Tobacco: Never Smokeless Tobacco: Never Alcohol Use Standard Drinks/Week Comments Not Currently 0 (1 standard drink = 0.6 oz pur e alcohol) Education Answer Date Recorded Are you interested in more education? Not on adi e 03/05/2023 Are you concerned about learning? Not on file 03/05/2023 No 03/05/2023 No 03/05/2023 Digital Access Answer Date Recorded No 04/02/2023 No 04/02/2023 Reliable internet access at home? Not on file 04/02/2023 Device with a working camera? Not on file Intimate Partner Violence Answer Date R ecorded Are you denied basic needs s uch as food, clothing, or medical care? No 10/09/2023 In the past 12 months have y ou been in a relationship with a person who hurts, threatens, or tries to control you? No 10/09/2023 Are you denied basic needs s uch as food, clothing, or medical care? No 10/09/2023 In the past 12 months have y ou been in a relationship with a person who hurts, threatens, or tries to control you? No 10/09/2023 Sex and Gender Information Value Date Recorded Sex Assigned at Male 09/21/2020 8:11 PM EST Legal Sex Male 9:21 PM EDT Gender Identity Male 09/21/2020 8:11 PM EST Sexual Orientation Straight 10/13/2020 12 :23 PM EST Last Filed Vital Signs Vital Sign Reading Time Taken Comments Blood Pressure 147/95 10/07/2024 11:04 AM EST Pulse 71 10/07/2024 11:04 AM EST Temperature 36.8 C (98.3 F) 10/07/2024 11:04 AM EST Respiratory Rate 20 10/07/2024 11:04 AM EST Oxygen Saturation 97% 10/07/2024 11:04 AM EST Inhaled Oxygen Concentration - - Weight 135.6 kg (299 lb) 10/09/2023 3:25 PM EST Height 185.4 cm (6' 1 ) 10/09/2023 3:25 PM EST Body Mass Index 39.45 10/09/2023 3:25 PM EST Plan of Treatment Health Maintenance Due Date Last Done Comments LIPID PANEL 1981 DEPRESSION SCREENING 1993 HEPATITIS C SCREENING 1999 HIV ONE-TIME SCREENING (18-65 YEARS) 1999 COVID-19 VACCINE ( season) 2024 12/05/2021, 03/30/2021, 03/09/2021 BLOOD PRESSURE 04/06/2025 10/07/2024 CREATININE LEVEL 10/07/2025 10/07/2024, 12/2022, 10/22/2022, Additional history exists POTASSIUM LEVEL 10/07/2025 10/07/2024, 1212/2022, 10/22/2022, Additional history exists Adult Td,Tdap Booster 01/05/2026 01/06/2016 SCREENING FOR DIABETES 10/07/2027 10/07/2024 SMOKING STATUS SCREENING (Once After 26 Yrs) Completed 10/07/2024 HEPATITIS A VACCINES Aged Out No long er eligible based on patient's age to complete this topic HIB VACCINES Aged Out No longer eligi ble based on patient's age to complete this topic MENINGOCOCCAL VACCINES (ACWY) Aged Out No longer eligible based on patient's age to complete this topic MENINGOCOCCAL VACCINES (B) Aged Out N o longer eligible based on patient's age to complete this topic PNEUMOCOCCAL VACCINES (0-49 years) Aged Out No longer eligible based on patient's age to complete this topic Medical Devices Not on file Procedures Procedure Name Priority Date/Time Associated Diagnosis Comments COMPREHENSIVE METABOLIC PANEL Routine 10/07/2024 11:26 AM EST Vertigo from Last 3 Months or Most Recently Relevant to Health Maintenance Results * (ABNORMAL) Comprehensive metabolic panel (10/07/2024 11:26 AM EST) SODIUM 140 133 - 146 mmol/L [facility] POTASSIUM 4.3 3.3 - 5.1 mmol/L [facility] CHLORIDE 105 96 - 108 mmol/L [facility] CO2 25 21 - 35 mmol/L [facility] BUN 13 6 - 19 mg/dL [facility] CREATININE 1.00 0.5 - 1.5 mg/dL [facility] GLUCOSE 88 70 - 99 mg/dL [facility] ALBUMIN 4.4 3.9 - 4.8 g/dL [facility] TOTAL PROTEIN 7.3 6.5 - 8.0 g/dL [facility] CALCIUM 9.8 8.4 - 10.3 mg/dL [facility] ALKALINE PHOSPHATASE 81 39 - 117 U/L [facility] TOTAL BILIRUBIN 0.5 0.0 - 1.2 mg/dL [facility] AST 29 0 - 37 U/L [facility] ALT 49(H) 0 - 40 U/L [facility] GLOBULIN 2.9 1 - 4.8 g/dL [facility] EGFR 96 >59 mL/min/1.7 3m2 [facility] Comment:Estimated glomerular filtration rate calculated using the CKD-EPI refit equation. ANION GAP 14 10 - 20 mmol/L [facility] Blood 10/07/2024 11:2 6 AM EST 10/07/2024 5:26 PM EST Kathrine Monroy ARBORICULTURIST LAB BLOOD ORDERABLES Final Result [facility] [address] [place] [address] from Last 3 Months or Most Recently Relevant to Health Maintenance Insurance [place] [id number] [employer]WORK [employer] [place] [employer] [place] E[place] CARE NETWORK [facility] EPO [facility] [employer] [place] [id number] NETWORK [employer] [place] Care Teams Natural Remedy Consultant Relationship Specialty Start Date End Date Paul Pink NP [facility] [place] [address] PCP - General Family Medicine 06/17/21 Additional Source Comments The information contained in this document represents components of the legal health record. It is not the complete legal health record.[facility]
== END 2025-07-05 15:24 | disposition home or self-care (01) ==
LOC: HO.BBR 15:23
PROVIDERS: Visit Provider Internal Medicine
DX: D75.1 Secondary polycythemia (principal)
CPT/HCPCS: 85014; 85018; 99195

== ENCOUNTER 2025-09-20 15:36 | Outpatient (REF) | payer OTHER, SELFPAY ==
--- OUTSIDE RECORDS SUMMARY | 2025-09-20 18:33 | XMS_ITS | Encounter Summary ---
Author Organization [facility] Address [address] [facility] [address] [place] [address] Phone Care Team Providers Care Commanding Officer Homicide Squad Name Role Phone Gabby Cervantes DO Primary Care Provider Paul Pink PLACING JUDGE Primary Care Provide r Encounter Details Date Type Department Care Team (Late st Contact Info) Description 01/20/2018 Procedure Pass [facility], [address] [address] Social History Tobacco Use Types Packs/Day Years [...] documented as of this encounter Care Teams Commanding Officer Homicide Squad Relationship Specialty Start Date End Date Gabby Cervantes DO [address] [place] [address] PCP - General Internal Medicine 01/21/18 06/16/21 Paul Pink, PLACING JUDGE [address] [place] [address] PCP - General Family Medicine 06/17/21 documented as of this encounter Additional Source Comments The information contained in this document represents components of the legal health record. It is not the complete legal health record.[facility]
--- OUTSIDE RECORDS SUMMARY | 2025-09-20 18:33 | XMS_ITS | Encounter Summary ---
Author Organization [facility] Address [address] [facility] [address] [place] [address] Phone Care Team Providers Care Commercial Census Taker Name Role Phone Gabby Cervantes DO Primary Care Provider [phone] Paul Pink NP Primary Care Provide r Reason for Referral * MRI/CAT Scan - Closed Specialty Diagnoses / Procedures Referred By Keo hughes Referred To Contact Radiology Diagnoses Lumbar radiculopathy Procedures MRI Lumbar Spine Gabby Cervantes DO Phone: tel: fax: Referral ID Status Reason Start Date Expiration Date Visits Re quested Visits Authorized [id number] Closed 01/20/2018 03/22/2018 1 1 Encounter Details Date Type Department Care Team (Latest Contact Info) Description 01/20/2018 Ancillary Orders Virtual Department [address] [place] [address] Gabby Cervantes DO [address] [place] [address] Lumbar radiculopathy Social History Tobacco Use Types [...] mass effect on nerve roots. POS - [id number] Edited by: Tracie White on 02/01/2018 5:25 [...] findings of concern are appreciated in the [id number]. Procedure Note Duane Becerra MD - 02/01/2018 [...] mass beginning at the region of the I7qhods root exit and extending through the foramen [...] findings of concern are appreciated in the [id number]. 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 Small disc protrusion withannular tear at denoted L5-S1 level without regional mass effect on nerveroots. POS - [id number] Edited by: Tracie White on 02/01/2018 5:25 [...] documented as of this encounter Care Teams Commercial Census Taker Relationship Specialty Start Date End Date Gabby Cervantes DO [address] [place] [address] PCP - General Internal Medicine 01/21/18 06/16/21 Paul Pink NP [address] [place] [address] PCP - General Family Medicine 06/17/21 documented as of this encounter Additional Source Comments The information contained in this document represents components of the legal health record. It is not the complete legal health record.[facility]
--- OUTSIDE RECORDS SUMMARY | 2025-09-20 18:33 | XMS_ITS | Encounter Summary ---
Author Organization [facility] Address [address] [facility] [address] [place] [address] Phone Care Team Providers Care Instrument Repair Specialist Name Role Phone Paul Pink NP Primary Care Provide r Encounter Details Date Type Department Care Team (Late st Contact Info) Description 01/16/2022 Transcribe Orders Virtual Department [address] [place] [address] Mary Lr PA [address] [place], [place] [id number] [email or web address] Dizziness and giddiness (Primary Dx) Social History [...] documented as of this encounter Care Teams Instrument Repair Specialist Relationship Specialty Start Date End Date Paul Pink NP [address] [place] [address] PCP - General Family Medicine 06/17/21 documented as of this encounter Additional Source Comments The information contained in this document represents components of the legal health record. It is not the complete legal health record.[facility]
--- OUTSIDE RECORDS SUMMARY | 2025-09-20 18:33 | XMS_ITS | Clinical Summary ---
Author Organization [facility] Address [address] [address] Phone Care Team Providers Care Entry Level Paralegal Name Role Phone Paul Pink NP Primary [...] 1999 HIV ONE-TIME SCREENING (18-65 YEARS) 1999 BLOOD PRESSURE 04/06/2025 10/07/2024 INFLUENZA VACCINE (#1) 2025 08/20/2017, 2015 COVID-19 VACCINE ( season) 2025 12/05/2021, 03/30/2021, 03/09/2021 CREATININE LEVEL 10/07/2025 10/07/2024, 12/2022, 10/22/2022, Additional [...] on patient's age to complete this topic IPV VACCINES Aged Out No longer eligi ble [...] Date/Time Associated Diagnosis Comments COMPREHENSIVE METABOLIC PANEL (CMP) Routine 10/07/2024 11:26 AM EST Vertigo from Last 3 Months or Most Recently Relevant to Health Maintenance Results * (ABNORMAL) Comprehensive metabolic panel (10/07/2024 11:26 AM EST) SODIUM 140 133 - 146 mmol/L [facility] POTASSIUM 4.3 3.3 - 5.1 mmol/L [facility] CHLORIDE 105 96 - 108 mmol/L [facility] CO2 25 21 - 35 mmol/L [facility] BUN 13 6 - 19 mg/dL [facility] CREATININE 1.00 0.5 - 1.5 mg/dL [facility] GLUCOSE 88 70 - 99 mg/dL [facility] ALBUMIN 4.4 3.9 - 4.8 g/dL [facility] TOTAL PROTEIN 7.3 6.5 - 8.0 g/dL [facility] CALCIUM 9.8 8.4 - 10.3 mg/dL [facility] ALKALINE PHOSPHATASE 81 39 - 117 U/L [facility] TOTAL BILIRUBIN 0.5 0.0 - 1.2 mg/dL [facility] AST 29 0 - 37 U/L [facility] ALT 49(H) 0 - 40 U/L [facility] GLOBULIN 2.9 1 - 4.8 g/dL [facility] EGFR 96 >59 mL/min/1.7 3m2 [facility] Comment:Estimated glomerular filtration rate calculated using the CKD-EPI refit equation. ANION GAP 14 10 - 20 mmol/L [facility] Blood 10/07/2024 11:2 6 AM EST 10/07/2024 5:26 PM EST us Kathrine Monroy ANIMAL GENETICIST LAB BLOOD BKR ORDERABLES Fi nal Result [facility] [address] [place] [address] from Last 3 Months or Most Recently Relevant to Health Maintenance [place] [address] [place] [address] [employer] [facility] PPO EPO [place]WORK [employer] [place] E[place] [facility] [employer] [place] [employer] [place] Care Teams Entry Level Paralegal Relationship Specialty Start Date End Date Paul Pink NP [address] [place] [address] PCP - General Family Medicine 06/17/21 Additional Source Comments The information contained in this document represents components of the legal health record. It is not the complete legal health record.[facility]
--- OUTSIDE RECORDS SUMMARY | 2025-09-20 18:33 | XMS_ITS | Encounter Summary ---
Author Organization [facility] Address [address] [facility] [address] [place] [address] Phone Care Team Providers Care Surgical Appliances Salesperson Name Role Phone Paul Pink NP Primary Care Provide r Encounter Details Date Type Department Care Team (Late st Contact Info) Description 12/25/2021 Procedure Pass [facility], Ct Scan - [facility] [address] [place] [address] Social History Tobacco Use Types Packs/Day Years [...] 12:26 PM EST Camille Short RN * Humphreys Suicide Severity Rating Scale (Screener/Recent Self-Report) Question Answer Date of Assessment Author 1. Wish to be (Past 1 Month) No 022 12:26 PM Camille Toribio, RN 2. Non-Specific Active Suici lesa Thoughts (Past 1 Month) No 12/25/2021 12:26 PM EST Allison Canaels RN 6. Suicidal Behavior (Lifetime) No 12:26 [...] documented as of this encounter Care Teams Surgical Appliances Salesperson Relationship Specialty Start Date End Date Paul Pink NP [address] [place] [address] PCP - General Family Medicine 06/17/21 documented as of this encounter Additional Source Comments The information contained in this document represents components of the legal health record. It is not the complete legal health record.[facility]
== END 2025-09-20 15:37 | disposition home or self-care (01) ==
LOC: HO.BBR 15:36
PROVIDERS: Visit Provider Internal Medicine
DX: D75.1 Secondary polycythemia (principal)
CPT/HCPCS: 85014; 85018; 99195